=== PATIENT | male | born 1950 | race Caucasian/White ===

== ENCOUNTER → 2017-12-27 11:54 | Outpatient (CLI) | payer MEDICARE, OTHER, SELFPAY ==
--- NOTE | 2017-12-27 12:00 | RAD_ITS ---
STUDY: X-RAY - RIGHT WRIST REASON FOR EXAM: Male, 67 years old. Metacarpal pain. TECHNIQUE: 3 view(s) of the wrist were obtained. COMPARISON: None. FINDINGS: Normal visualized distal radius and ulna. Normal radiocarpal articulation. Normal distal radioulnar articulation. There are erosions visible within the scaphoid near the scapholunate trapezium articulation and the articulation with the lunate. There may be small erosions within the capitate and hamate as well. The carpal bones otherwise have a grossly normal appearance. Normal carpal articulations. Normal carpometacarpal articulation of the thumb. There are erosive and degenerative changes of the first metacarpal phalangeal joint. Normal second through fifth carpometacarpal articulations. Normal visualized metacarpal bones. There is mild soft tissue swelling. There is no demonstrated acute fracture. RAD/Wrist min 3 Views IMPRESSION: Erosive changes of the wrist and at the first metacarpophalangeal joint. Electronically Signed: Courtney Contreras MD at 8:33 EDT , Service support ,
== END ==
PROVIDERS: Family Provider Internal Medicine; PCP Internal Medicine; Visit Provider Nurse Practitioner Gerontology
DX: M25.531 Pain in right wrist (principal)
CPT/HCPCS: 73110

== ENCOUNTER → 2018-04-18 14:34 | Outpatient (CLI) | payer MEDICARE, OTHER, SELFPAY ==
--- NOTE | 2018-04-18 14:37 | ECHOD_ITS ---
Reason For Study: Abn. EKG Procedure This was a 2D Doppler, Color Flow transthoracic echocardiogram. Exam performed in department. Left Ventricle Normal LV size. The estimated ejection fraction is 45 %. Left ventricular systolic function is lower limits of normal. Septal motion consistent with IVCD. Transmitral diastolic flow velocities suggest mild (stage 1) diastolic dysfunction (reversed pattern). No regional wall motion abnormalities noted. Right Ventricle Normal RV size. Normal systolic function. Atria Normal left atrium. Normal right atrium. Mitral Valve Normal mitral valve. Trivial eccentric mitral valve insufficiency. Tricuspid Valve Normal tricuspid valve. Mild (1+) tricuspid valve insufficiency. Pulmonary artery systolic pressure is 28 mmHg. Aortic Valve Trisinus/trileaflet aortic valve. Pulmonic Valve Normal pulmonic valve. Great Vessels Normal aortic root. The pulmonary artery is normal size. Normal inferior vena cava. Pericardium/Pleural No pericardial effusion. MMode/2D Measurements & Calculations LVIDd: 4.9 cm IVSd: 0.96 cm Ao root diam: 3.2 cm LVIDs: 3.3 cm LVPWd: 1.1 cm LA dimension: 4.2 cm FS: 32.5 % LAV(MOD-bp): 42.4 ml LA A4 area: 17.5 cm2 RA A4 area: 15.8 cm2 LAV(MOD-bp) Indexed: 19.8 ml/m2 LAV(MOD-sp2): 38.8 ml LAV(MOD-sp4): 45.1 ml Doppler Measurements & Calculations MV E max jordan: 87.3 cm/sec Lat Peak E' Jordan: 8.9 cm/sec Med Peak E' Jordan: 5.4 cm/sec MV A max jordan: 105.9 cm/sec E/E' lat: 9.9 E/E' med: 16.3 MV E/A: 0.82 Ao V2 max: 164.9 cm/sec LV V1 max: 131.6 cm/sec PA V2 max: 120.2 cm/sec Ao max P.9 mmHg LV V1 max P.9 mmHg TR max jordan: 253.8 cm/sec TR max P.8 mmHg Interpretation Summary Normal LV size. The estimated ejection fraction is 45 %. Septal motion consistent with IVCD. Transmitral diastolic flow velocities suggest mild (stage 1) diastolic dysfunction (reversed pattern). Compared to prior study, there is no significant change. Ordering Physician: Twan Gaffney Referring Physician: Ivelisse Angel M.D. Performed By: Susanne Muñoz RDCS
== END ==
PROVIDERS: Family Provider Internal Medicine; PCP Internal Medicine; Visit Provider Internal Medicine Cardiovascular Disease
DX: R94.31 Abnormal electrocardiogram [ECG] [EKG] (principal); Z98.890 Other specified postprocedural states
CPT/HCPCS: 93306

== ENCOUNTER → 2018-05-28 14:20 | Outpatient (CLI) | payer MEDICARE, OTHER, SELFPAY | PROVIDERS: Family Provider Internal Medicine; PCP Internal Medicine; Visit Provider Internal Medicine | DX: Z12.2 Encounter for screening for malignant neoplasm of respiratory organs (principal); Z87.891 Personal history of nicotine dependence | CPT/HCPCS: G0297 ==

== ENCOUNTER → 2018-07-02 17:05 | Outpatient (CLI) | payer MEDICARE, OTHER, SELFPAY ==
--- NOTE | 2018-07-02 08:00 | PROSBIL_PTH ---
PATIENT: YOLY ISAACS LOC: [facility] U#:[id number] AGE/SX: 75/M ROOM: RE07/02/[address]: Dr. Vignesh Bunch MD : 1950 BED: DIS: SPEC #: [id number] RECD: 07/02/18 16:52 STATUS: DONNELL YANELY #: [id number] KINJAL: 07/02/18 08:[address]: Vignesh Bunch DEPT: SURGICAL PATHOLOGY RECD BY: Blu Wei ENTERED: 07/03/18 12:14 SP TYPE: PROST BX FLORY DR: Dr. Ivelisse Angel DO Tissues: A - PROSTATE RIGHT B - PROSTATE RIGHT C - PROSTATE RIGHT D - PROSTATE LEFT E - PROSTATE LEFT F - PROSTATE LEFT Procedures: PROSTATE BX HEADER OPERATION: Prostate biopsy PRE-OP DIAGNOSIS: Elevated PSA TISSUE SUBMITTED: A - Right apex, B - Right mid, C - Right base, D - Left apex, E - Left mid, F - Left base MICROSCOPIC DIAGNOSIS A. Right prostate, apex, core biopsy: Prostatic tissue, negative for malignancy. B. Right prostate, mid, core biopsy: Prostatic tissue, negative for malignancy. C. Right prostate, base, core biopsy: Prostatic tissue, negative for malignancy. D. Left prostate, apex, core biopsy: Prostatic tissue, negative for malignancy. Focal mild chronic inflammation. E. Left prostate, mid, core biopsy: Prostatic tissue, negative for malignancy. F. Left prostate, base, core biopsy: Prostatic tissue, negative for malignancy. SJ:adeline 07/04/18 MICROSCOPIC DESCRIPTION Slides are reviewed. GROSS DESCRIPTION A - Received is one container designated prostate, right apex. The specimen consists of three elongated fragments of light thomas-white soft tissue measuring 0.5 to 1.5 cm in length and 0.1 cm in diameter. The specimen is totally submitted in one cassette. B - Received is one container designated prostate, right mid. The specimen consists of two elongated fragments of light thomas-white soft tissue measuring 1 and 1.2 cm in length and 0.1 cm in diameter. The specimen is totally submitted in one cassette. C - Received is one container designated prostate, right base. The specimen consists of two elongated fragments of light thomas-white soft tissue each measuring 0.7 cm in length and 0.1 cm in diameter. The specimen is totally submitted in one cassette. D - Received is one container designated prostate, left apex. The specimen consists of two elongated fragments of light thomas-white soft tissue measuring 0.5 and 1.3 cm in length and 0.1 cm in diameter. The specimen is totally submitted in one cassette. E - Received is one container designated prostate, left mid. The specimen consists of two elongated fragments of light thomas-white soft tissue measuring 1.2 and 1.5 cm in length and 0.1 cm in diameter. The specimen is totally submitted in one cassette. F - Received is one container designated prostate, left base. The specimen consists of two elongated fragments of light thomas-white soft tissue measuring 0.5 and 1.2 cm in length and 0.1 cm in diameter. The specimen is totally submitted in one cassette. / SJ:rg 07/03/18 TC:3 CPT: G0146
== END ==
PROVIDERS: Family Provider Internal Medicine; PCP Internal Medicine; Visit Provider Urology
DX: R97.20 Elevated prostate specific antigen [PSA] (principal)
CPT/HCPCS: 88305; G0416

== ENCOUNTER → 2019-04-16 14:37 | Outpatient (CLI) | payer MEDICARE, OTHER, SELFPAY ==
[2019-03-27 15:02] VITALS: BMI 32.8
--- NOTE | 2019-04-16 14:39 | ECHOCS_ITS ---
Reason For Study: Abnormal EKG Procedure This was a 2D Doppler, Color Flow transthoracic echocardiogram. The study was technically difficult. Contrast injection was performed. Exam performed in department. Left Ventricle Normal LV size. Left ventricular systolic function is normal. The estimated ejection fraction is 60 %. Stage 1 diastolic dysfunction. No regional wall motion abnormalities noted. Right Ventricle Normal RV size. Normal systolic function. Atria Normal left atrium. Normal right atrium. Mitral Valve Normal mitral valve. Tricuspid Valve Normal tricuspid valve. Aortic Valve Trisinus/trileaflet aortic valve. Pulmonic Valve The pulmonic valve is not well visualized. Great Vessels Normal aortic root. The pulmonary is not well visualized. Pericardium/Pleural No pericardial effusion. Medication 22 gauge I.V. with prn adaptor inserted into right arm. Diluted definity 4ml given slow IV push to enhance endocardial definition. MMode/2D Measurements & Calculations LVIDd: 3.1 cm IVSd: 1.1 cm LVOT diam: 2.0 cm LVIDs: 2.3 cm LVPWd: 1.2 cm FS: 26.1 % LVOT area: 3.2 cm2 LA dimension: 3.5 cm LAV(MOD-sp4): 51.0 ml LA A4 area: 18.2 cm2 RA A4 area: 11.1 cm2 Time Measurements MV dec time: 0.23 sec Doppler Measurements & Calculations MV E max jordan: 63.5 cm/sec Lat Peak E' Jordan: 11.0 cm/sec Med Peak E' Jordan: 5.4 cm/sec MV A max jordan: 109.3 cm/sec E/E' lat: 5.8 E/E' med: 11.9 MV E/A: 0.58 MV V2 max: 111.0 cm/sec MV P1/2t max jordan: 82.3 cm/sec Ao V2 max: 195.5 cm/sec MV max P.9 mmHg MV P1/2t: 102.6 msec Ao max P.3 mmHg MV V2 mean: 60.2 cm/sec MV dec slope: 234.8 cm/sec2 Ao V2 mean: 122.8 cm/sec MV mean P.7 mmHg Ao mean P.1 mmHg MV V2 VTI: 27.8 cm MVA(P1/2t): 2.1 cm2 Ao V2 VTI: 35.0 cm MVA(VTI): 3.2 cm2 KAITLYN(I,D): 2.5 cm2 KAITLYN(V,D): 2.5 cm2 LV V1 max: 155.2 cm/sec SV(LVOT): 88.7 ml PA V2 max: 153.8 cm/sec LV V1 max P.6 mmHg LV V1 mean P.6 mmHg LV V1 mean: 96.2 cm/sec LV V1 VTI: 27.7 cm Interpretation Summary Normal LV size. Left ventricular systolic function is normal. The estimated ejection fraction is 60 %. Stage 1 diastolic dysfunction. Contrast injection was performed. Ordering Physician: Twan Gaffney Referring Physician: Ivelisse Angel M.D. Performed By: David Ragsdale RCS
== END ==
PROVIDERS: Family Provider Internal Medicine; PCP Internal Medicine; Referring Provider Internal Medicine Cardiovascular Disease; Visit Provider Internal Medicine Cardiovascular Disease
DX: I42.0 Dilated cardiomyopathy (principal)
CPT/HCPCS: 93306; Q9957; A4216; C8929

== ENCOUNTER 2021-07-21 17:33 | Outpatient (CLI) | payer MEDICARE, OTHER, SELFPAY ==
[2021-07-21] MEDS: 0.9% Saline Lock 10 ML Syringe IV (17:44)
[2021-07-21 17:45] VITALS: BP 120/64; PULSE 80; RESP 18; TEMP 37.1; O2SAT 92; BMI 26.2
[2021-07-21 18:36] VITALS: BP 120/57; PULSE 66; RESP 16; TEMP 37; O2SAT 93
[2021-07-21 19:36] VITALS: BP 116/56; PULSE 65; RESP 16; TEMP 37.1; O2SAT 93
== END 2021-07-21 19:37 | disposition home or self-care (01) ==
LOC: MS3OUT 17:36 → MS3 17:37
PROVIDERS: PCP Internal Medicine; Referring Provider Nurse Practitioner Adult Health; Visit Provider Nurse Practitioner Adult Health
DX: Z23 Encounter for immunization (principal); U07.1 COVID-19
CPT/HCPCS: J7050; M0243; A4216; Q0240

== ENCOUNTER 2023-11-24 08:51 | Emergency (ER) | payer MEDICARE, OTHER, SELFPAY ==
[2023-11-24 08:51] VITALS: BP 163/85; PULSE 61; RESP 16; TEMP 36.3; O2SAT 97; BMI 32.1
--- NOTE | 2023-11-24 09:22 | EDS_ITS ---
HPI History of Present Illness HPI Narrative: 73-year-old male right long finger laceration yesterday while moving a piece of wood. No other complaints. He is right-hand dominant. Believes his tetanus is up-to-date. Chief Complaint: Laceration Informant: patient Occured/Mechanism Mechanism/Context: Yes injury and Yes blunt trauma Onset/Context/Timing Onset: Yesterday Context: Sudden Onset Timing: Continuous Quality of Pain: Dull Current Severity: Mild Maximum Severity: Mild Associated Symptoms Associated Symptoms: Negative for Parasthesia, Weakness or Loss of Funtion Narrative Narrative: 73-year-old male laceration right long finger on the distal pad approximately 19 hours ago. Believes his tetanus is up-to-date in the last 5 years. Denies any other complaints. Does not believe he broke his finger. Tetanus Immunization: <5 years Prior similar symptoms: No Recent Illness/Hospitalization: No [facility] Medical History (Updated 11/24/23 @ 09:[address] Judd Griffith MD) Dilated cardiomyopathy Hyperlipidemia Left bundle branch block Obesity Obstructive sleep apnea Olecranon bursitis of left elbow Sinus bradycardia Snoring Vasovagal syncope Allergy/AdvReac Type Severity Reaction Status Date / Time No Known Allergies Allergy Verified 07/19/21 13:17 Family History Sister Myocardial infarction Surgical History H/O arthroscopic knee surgery History of colonoscopy Social History Smoking Status: Former smoker alcohol intake: current Alcohol type: beer caffeine: Yes Type: coffee Number of servings: 2 ROS ROS ED ROS Narrative Denies recent illness. Review of Systems ROS Unobtainable: Denies due to encephalopathy Constitutional Constitutional ED: Denies fever(s) Eyes Eyes: Denies blurry vision ENT ENT ED: Denies ear pain Cardiovascular Cardiovascular: Denies chest pain Respiratory/Chest Respiratory/Chest: Denies cough Gastrointestinal Gastrointestinal: Denies abdominal pain Genitourinary Genitourinary ED: Denies dysuria Musculoskeletal Musculoskeletal: Denies back pain Integumentary Denies abscess Neurologic Neurologic: Denies headache(s) Psychiatric Psychiatric: Denies anxiety Endocrine Endocrinology: Denies cold intolerance Hematologic/Lymphatic Hematologic/Lymphatic: Denies easy bleeding or easy bruising Allergic/Immunologic Allergic/Immunologic ED: Denies mouth swelling or tongue swelling EXAM Physical Exam Narrative Exam Narrative: Well-appearing 73-year-old male vital signs stable afebrile. HEENT exam normal. Lungs clear. Heart regular rhythm. Right hand long finger the distal phalanx skin that he has 1 inch long irregular laceration is linear. He has full flexio n extension. No bony deformity or tenderness. No signs of infection. No significant subungual hematoma or injury to the nail. Currently there is no redness, streaks or pus. It does not look infected. He cleaned it well and dressed it yesterday. Const Vital Signs: 11/24/23 08:51 Temperature 97.4 F L Temperature Source Temporal Pulse Rate 61 Respiratory Rate 16 Blood Pressure 163/85 H Blood Pressure Mean 111 Pulse Ox 97 Oxygen Delivery Method Room Air Positive well nourished and well developed; Negative for cachectic, contractures or unkempt General Appearance ED: well developed and NAD; Negative for unkempt, cachectic, contractures, cyanotic or diaphoretic Nutritional Appearance: Negative for cachectic HEENT Reports moist mucous membranes normocephalic and atraumatic; Negative for trauma or tenderness Eyes PERRL and EOMs intact bilaterally General Eye ED: Negative for other Neck full ROM and supple General: Negative for tenderness Lymph Lymphatic: Negative for other Chest Wall inspection of chest normal and palpation of chest normal Chest: Negative for other Resp normal respiratory effort and clear to auscultation bilaterally Effort and Inspection: Negative for pain with movement Auscultation: Negative for rales, rhonchi or wheezes Cardio regular rate, regular rhythm, S1 normal heart sound, S2 normal heart sound and no murmurs Rate: Negative for bradycardia or tachycardic Rhythm: Negative for abnormal rhythm GI non-tender, non-distended and no masses Inspection: Negative for abdominal distention Auscultation: normoactive bowel sounds Palpation: soft; Negative for tender, guarding or rebound tenderness present Back/Spine no CVA tenderness General Back: Negative for CVA tenderness Cervical Spine: Negative for cervical spine tenderness Thoracic Spine / Upper Back: Negative for thoracic spinal tenderness Lumbar Spine / Lower Back: Negative for lumbar spinal tenderness Extremity normal to inspection and full ROM Extremity Narrative: Except palmar aspect right long finger distal phalanx there is about a 1 inch irregular linear laceration. It does ooze blood. He has full flexion extension. No bony deformity. No signs of infection. No pus, redness or significant swelling. No red streaks. Neuro oriented x3, CN's II-XII intact bilaterally, moves all extremities, no focal motor deficits and no sensory deficits noted Sensorium / Orientation: alert, oriented to person, oriented to place and oriented to time; Negative for orientation impaired, lethargic or stuporous Motor Exam: strength 5/5 throughout Psych mental status grossly normal Appearance: Negative for unkempt Attitude: No agitated Mood & Affect: Negative for depressed, anxious or tearful Skin General Skin Exam: Negative for petechiae Lesions: no lesions Rashes: no rashes Trauma: laceration linear and irregular; Negative for no lacerations or abrasions MDM MDM MDM Narrative Medical decision making narrative: Wound was cleaned with soap and water. Dried. Dermabond glued and Steri- Stripped. He will be discharged home. He was instructed on wound care and any signs of infection return. Clinically does not have a fracture and the patient did not want an x-ray but was offered. History & Record Review Discussion w/independent historian: Patient Additional record(s) reviewed:: Prior inpatient record, Prior outpatient record and Prior ED visit Procedures Lacerations Right long finger laceration Dermabond repair:: Length: 1 in Depth: Sub Q Shape: Linear Discharge Plan Triage Chief Complaint: Laceration ED Provider: Judd Griffith Dx/Rx/DC Orders Clinical Impression: Finger laceration Instructions: ED Laceration, Hand: All Closures Primary Care Provider: Ivelisse Angel Referrals: Ivelisse Angel DO [Primary Care Provider] - As Needed Activity Restrictions/Additional Instructions: Redness,Watch for any signs of infection such as significant swelling, pus, streaks, fever or increasing pain. If seen return as you may need to be put on antibiotic. Keep the area clean with soap and water. You can use antibiotic ointment daily. You can take the Steri-Strips off in 1 week. Disposition Disposition: Home, Self Care
[2023-11-24 09:32] VITALS: RESP 16
== END 2023-11-24 09:34 | disposition home or self-care (01) ==
PROVIDERS: Emergency Provider Emergency Medicine; PCP Internal Medicine; Visit Provider Emergency Medicine
DX: S61.212A Laceration without foreign body of right middle finger without damage to nail, initial encounter (principal); Z87.891 Personal history of nicotine dependence; W26.8XXA Contact with other sharp object(s), not elsewhere classified, initial encounter
CPT/HCPCS: 12001; 99282

== ENCOUNTER 2025-08-30 11:10 | Emergency (ER) | payer MEDICARE, OTHER, SELFPAY ==
[2025-08-30] VITALS (25 sets, daily range): BP systolic 161–214; BP diastolic 79–114; PULSE 63–81; RESP 10–27; TEMP 36.6–36.8; O2SAT 9–100; BMI 35.1
--- NOTE | 2025-08-30 11:29 | EKG12_ITS ---
Test Reason : Blood Pressure : */* mmHG Vent. Rate : 65 BPM Atrial Rate : 65 BPM P-R Int : 172 ms QRS Dur : 164 ms QT Int : 462 ms P-R-T Axes : 50 2 179 degrees QTcB Int : 480 ms Normal sinus rhythm Left bundle branch block Abnormal ECG Confirmed by RITU REYES MD ([id number]), electronic news gathering editor ANA CRISTINA LICEA ([id number]) on 08/31/2025 9:18:08 AM Referred By: Confirmed By: RITU REYES MD
--- NOTE | 2025-08-30 11:29 | CT_ITS ---
PROCEDURE: BRAIN/HEAD WITHOUT CONTRAST 08/30/2025 REASON FOR EXAM: R ARM NUMBNESS AND TINGLING RESOLVED TECHNIQUE: Procedure Code: CTBR Modality: CT Procedure: BRAIN/HEAD WITHOUT CONTRAST Coronal and Sagittal reconstruction series were provided. One or more dose reduction techniques were used (e.g., Automated exposure control, adjustment of the mA and/or kV according to patient size, use of iterative reconstruction technique. RADIATION DOSE SUMMARY: CTDlvol: 44.99 mGy DLP: 846.73 mGycm COMPARISON: None FINDINGS: There is a isodense to brain parenchyma left-sided subdural hematoma extending from the temporal lobe to the occipital lobe with maximum thickness of a proximally 1.4 cm. However, due to the age consistent atrophic changes there is no midline shift or significant mass effect. Specifically, no evidence of suspicious pattern of edema. No skull fracture or scalp hematoma. Paranasal sinuses and globes are unremarkable CT/Brain/Head without Contrast IMPRESSION: Iso to slightly hyperdense left subdural hematoma extending from the left tempo ral lobe to the left occipital lobe with maximum thickness of about 1.4 cm. Due to the atrophic changes there is no significant mass effect, midline shift or pattern of edema. Age consistent changes elsewhere No acute hyperdense hemorrhage [place] Alert: Subacute left subdural hematoma The critical findings in the findings and impression above were relayed directl y by me by telephone to Oscar cEheverria on 08/30/2025 at 12:39 pm with readback verification. Reading Location: [id number]
--- NOTE | 2025-08-30 11:50 | EX.ED.DYSGE1 ---
HPI History of Present Illness Chief Complaint: Numb/Ting Narrative Narrative: Patient is a 75-year-old male with past medical history of of hyperlipidemia, left bundle branch block who presents to the emergency department with a chief complaint of right arm numbness and tingling [facility] [employer] that lasted approximately 5 minutes. He states that for the past week he has been feeling off and not his normal self having brain fog. He states that he is feeling under the weather with a viral illness that he had been trying [id number] medications 4. Patient states that since this episode occurred and he had been feeling off for the last week he came here to be further evaluated. [facility] Medical History (Updated 08/30/25 @ 13:[address] Oscar Echeverria DO) Obesity Olecranon bursitis of left elbow Obstructive sleep apnea Vasovagal syncope Snoring Dilated cardiomyopathy Hyperlipidemia Sinus bradycardia Left bundle branch block Home Medications ?Medication ?Instructions ?Recorded ?Last Taken ?Type NK 08/30/25 Unknown History Allergy/AdvReac Type Severity Reaction Status Date / Time No Known Allergies Allergy Verified 08/30/25 11:12 Family History Sister Myocardial infarction Surgical History H/O arthroscopic knee surgery History of colonoscopy Social History Smoking Status: Former smoker alcohol intake: current Alcohol type: beer caffeine: Yes Type: coffee Number of servings: 2 ROS ROS ED ROS Narrative Constitutional: Denies any headache, lightheadedness, dizziness Eyes: Denies double vision blurry vision Cardiovascular: Denies chest pain Respiratory: Denies shortness of breath Abdomen: Denies any abdominal pain nausea vomiting diarrhea : Denies any urinary symptoms Neurological: Complains of right arm numbness and tingling as noted above that resolved Musculoskeletal: Denies back pain Skin: Denies any rashes or lesions EXAM Physical Exam Narrative Exam Narrative: General: Patient was lying in bed rest comfortably did not appear to be in acute distress Head: Atraumatic, normocephalic Eyes: PERRL bilaterally, EOMI bilaterally, no conjunctival injection noted no vertical or horizontal nystagmus noted on exam Neck: Soft, supple, trachea midline Cardiovascular: Regular rate and rhythm Respiratory: Clear to auscultation bilaterally Abdomen: Soft, nondistended, nontender to palpation Extremities: +5/5 strength noted in the bilateral upper and lower extremities, radial pulses +2/4 in the bilateral extremities Neurological: Patient follow commands knew that he was at [facility] year is 2024 NIH of 0 GCS 15 he completed finger-nose testing bilaterally without difficulty Skin: Warm, dry, tact no rashes or lesions noted Const Vital Signs: 08/30/25 11:11 08/30/25 11:12 08/30/25 11:30 Temperature 98 F Temperature Source Temporal Pulse Rate 73 63 Respiratory Rate 14 27 H Blood Pressure 206/109 H 214/114 H 188/101 H Blood Pressure Mean 141 147 126 Pulse Ox 98 98 Oxygen Delivery Method Room Air Room Air 08/30/25 12:09 08/30/25 12:12 08/30/25 12:15 Temperature Temperature Source Pulse Rate 64 69 69 Respiratory Rate 16 13 19 H Blood Pressure 179/91 H 179/91 H Blood Pressure Mean 120 113 Pulse Ox 98 97 Oxygen Delivery Method Room Air 08/30/25 12:19 08/30/25 12:20 08/30/25 12:22 Temperature Temperature Source Pulse Rate 68 72 Respiratory Rate 22 H 24 H Blood Pressure 179/103 H Blood Pressure Mean 124 Pulse Ox 98 97 96 Oxygen Delivery Method Room Air 08/30/25 12:24 08/30/25 12:26 08/30/25 12:30 Temperature Temperature Source Pulse Rate 70 63 66 Respiratory Rate 15 10 L 27 H Blood Pressure 179/103 H 180/85 H Blood Pressure Mean 128 108 Pulse Ox 98 97 97 Oxygen Delivery Method Room Air 08/30/25 12:39 08/30/25 12:45 08/30/25 13:00 Temperature Temperature Source Pulse Rate 66 66 74 Respiratory Rate 22 H 22 H 16 Blood Pressure 161/88 H 176/90 H Blood Pressure Mean 108 116 Pulse Ox 97 97 99 Oxygen Delivery Method Room Air 08/30/25 13:15 Temperature Temperature Source Pulse Rate 71 Respiratory Rate 18 Blood Pressure 192/93 H Blood Pressure Mean 119 Pulse Ox 98 Oxygen Delivery Method Room Air MDM MDM MDM Narrative Medical decision making narrative: Patient is a 75-year-old male who presented to the emergency department with a chief complaint of feeling off for the past week and right arm numbness and tingling that lasted 5 minutes and resolved on its own. On the differential diagnose includes but limited to hypertensive emergency, TIA, ischemic stroke. Once workup is obtained and reviewed he will be reevaluated. Patient CBC reviewed and showed a white blood count is normal at 9.1, hemoglobin 14.7, platelet count was noted to be normal at 198. Patient INR normal at 1, PT of 13.2. Patient sodium was 130, potassium normal at 4.1, creatinine 0.98. Patient troponin normal 11 EKG showed sinus rhythm with a rate of 65 bpm with a WA interval 172 with evidence of left bundle branch block. No Sgarbossa criteria were met. Patient chest x-ray reviewed by myself and by radiology showed no acute cardiopulmonary processes per radiology chronic interstitial changes were noted. Patient CT head brain without contrast showed iso to slightly hyperdense left subdural hematoma extending to the left temporal lobe to the left occipital lobe with maximum thickness of 1.4 cm due to atrophic changes and there is no significant mass effect midline shift or pattern of edema. Patient was noted be hypertensive he was given a total of 20 mg of IV hydralazine here in the emergency department. Given his symptoms started about a week ago I reached out to neurosurgeon at [facility] Dr. Singh and discussed with him in regards to potentially keeping him here at [facility] he states that given that this is over 1 cm it is questionable if he will require surgery or not and would recommend transfer for stability scan and reevaluation. He is also recommending Keppra which was ordered. He will be given a gram of Keppra. He is also recommending a systolic blood pressure goal of less than 160 he states that he did not need to drop the blood pressure down to less than 140. Patient does have preference to go to [facility] As opposed to [place] therefore we will reach out to clinic clinic [facility] For transfer. Spoke with ER physician Dr. Silva who accept patient for transfer. Patient notified is agreeable this plan all question concerns answered. Lab Data Labs: Laboratory Results - last 24 hr 08/30/25 12:20 WBC 9.1 RBC 5.04 Hgb 14.7 Hct 45.1 MCV 89.5 MCH 29.2 MCHC 32.6 RDW Std Deviation 43.4 RDW Coeff of Claudia 13.2 Plt Count 198 MPV 10.8 Immature Gran % (Auto) 0.400 Neut % (Auto) 61.1 Lymph % (Auto) 25.4 [place] % (Auto) 9.4 Eos % (Auto) 3.2 Baso % (Auto) 0.5 Absolute Neuts (auto) 5.6 Absolute Lymphs (auto) 2.32 Nucleated RBC % 0 PT 13.2 INR 1.0 APTT 31.6 Sodium 138 Potassium 4.5 Chloride 103 Carbon Dioxide 25.1 Anion Gap 10 BUN 22 H Creatinine 0.98 Estim Creat Clear Calc 76.42 Est GFR (MDRD) Non-Af 80 BUN/Creatinine Ratio 22.7 H Glucose 88 Calcium 9.6 Troponin T High Sens 11 Radiography Diagnostic Testing: Clinical Impression(s) from Imaging Studies Brain CT 08/30/25 11:29 IMPRESSION: Iso to slightly hyperdense left subdural hematoma extending from the left temporal lobe to the left occipital lobe with maximum thickness of about 1.4 cm. Due to the atrophic changes there is no significant mass effect, midline shift or pattern of edema. Age consistent changes elsewhere No acute hyperdense hemorrhage Brilliant Alert: Subacute left subdural hematoma The critical findings in the findings and impression above were relayed directly by me by telephone to Oscar Echeverria on 08/30/2025 at 12:39 pm with readback verification. Reading Location: [facility] Chest X-Ray 08/30/25 12:05 IMPRESSION: Chronic interstitial changes, no superimposed acute pulmonary process Red Alert: Diffuse cerebral edema likely from anoxia The critical findings in the findings and impression above were relayed directly by me by telephone to Oscar Echeverria on 08/30/2025 at 12:47 pm with readback verification. Reading Location: [facility] Discharge Plan Triage Chief Complaint: Numb/Ting ED Provider: Oscar Echeverria Dx/Rx/DC Orders Clinical Impression: Left bundle branch block, Numbness and tingling of right arm, Non-traumatic subacute subdural hematoma Prescriptions: No Action NK Primary Care Provider: Ivelisse Angel Referrals: Ivelisse Angel DO [Primary Care Provider, Internal Medicine] Print Language: French Disposition Disposition: DC/Tx to Another Type of HCF
--- OUTSIDE RECORDS SUMMARY | 2025-08-30 11:54 | XMS RPT_ITS | CCD ---
Author Organization [facility] ion [facility] Care Team Providers Care Salon Stylist Name Role Phone CORNELIUS FAYE JR Unavailable Unavailable CORNELIUS FAYE Attending Unavailable CORNELIUS FAYE Referring Unavailable ASCENCION MASTERSON Primary Care Unavailable Ivelisse Masterson Attending Unavailable Ivelisse Masterson Referring Unavailable Ivelisse Masterson Consulting Unavailable Arielle Black Unavailable Arielle Black Unavailable Ivelisse Masterson Unavailable Padilla Gomez Unavailable Warner Cruz Unavailable Gravdeonna, Kyung Unavailable Unavailable Terra Cooney Unavailable Unavailable SUSAN Bush Unavailable Unavailable Shakira Rey Unavailable Unavailable Unavailable Sarah Ugarte Unavailable Unavailable Terra Cooney Unavailable Unavailable Gravius, Kyung Unavailable Unavailable Ivelisse Masterson DO Unavailable Padilla Gomez MD Unavailable Warner Cruz Unavailable Gravius BIBIANA, Kyung Unavailable Unavailable Messenger Terra FAUST Unavailable Unavailable Ciesa MANISHA Milly Unavailable Unavailable Unavailable Shakira Rey Unavailable Judd Griffith Attending Unavailable Ivelisse Masterson Primary Care Unavailable Medications Completed/Discontinued Medications Medication Drug Class(es) Dates Sig (Normalized) Sig (Original) [id number] 200 actuat albuterol 0.09 mg/actuat metered dose inhaler (7 sources) beta2-Adrenergic Agonist Start: 10-13-2015 End: 01-12-2016 take 2 puff(s) by inhalation three times daily PROAIR HFA, 108 (90 Base)MCG/ACT (Inhalation Aerosol Solution) 2 (two) Puff Puff tid for 0 days Quantity: 1 {Inhaler} Refills: 0 Ordered: 12-Jan-2016 Beatris Oconnor CMA Start : 13-Oct-2015 End : 12-Jan-2016 Inactive Start: 10-13-2015 End: 01-12-2016 take 2 puff(s) by inhalation three times daily PROAIR HFA, 108 (90 Base)MCG/ACT (Inhalation Aerosol Solution) 2 (two) Puff Puff tid for 0 days Quantity: 1 {Inhaler} Refills: 0 Ordered: 12-Jan-2016 Beatris Oconnor CMA Start : 13-Oct-2015 End : 12-Jan-2016 Inactive aspirin 81 mg chewable tablet (19 sources) Platelet Aggregation Inhibitor, Nonsteroidal Anti-inflammatory Drug Start: 10-09-2016 End: 03-27-2019 take 81 mg by mouth once daily Aspirin Discontinued 81 MG PO DAILY October 09, 2016 12:00am March 27, 2019 2:05pm Start: 02-02-2016 End: 10-12-2016 take 1 tablet by mouth once daily Aspirin 325 MG Oral Tablet 1 (one) Tablet daily for 0 days Quantity: 30 {Tablet} Refills: 0 Ordered: 12-Oct-2016 Ivelisse Masterson DO, DO, Kathleen Start : 12-Oct-2016 End : 12-Oct-2016 Discontinued Start: 02-02-2016 End: 02-12-2019 take 1 tablet by mouth once daily Aspir-81 81 MG Oral Tablet Delayed Release 1 (one) Tablet DR Tablet DR qd for 0 days Quantity: 30 {Tablet} Refills: 0 Ordered: 12-Feb-2019 SUSAN Bush LPN Start : 12-Oct-2016 End : 12-Feb-2019 Inactive azithromycin 250 mg oral tablet (7 sources) Macrolide Antimicrobial Start: 12-23-2013 End: 02-09-2014 ZITHROMAX Z-KEISHA, 250MG (Oral Tablet) 1 (one) Tablet TAD for 0 days Quantity: 1 {Package} Refills: 0 Ordered: 09-Feb-2014 Terra Cooney RN Start : 23-Dec-2013 End : 09-Feb-2014 Inactive benzonatate 100 mg oral capsule (7 sources) Non-narcotic Antitussive Start: 12-23-2013 End: 02-09-2014 take 1 capsule by mouth three times daily TESSALON PERLES, 100MG (Oral Capsule) 1 (one) Capsule tid for 0 days Quantity: 30 {Capsule} Refills: 0 Ordered: 09-Feb-2014 Terra Cooney RN Start : 23-Dec-2013 End : 09-Feb-2014 Inactive celecoxib 200 mg oral capsule (7 sources) Nonsteroidal Anti-inflammatory Drug Start: 01-19-2014 End: 01-19-2014 take 1 capsule by mouth twice daily as needed CELEBREX, 200MG (Oral Capsule) 1 Capsule bid prn for 0 days Quantity: 60 {Capsule} Refills: 1 Ordered: 19-Jan-2014 Ivelisse Masterson DO, DO, Kathleen Start : 19-Jan-2014 End : 19-Jan-2014 Discontinued Comments: [age]-- shoulder got better Comment on above: [age]-- shoulder got better chondroitin sulfates 200 mg / glucosamine hydrochloride 250 mg oral tablet (7 sources) Start: 01-23-2013 End: 02-23-2014 take 2 tablets by mouth once daily OSTEO BI-FLEX REGULAR STRENGTH, 250-200MG (Oral Tablet) 2 (two) tablet(s) qd for 30 days Refills: 0 Ordered: 23-Feb-2014 Terra Cooney RN Start : 23-Jan-2013 End : 23-Feb-2014 Inactive clonazePAM 1 mg oral tablet (10 sources) Benzodiazepine Start: 03-27-2018 End: 03-27-2019 take 1 tablet by mouth once daily at bedtime Clonazepam Discontinued 0 PO AT BEDTIME March 26, 2018 11:00pm March 27, 2019 2:05pm 1 MG, 2 Tablets PO QHS Start: 12-27-2017 End: 02-12-2019 take 1 tablet by mouth once daily KlonoPIN 2 MG Oral Tablet 1 (one) Tablet qd for 30 days Quantity: 30 {Tablet} Refills: 4 Ordered: 12-Feb-2019 SUSAN Bush LPN Start : 27-Dec-2017 End : 12-Feb-2019 Inactive Start: 03-27-2017 take 2 tablets by [facility] once daily at bedtime CLONAZEPAM 1 MG TABS Two tablets by mouth daily at bedtime CLONAZEPAM [id number] Twan Gaffney MD famotidine 20 mg oral tablet (8 sources) Histamine-2 Receptor Antagonist Start: 10-09-2016 End: 03-28-2018 take 1 tablet by mouth twice daily Pepcid 20 MG Oral Tablet 1 (one) Tablet Tablet bid for 0 days Quantity: 60 {Tablet} Refills: 0 Ordered: 16-May-2017 Terra Cooney RN Start : 12-Oct-2016 End : 16-May-2017 Inactive fluticasone propionate 0.05 mg/actuat metered dose nasal spray (7 sources) Corticosteroid Start: 11-19-2015 End: 01-12-2016 FLUTICASONE PROPIONATE, 50MCG/ACT (Nasal Suspension) uad Suspension Suspension 1-2 sprays each nostril qd prn for 0 days Quantity: 1 {Box} Refills: 3 Ordered: 12-Jan-2016 Beatris Oconnor CMA Start : 19-Nov-2015 End : 12-Jan-2016 Inactive 14 actuat fluticasone furoate 0.1 mg/actuat / vilanterol 0.025 mg/actuat dry powder inhaler (7 sources) Corticosteroid, beta2-Adrenergic Agonist Start: 06-14-2018 End: 06-14-2018 Breo Ellipta 100-25 MCG/INH Inhalation Aerosol Powder Breath Activated 1 (one) Aero Pow Br Act qd for 0 days Quantity: 1 {Inhaler} Refills: 0 Ordered: 14-Jun-2018 Ivelisse Masterson DO, DO, Kathleen Start : 14-Jun-2018 End : 14-Jun-2018 Discontinued Comments: didnt like the way it made him feel Start: 06-14-2018 End: 06-14-2018 Breo Ellipta 100-25 MCG/INH Inhalation Aerosol Powder Breath Activated 1 (one) Aero Pow Br Act qd for 0 days Quantity: 1 {Inhaler} Refills: 0 Ordered: 14-Jun-2018 Ivelisse Masterson DO, DO, Kathleen Start : 14-Jun-2018 End : 14-Jun-2018 Discontinued Comments: didnt like the way it made him feel Comment on above: didnt like the way i t made him feel gabapentin 400 mg oral capsule (12 sources) Anti-epileptic Agent Start: 10-09-2016 End: 03-28-2018 Gabapentin 400 MG Oral Capsule 1 (one) Capsule Capsule tid, 1 in evenning and 2 at night before bed for 90 days Quantity: 270 {Capsule} Refills: 3 Ordered: 16-May-2017 Terra Cooney RN Start : 05-Jan-2017 End : 16-May-2017 Inactive Start: 09-26-2016 take 1 tablet by nevin once daily at bedtime GABAPENTIN 400 MG CAPS 1 tablet by mouth daily at bedtime GABAPENTIN [id number] Twan Gaffney MD Start: 09-26-2016 take 3 tablets by mo [facility] once daily at bedtime GABAPENTIN 400 MG CAPS Three tablets by mouth daily at bedtime GABAPENTIN [id number] Twan Gaffney MD ibuprofen 200 mg oral capsule (7 sources) Nonsteroidal Anti-inflammatory Drug Start: 10-12-2016 End: 10-12-2016 Ibuprofen 200 MG Oral Capsule 1 (one) Capsule Capsule as needed for 0 days Quantity: 30 {Capsule} Refills: 0 Ordered: 12-Oct-2016 Ivelisse Mastersno DO, DO, Kathleen Start : 12-Oct-2016 End : 12-Oct-2016 Inactive Comments: Medication taken as needed. Comment on above: Medication taken as needed. levoFLOXacin 750 mg oral tablet (7 sources) Quinolone Antimicrobial Start: 10-13-2015 End: 10-18-2015 take 1 tablet by mouth once daily LEVAQUIN, 750MG (Oral Tablet) 1 (one) Tablet daily for 5 days Quantity: 5 {Tablet} Refills: 0 Ordered: 13-Oct-2015 Shakira Rey Start : 13-Oct-2015 End : 18-Oct-2015 Inactive lisinopril 5 mg oral tablet (19 sources) Angiotensin Converting Enzyme Inhibitor Start: 06-02-2016 End: 07-20-2021 take 5 mg by mouth once daily Lisinopril Discontinued 5 MG PO DAILY November 18, 2018 9:51am July 19, 2021 12:17pm mometasone furoate 0.05 mg/actuat metered dose nasal spray (7 sources) Corticosteroid Start: 11-19-2015 End: 11-19-2015 NASONEX, 50MCG/ACT (Nasal Suspension) 2 (two) Suspension each nostril with oppositie hand once daily for 0 days Quantity: 1 {Container} Refills: 0 Ordered: 19-Nov-2015 Margie Qureshi MD Start : 19-Nov-2015 End : 19-Nov-2015 Inactive MULTIVITAMINS (Oral Capsule) (7 sources) Start: 01-23-2013 End: 10-13-2015 take 1 capsule by mouth once daily MULTIVITAMINS (Oral Capsule) 1 Capsule qd for 30 days Refills: 0 Ordered: 13-Oct-2015 Malaika INIGUEZ Consuelo Start : 23-Jan-2013 End : 13-Oct-2015 Discontinued ondansetron 4 mg disintegrating oral tablet (1 source) Serotonin-3 Receptor Antagonist Start: 10-09-2016 End: 03-28-2018 take 4 mg by mouth every six hours as needed Ondansetron Discontinued 4 MG PO EVERY 6 HOURS NEEDED October 09, 2016 9:29am March 28, 2018 12:17pm predniSONE 20 mg oral tablet (7 sources) Start: 11-18-2015 End: 12-06-2015 take 1 tablet by mouth once daily PREDNISONE, 20MG (Oral Tablet) 1 (one) Tablet qd for 0 days Quantity: 4 {Tablet} Refills: 0 Ordered: 06-Dec-2015 Terra Cooney RN Start : 18-Nov-2015 End : 06-Dec-2015 Inactive rOPINIRole 1 mg oral tablet (12 sources) Nonergot Dopamine Agonist Start: 10-09-2016 End: 03-28-2018 take 2 mg by mouth at bedtime Ropinirole Discontinued 2 MG PO AT BEDTIME October 09, 2016 12:00am March 28, 2018 12:10pm Start: 09-26-2016 End: 05-16-2017 take 2 tablets by mouth once daily at bedtime Requip 1 MG Oral Tablet 2 (two) Tablet qhs for 0 days Quantity: 60 {Tablet} Refills: 1 Ordered: 16-May-2017 Terra Cooney RN Start : 11-Oct-2016 End : 16-May-2017 Inactive 24 hr rotigotine 0.0833 mg/h r transdermal system (8 sources) Start: 03-28-2018 End: 03-27-2019 Rotigotine (Neupro) 2 mg/24 hour patch 24 hour Discontinued 2 MG TD Q24H March 27, 2018 11:00pm March 27, 2019 2:05pm Neupro 1 MG/24HR Transdermal Patch 24 Hour uad (1 MG/24HR) Inactive Comments: Dr. Faye Comment on above: Dr. Faye 7 actuat umeclidinium 0.0625 mg/actuat / vilanterol 0.025 mg/actuat dry powder inhaler (7 sources) Anticholinergic, beta2-Adrenergic Agonist Start: 12-06-2015 End: 12-06-2015 ANORO ELLIPTA, 62.5-25MCG/INH (Inhalation Aerosol Powder Breath Activated) 1 (one) Aero Pow Br Act qd for 0 days Quantity: 1 {Container} Refills: 0 Ordered: 06-Dec-2015 Ivelisse Masterson DO, DO, Kathleen Start : 06-Dec-2015 End : 06-Dec-2015 Discontinued Start: 12-06-2015 End: 12-06-2015 ANORO ELLIPTA, 62.5-25MCG/IN H (Inhalation Aerosol Powder Breath Activated) 1 (one) Aero Pow Br Act qd for 0 days Quantity: 1 {Container} Refills: 0 Ordered: 06-Dec-2015 Ivelisse Masterson DO, DO, Kathleen Start : 06-Dec-2015 End : 06-Dec-2015 Discontinued Chantix Starting Month Keisha 0.5 MG X 11 & 1 MG X 42 Oral Tablet (14 sources) Partial Cholinergic Nicotinic Agonist Start: 05-28-2018 End: 02-12-2019 Chantix Starting Month Keisha 0.5 MG X 11 & 1 MG X 42 Oral Tablet 1 (one) Tablet 1 qd x 3 days, then bid x4 days for 0 days Quantity: 1 {Package} Refills: 0 Ordered: 12-Feb-2019 SUSAN Bush LPN Start : 28-May-2018 End : 12-Feb-2019 Inactive Comments: give with food start drug 1 wk before quit date. If quit date planned stop smoking 8-35 days after starting drug Start: 05-28-2018 End: 02-12-2019 Chantix Starting Month Keisha 0 .5 MG X 11 & 1 MG X 42 Oral Tablet 1 (one) Tablet 1 qd x 3 days, then bid x4 days for 0 days Quantity: 1 {Package} Refills: 0 Ordered: 12-Feb-2019 SUSAN Bush Start : 28-May-2018 End : 12-Feb-2019 Inactive Comments: give with food start drug 1 wk before quit date. If quit date planned stop smoking 8-35 days after starting drug Start: 02-05-2017 End: 05-16-2017 take 1 tablet by mouth once Chantix Continuing Month P ak 1 MG Oral Tablet 1 (one) Tablet Tablet tad for 0 days Quantity: 3 {Packet} Refills: 1 Ordered: 16-May-2017 Terra Cooney RN Start : 05-Feb-2017 End : 16-May-2017 Inactive Comment on above: give with food start drug 1 wk before quit date. If quit date planned stop smoking 8-35 days after starting drug NEGATED: Highlighted row has not occurred!drug or medication (5 sources) No Known Histori ara Medications NEGATED: Highlighted row has not occurred!No Known Historical Medications (1 source) No Known Histori ara Medications Problems Active Problems Problem Classification Problem Date Documented Date Episodic/Chronic Abdominal pain (8 sources) Acute abdominal pain; Translations: [Abdominal pain, acute] Resolved: 7 08-08-2017 Episodic Administrative/socia l admission (18 sources) Counseling procedure with explicit context; Translations: [Dietary surveillance and counseling] Resolved: 7 02-12-2019 Episodic Cardiac dysrhythmias (2 sources) Sinus bradycardia; Translations: [Bradycardia, unspecified] Onset: 6 01-27-2016 Chronic Cardiac dysrhythmias (1 source) Sinus bradycardia; Translations: [Bradycardia, unspecified] 03-27-2018 Episodic Chronic obstructive pulmonary disease and bronchiectasis (20 sources) Chronic obstructive lung disease; Translations: [Other emphysema] Onset: 6 01-27-2016 Chronic Comment on above: sibila alpha antitrypsin Chronic obstructive pulmonary disease and bronchiectasis (9 sources) Bronchitis, not specified as acute or chronic; Translations: [BRONCHITIS, NOT SPECIFIED ACUTE OR CHRONIC (490.)] Resolved: 6 01-21-2016 Episodic Chronic obstructive pulmonary disease and bronchiectasis (20 sources) Chronic obstructive pulmonary disease and bronchiectasis Coma; stupor; and brain damage (11 sources) Daytime somnolence; Translations: [Daytime somnolence] Onset: 6 06-02-2016 Episodic Conditions associated with dizziness or vertigo (13 sources) Lightheadedness; Translations: [Benign paroxysmal positional vertigo] 12-16-2020 Episodic Comment on above: multifactorial- lil venous insuffic, dehydration, adn lil vertigo doesnt want rx with side effects Conduction disorders (20 sources) Left bundle branch block; Translations: [Left bundle-branch block] Onset: 6 09-26-2016 Chronic Comment on above: asx Diabetes mellitus without complication (20 sources) Abnormal glucose tolerance test; Translations: [Hyperglycemia] 02-12-2019 Episodic Disorders of lipid metabolism (11 sources) Hyperlipidemia; Translations: [Hypercholesterolemia] Onset: 6 01-27-2016 Chronic Comment on above: pt refused statin - wants to do diet and exercise and wt loss Fever of unknown origin (1 source) Fever; Translations: [Fever, unspecified] 07-19-2021 Episodic Fluid and electrolyte disorders (10 sources) Dehydration; Translations: [Dehydration] 09-29-2020 Episodic Hyperplasia of prostate (8 sources) Large prostate ; Translations: [Enlarged prostate] 02-12-2019 Chronic Comment on above: Marked enlargement f rom CT of abdomen 8-20 Immunizations and screening for infectious disease (1 source) Contact with and (suspected) exposure to other viral communicable diseases; Translations: [Contact with or suspected exposure to other viral communicable disease] 07-19-2021 Episodic Open wounds of extremities (2 sources) Laceration of finger; Translations: [Laceration without foreign body of unspecified finger without damage to nail, initial encounter] Onset: 4 11-24-2023 Episodic Osteoarthritis (17 sources) Unspecified osteoarthritis, unspecified site; Translations: [Osteoarthritis] 02-12-2019 Chronic Other aftercare (8 sources) Encounter for removal of sutures; Translations: [Dressing change/suture removal] Resolved: 6 01-21-2016 Episodic Comment on above: removed per LEGAL ANALYST left pinky Other and unspecified benign neoplasm (14 sources) Hemangioma; Translations: [Hemangioma (Renamed from Angioma)] 02-12-2019 Episodic Other and unspecified benign neoplasm (8 sources) Adenomatous polyp of colon ; Translations: [Adenomatous polyp of colon, unspecified part of colon] 02-12-2019 Episodic Other circulatory disease (6 sources) Vascular insufficiency; Translations: [Venous insufficiency] 09-29-2020 Episodic Comment on above: compression stocking s Other connective tissue disease (4 sources) Pain in right thigh; Translations: [Pain of right thigh] Resolved: 8 10-18-2017 Episodic Comment on above: Thigh and hip painin itial injury from log Other connective tissue disease (1 source) Bursitis of olecranon of left elbow; Translations: [Olecranon bursitis, left elbow] 03-20-2020 Episodic Other hereditary and degenerative nervous system conditions (3 sources) Restless legs; Translations: [RLS (restless legs syndrome)] Chronic Other injuries and conditions due to external causes (4 sources) Unspecified injury of right wrist, hand and finger(s), initial encounter; Translations: [Injury of right wrist] Resolved: 9 02-12-2019 Episodic Other lower respiratory disease (20 sources) Cough; Translations: [Cough] Resolved: 6 01-21-2016 Episodic Other lower respiratory disease (9 sources) Abnormal breathing; Translations: [Abnormal respiratory function] Resolved: 6 01-21-2016 Episodic Other male genital disorders (3 sources) Pain of right testicle; Translations: [Testicular pain, right] Resolved: 6 08-08-2017 Episodic Other non-epithelial cancer of skin (8 sources) History of malignant basal cell neoplasm of skin; Translations: [History of basal cell cancer] 02-12-2019 Episodic Comment on above: needs full body scan Other non-traumatic joint disorders (19 sources) Knee pain; Translations: [Pain in unspecified knee] 02-12-2019 Episodic Other non-traumatic joint disorders (8 sources) Pain in wrist; Translations: [Wrist pain, acute, right] Resolved: 9 02-12-2019 Episodic Other non-traumatic joint disorders (14 sources) Shoulder pain; Translations: [Shoulder Pain] Resolved: 6 01-21-2016 Episodic Other non-traumatic joint disorders (9 sources) Joint pain; Translations: [Pain in unspecified joint] Resolved: 6 01-21-2016 Episodic Other non-traumatic joint disorders (2 sources) Pain in unspecified knee; Translations: [Knee Pain] 07-20-2021 Episodic Other nutritional; endocrine; and metabolic disorders (2 sources) Body mass index (BMI) 30.0-30.9, adult; Translations: [Body mass index (BMI) 30.0-30.9, adult] Onset: 6 02-02-2016 Chronic Other nutritional; endocrine; and metabolic disorders (20 sources) Body mass index 30+ - obesity; Translations: [BMI 30.0-30.9,adult] Resolved: 9 02-12-2019 Chronic Other nutritional; endocrine; and metabolic disorders (11 sources) Weight gain; Translations: [Weight gain] 02-12-2019 Episodic Comment on above: from quiting smoking Other nutritional; endocrine; and metabolic disorders (6 sources) Overweight in adulthood with body mass index of 25 or more but less than 30; Translations: [BMI 29.0-29.9,adult] Resolved: 9 09-29-2020 Episodic Other screening for suspected conditions (not mental disorders or infectious disease) (3 sources) CT of chest abnormal; Translations: [Abnormal screening CT of chest] 07-20-2021 Chronic Other screening for suspected conditions (not mental disorders or infectious disease) (20 sources) Electrocardiogram abnormal; Translations: [Imaging of thorax abnormal] Resolved: 7 08-08-2017 Episodic Comment on above: psa free % is temo gasca 2015- e to repeat in 7yrs Other skin disorders (8 sources) Eruption; Translations: [Rash] Resolved: 6 01-21-2016 Episodic Comment on above: sun related is only thing i can suspect > Other upper respiratory disease (8 sources) Bronchospasm; Translations: [Cough due to bronchospasm] Resolved: 6 01-21-2016 Episodic Alexandra-; endo-; and myocarditis; cardiomyopathy (except that caused by tuberculosis or sexually transmitted disease) (20 sources) Dilated cardiomyopathy; Translations: [Cardiomyopathy] Onset: 6 01-27-2016 Chronic Residual codes; unclassified (2 sources) Obstructive sleep apnea (adult)(pediatric) Onset: 9 Chronic Residual codes; unclassified (2 sources) Obstructive sleep apnea of adult; Translations: [Obstructive sleep apnea (adult) (pediatric)] Onset: 6 06-21-2016 Chronic Residual codes; unclassified (10 sources) Periodic limb movement disorder; Translations: [Periodic limb movement] 02-12-2019 Chronic Comment on above: quit klonopin-- actu ally feels better w/o it Residual codes; unclassified (20 sources) Obstructive sleep apnea syndrome; Translations: [KYRA on CPAP] Resolved: 7 11-13-2016 Chronic Comment on above: 01/10 settings Residual codes; unclassified (20 sources) Family history of diabetes mellitus; Translations: [Family history of diabetes mellitus] Episodic Residual codes; unclassified (9 sources) Sleep disorder, unspecified; Translations: [Restless sleep] 02-12-2019 Episodic Residual codes; unclassified (9 sources) Influenza-like symptoms; Translations: [Flu-like symptoms] Resolved: 6 01-21-2016 Episodic Residual codes; unclassified (7 sources) FH: Diabetes mellitus; Translations: [FAMILY HISTORY OF DIABETES MELLITUS] 02-12-2019 Episodic Residual codes; unclassified (10 sources) Contact with and (suspected) exposure to other hazardous substances; Translations: [Exposure to dust] 02-12-2019 Episodic Residual codes; unclassified (11 sources) Non-smoker; Translations: [Non-smoker] 07-20-2021 Episodic Comment on above: currently-- quit 01/13 04/01 Residual codes; unclassified (16 sources) Tobacco user; Translations: [Tobacco abuse] Resolved: 9 09-29-2020 Episodic Comment on above: 50 yr pack h/o- quit 01/30 Screening and history of mental health and substance abuse codes (4 sources) Stopped smoking; Translations: [Stopped smoking] Resolved: 7 08-08-2017 Episodic Comment on above: concerns re wt gain Sprains and strains (8 sources) Strain of tendon of medial thigh muscle; Translations: [Groin strain] Resolved: 6 08-08-2017 Episodic Comment on above: 06-03-16 during golf outing, using antiinflammatories Substance-related disorders (10 sources) Nicotine dependence; Translations: [Continuous nicotine dependence] Resolved: 8 05-23-2018 Chronic Unclassified (2 sources) Obstructive sleep apnea (adult) (pediatric); Translations: [Periodic limb movement disorder] Onset: 04-01-201 8 Chronic Unclassified (16 sources) Nutritional counseling; Translations: [Patient encounter status] 09-29-2020 Unclassified (20 sources) Tobacco abuse Unclassified (18 sources) Gain of weight (783.1) Unclassified (18 sources) Osteoarthritis, Unspecified Whether Generalized or Localized, Involving other Specified Sites (715.98) Unclassified (20 sources) BMI 31.0-31.9,adult Unclassified (20 sources) Unclassified (20 sources) Non-smoker; Translations: [Non-smoker] 02-12-2019 Comment on above: currently-- quit 01/13 04/01 Unclassified (12 sources) Flu-like symptoms Unclassified (18 sources) Exposure to dust Unclassified (6 sources) Abnormal EKG Unclassified (12 sources) BMI 32.0-32.9,adult Unclassified (20 sources) KYRA on CPAP Unclassified (18 sources) Periodic limb movement Unclassified (6 sources) Hypercholesteremia (Renamed from Hypercholesterolemia) Unclassified (6 sources) BMI 33.0-33.9,adult Unclassified (6 sources) Weight gain Unclassified (20 sources) BMI 30.0-30.9,adult Unclassified (6 sources) Elevated PSA Unclassified (20 sources) BMI 29.0-29.9,adult Unclassified (2 sources) BRONCHITIS, NOT SPECIFIED ACUTE OR CHRONIC (490.) Unclassified (1 source) Age AND/OR growth finding; Translations: [65 years of age or older] 07-21-2021 Viral infection (5 sources) Severe acute respiratory syndrome; Translations: [SARS (severe acute respiratory syndrome)] 07-20-2021 Episodic Past or Other Problems Problem Classification Problem Date Documented Date Episodic/Chronic Conditions associated with dizziness or vertigo (9 sources) Conditions associated with dizziness or vertigo Coronary atherosclerosis and other heart disease (20 sources) Coronary atherosclerosis and other heart disease Other connective tissue disease (4 sources) Pain of right thigh; Translations: [Right thigh pain] Resolved: 10-18-2017 09-29-2020 Comment on above: Thigh and hip painin itial injury from log Other lower respiratory disease (2 sources) Snoring; Translations: [Snoring] Onset: 06-02-2016 06-02-2016 Episodic Other male genital disorders (1 source) Pain in testicle; Translations: [Testicular pain, right] Resolved: 09-11-2016 08-08-2017 Episodic Other male genital disorders (4 sources) Right testicular pain; Translations: [Testicular pain, right] Resolved: 09-11-2016 08-08-2017 Other nutritional; endocrine; and metabolic disorders (8 sources) Body mass index 25-29 - overweight; Translations: [BMI 29.0-29.9,adult] Resolved: 02-12-2019 08-08-2017 Chronic Other nutritional; endocrine; and metabolic disorders (2 sources) Body mass index 25-29 - overweight; Translations: [BMI 29.0-29.9,adult] Resolved: 02-12-2019 09-29-2020 Episodic Residual codes; unclassified (5 sources) Tobacco user; Translations: [Tobacco abuse] Resolved: 02-12-2019 02-12-2019 Chronic Comment on above: 50 yr pack h/o- quit 01/30 Residual codes; unclassified (2 sources) Increased body mass index; Translations: [BMI 29.0-29.9,adult] Resolved: 02-12-2019 08-08-2017 Episodic Respiratory failure; insufficiency; arrest (adult) (1 source) Respiratory failure; insufficiency; arrest (adult) Substance-related disorders (15 sources) Stopped smoking; Translations: [Stopped smoking] Resolved: 01-10-2017 08-08-2017 Comment on above: concerns re wt gain Syncope (2 sources) Vasovagal syncope; Translations: [Syncope and collapse] Onset: 02-02-2016 02-02-2016 Episodic Unclassified (18 sources) RLS (restless legs syndrome) Unclassified (15 sources) Patient encounter status; Translations: [Adult general medical exam] 02-14-2018 Comment on above: colonoscopy 2015- e to repeat in 7yrs Unclassified (6 sources) Weight loss counseling, encounter for (V65.3) Unclassified (7 sources) ARTHRALGIAS 719.40 Unclassified (6 sources) Dressing change/suture removal (V58.32) Unclassified (6 sources) Cough due to bronchospasm Unclassified (6 sources) History of basal cell cancer Unclassified (6 sources) Rash Unclassified (6 sources) SCREENING FOR CANCER OF THE PROSTATE (V76.44) Unclassified (12 sources) Annual physical exam Unclassified (10 sources) Screening status; Translations: [SCREENING FOR HYPERLIPIDEMIA] 02-12-2019 Unclassified (20 sources) Unspecified Diagnosis 02-12-2019 Unclassified (12 sources) Abnormal respiratory function Unclassified (18 sources) Encounter for screening fecal occult blood testing Unclassified (6 sources) Abnormal radionuclide heart study Unclassified (12 sources) Restless sleeper Unclassified (6 sources) Testicular pain, right Unclassified (6 sources) Groin strain Unclassified (6 sources) Enlarged prostate Unclassified (6 sources) Adult general medical exam (V70.9) Unclassified (12 sources) KYRA treated with BiPAP Unclassified (6 sources) Daytime somnolence Unclassified (10 sources) Abnormal screening CT of chest; Translations: [Abnormal findings on diagnostic imaging of other specified body structures] 09-29-2020 Unclassified (6 sources) Annual Medicare Phyiscal WITHOUT abnormal findings (Renamed from Encounter for general adult medical examination without abnormal findings) Unclassified (12 sources) Screening for prostate cancer Unclassified (6 sources) Wrist pain, acute, right Unclassified (10 sources) Injury of right wrist, initial encounter; Translations: [Injury of right wrist] Resolved: 02-12-2019 09-29-2020 Unclassified (6 sources) Right thigh pain Unclassified (6 sources) Abdominal pain, acute Unclassified (6 sources) Adenomatous polyp of colon, unspecified part of colon Unclassified (6 sources) Continuous nicotine dependence Unclassified (5 sources) Lightheaded Unclassified (3 sources) Venous insufficiency Unclassified (1 source) BPV (benign positional vertigo) Results Test Name Value Interpretation Reference Range Facility Emergency Department Summary on 11-24-2023 Emergency Department Summary [facility] Medical Records Department [address] [place] [id number] Emergency Department Summary 11/24/23 MR#: [id number] Acct: [id number] Name: YOYL ISAACS Rep #: [id number] : 1950 73 From: Judd Griffith MD PCP: Dr. Ivelisse Masterson, DO Status:DEP ER Location: ED HPI History of Present Illness HPI Narrative: 73-year-old male right long finger laceration yesterday while moving a piece of wood. No other complaints. He is right-hand dominant. Believes his tetanus is up-to-date. Chief Complaint: Laceration Informant: patient Occured/Mechanism Mechanism/Context: Yes injury and Yes blunt trauma Onset/Context/Timing Onset: Yesterday Context: Sudden Onset Timing: Continuous Quality of Pain: Dull Current Severity: Mild Maximum Severity: Mild Associated Symptoms Associated Symptoms: Negative for Parasthesia, Weakness or Loss of Funtion Narrative Narrative: 73-year-old male laceration right long finger on the distal pad approximately 19 hours ago. Believes his tetanus is up-to-date in the last 5 years. Denies any other complaints. Does not believe he broke his finger. Tetanus Immunization: <5 years Prior similar symptoms: No Recent Illness/Hospitalization: No PFSH PFSH Medical History (Updated 11/24/23 @ 09:[address] Judd Griffith MD) Dilated cardiomyopathy Hyperlipidemia Left bundle branch block Obesity Obstructive sleep apnea Olecranon bursitis of left elbow Sinus bradycardia Snoring Vasovagal syncope Allergy/AdvReac Type Severity Reaction Status Date / Time No Known Allergies Allergy Verified 07/19/21 13:17 Family History Sister Myocardial infarction Surgical History H/O arthroscopic knee surgery History of colonoscopy Social History Smoking Status: Former smoker alcohol intake: current Alcohol type: beer caffeine: Yes Type: coffee Number of servings: 2 ROS ROS ED ROS Narrative Denies recent illness. Review of Systems ROS Unobtainable: Denies due to encephalopathy Constitutional Constitutional ED: Denies fever(s) Eyes Eyes: Denies blurry vision ENT ENT ED: Denies ear pain Cardiovascular Cardiovascular: Denies chest pain Respiratory/Chest Respiratory/Chest: Denies cough Gastrointestinal Gastrointestinal: Denies abdominal pain Genitourinary Genitourinary ED: Denies dysuria Musculoskeletal Musculoskeletal: Denies back pain Integumentary Denies abscess Neurologic Neurologic: Denies headache(s) Psychiatric Psychiatric: Denies anxiety Endocrine Endocrinology: Denies cold intolerance Hematologic/Lymphatic Hematologic/Lymphatic: Denies easy bleeding or easy bruising Allergic/Immunologic Allergic/Immunologic ED: Denies mouth swelling or tongue swelling EXAM Physical Exam Narrative Exam Narrative: Well-appearing 73-year-old male vital signs stable afebrile. HEENT exam normal. Lungs clear. Heart regular rhythm. Right hand long finger the distal phalanx skin that he has 1 inch long irregular laceration is linear. He has full flexion extension. No bony deformity or tenderness. No signs of infection. No significant subungual hematoma or injury to the nail. Currently there is no redness, streaks or pus. It does not look infected. He cleaned it well and dressed it yesterday. Const Vital Signs: 11/24/23 08:51 Temperature 97.4 F L Temperature Source Temporal Pulse Rate 61 Respiratory Rate 16 Blood Pressure 163/85 H Blood Pressure Mean 111 Pulse Ox 97 Oxygen Delivery Method Room Air Positive well nourished and well developed; Negative for cachectic, contractures or unkempt General Appearance ED: well developed and NAD; Negative for unkempt, cachectic, contractures, cyanotic or diaphoretic Nutritional Appearance: Negative for cachectic HEENT Reports moist mucous membranes normocephalic and atraumatic; Negative for trauma or tenderness Eyes PERRL and EOMs intact bilaterally General Eye ED: Negative for other Neck full ROM and supple General: Negative for tenderness Lymph Lymphatic: Negative for other Chest Wall inspection of chest normal and palpation of chest normal Chest: Negative for other Resp normal respiratory effort and clear to auscultation bilaterally Effort and Inspection: Negative for pain with movement Auscultation: Negative for rales, rhonchi or wheezes Cardio regular rate, regular rhythm, S1 normal heart sound, S2 normal heart sound and no murmurs Rate: Negative for bradycardia or tachycardic Rhythm: Negative for abnormal rhythm GI non-tender, non-distended and no masses Inspection: Negative for abdominal distention Auscultation: normoactive bowel sounds P (more content not included)... Normal [facility] CNCOon 12-30-2019 CNCO Letter Text Normal [facility] CNPNon 12-16-2019 CNPN Telephone (NEURBA) -- YOLY ISAACS ([id number]) 1950 M Date Time Provider Department 12/16/19 CORNELIUS FAYE JR During your visit today, we recorded the following information about you: Viridiana EUGENE Israel 12/16/2019 9:11 AM Signed Left message for patient to call back. Needs an appointment for follow up with Car or Dr Faye on a sleep day for CPAP compliance. EUGENE King NCMA 12/23/2019 3:09 PM Signed Left message for patient to call back. EUGENE King NCMA 12/30/2019 2:46 PM Signed Left message to call back and letter sent. EUGENE King Allergies As of Date: 12/16/2019 (No Known Allergies) Date Reviewed: 12/25/2018 Reviewed by: Cornelius Faye Jr. - Fully Assessed Reason for Visit: Appointment [186] Prescriptions as of 12/16/2019 Sig: CPAP Bilevel 18/12 CM H2O WITH A 2* NICOTINE 14 MG/24 HR DAILY TR* Apply 1 Patch as directed alexy* LISINOPRIL 5 MG TABLET ASPIRIN ORAL Take 81 mg by mouth. Problem List As Of Date: 12/16/2019 (None) Encounter Status:Closed by VIRIDIANA KASPER on 12/30/19 Normal [facility] Blood Glucose , Office ([phone])Ordered By: SUSAN Bush on 02-12-2019 Glucose Glucometer molar conc (BldC) 93 1 Normal [facility] Work Phone: HgA1C , Office ([id number])Ordere d By: SUSAN Bush on 02-12-2019 Hemoglobin A1c/Hemoglobin.total mass fraction (Bld) 5.7 % Normal 4.6 - 7.1 [facility] Work Phone: CBC W/AUTO DIFF WBC ([id number])O rdered By: Retrofit Installer on 01-23-2019 Basophils #/vol (Bld) 0.0 {x10E3/uL} Normal 0.0-0.2 [facility] Work Phone: Comment on above: PATIENT WAS FASTINGP ERFORMED BY: LabCo[address] [id number] BY: JACKIE [facility] Bytxau9643 Robertson RoadDublin [place] [id number] Basophils (Bld) [#/Vol] 0.0 10*3/uL Normal 0.0-0.2 [facility]; [facility] Work Phone: Comment on above: PATIENT WAS FASTINGP ERFORMED BY: Lab[address] [id number] BY: [facility] Tpooyu2750 Robertson RoadDublin [place] [id number] Basophils/100 WBC (Bld) 0 % Normal [facility] Work Phone: Comment on above: PATIENT WAS FASTINGP ERFORMED BY: Lab[address] [id number] BY: JACKIE [facility] Tgdhiq1650 Robertson RoadDuin [place] [id number] Eosinophils #/vol (Bld) 0.2 {x10E3/uL} Normal 0.0-0.4 [facility] Work Phone: Comment on above: PATIENT WAS FASTINGP ERFORMED BY: [address] [id number] BY: [facility] Emblci[address] [facility] [place] [id number] Eosinophils (Bld) [#/Vol] 0.2 10*3/uL Normal 0.0-0.4 [facility]; [facility] Work Phone: Comment on above: PATIENT WAS FASTINGP ERFORMED BY: Lab[address] [id number] BY: [facility] Ixlvar4589 Robertson RoadDublin [place] [id number] Eosinophils/100 WBC (Bld) 2 % Normal [facility] Work Phone: Comment on above: PATIENT WAS FASTINGP ERFORMED BY: [address] [id number] BY: [facility] Ylrkdb1787 [address] [facility] [id number] Erythrocyte distribution width Ratio (RBC) 13.9 % Normal 12.3-15.4 [facility] Work Phone: Comment on above: PATIENT WAS FASTINGP ERFORMED BY: [address] [id number] BY: [facility] Oxythf1509 [address] [facility] [id number] Hematocrit Volume Fraction (Bld) 47.2 % Normal 37.5-51.0 [facility] Work Phone: Comment on above: PATIENT WAS FASTINGP ERFORMED BY: [address] [id number] BY: LabCoRaritan Bay Medical CenterLxyhvv0780 [address] [facility] [id number] Hemoglobin mass conc (Bld) 15.5 g/dL Normal 13.0-17.7 [facility] Work Phone: Comment on above: PATIENT WAS FASTINGP ERFORMED BY: [employer]s[address] [id number] BY: LabCoRaritan Bay Medical CenterPgnhhq0202 [address] [facility] [id number] Immature granulocytes #/vol (Bld) 0.0 {x10E3/uL} Normal 0.0-0.1 [facility] Work Phone: Comment on above: PATIENT WAS FASTINGP ERFORMED BY: [employer] [id number] BY: [facility] Iqdcuj9071 [address] [facility] [id number] Immature granulocytes (Bld) [#/Vol] 0.0 10*3/uL Normal 0.0-0.1 [facility]; [facility] Work Phone: Comment on above: PATIENT WAS FASTINGP ERFORMED BY: [address] [id number] BY: [facility] Tbmscm3658 [address] [facility] [id number] Immature granulocytes/100 WBC (Bld) 0 % Normal [facility] Work Phone: Comment on above: PATIENT WAS FASTINGP ERFORMED BY: [address] [id number] BY: JACKIE [facility] Rlzomk4470 [address] RoadDublin [place] [id number] Lymphocytes #/vol (Bld) 2.3 {x10E3/uL} Normal 0.7-3.1 [facility] Work Phone: Comment on above: PATIENT WAS FASTINGP ERFORMED BY: [address] [id number] BY: LabRichard [place] [id number] [address] [facility] [id number] Lymphocytes (Bld) [#/Vol] 2.3 10*3/uL Normal 0.7-3.1 [facility]; [facility] Work Phone: Comment on above: PATIENT WAS FASTINGP ERFORMED BY: [address] [id number] BY: JACKIE [facility] Fdhfzy1421 [address] [facility] [id number] Lymphocytes/100 WBC (Bld) 25 % Normal [facility] Work Phone: Comment on above: PATIENT WAS FASTINGP ERFORMED BY: [address] [id number] BY: LabCoRaritan Bay Medical CenterOgherk0365 [address] [facility] [id number] MCH Entitic mass (RBC) 29.0 pg Normal 26.6-33.0 [facility] Work Phone: Comment on above: PATIENT WAS FASTINGP ERFORMED BY: Lab[address] [id number] BY: [facility] Jojzqq4142 [address] [facility]in [place] [id number] MCHC mass conc (RBC) 32.8 g/dL Normal 31.5-35.7 Comp rehensive [facility] Work Phone: Comment on above: PATIENT WAS FASTINGP ERFORMED BY: [address] [id number] BY: LabScheurer Hospital6370 [facility] [id number] MCV Entitic volume (RBC) 88 fL Normal 79-97 [facility] Work Phone: Comment on above: PATIENT WAS FASTINGP ERFORMED BY: Lab[address] [id number] BY: [place] [id number] [facility] [id number] Monocytes #/vol (Bld) 0.8 {x10E3/uL} Normal 0.1-0.9 [facility] Work Phone: Comment on above: PATIENT WAS FASTINGP ERFORMED BY: [address] [id number] BY: [place] 2312670 [facility] [id number] Monocytes (Bld) [#/Vol] 0.8 10*3/uL Normal 0.1-0.9 [facility]; [facility] Work Phone: Comment on above: PATIENT WAS FASTINGP ERFORMED BY: [address] [id number] BY: LabRichard [place] 2959870 [facility] [id number] Monocytes/100 WBC (Bld) 9 % Normal [facility] Work Phone: Comment on above: PATIENT WAS FASTINGP ERFORMED BY: [address] [id number] BY: LabSche[facility] Hospital6370 [facility] [id number] Neutrophils #/vol (Bld) 5.9 {x10E3/uL} Normal 1.4-7.0 [facility] Work Phone: Comment on above: PATIENT WAS FASTINGP ERFORMED BY: [facility] Oebtibqfbc7520 [facility] [id number] BY: JACKIE [facility] Cchrle7892 [address] RoadDublin [place] [id number] Neutrophils (Bld) [#/Vol] 5.9 10*3/uL Normal 1.4-7.0 [facility]; [facility] Work Phone: Comment on above: PATIENT WAS FASTINGP ERFORMED BY: GEORGE [facility] Nsbtvmvbpf8499 [facility] [id number] BY: JACKIE [facility] Dzbgkn1020 [address] RoadDublin [place] [id number] Neutrophils/100 WBC (Bld) 64 % Normal [facility] Work Phone: Comment on above: PATIENT WAS FASTINGP ERFORMED BY: GEORGE [facility]Co[address] [id number] BY: JACKIE [facility] Ngmtvj2664 [address] RoadDublin [place] [id number] Platelets #/vol (Bld) 192 {x10E3/uL} Normal 150-379 [facility] Work Phone: Comment on above: PATIENT WAS FASTINGP ERFORMED BY: LabCoLisa [place] 348617 [facility] [id number] BY: JACKIE [facility] Wkclih5355 [address] RoadDublin [place] [id number] Platelets (Bld) [#/Vol] 192 10*3/uL Normal 150-379 [facility]; [facility] Work Phone: Comment on above: PATIENT WAS FASTINGP ERFORMED BY: LabCo[address] [id number] BY: JACKIE [facility] Dcamvu7429 [address] RoadDublin [place] [id number] RBC #/vol (Bld) 5.35 {x10E6/uL} Normal 4.14-5.80 [facility] Work Phone: Comment on above: PATIENT WAS FASTINGP ERFORMED BY: Lab[address] [id number] BY: [facility] Lxueyv0474 [address] [facility]in [place] [id number] RBC (Bld) [#/Vol] 5.35 10*6/uL Normal 4.14-5.80 [facility]; [facility] Work Phone: Comment on above: PATIENT WAS FASTINGP ERFORMED BY: Lab[address] [id number] BY: LabRichard [place] [id number] [facility] [id number] WBC #/vol (Bld) 9.3 {x10E3/uL} Normal 3.4-10.8 [facility] Work Phone: Comment on above: PATIENT WAS FASTINGP ERFORMED BY: [address] [id number] BY: LabScheurer Hospital6370 [facility] [id number] WBC (Bld) [#/Vol] 9.3 10*3/uL Normal 3.4-10.8 [facility]; [facility] Work Phone: Comment on above: PATIENT WAS FASTINGP ERFORMED BY: [address] [id number] BY: LabSche[facility] Hospital6370 [facility] [id number] LIPOPROTEIN, BLD, BY NMR (97 131)Ordered By: Retrofit Installer on 01-23-2019 Cholesterol mass conc 198 mg/dL Normal 100-199 [facility] Work Phone: Comment on above: PATIENT WAS FASTINGP ERFORMED BY: [address] [id number] BY: [facility] Pbhdnk5351 [facility] [id number] Lipoprotein.alpha molar conc 35.8 umol/L Normal [facility] Work Phone: Comment on above: PATIENT WAS FASTINGP ERFORMED BY: [employer] [address] [id number] BY: Cocodril[employer] Dog6370 [facility] [id number] Lipoprotein.beta.sub particle Entitic length 21.4 nm Normal [facility] Work Phone: Comment on above: INTERPRETATIVE INFORMATION PARTICLE CONCENTRATION AND SIZE <--Lower CVD Risk Higher CVD Risk--> LDL AND HDL PARTICLES Percentile in Reference Population HDL-P (total) High 75th 50th 25th Low >34.9 34.9 30.5 26.7 <26.7 . Small LDL-P Low 25th 50th 75th High <117 117 527 839 >839 . LDL Size <-Large (Pattern A)-> <-Small (Pattern B)-> 23.0 20.6 20.5 19.0 Small LDL-P and LDL Size are associated with CVD risk, but not afterLDL-P is taken into account. .These assays were developed and their performance characteristicsdetermined by nextsocial. These assays have not been cleared by [place] Food and Drug Administration. The clinical utility of theselaboratory values have not been fully established. PATIENT WAS FASTINGP ERFORMED BY: [employer] [address] [id number] BY: [employer]6370 [facility] [id number] Lipoprotein.beta.sub particle molar conc 1277 nmol/L Abnormal [facility] Work Phone: Comment on above: Low < 1000 Moderate 1000 - 1299 Borderline-High 1300 - 1599 High 1600 - 2000 Very High > 2000 PATIENT WAS FASTINGP ERFORMED BY: Wysiwyg[address] [id number] BY: W[employer] Vidnch5007 [facility] [id number] Lipoprotein.beta.sub particle.small molar conc 305 nmol/L Normal [facility] Work Phone: Comment on above: PATIENT WAS FASTINGP ERFORMED BY: Wysiwyg[address] [id number] BY: LabSensentia Fzmrty2190 [facility] [id number] Triglyceride mass conc 108 mg/dL Normal 0-149 [facility] Work Phone: Comment on above: PATIENT WAS FASTINGP ERFORMED BY: [employer] Lnknnuetwn[address] [id number] BY: LabSensentia Taxefz6[address] MyEveTabCone Health [facility] [id number] LIPOPROTEIN, BLD, BY NMR ([id number]) 56 mg/dL Normal [facility] Work Phone: Comment on above: PATIENT WAS FASTINGP ERFORMED BY: Wysiwyg[address] [id number] BY: LabSensentiaRaritan Bay Medical CenterLszkqv9099 [facility] [id number] LIPOPROTEIN, BLD, BY NMR ([id number]) 120 mg/dL Abnormal 0-99 [facility] Work Phone: Comment on above: . Optimal < 100 Abov e optimal 100 - 129 Borderline 130 - 159 High 160 - 189 Very high > 189 .LDL-C is inaccurate if patient is non-fasting. PATIENT WAS FASTINGP ERFORMED BY: Wysiwyg[address] [id number] BY: WysiwygPlains Regional Medical CenterMhlwqh2687 [facility] [id number] METABOLIC PANEL, COMPREHENSI VE ([id number])Ordered By: Retrofit Installer on 01-23-2019 Albumin mass conc 4.9 g/dL Abnormal 3.6-4.8 [facility] Work Phone: Comment on above: PATIENT WAS FASTINGP ERFORMED BY: Lab[address] [id number] BY: [facility] Mgfyyr1635 [address] RoadDublin [place] [id number] Albumin/Globulin mass ratio 2.0 {ratio} Normal 1.2-2.2 [facility] Work Phone: Comment on above: PATIENT WAS FASTINGP ERFORMED BY: LabCo[address] [id number] BY: [facility] Fnivmh2906 [address] RoadDublin [place] [id number] ALP [Catalytic activity/Vol] 89 U/L Normal 39-117 [facility]; [facility] Work Phone: Comment on above: PATIENT WAS FASTINGP ERFORMED BY: Lab[address] [id number] BY: [facility] Yxjlgj3420 [address] RoadDublin [place] [id number] ALP enzyme act/vol 89 [iU]/L Normal 39-[address] [facility] Work Phone: Comment on above: PATIENT WAS FASTINGP ERFORMED BY: [address] [id number] BY: [facility] Dnobez3441 [address] RoadDublin [place] [id number] ALT [Catalytic activity/Vol] 21 U/L Normal 0-44 [facility]; [facility] Work Phone: Comment on above: PATIENT WAS FASTINGP ERFORMED BY: Lab[address] [id number] BY: [facility] Bhftji4436 [address] RoadDublin [place] [id number] ALT enzyme act/vol 21 [iU]/L Normal 0-[address] [facility] Work Phone: Comment on above: PATIENT WAS FASTINGP ERFORMED BY: LabCo[address] [id number] BY: JACKIE [facility] Pzlkdw0174 [address] RoadDublin [place] [id number] AST [Catalytic activity/Vol] 17 U/L Normal 0-40 [facility]; [facility] Work Phone: Comment on above: PATIENT WAS FASTINGP ERFORMED BY: LabCo[address] [id number] BY: CB [facility] Mxnken9184 [address] RoadDublin [place] [id number] AST enzyme act/vol 17 [iU]/L Normal 0-40 Compre [facility] Internal Medicine Work Phone: Comment on above: PATIENT WAS FASTINGP ERFORMED BY: [address] [id number] BY: JACKIE [facility] Rggbcg7074 Robertson RoadDublin [place] [id number] Bilirubin mass conc 0.5 mg/dL Normal 0.0-1.2 Compr ensive Internal Medicine Work Phone: Comment on above: PATIENT WAS FASTINGP ERFORMED BY: [address] [id number] BY: [facility] Utsojq9922 Robertson RoadDublin [place] [id number] Calcium mass conc 10.1 mg/dL Normal 8.6-10.2 [facility]preh [facility] Work Phone: Comment on above: PATIENT WAS FASTINGP ERFORMED BY: [address] [id number] BY: [facility] Xyxdwh0566 Robertson RoadDublin [place] [id number] Chloride molar conc 99 mmol/L Normal 96-106 Compr ensive Internal Medicine Work Phone: Comment on above: PATIENT WAS FASTINGP ERFORMED BY: [address] [id number] BY: [facility] Bhnrgv0266 Robertson RoadDublin [place] [id number] CO2 molar conc 26 mmol/L Normal 20-29 Comprehens shari Internal Medicine Work Phone: Comment on above: PATIENT WAS FASTINGP ERFORMED BY: BN [facility] [address] [id number] BY: JACKIE [facility] Eajnlw9653 Robertson RoadC[facility] [id number] Creatinine mass conc 0.96 mg/dL Normal 0.76-1.27 Comp rehensive Internal Medicine Work Phone: Comment on above: PATIENT WAS FASTINGP ERFORMED BY: [facility] [address] [id number] BY: JACKIE [facility] Kwjbje3971 [facility] [id number] GFR/1.73 sq M predicted among blacks CKD-EPI vol rate/area (S/P/Bld) 94 mL/min/1.73 Normal Comprehensiv e Internal Medicine Work Phone: Comment on above: PATIENT WAS FASTINGP ERFORMED BY: LabCo[address] [id number] BY: JACKIE [facility] Fnqfbs8111 [facility] [id number] GFR/1.73 sq M predicted among non-blacks CKD-EPI vol rate/area (S/P/Bld) 81 mL/min/1.73 Normal Comprehensive Internal Medicine Work Phone: Comment on above: PATIENT WAS FASTINGP ERFORMED BY: [facility] [address] [id number] BY: CB [facility] Trbajm0819 [address] [facility] [id number] Globulin mass conc (S) 2.4 g/dL Normal 1.5-4.5 Comprehensive Internal Medicine Work Phone: Comment on above: PATIENT WAS FASTINGP ERFORMED BY: [facility] [address] [id number] BY: CB [facility] Bqduja9070 [facility] [place] [id number] Glucose mass conc 110 mg/dL Abnormal 65-99 Compreh ensive Internal Medicine Work Phone: Comment on above: PATIENT WAS FASTINGP ERFORMED BY: LabCo[address] [id number] BY: JACKIE [facility] Rjohgd7296 Robertson RoadAtrium Health Carolinas Medical Centerin [place] [id number] Potassium molar conc 5.3 mmol/L Abnormal 3.5-5.2 Comp rehensive Internal Medicine Work Phone: Comment on above: PATIENT WAS FASTINGP ERFORMED BY: [address] [id number] BY: JACKIE LabCoRaritan Bay Medical CenterYassrf3163 [facility] [id number] Protein mass conc 7.3 g/dL Normal 6.0-8.5 Compreh ensive Internal Medicine Work Phone: Comment on above: PATIENT WAS FASTINGP ERFORMED BY: [address] [id number] BY: [facility] Mjquxl1784 [address] [facility] [id number] Sodium molar conc 137 mmol/L Normal 134-144 Compreh ensive Internal Medicine Work Phone: Comment on above: PATIENT WAS FASTINGP ERFORMED BY: [address] [id number] BY: [facility] Jpmlbe8931 [address] [facility] [id number] Urea nitrogen mass conc 18 mg/dL Normal 8-27 Comprehensive Internal Medicine Work Phone: Comment on above: PATIENT WAS FASTINGP ERFORMED BY: [address] [id number] BY: [facility] Umvrwa3360 [address] [facility] [id number] Urea nitrogen/Creatinine mass ratio 19 mg/mg Normal 10-24 Comprehensive Internal Medicine Work Phone: Comment on above: PATIENT WAS FASTINGP ERFORMED BY: Riboxx[address] [id number] BY: JACKIE [facility] Mjginq4119 [address] [facility] [id number] MICROALBUMINOrdered By: Thelma decker Geotechnician on 01-23-2019 Albumin DL <= 20 mg/L (U) [Mass/Vol] mg/dL Normal Comprehensiv e Internal Medicine; Comprehensive Internal Medicine Work Phone: Comment on above: PATIENT WAS FASTINGP ERFORMED BY: Barburrito LabSensentia[address] [id number] BY: JACKIE [facility] Ojnika1858 [address] [facility] [id number] Albumin DL <= 20 mg/L mass conc (U) mg/dL Normal Comprehensive Internal Medicine Work Phone: Comment on above: PATIENT WAS FASTINGP ERFORMED BY: Riboxx[address] [id number] BY: JACKIE LabSensentiaRaritan Bay Medical CenterUfqvhq8535 [facility] [id number] Albumin/Creatinine mass ratio (U) <2.3 Normal 0.0-30.0 Comprehensive Internal Medicine Work Phone: Comment on above: Normal: 0.0 - 30.0 A lbuminuria: 31.0 - 300.0 Clinical albuminuria: >300.0 PATIENT WAS FASTINGP ERFORMED BY: Wysiwyg[address] [id number] BY: [facility] Eegcco7275 [facility] [id number] Creatinine mass conc (U) 132.8 mg/dL Normal Comprehensive Internal Medicine Work Phone: Comment on above: PATIENT WAS FASTINGP ERFORMED BY: Wysiwyg[address] [id number] BY: JACKIE [facility] Hlwwgp8147 [address] [facility] [id number] TSH ([id number])Ordered By: Floyd m Geotechnician on 01-23-2019 Thyrotropin Qn 1.340 {uIU/mL} Normal 0.450-4.50 0 Comprehensive Internal Medicine Work Phone: Comment on above: PATIENT WAS FASTINGP ERFORMED BY: [address] [id number] BY: JACKIE [facility] Rfrjrx4761 [address] RoadDublin [place] [id number] URINALYSIS, W/ MICRO ([id number]) Ordered By: Retrofit Installer on 01-23-2019 Appearance Nom (U) Clear Normal Compre hensive Internal Medicine Work Phone: Comment on above: PATIENT WAS FASTINGP ERFORMED BY: [address] [id number] BY: JACKIE [facility] Zsjtar8707 [address] RoadDublin [place] [id number] Bilirubin Ql (U) Negative Normal Comprehe nsive Internal Medicine Work Phone: Comment on above: PATIENT WAS FASTINGP ERFORMED BY: [address] [id number] BY: JACKIE [facility] Lklkuh6063 [address] RoadDublin [place] [id number] Bilirubin Ql (U) Negative Normal Comprehe nsive Internal Medicine; Comprehensive Internal Medicine Work Phone: Comment on above: PATIENT WAS FASTINGP ERFORMED BY: [address] [id number] BY: JACKIE [facility] Mmqhgk0390 [address] RoadDublin [place] [id number] Color Nom (U) Yellow Normal Comprehensi ve Internal Medicine Work Phone: Comment on above: PATIENT WAS FASTINGP ERFORMED BY: [address] [id number] BY: JACKIE [facility] Mzgped8648 [address] RoadDublin [place] [id number] Glucose Ql (U) Negative Normal Comprehens shari Internal Medicine Work Phone: Comment on above: PATIENT WAS FASTINGP ERFORMED BY: LabCo[address] [id number] BY: JACKIE [facility] Sjdbkc8511 [address] RoadDublin [place] [id number] Glucose Ql (U) Negative Normal Comprehens shari Internal Medicine; Comprehensive Internal Medicine Work Phone: Comment on above: PATIENT WAS FASTINGP ERFORMED BY: [address] [id number] BY: [facility] Oleuqo3070 [address] RoadDublin [place] [id number] Hemoglobin Ql (U) Negative Normal Compreh ensive Internal Medicine Work Phone: Comment on above: PATIENT WAS FASTINGP ERFORMED BY: [address] [id number] BY: JACKIE LabCoRaritan Bay Medical CenterSarxup2508 [address] RoadDublin [place] [id number] Hemoglobin Ql (U) Negative Normal Compreh ensive Internal Medicine; Comprehensive Internal Medicine Work Phone: Comment on above: PATIENT WAS FASTINGP ERFORMED BY: [address] [id number] BY: JACKIE [facility] Ozukqr5377 [address] RoadDublin [place] [id number] Ketones Ql (U) Negative Normal Comprehens shari Internal Medicine Work Phone: Comment on above: PATIENT WAS FASTINGP ERFORMED BY: [address] [id number] BY: [facility] Ujsomk7791 [address] RoadDublin [place] [id number] Ketones Ql (U) Negative Normal Comprehens shari Internal Medicine; Comprehensive Internal Medicine Work Phone: Comment on above: PATIENT WAS FASTINGP ERFORMED BY: [address] [id number] BY: JACKIE [facility] Vqdoak9841 [address] RoadDublin [place] [id number] Leukocyte esterase Test strip Ql (U) Negative Normal Comprehensive Internal Medicine Work Phone: Comment on above: PATIENT WAS FASTINGP ERFORMED BY: LabCo[address] [id number] BY: [facility] Thdahu5713 Robertson RoadDublin [place] [id number] Leukocyte esterase Test strip Ql (U) Negative Normal Comprehensive Internal Medicine; Comprehensive Internal Medicine Work Phone: Comment on above: PATIENT WAS FASTINGP ERFORMED BY: [facility] [address] [id number] BY: CB [facility] Hieuzs8224 Robertson RoadDublin [place] [id number] Microscopic observation LM Nom (Urine sed) MICRON Normal Comprehensive Internal Medicine Work Phone: Comment on above: Microscopic follows if indicated. PATIENT WAS FASTINGP ERFORMED BY: [address] [id number] BY: JACKIE [facility] Dzbqzl1358 Robertson RoadDublin [place] [id number] Microscopic observation LM Nom (Urine sed) See below: Normal Comprehensive Internal Medicine Work Phone: Comment on above: Microscopic was lynette cated and was performed. PATIENT WAS FASTINGP ERFORMED BY: [address] [id number] BY: JACKIE [facility] Bdkbag2960 [address] RoadDublin [place] [id number] Nitrite Ql (U) Negative Normal Comprehens shari Internal Medicine Work Phone: Comment on above: PATIENT WAS FASTINGP ERFORMED BY: [address] [id number] BY: [facility] Fmckjz1918 [address] RoadDublin [place] [id number] Nitrite Ql (U) Negative Normal Comprehens shari Internal Medicine; Comprehensive Internal Medicine Work Phone: Comment on above: PATIENT WAS FASTINGP ERFORMED BY: [address] [id number] BY: CB [facility] Jmkvqj5357 [address] RoadDublin [place] [id number] pH (U) 6.0 [pH] Normal 5.0-7.5 Comprehensive Internal Medicine Work Phone: Comment on above: PATIENT WAS FASTINGP ERFORMED BY: [address] [id number] BY: JACKIE [facility] Bmwpxb8439 [address] RoadDublin [place] [id number] Protein Ql (U) Negative Normal Comprehens shari Internal Medicine Work Phone: Comment on above: PATIENT WAS FASTINGP ERFORMED BY: [address] [id number] BY: Lab[facility] Ptdawy0852 Robertson RoadDuin [place] [id number] Protein Ql (U) Negative Normal Comprehens shari Internal Medicine; Comprehensive Internal Medicine Work Phone: Comment on above: PATIENT WAS FASTINGP ERFORMED BY: [address] [id number] BY: [facility] Fvgbji4136 Robertson RoadAtrium Health Carolinas Medical Centerin [place] [id number] Specific gravity Relative Density (U) 1.022 1 Normal 1.005-1.03 0 Comprehensive Internal Medicine Work Phone: Comment on above: PATIENT WAS FASTINGP ERFORMED BY: [address] [id number] BY: Lab[facility] Gyyuez0755 Robertson RoadDuin [place] [id number] Urobilinogen (U) [Mass/Vol] 0.2 mg/dL Normal 0.2-1.0 Comprehensive Internal Medicine; Comprehensive Internal Medicine Work Phone: Comment on above: PATIENT WAS FASTINGP ERFORMED BY: [address] [id number] BY: [facility] Uugxcv1927 [address] RoadDublin [place] [id number] Urobilinogen Test strip mass conc (U) 0.2 mg/dL Normal 0.2-1.0 Comprehensiv e Internal Medicine Work Phone: Comment on above: PATIENT WAS FASTINGP ERFORMED BY: BN [facility] Uexkkabesk2532 [facility] [id number] BY: CB [facility] Aljrnv0654 [address] [facility] [id number] OBSOLETEon 12-02-2018 OBSOLETE Refill (NEURMM) -- YOLY ISAACS ([id number]) 1950 M Date Time Provider Department 12/02/18 CORNELIUS FAYE JR During your visit today, we recorded the following information about you: Lanie Price MA 12/02/2018 1:44 PM Signed Name: patient requesting medications refill(s). Patient's : 1950 Allergies: Patient has no known allergies. (home) [phone] (cell) Last appointment : 06/18/2018 The patients preferred pharmacy has been captured for this encounter. Patient phones requesting refills as follows: Pending Prescriptions Disp Refills NEUPRO 2 MG/24 HOUR TRANSDERMAL 24 HOUR PATCH 0 Sig: APPLY 1 PATCH DAILY DIRECTED CHELSIE: Yes Please review and advise. Lanie Shaikh CMA 12/03/2018 9:19 AM Signed Left message to make and appt for patient. Allergies As of Date: 12/02/2018 (No Known Allergies) Date Reviewed: 03/18/2018 Reviewed by: Nury Marion MA - Fully Assessed Reason for Visit: Refill Request [94] Order(s):NEUPRO 2 mg/24 hour patchAPPLY 1 PATCH DAILY DIRECTEDDisp: 30 PatchRfl: 0 Prescriptions as of 12/02/2018 Sig: NEUPRO 2 MG/24 HOUR TRANSDERM* APPLY 1 PATCH DAILY DIRECT* CLONAZEPAM 1 MG TABLET TAKE TWO TABLETS BY MOUTH ALEXY* CPAP Bilevel 18/12 CM H2O WITH A 2* NICOTINE 14 MG/24 HR DAILY TR* Apply 1 Patch as directed alexy* LISINOPRIL 5 MG TABLET ASPIRIN ORAL Take 81 mg by mouth. Problem List As Of Date: 12/02/2018 (None) Prescriptions ordered this encounter Disp Refills Start End NEUPRO 2 MG/24 HOUR TRANSDERMAL 24 H* 30 P* 0 12/02/2018 Sig: APPLY 1 PATCH DAILY DIRECTED Medications Discontinued During This Encounter NEUPRO 2 mg/24 hour patch 90 P* 0 09/02/2018 12/02/2018 Sig: APPLY 1 PATCH DAILY DIRECTED Disc: Reason for discontinue is not on file. Encounter Status:Closed by CAR CABRERA CNP on 12/02/[address] [facility] Blood Glucose , Office ([phone])Ordered By: Anderson Black on 09-23-2018 Glucose Glucometer molar conc (BldC) 90 1 Normal Comprehensive Internal Medicine Work Phone: HgA1C , Office ([phone])Ordere d By: Anderson Black on 09-23-2018 Hemoglobin A1c/Hemoglobin.total mass fraction (Bld) 5.8 % Normal 4.6 - 7.1 Comprehensiv e Internal Medicine Work Phone: Blood Glucose , Office ([phone] 2)Ordered By: Terra Cooney on 05-23-2018 Glucose Glucometer molar conc (BldC) 103 1 Normal Comprehensive Internal Medicine Work Phone: HgA1C , Office ([phone])Ordere d By: Terra Cooney on 05-23-2018 Hemoglobin A1c/Hemoglobin.total mass fraction (Bld) 5.7 % Normal 4.6 - 7.1 Comprehensiv e Internal Medicine Work Phone: PSA (PROSTATE SPECIFIC ANTIG EN) (V76.44)Ordered By: Retrofit Installer on 05-21-2018 Prostate specific Ag mass conc 4.8 ng/mL Abnormal 0.0-4.0 Comprehensive Internal Medicine Work Phone: Comment on above: Peggy ECLIA methodol ogy. .According to the [place] [employer], Serum PSA shoulddecrease and remain at undetectable levels after radicalprostatectomy. The AUA defines biochemical recurrence as an initialPSA value 0.2 ng/mL or greater followed by a subsequent confirmatoryPSA value 0.2 ng/mL or greater.Values obtained with different assay methods or kits cannot be usedinterchangeably. Results cannot be interpreted as absolute evidenceof the presence or absence of malignant disease. due after 05/14/18; P ATIENT NOT FASTINGPERFORMED BY: LabScheurer Hospital6370 [facility] [id number] CNOVon 03-18-2018 CNOV Office Visit (NEURMM ) -- YOLY ISAACS ([id number]) 1950 M Date Time Provider Department 03/18/18 10:40 AM CORNELIUS FAYE JR NEUR During your visit today, we recorded the following information about you: Pulse Blood pressure Weight 64/minute 123/77 97.2 kg Cornelius Faye MD 03/24/2018 9:41 PM Signed ESTABLISHED PATIENT VISIT HISTORY OF PRESENT ILLNESS: Yoly Isaacs is a 67 year old male, BMI 30.3 kg/m2 with a PMH significant for KYRA (on CPAP), RLS, and prior cognitive complaints for which he had normal MOCA of 27/30 on 11/29/17 evaluation. Vitamin B12 Date Value Ref Range Status 11/29/2017 441 232 - 1,245 pg/mL Final TSH Date Value Ref Range Status 11/29/2017 1.920 0.400 - 5.500 uU/mL Final RPR (no units) Date Value 11/29/2017 Non Reactive Free T4 Date Value Ref Range Status 11/29/2017 1.3 0.9 - 1.7 ng/dL Final CT Brain on 11/30/17 showed per report: Post-operative change: ?None Acute change: ? No evidence of an acute infarct or other acute parenchymal process Hemorrhage: ? ?No evidence of acute intracranial hemorrhage. Mass effect / Mass lesion: ? There is no evidence of an intracranial mass or extraaxial fluid collection. ?No significant mass effect. Chronic change: ? None apparent. Ventricles: ? The ventricles are within normal limits of size and configuration for age. Paranasal sinuses and skull base: ?The visualized paranasal sinuses are clear. ?The skull base and imaged soft tissues are unremarkable. Patient reports since he was last seen, he is pulling mask off. States he is still tossing and turning. There are no witnesses to his sleep. If he is seen sleeping in a chair, he reports he is not kicking his legs or twitching. States he just started back on Klonopin this week after being out of it for about 1 week. He states he is a quieter sleeper with the PAP on. He reports no pressure issues. Note he did have a titration study on 01/13/18 recommending pressure setting of 18/12 cmH2O -- current pressure setting. He reports that he is having no issues falling asleep at night. States since changing pressure from 18 to 18/12 he has had no difference in his energy levels. States he will play a round of gold and then come home and go to sleep for about 1 hour (sleeping about 6.5 hours at night, stating that he stays up late to watch ball games). He is reporting no significant changes in his sheets through the night. Usually starts supine but rolls up on his right side just prior to falling asleep. No falling asleep driving. States he otherwise functions normally during waking hours. He however states his memory still sucks. Gives example of confusion of days (Sunday for ). 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 MOCA Visuospatial/exec (0-5) 5/5 Naming (0-3) 3/3 Memory Words, up to 2 trials: Face, Velvet, Mosque, Jes, Red (no points) 5/5 Attention forwards: 2 1 8 5 4 (0-1) 1 Attention backwards: 7 4 2 (0-1) 1 Tap for the A: F B A C M N A A J K L B A F A K D E A A A J A M O F A A B (1 point if 0 or 1 error) 1 Serial subtraction by 7: [id number] (3 points for correct 4 or 5; 2 points for 2 or 3 correct; 1 point for 1 correct) 3/3 Language: repeat: I only know that Saúl is the one to help today (0-1) 1 Language: repeat: The cat always hid under the couch when dogs were in the room (0-1) 1 Fluency: max words beginning with the letter F (1 point if 11 or more words) 0/1 Abstraction: practice banana-orange=fruit. Then train-bicycle (1) AND watch-ruler (1) total: (2) 2/2 Delayed recall: recall words: face, velvet, moravian, ejs, red (0-5) Forgot Jes 4/ Orientation: date(1), month(1), year(1), day(1), place(1), city(1) max 6 points March 18, 2018, 03/20 Total Score max 30 or 31 28 Hearing impaired (Y or N) N Vision impaired (Y or N) N No issues falling asleep. When asked if he feels that he needs medications for his memory he states he has always been ADD and lacked focus. However, he also provides more examples of forgetting appointments. REVIEW OF SYSTEMS GENERAL:No weight loss, malaise or fevers. HEENT:Negative for frequent or significant headaches, No changes in hearing or vision, no nose bleeds or other nasal problems NECK:Negative for lumps, goiter, pain and significant neck swelling RESPIRATORY: Negative for cough, wheezing or shortness of breath. CARDIOVASCULAR: Negative for chest pain, leg swelling or palpitations. GASTROINTESTINAL: Negative for abdominal discomfort, blood in stools or black stools or change in bowel habits GENITOURINARY: No history of dysuria, frequency or incontinence MUSCULOSKELETAL: Negative for joint pain or swelling, back pain or muscle pain. NEUROLOGIC:Negative for focal numbness or weakness, headaches and dizziness or syncope, vision changes, speech/languag changes - EXCEPT that as per HPI above. SKIN:Negative for lesions, rash, and itching. PSYCHIATRIC: Negative for sleep disturbance, mood disorder and recent psychosocial stressors. HEMATOLOGIC/LYMPHATIC/IMMU NOLOGIC:Negative for prolonged bleeding, bruising easily or swollen nodes. ENDOCRINE: Negative for cold or heat intolerance, polyuria, polydipsia and goiter. The remainder of the ROS was reviewed and is negative. MEDICATIONS: clonazePAM (KLONOPIN) 1 mg tablet TAKE TWO TABLETS BY MOUTH AT BEDTIME NEEDED CPAP Bilevel 18/12 CM H2O WITH A 20 MINUTE RAMP, Airfit F20 resmed Full Face medium size without chin strap , HUMIDITY. LIFETIME SUPPLIES. nicotine (NICODERM) 14 mg/24 hr Apply 1 Patch as directed every 24 hours. rotigotine (NEUPRO) 2 mg/24 hour patch Apply 1 Patch as directed once daily. lisinopril (ZESTRIL, PRINIVIL) 5 mg tablet ASPIRIN ORAL Take 81 mg by mouth. HISTORIES PAST MEDICAL HISTORY HTN SOCIAL HISTORY Social History Substance Use Topics - Smoking status: Current Some Day Smoker Types: Cigarettes Last attempt to quit: 10/15/2017 - Smokeless tobacco: Never Used Comment: stated he smokes off and on - Alcohol use Not on file PHYSICAL EXAMINATION BP 123/77 Pulse 64 Wt 97.2 kg (214 lb 4.8 oz) SpO2 94% BMI 30.30 kg/m? GENERAL EXAM: General appearance: NAD, flat affect. HEENT: NC/AT, nasal congestion absent, no oral lesions, membranes moist. Horta III. NECK: No masses, supple. Lungs: CTA bilaterally. CV: RRR nl S1, S2, no murmurs. No carotid bruits. Abd: Soft, nontender, nondistended. Bowel sounds present. Extr: No cyanosis, clubbing or edema. Skin: Cool to touch. No rash. ? NEUROLOGICAL EXAM: General: Awake, alert, oriented x3 (person,place,time), speech fluent, no dysarthria; comprehension, naming, repetition intact. MOCA normal as above. CN: PERRL, fundi with no evidence of papilledema, EOMI and without nystagmus, VFF to confrontation, facial sensation and strength are normal and symmetric, hearing is intact, palate and tongue movements are intact and symmetric. SCM and trapezius strength normal. Motor: Normal tone, bulk and strength (5/5) bilaterally (throughout extremities x4). Reflexes: 2/4 and symmetric, plantar stimulation is flexor. Coordination: FNF, MARGARITO, HTS intact. No tremors. Sensation: Light touch and pin intact throughout. No evidence of neglect. Gait: Narrow based and stable with normal stride and arm swing. ? Assessment and Plan: ASSESSMENT/PLAN: 1. KYRA (obstructive sleep apnea) - ICD9: 327.23, ICD10: G47.33 (primary diagnosis) He is overall doing well with PAP subjectively, but still feeling tired. Uncertain if daytime sleepiness secondary to KYRA as titration shows AHI to be normalized. Requested compliance report but not available at time of visit. Discussed with patient possible other etiologies including depression, although he denies such. Note affect quite flat during visit. Denies SI/HI. Also discussed trial of wake promoting agent, but declines. Encouraged regular sleep schedule. Will continue to monitor for now. Advised not to driveor operate heavy machinery if sleepy. 2. PLMD (periodic limb movement disorder) - ICD9: 327.51, ICD10: G47.61 Well controlled both by subjective history and objective findings on titration (PLMI of 6.9). Continue Klonopin 1.0 to 2.0mg QHS. Reminded of SE and ADRs. OARRS website checked and validated. All prescriptions have been APPROPRIATELY filled. No suspicious activity was identified.- 03/24/2018 by Cornelius Faye MD 3. Cognitive impairment - ICD9: 294.9, ICD10: R41.89 Stable MOCA. Subjective complaints but again, MOCA unchanged over several months and no clear objective deficits during interview. Question if component of pseudodementia. For now will monitor. Encouraged brain exercises. Cornelius Faye MD I spent 40 minutes in the visit, with more than 50% of the total ylqx-fb-vead time of the visit in counseling / coordination of care. Referring Provider: SELF [200] Allergies As of Date: 03/18/2018 (No Known Allergies) Date Reviewed: 03/18/2018 Reviewed by: Nury Cain) NAGI Marion - Fully Assessed Reason for Visit: Follow Up [171] Cmt: 2 month follow up for sleep study results and medication check Primary Visit Diagnosis:KYRA (obstructive sleep apnea) [G47.33] Other Visit Diagnoses:PLMD (periodic limb movement disorder) [G47.61] Cognitive impairment [R41.89] Prescriptions as of 03/18/2018 Sig: CLONAZEPAM 1 MG TABLET TAKE TWO TABLETS BY MOUTH AT * CPAP Bilevel 18/12 CM H2O WITH A 2* NICOTINE 14 MG/24 HR DAILY TR* Apply 1 Patch as directed alexy* ROTIGOTINE 2 MG/24 HOUR TRANS* Apply 1 Patch as directed onc* LISINOPRIL 5 MG TABLET ASPIRIN ORAL Take 81 mg by mouth. Problem List As Of Date: 03/18/2018 (None) Disposition: Return in about 6 months (around 09/17/2018). Follow-up and Disposition History Recorded -- Questionnaire: MOCA Visuospatial/exec (0-5) -> Cmt: 5/5 Naming (0-3) -> Cmt: 3/3 Memory Words, up to 2 trials: Face, Velvet, Mosque, Jes, Red (no points) -> Cmt: 5/5 Attention forwards: 2 1 8 5 4 (0-1) -> Cmt: 1 Attention backwards: 7 4 2 (0-1) -> Cmt: 1 Tap for the A: F B A C M N A A J K L B A F A K D E A A A J A M O F A A B (1 point if 0 or 1 error) -> Cmt: 1 Serial subtraction by 7: [id number] (3 points for correct 4 or 5; 2 points for 2 or 3 correct; 1 point for 1 correct) -> Cmt: 3/3 Language: repeat: I only know that Saúl is the one to help today (0-1) -> Cmt: 1 Language: repeat: The cat always hid under the couch when dogs were in the room (0-1) -> Cmt: 1 Fluency: max words beginning with the letter F (1 point if 11 or more words) -> Cmt: 0/1 Abstraction: practice banana-orange=fruit. Then train-bicycle (1) AND watch-ruler (1) total: (2) -> Cmt: 2/2 Delayed recall: recall words: face, velvet, moravian, jes, red (0-5) -> Forgot Jes Cmt: 01/17 Orientation: date(1), month(1), year(1), day(1), place(1), city(1) max 6 points * Cmt: 03/20 Total Score max 30 or 31 -> Cmt: 28 Hearing impaired (Y or N) -> Cmt: N Vision impaired (Y or N) -> Cmt: N Encounter Status:Closed by CORNELIUS FAYE on 03/24/[address] [facility] PROGRESSon 03-18-2018 Protein mass conc HNO ID: [id number] Author: Cornelius Faye Jr. Service: (none) Author Type: Physician Type: Progress Notes Filed: 03/24/2018 9:41 PM Note Text: ESTABLISHED PATIENT VISIT HISTORY OF PRESENT ILLNESS: Yoly Isaacs is a 67 year old male, BMI 30.3 kg/m2 with a PMH significant for KYRA (on CPAP), RLS, and prior cognitive complaints for which he had normal MOCA of 27/30 on 11/29/17 evaluation. Vitamin B12 Date Value Ref Range Status 11/29/2017 441 232 - 1,245 pg/mL Final TSH Date Value Ref Range Status 11/29/2017 1.920 0.400 - 5.500 uU/mL Final RPR (no units) Date Value 11/29/2017 Non Reactive Free T4 Date Value Ref Range Status 11/29/2017 1.3 0.9 - 1.7 ng/dL Final CT Brain on 11/30/17 showed per report: Post-operative change: ?None Acute change: ? No evidence of an acute infarct or other acute parenchymal process Hemorrhage: ? ?No evidence of acute intracranial hemorrhage. Mass effect / Mass lesion: ? There is no evidence of an intracranial mass or extraaxial fluid collection. ?No significant mass effect. Chronic change: ? None apparent. Ventricles: ? The ventricles are within normal limits of size and configuration for age. Paranasal sinuses and skull base: ?The visualized paranasal sinuses are clear. ?The skull base and imaged soft tissues are unremarkable. Patient reports since he was last seen, he is pulling mask off. States he is still tossing and turning. There are no witnesses to his sleep. If he is seen sleeping in a chair, he reports he is not kicking his legs or twitching. States he just started back on Klonopin this week after being out of it for about 1 week. He states he is a quieter sleeper with the PAP on. He reports no pressure issues. Note he did have a titration study on 01/13/18 recommending pressure setting of 18/12 cmH2O -- current pressure setting. He reports that he is having no issues falling asleep at night. States since changing pressure from 18/14 to 18/12 he has had no difference in his energy levels. States he will play a round of gold and then come home and go to sleep for about 1 hour (sleeping about 6.5 hours at night, stating that he stays up late to watch ball games). He is reporting no significant changes in his sheets through the night. Usually starts supine but rolls up on his right side just prior to falling asleep. No falling asleep driving. States he otherwise functions normally during waking hours. He however states his memory still sucks. Gives example of confusion of days (Sunday for ). 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 MOCA Visuospatial/exec (0-5) 5/5 Naming (0-3) 3/3 Memory Words, up to 2 trials: Face, Velvet, Mosque, Jes, Red (no points) 5/5 Attention forwards: 2 1 8 5 4 (0-1) 1 Attention backwards: 7 4 2 (0-1) 1 Tap for the A: F B A C M N A A J K L B A F A K D E A A A J A M O F A A B (1 point if 0 or 1 error) 1 Serial subtraction by 7: [id number] (3 points for correct 4 or 5; 2 points for 2 or 3 correct; 1 point for 1 correct) 3/3 Language: repeat: I only know that Saúl is the one to help today (0-1) 1 Language: repeat: The cat always hid under the couch when dogs were in the room (0-1) 1 Fluency: max words beginning with the letter F (1 point if 11 or more words) 0/1 Abstraction: practice banana-orange=fruit. Then train-bicycle (1) AND watch-ruler (1) total: (2) 2/2 Delayed recall: recall words: face, velvet, moravian, jes, red (0-5) Forgot Jes 4/ Orientation: date(1), month(1), year(1), day(1), place(1), city(1) max 6 points March 18, 2018, 03/20 Total Score max 30 or 31 28 Hearing impaired (Y or N) N Vision impaired (Y or N) N No issues falling asleep. When asked if he feels that he needs medications for his memory he states he has always been ADD and lacked focus. However, he also provides more examples of forgetting appointments. REVIEW OF SYSTEMS GENERAL:No weight loss, malaise or fevers. HEENT:Negative for frequent or significant headaches, No changes in hearing or vision, no nose bleeds or other nasal problems NECK:Negative for lumps, goiter, pain and significant neck swelling RESPIRATORY: Negative for cough, wheezing or shortness of breath. CARDIOVASCULAR: Negative for chest pain, leg swelling or palpitations. GASTROINTESTINAL: Negative for abdominal discomfort, blood in stools or black stools or change in bowel habits GENITOURINARY: No history of dysuria, frequency or incontinence MUSCULOSKELETAL: Negative for joint pain or swelling, back pain or muscle pain. NEUROLOGIC:Negative for focal numbness or weakness, headaches and dizziness or syncope, vision changes, speech/languag changes - EXCEPT that as per HPI above. SKIN:Negative for lesions, rash, and itching. PSYCHIATRIC: Negative for sleep disturbance, mood disorder and recent psychosocial stressors. HEMATOLOGIC/LYMPHATIC/IMMU NOLOGIC:Negative for prolonged bleeding, bruising easily or swollen nodes. ENDOCRINE: Negative for cold or heat intolerance, polyuria, polydipsia and goiter. The remainder of the ROS was reviewed and is negative. MEDICATIONS: clonazePAM (KLONOPIN) 1 mg tablet TAKE TWO TABLETS BY MOUTH AT BEDTIME NEEDED CPAP Bilevel 18/12 CM H2O WITH A 20 MINUTE RAMP, Airfit F20 resmed Full Face medium size without chin strap , HUMIDITY. LIFETIME SUPPLIES. nicotine (NICODERM) 14 mg/24 hr Apply 1 Patch as directed every 24 hours. rotigotine (NEUPRO) 2 mg/24 hour patch Apply 1 Patch as directed once daily. lisinopril (ZESTRIL, PRINIVIL) 5 mg tablet ASPIRIN ORAL Take 81 mg by mouth. HISTORIES PAST MEDICAL HISTORY HTN SOCIAL HISTORY Social History Substance Use Topics - Smoking status: Current Some Day Smoker Types: Cigarettes Last attempt to quit: 10/15/2017 - Smokeless tobacco: Never Used Comment: stated he smokes off and on - Alcohol use Not on file PHYSICAL EXAMINATION BP 123/77 Pulse 64 Wt 97.2 kg (214 lb 4.8 oz) SpO2 94% BMI 30.30 kg/m? GENERAL EXAM: General appearance: NAD, flat affect. HEENT: NC/AT, nasal congestion absent, no oral lesions, membranes moist. Horta III. NECK: No masses, supple. Lungs: CTA bilaterally. CV: RRR nl S1, S2, no murmurs. No carotid bruits. Abd: Soft, nontender, nondistended. Bowel sounds present. Extr: No cyanosis, clubbing or edema. Skin: Cool to touch. No rash. ? NEUROLOGICAL EXAM: General: Awake, alert, oriented x3 (person,place,time), speech fluent, no dysarthria; comprehension, naming, repetition intact. MOCA normal as above. CN: PERRL, fundi with no evidence of papilledema, EOMI and without nystagmus, VFF to confrontation, facial sensation and strength are normal and symmetric, hearing is intact, palate and tongue movements are intact and symmetric. SCM and trapezius strength normal. Motor: Normal tone, bulk and strength (5/5) bilaterally (throughout extremities x4). Reflexes: 2/4 and symmetric, plantar stimulation is flexor. Coordination: FNF, MARGARITO, HTS intact. No tremors. Sensation: Light touch and pin intact throughout. No evidence of neglect. Gait: Narrow based and stable with normal stride and arm swing. ? Assessment and Plan: ASSESSMENT/PLAN: 1. KYRA (obstructive sleep apnea) - ICD9: 327.23, ICD10: G47.33 (primary diagnosis) He is overall doing well with PAP subjectively, but still feeling tired. Uncertain if daytime sleepiness secondary to KYRA as titration shows AHI to be normalized. Requested compliance report but not available at time of visit. Discussed with patient possible other etiologies including depression, although he denies such. Note affect quite flat during visit. Denies SI/HI. Also discussed trial of wake promoting agent, but declines. Encouraged regular sleep schedule. Will continue to monitor for now. Advised not to driveor operate heavy machinery if sleepy. 2. PLMD (periodic limb movement disorder) - ICD9: 327.51, ICD10: G47.61 Well controlled both by subjective history and objective findings on titration (PLMI of 6.9). Continue Klonopin 1.0 to 2.0mg QHS. Reminded of SE and ADRs. OARRS website checked and validated. All prescriptions have been APPROPRIATELY filled. No suspicious activity was identified.- 03/24/2018 by Cornelius Faye MD 3. Cognitive impairment - ICD9: 294.9, ICD10: R41.89 Stable MOCA. Subjective complaints but again, MOCA unchanged over several months and no clear objective deficits during interview. Question if component of pseudodementia. For now will monitor. Encouraged brain exercises. Cornelius Faye MD I spent 40 minutes in the visit, with more than 50% of the total oece-uz-ufas time of the visit in counseling / coordination of care. Normal [facility] PROGRESSon 01-30-2018 Protein mass conc HNO ID: [id number] Author: Cornelius Faye Jr. Service: (none) Author Type: Physician Type: Progress Notes Filed: 01/30/2018 11:54 AM Note Text: Adjusting PAP setting per PAP titration results - bilevel 18/12 cmH2O. Normal [facility] PROGRESSon 01-14-2018 Protein mass conc HNO ID: [id number] Author: Jaja Mello Poly-T Service: (none) Author Type: (none) Type: Progress Notes Filed: 01/14/2018 1:57 AM Note Text: Sleep Study Check-In Documentation Date: January 14, 2018 Name: Yoly Isaacs Patient was accompanied by Self. Location: [place] Latex allergy: No Tape allergy: No Current medications were reviewed with the patient:Yes Sleep aid taken by patient for the sleep study: Yes Name of sleep aid: Klonopin Procedure was explained to the patient and all questions were answered. PAP treatment discussed and shown to patient: Yes If PAP used enter mask info: Mask Name Airfit F20 Make resmed MaskTypeFull Face Mask SizeMedium Chin Sharp Used No Knowledge Program (KP): KP was not completed in [facility] by patient and accepted Study type: PAP titration Adverse Event: No (If yes create a new abstract) SERS Event: No Comments: Patient was advised to follow up with their ordering provider regarding test results Jaja Rodríguez-T Peri [facility] Ruperto 12-27-2017 CNPN Telephone (SPNMED) -- YOLY ISAACS ([id number]) 1950 M Date Time Provider Department 12/27/17 CORNELIUS FAYE JR During your visit today, we recorded the following information about you: Fany Piña 12/27/2017 4:21 PM Signed ----- Message from Cornelius Faye Jr. sent at 12/27/2017 4:13 PM EDT ----- Regarding: Can you please contact. Thanks ----- Message ----- From: Cornelius Faye Jr. Sent: 12/27/2017 4:02 PM To: Pratima Lambert Ma Nm, I know patient was placed on schedule for tomorrow for ANDquot;increasing symptomsANDquot;, but can you find out what these symptoms are. He had never contacted me about such symptoms. This will be his 3rd office visit in 3 months, and I did make a plan with him as to what we can do if symptoms persist or worsen. Depending on symptoms, I may be able to provide recommendations based on prior visit. Thanks TALITA Piña 12/27/2017 4:22 PM Signed I called and left a message on machine for patient to return our call. Fany Piña 12/28/2017 8:28 AM Addendum I called and spoke to patient he stated that the last medication that you put him on was a patch called Neuropro he stated that its working well for him and he also stated that his CPAP is working great. The concern that he has is he is wondering if he is getting enough REM sleep and how we can tell if he is. He stated that he doesn't need to come in for an appointment but he would like to have an answer and reassurance moving forward. He also said that he is having some periodic leg movement and wants to make sure this is okay too. Can you please advise? Do you want me to cancel his appointment for today? I told the patient that I would call him and let him know. Fany Piña 12/28/2017 9:05 AM Signed Hi, Please let him know REM sleep varies from night to night, and there is no ANDquot;setANDquot; duration of REM sleep someone should have. ?The only way to measure is another sleep study, and again, due to night to night variability of REM sleep, this will not always answer the question. ?I do not recall if he has a CPAP device that downloads his AHI. ?However, if he is concerned about both limb movements and how well his KYRA is controlled, the best manner in which to evaluate would be a monitored overnight sleep study. ?If he would like to do this I can arrange the appointment. ?Again, I am happy to see him, but wanted to first see if we could solve by phone. Thanks TALITA (Routing comment) Fany Piña 12/28/2017 9:12 AM Signed I called and spoke to the patient I let him know what your recommendations are moving forward the patient stated that he would like you to schedule him for a Sleep Study and he would like to have this done in [place]. The patient is also requesting a prescription refill on his Clonazepam 1 mg Take 2 tablets at bedtime PRN he would like this to be faxed into [facility]. It looks like the last time that you refilled this was #180 0 refills on 11/23/2017. I called the PSR To have them cancel his appointment for today. Fany Faye MD 12/28/2017 10:15 AM Signed Regarding Klonopin, this was just filled on 11/26/17 OAS website checked and validated. All prescriptions have been APPROPRIATELY filled. No suspicious activity was identified.- 12/28/2017 by Cornelius Faye MD He was provided a 90 day supply and too early to request additional meds at this time. Regarding sleep study, I would like to ask if he would have this in [place] so that I can personally review the raw data. Fany Piña 12/28/2017 12:08 PM Signed I called and left message on machine for patient to return our call. Fany Lorenzo RN 12/28/2017 2:18 PM Signed Patient made aware of message. Aware of plan of care. No other questions. Encounter closed. He is aware that with next fill to ask for Mail order as it is $7 instead of $24. He will get sleep study scheduled. Allergies As of Date: 12/27/2017 (No Known Allergies) Date Reviewed: 11/29/2017 Reviewed by: Mariaelena Vargas Ct - Fully Assessed Reason for Visit: Orders [681] Primary Visit Diagnosis:Obstructive sleep apnea (adult) (pediatric) [G47.33] Other Visit Diagnosis:PLMD (periodic limb movement disorder) [G47.61] Order(s):PAP TITRATION PSG (CPAP, BIPAP, ASV) [[id number]] Order #: [id number] FUTURE Prescriptions as of 12/27/2017 Sig: NICOTINE 14 MG/24 HR DAILY TR* Apply 1 Patch as directed alexy* CLONAZEPAM 1 MG TABLET Take 2 tabs at bedtime prn. ROTIGOTINE 2 MG/24 HOUR TRANS* Apply 1 Patch as directed onc* LISINOPRIL 5 MG TABLET ASPIRIN ORAL Take 81 mg by mouth. Problem List As Of Date: 12/27/2017 (None) Encounter Status:Closed by CORNELIUS FAYE on 12/28/[address] [facility] Blood Glucose , Office ([phone])Ordered By: Terra Cooney on 10-18-2017 Glucose Glucometer molar conc (BldC) 102 1 Normal [facility] Work Phone: HgA1C , Office ([phone])Ordere d By: Terra Cooney on 10-18-2017 Hemoglobin A1c/Hemoglobin.total mass fraction (Bld) 5.5 % Normal 4.6 - 7.1 [facility] Work Phone: Blood Glucose , Office ([phone])Ordered By: Terra Cooney on 05-16-2017 Glucose Glucometer molar conc (BldC) 132 1 Normal [facility] Work Phone: CBC W/AUTO DIFF WBC ([id number])O rdered By: Retrofit Installer on 05-14-2017 Basophils #/vol (Bld) 0.0 {x10E3/uL} Normal 0.0-0.2 [facility] Work Phone: Comment on above: PATIENT WAS FASTINGP ERFORMED BY: JACKIE [facility] [id number]Dublin [place] [id number]; fu 8-2 KF Basophils (Bld) [#/Vol] 0.0 10*3/uL Normal 0.0-0.2 [facility]; [facility] Work Phone: Comment on above: PATIENT WAS FASTINGP ERFORMED BY: CB [facility] [id number] [address] RoadDublin [place] [id number]; fu 8-2 KF Basophils/100 WBC (Bld) 0 % Normal [facility] Work Phone: Comment on above: PATIENT WAS FASTINGP ERFORMED BY: CB [facility] Ipjnzx1771 [address] [place] [id number]; fu 8-2 KF Eosinophils #/vol (Bld) 0.1 {x10E3/uL} Normal 0.0-0.4 [facility] Work Phone: Comment on above: PATIENT WAS FASTINGP ERFORMED BY: CB [facility] [id number] [address]Dublin [place] [id number]; fu 8-2 KF Eosinophils (Bld) [#/Vol] 0.1 10*3/uL Normal 0.0-0.4 [facility]; [facility] Work Phone: Comment on above: PATIENT WAS FASTINGP ERFORMED BY: CB [facility] Zwqipi7119 [address] RoadDublin [place] [id number]; fu 8-2 KF Eosinophils/100 WBC (Bld) 2 % Normal [facility] Work Phone: Comment on above: PATIENT WAS FASTINGP ERFORMED BY: [facility] Feyyzi2437 [address]Dublin [place] [id number]; fu 8-2 KF Erythrocyte distribution width Ratio (RBC) 14.5 % Normal 12.3-15.4 [facility] Work Phone: Comment on above: PATIENT WAS FASTINGP ERFORMED BY: [facility] Rlokzq1585 [address] Roadblin [place] [id number]; fu 8-2 KF Hematocrit Volume Fraction (Bld) 43.5 % Normal 37.5-51.0 [facility] Work Phone: Comment on above: PATIENT WAS FASTINGP ERFORMED BY: [facility] Bfbzek6448 [address] RoadAtrium Health [facility] Centerin [place] [id number]; fu 8-2 KF Hemoglobin mass conc (Bld) 14.5 g/dL Normal 12.6-17.7 [facility] Work Phone: Comment on above: PATIENT WAS FASTINGP ERFORMED BY: [facility] Nqmxsu6418 [address] RoadAtrium Health [facility] Medical Centerin [place] [id number]; fu 8-2 KF Immature granulocytes #/vol (Bld) 0.0 {x10E3/uL} Normal 0.0-0.1 [facility] Work Phone: Comment on above: PATIENT WAS FASTINGP ERFORMED BY: [facility] Xntrnh1593 [address]Dublin [place] [id number]; fu 8-2 KF Immature granulocytes (Bld) [#/Vol] 0.0 10*3/uL Normal 0.0-0.1 [facility]; [facility] Work Phone: Comment on above: PATIENT WAS FASTINGP ERFORMED BY: [facility] Iqzqqe3737 [address]Dublin [place] [id number]; fu 8-2 KF Immature granulocytes/100 WBC (Bld) 0 % Normal [facility] Work Phone: Comment on above: PATIENT WAS FASTINGP ERFORMED BY: CB [facility] Mgjett1631 [address]Dublin [place] [id number]; fu 8-2 KF Lymphocytes #/vol (Bld) 1.9 {x10E3/uL} Normal 0.7-3.1 [facility] Work Phone: Comment on above: PATIENT WAS FASTINGP ERFORMED BY: CB [facility] Qxmcbd2653 [address]Dublin [place] [id number]; fu 8- KF Lymphocytes (Bld) [#/Vol] 1.9 10*3/uL Normal 0.7-3.1 [facility]; [facility] Work Phone: Comment on above: PATIENT WAS FASTINGP ERFORMED BY: JACKIE [facility] Jtdxft8774 [address]Dublin [place] [id number]; fu 8-2 KF Lymphocytes/100 WBC (Bld) 30 % Normal [facility] Work Phone: Comment on above: PATIENT WAS FASTINGP ERFORMED BY: CB [facility] Ekppao2133 [address]Dublin [place] [id number]; fu 8-2 KF MCH Entitic mass (RBC) 29.7 pg Normal 26.6-33.0 [facility] Work Phone: Comment on above: PATIENT WAS FASTINGP ERFORMED BY: [facility] Qcqyhy6499 [address]Dublin [place] [id number]; fu 8-2 KF MCHC mass conc (RBC) 33.3 g/dL Normal 31.5-35.7 [facility] Work Phone: Comment on above: PATIENT WAS FASTINGP ERFORMED BY: CB [facility] Jjfpra4016 [address] [place] [id number]; fu 8-2 KF MCV Entitic volume (RBC) 89 fL Normal 79-97 [facility] Work Phone: Comment on above: PATIENT WAS FASTINGP ERFORMED BY: CB [facility] Ogcqqw7924 [address] [place] [id number]; fu 8-2 KF Monocytes #/vol (Bld) 0.4 {x10E3/uL} Normal 0.1-0.9 [facility] Work Phone: Comment on above: PATIENT WAS FASTINGP ERFORMED BY: JACKIE [facility] WooLwqawq8124 [address]Dublin [place] [id number]; fu 8-2 KF Monocytes (Bld) [#/Vol] 0.4 10*3/uL Normal 0.1-0.9 [facility]; [facility] Work Phone: Comment on above: PATIENT WAS FASTINGP ERFORMED BY: CB [facility] Szohpw4702 [address]Dublin [place] [id number]; fu 8-2 KF Monocytes/100 WBC (Bld) 6 % Normal [facility] Work Phone: Comment on above: PATIENT WAS FASTINGP ERFORMED BY: [facility] Vqotxg0062 [address] [place] [id number]; fu 8-2 KF Neutrophils #/vol (Bld) 3.9 {x10E3/uL} Normal 1.4-7.0 [facility] Work Phone: Comment on above: PATIENT WAS FASTINGP ERFORMED BY: JACKIE [facility] WooNgmoto6530 [address]Dublin [place] [id number]; fu 8-2 KF Neutrophils (Bld) [#/Vol] 3.9 10*3/uL Normal 1.4-7.0 [facility]; [facility] Work Phone: Comment on above: PATIENT WAS FASTINGP ERFORMED BY: CB [facility] Nysaxe6839 [address] RoadDublin [place] [id number]; fu 8-2 KF Neutrophils/100 WBC (Bld) 62 % Normal [facility] Work Phone: Comment on above: PATIENT WAS FASTINGP ERFORMED BY: CB [facility] Pyzrzz3395 [address] [place] [id number]; fu 8-2 KF Platelets #/vol (Bld) 166 {x10E3/uL} Normal 150-379 [facility] Work Phone: Comment on above: PATIENT WAS FASTINGP ERFORMED BY: CB [facility] Jubmwv5349 [address]Dublin [place] [id number]; fu 8-2 KF Platelets (Bld) [#/Vol] 166 10*3/uL Normal 150-379 [facility]; [facility] Work Phone: Comment on above: PATIENT WAS FASTINGP ERFORMED BY: CB [facility] Clokln1685 [address]Dublin [place] [id number]; fu 8-2 KF RBC #/vol (Bld) 4.89 {x10E6/uL} Normal 4.14-5.80 [facility] Work Phone: Comment on above: PATIENT WAS FASTINGP ERFORMED BY: CB [facility] WooLglwgo3466 [address]Dublin [place] [id number]; fu 8-2 KF RBC (Bld) [#/Vol] 4.89 10*6/uL Normal 4.14-5.80 [facility]; [facility] Work Phone: Comment on above: PATIENT WAS FASTINGP ERFORMED BY: CB [facility] Spgsra0967 [address] RoadD[address] [place] [id number]; fu 8-2 KF WBC #/vol (Bld) 6.4 {x10E3/uL} Normal 3.4-10.8 [facility] Internal Medicine Work Phone: Comment on above: PATIENT WAS FASTINGP ERFORMED BY: CB [facility] Tewwqd8997 [address] RoadDublin [place] [id number]; fu 8-2 KF WBC (Bld) [#/Vol] 6.4 10*3/uL Normal 3.4-10.8 [facility]; [facility] Work Phone: Comment on above: PATIENT WAS FASTINGP ERFORMED BY: CB [facility] Hkzobb3159 [address] RoadDublin [place] [id number]; fu 8-2 KF LIPID PANEL ([id number])Ordered B y: Retrofit Installer on 05-14-2017 Cholesterol in HDL mass conc 52 mg/dL Normal [facility] Work Phone: Comment on above: PATIENT WAS FASTINGP ERFORMED BY: JACKIE [facility] Tlujvo1449 [address] RoadDublin [place] [id number] Cholesterol in LDL mass conc 96 mg/dL Normal 0-99 [facility] Work Phone: Comment on above: PATIENT WAS FASTINGP ERFORMED BY: JACKIE LabCodmitry ErnandezGywrii5214 [address] RoadDublin [place] [id number] Cholesterol in LDL/Cholesterol in HDL mass ratio 1.8 {ratio_units} Normal 0.0-3.6 [facility] Work Phone: Comment on above: LDL/HDL Ratio Men Wo men 1/2 Avg.Risk 1.0 1.5 Avg.Risk 3.6 3.2 2X Avg.Risk 6.2 5.0 3X Avg.Risk 8.0 6.1 PATIENT WAS FASTINGP ERFORMED BY: JACKIE LabCodmitry ErnandezFvyymc5155 [address] RoadDublin [place] [id number] Cholesterol in VLDL mass conc 20 mg/dL Normal 5-40 [facility] Work Phone: Comment on above: PATIENT WAS FASTINGP ERFORMED BY: JACKIE LabCodmitry ErnandezQxmsfk8401 [address] RoadDublin [place] [id number] Cholesterol mass conc 168 mg/dL Normal 100-199 [facility] Work Phone: Comment on above: PATIENT WAS FASTINGP ERFORMED BY: JACKIE LabCodmitry ErnandezMvcxtb3494 [address] RoadDublin [place] [id number] Triglyceride mass conc 101 mg/dL Normal 0-149 [facility] Work Phone: Comment on above: PATIENT WAS FASTINGP ERFORMED BY: JACKIE [facility] Anurjv1107 [address] RoadDublin [place] [id number] METABOLIC PANEL, COMPREHENSI VE ([id number])Ordered By: Retrofit Installer on 05-14-2017 Albumin mass conc 4.3 g/dL Normal 3.6-4.8 Compreh ensive Internal Medicine Work Phone: Comment on above: PATIENT WAS FASTINGP ERFORMED BY: JACKIE [facility] Bjytcn7749 [address] RoadDublin [place] [id number] Albumin/Globulin mass ratio 2.0 {ratio} Normal 1.2-2.2 [facility] Internal Medicine Work Phone: Comment on above: PATIENT WAS FASTINGP ERFORMED BY: [facility] Hbdrsw5357 [address] RoadDublin [place] [id number] ALP [Catalytic activity/Vol] 75 U/L Normal 39-117 [facility] Internal Medicine; [facility] Internal Medicine Work Phone: Comment on above: PATIENT WAS FASTINGP ERFORMED BY: CB [facility] Vmvuqg5936 [address] RoadDublin [place] [id number] ALP enzyme act/vol 75 [iU]/L Normal 39-[address] [facility] Internal Medicine Work Phone: Comment on above: PATIENT WAS FASTINGP ERFORMED BY: [facility] Fwaocg2158 [address] RoadDublin [place] [id number] ALT [Catalytic activity/Vol] 19 U/L Normal 0-44 [facility] Internal Medicine; [facility] Internal Medicine Work Phone: Comment on above: PATIENT WAS FASTINGP ERFORMED BY: [facility] Cqjvea0367 [address] RoadDublin [place] [id number] ALT enzyme act/vol 19 [iU]/L Normal 0-[address] [facility] Internal Medicine Work Phone: Comment on above: PATIENT WAS FASTINGP ERFORMED BY: [facility] Zdabfv4892 [address] RoadDublin [place] [id number] AST [Catalytic activity/Vol] 19 U/L Normal 0-40 [facility] Internal Medicine; [facility] Internal Medicine Work Phone: Comment on above: PATIENT WAS FASTINGP ERFORMED BY: [facility] Qbpszb9660 [address] RoadDublin [place] [id number] AST enzyme act/vol 19 [iU]/L Normal 0-[address] [facility] Internal Medicine Work Phone: Comment on above: PATIENT WAS FASTINGP ERFORMED BY: [facility] Titkpz8680 [address] RoadDublin [place] [id number] Bilirubin mass conc 0.7 mg/dL Normal 0.0-1.2 [facility] Internal Medicine Work Phone: Comment on above: PATIENT WAS FASTINGP ERFORMED BY: JACKIE [facility] Pfskiv2167 [address] RoadDublin [place] [id number] Calcium mass conc 9.6 mg/dL Normal 8.6-10.2 Compreh ensive Internal Medicine Work Phone: Comment on above: PATIENT WAS FASTINGP ERFORMED BY: JACKIE [facility] Vvfyds3802 [address] RoadDublin [place] [id number] Chloride molar conc 103 mmol/L Normal 96-106 Compr ehensive Internal Medicine Work Phone: Comment on above: PATIENT WAS FASTINGP ERFORMED BY: JACKIE [facility] Lajcrd5441 [address] RoadDublin [place] [id number] CO2 molar conc 25 mmol/L Normal 18-29 Comprehens shari Internal Medicine Work Phone: Comment on above: PATIENT WAS FASTINGP ERFORMED BY: JACKIE [facility] Wtqvnl2039 [address] RoadAtrium Health [facility] Centerin [place] [id number] Creatinine mass conc 1.04 mg/dL Normal 0.76-1.27 Comp rehensive Internal Medicine Work Phone: Comment on above: PATIENT WAS FASTINGP ERFORMED BY: JACKIE [facility] Dmghds4095 Robertson RoadAtrium Health [facility] Medical Centerin [place] [id number] GFR/1.73 sq M predicted among blacks CKD-EPI vol rate/area (S/P/Bld) 85 mL/min/1.73 Normal Comprehensiv e Internal Medicine Work Phone: Comment on above: PATIENT WAS FASTINGP ERFORMED BY: CB [facility] Fkthhm8831 [address] RoadAtrium Health [facility] Medical Centerin [place] [id number] GFR/1.73 sq M predicted among non-blacks CKD-EPI vol rate/area (S/P/Bld) 74 mL/min/1.73 Normal [facility] Work Phone: Comment on above: PATIENT WAS FASTINGP ERFORMED BY: JACKIE [facility] Gpjnwf2526 [address] Roadblin [place] [id number] Globulin mass conc (S) 2.2 g/dL Normal 1.5-4.5 [facility] Work Phone: Comment on above: PATIENT WAS FASTINGP ERFORMED BY: JACKIE LabTalat ErnandezTtlhhh2678 [address] RoadDublin [place] [id number] Glucose mass conc 93 mg/dL Normal 65-99 Compreh ensive Internal Medicine Work Phone: Comment on above: PATIENT WAS FASTINGP ERFORMED BY: JACKIE LabTalat Woo6370 [address] RoadDublin [place] [id number] Potassium molar conc 5.2 mmol/L Normal 3.5-5.2 Comp rehensive Internal Medicine Work Phone: Comment on above: PATIENT WAS FASTINGP ERFORMED BY: JACKIE LabTalat ErnandezFkrnos0320 [address] RoadDublin [place] [id number] Protein mass conc 6.5 g/dL Normal 6.0-8.5 Compreh ensive Internal Medicine Work Phone: Comment on above: PATIENT WAS FASTINGP ERFORMED BY: JACKIE Ernandezlin6370 [address] RoadDublin [place] [id number] Sodium molar conc 142 mmol/L Normal 134-144 Compreh ensive Internal Medicine Work Phone: Comment on above: PATIENT WAS FASTINGP ERFORMED BY: JACKIE Woo6370 [address] RoadDublin [place] [id number] Urea nitrogen mass conc 22 mg/dL Normal 8-27 [facility] Work Phone: Comment on above: PATIENT WAS FASTINGP ERFORMED BY: JACKIE Ernandezlin6370 [address] Roadblin [place] [id number] Urea nitrogen/Creatinine mass ratio 21 mg/mg Normal 10-24 [facility] Work Phone: Comment on above: PATIENT WAS FASTINGP ERFORMED BY: JACKIE Lab[facility]at ErnandezNrrmui9656 [address] RoadDublin [place] [id number] MICROALBUMINOrdered By: Syst em Geotechnician on 05-14-2017 Albumin DL <= 20 mg/L mass conc (U) 3.7 ug/mL Normal [facility] Work Phone: Comment on above: PATIENT WAS FASTINGP ERFORMED BY: JACKIE LabTalta ErnandezAfvhjo8340 [address] RoadDublin [place] [id number] Albumin/Creatinine mass ratio (U) 1.6 {mg/g_creat} Normal 0.0-30.0 [facility] Work Phone: Comment on above: PATIENT WAS FASTINGP ERFORMED BY: [facility]SystemsK[facility] Piifwj2249 [facility] [id number] Creatinine mass conc (U) 231.7 mg/dL Normal [facility] Work Phone: Comment on above: PATIENT WAS FASTINGP ERFORMED BY: SavvySystemsScheurer Hospital6370 [facility] [id number] PSA (PROSTATE SPECIFIC ANTIG EN) (V76.44)Ordered By: Retrofit Installer on 05-14-2017 Prostate specific Ag mass conc 3.1 ng/mL Normal 0.0-4.0 [facility] Work Phone: Comment on above: [employer] ECLIA methodol ogy. .According to the [place] [employer], Serum PSA shoulddecrease and remain at undetectable levels after radicalprostatectomy. The AUA defines biochemical recurrence as an initialPSA value 0.2 ng/mL or greater followed by a subsequent confirmatoryPSA value 0.2 ng/mL or greater.Values obtained with different assay methods or kits cannot be usedinterchangeably. Results cannot be interpreted as absolute evidenceof the presence or absence of malignant disease. PATIENT WAS FASTINGP ERFORMED BY: WysiwygRaritan Bay Medical CenterUdlvyr9081 [facility] [id number] TSH ([id number])Ordered By: Syste m Geotechnician on 05-14-2017 Thyrotropin Qn 1.430 {uIU/mL} Normal 0.450-4.50 0 [facility] Work Phone: Comment on above: PATIENT WAS FASTINGP ERFORMED BY: [facility]vySystemsSche[facility] Hospital6370 [facility] [id number] URINALYSIS, W/ MICRO ([id number]) Ordered By: Retrofit Installer on 05-14-2017 Appearance Nom (U) Clear Normal Compre [facility] Internal [facility] Work Phone: Comment on above: PATIENT WAS FASTINGP ERFORMED BY: Lobo Ernandezlin6370 Robertson RoadC[facility] [id number] Bilirubin Ql (U) Negative Normal Comprehe nsive Internal Medicine Work Phone: Comment on above: PATIENT WAS FASTINGP ERFORMED BY: JACKIE Ernandezlin6370 [address] RoadDublin [place] [id number] Bilirubin Ql (U) Negative Normal Comprehe nsive Internal Medicine; [facility] Work Phone: Comment on above: PATIENT WAS FASTINGP ERFORMED BY: JACKIE Woo[address] [facility]in [place] [id number] Color Nom (U) Yellow Normal Comprehensi ve Internal Medicine Work Phone: Comment on above: PATIENT WAS FASTINGP ERFORMED BY: JACKIE Woo6370 [address] [facility] [id number] Glucose Ql (U) Negative Normal Comprehens shari Internal Medicine Work Phone: Comment on above: PATIENT WAS FASTINGP ERFORMED BY: JACKIE Woo6370 [address] [facility] [id number] Glucose Ql (U) Negative Normal Comprehens shari Internal Medicine; [facility] Work Phone: Comment on above: PATIENT WAS FASTINGP ERFORMED BY: JACKIE Woo6370 [address] [facility] [id number] Hemoglobin Ql (U) Negative Normal Compreh ensive Internal Medicine Work Phone: Comment on above: PATIENT WAS FASTINGP ERFORMED BY: JACKIE Woo6370 [address] RoadWaterloo [place] [id number] Hemoglobin Ql (U) Negative Normal Compreh ensive Internal Medicine; [facility] Work Phone: Comment on above: PATIENT WAS FASTINGP ERFORMED BY: JACKIE Ernandezlin6370 [address] RoadAtrium Health [facility] Centerin [place] [id number] Ketones Ql (U) Negative Normal Comprehens shari Internal Medicine Work Phone: Comment on above: PATIENT WAS FASTINGP ERFORMED BY: JACKIE Ernandezlin6370 [address] RoadDuin [place] [id number] Ketones Ql (U) Negative Normal Comprehens shari Internal Medicine; [facility] Work Phone: Comment on above: PATIENT WAS FASTINGP ERFORMED BY: JACKIE Woo6370 [address] RoadDublin [place] [id number] Leukocyte esterase Test strip Ql (U) Negative Normal [facility] Work Phone: Comment on above: PATIENT WAS FASTINGP ERFORMED BY: JACKIE Woo6370 [address] RoadDublin [place] [id number] Leukocyte esterase Test strip Ql (U) Negative Normal [facility]; [facility] Work Phone: Comment on above: PATIENT WAS FASTINGP ERFORMED BY: JACKIE Woo6370 [address] RoadDublin [place] [id number] Microscopic observation LM Nom (Urine sed) MICRON Normal [facility] Work Phone: Comment on above: Microscopic follows if indicated. PATIENT WAS FASTINGP ERFORMED BY: JACKIE Woo6370 [address] RoadDublin [place] [id number] Microscopic observation LM Nom (Urine sed) See below: Normal [facility] Work Phone: Comment on above: Microscopic was lynette cated and was performed. PATIENT WAS FASTINGP ERFORMED BY: JACKIE Ernandezlin6370 [address] RoadDublin [place] [id number] Nitrite Ql (U) Negative Normal Comprehens shari Internal Medicine Work Phone: Comment on above: PATIENT WAS FASTINGP ERFORMED BY: JACKIE Woo6370 [address] RoadDublin [place] [id number] Nitrite Ql (U) Negative Normal Comprehens shari Internal Medicine; [facility] Work Phone: Comment on above: PATIENT WAS FASTINGP ERFORMED BY: JACKIE Ernandezlin6370 [address] RoadDublin [place] [id number] pH (U) 6.5 [pH] Normal 5.0-7.5 [facility] Work Phone: Comment on above: PATIENT WAS FASTINGP ERFORMED BY: JACKIE Ernandezlin6370 [address] RoadDublin [place] [id number] Protein Ql (U) Negative Normal Comprehens shari Internal Medicine Work Phone: Comment on above: PATIENT WAS FASTINGP ERFORMED BY: JACKIE [facility] Cymuuq2346 [address] [facility] [id number] Protein Ql (U) Negative Normal Comprehens shari Internal Medicine; [facility] Work Phone: Comment on above: PATIENT WAS FASTINGP ERFORMED BY: [facility] Hikfko1742 [facility] [id number] Specific gravity Relative Density (U) 1.030 1 Normal 1.005-1.03 0 [facility] Work Phone: Comment on above: PATIENT WAS FASTINGP ERFORMED BY: JACKIE [facility] Gwewbz5554 [facility] [id number] Urobilinogen (U) [Mass/Vol] 0.2 mg/dL Normal 0.2-1.0 [facility]; [facility] Work Phone: Comment on above: PATIENT WAS FASTINGP ERFORMED BY: JACKIE [facility] Lompnr7268 [facility] [id number] Urobilinogen Test strip mass conc (U) 0.2 mg/dL Normal 0.2-1.0 Comprehensiv e Internal Medicine Work Phone: Comment on above: PATIENT WAS FASTINGP ERFORMED BY: [facility] Jotnia6380 [facility] [id number] Office Visiton 03-27-2017 Fall risk assessment No [facility] Work Phone: Protein mass conc Done [facility] Work Phone: Tobacco smoking status NHIS Former smoker [facility] Work Phone: Blood Glucose , Office ([phone])Ordered By: Terra Cooney on 01-10-2017 Glucose Glucometer molar conc (BldC) 88 1 Normal [facility] Work Phone: HgA1C , Office ([phone])Ordere d By: Terra Cooney on 01-10-2017 Hemoglobin A1c/Hemoglobin.total mass fraction (Bld) 5.9 % Normal 4.6 - 7.1 Comprehensiv e Internal Medicine Work Phone: Office Visiton 09-26-2016 Protein mass conc yes [facility] Work Phone: Clinical Lists Update: 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 Left ventricular Ejection fraction 40 % [facility] Work Phone: Blood Glucose , Office ([phone])Ordered By: Alina King on 09-11-2016 Glucose Glucometer molar conc (BldC) 74 1 Normal [facility] Work Phone: HgA1C , Office ([phone])Ordere d By: Alina King on 09-11-2016 Hemoglobin A1c/Hemoglobin.total mass fraction (Bld) 5.8 % Normal 4.6 - 7.1 Comprehensiv e Internal Medicine Work Phone: CALCIFEDIOL ([phone])Ordered B y: Retrofit Installer on 06-06-2016 25-Hydroxyvitamin D2+25-Hydroxyvitamin D3 mass conc 43.4 ng/mL Normal 30.0-100.0 [facility] Work Phone: Comment on above: Vitamin D deficiency has been defined by the [place] ofMedicine and an Endocrine Society practice guideline as alevel of serum 25-OH vitamin D less than 20 ng/mL (1,2).The Endocrine Society went on to further define vitamin Dinsufficiency as a level between 21 and 29 ng/mL (2).1. IOM ([place] of Medicine). 2010. Dietary reference intakes for calcium and D. [place]: The National Academies Press.2. Ellne MF, Alfreda NC, Carolyn SHIELDS, et al. Evaluation, treatment, and prevention of vitamin D deficiency: an Endocrine Society clinical practice guideline. JCEM. 2010; 96(7):1911-30. PATIENT NOT FASTINGP ERFORMED BY: [facility] Apkoxg6889 [facility] [id number] MICROALBUMINOrdered By: Syst em Geotechnician on 06-06-2016 Albumin DL <= 20 mg/L mass conc (U) 3.5 ug/mL Normal [facility] Work Phone: Comment on above: PATIENT NOT FASTINGP ERFORMED BY: JACKIE [facility] Acdlik8125 [address] RoadDublin [place] [id number] Information: [id number] Albumin/Creatinine mass ratio (U) 3.0 {mg/g_creat} Normal 0.0-30.0 [facility] Work Phone: Comment on above: PATIENT NOT FASTINGP ERFORMED BY: CB [facility] Guqick6618 [address] RoadDublin [place] [id number] Information: [id number] Creatinine mass conc (U) 116.8 mg/dL Normal [facility] Work Phone: Comment on above: PATIENT NOT FASTINGP ERFORMED BY: JACKIE [facility] Qqcluy9099 [address] MyEveTabblin [place] [id number] Information: [id number] PSA (PROSTATE SPECIFIC ANTIG EN) (V76.44)Ordered By: Retrofit Installer on 06-06-2016 Prostate specific Ag mass conc 3.2 ng/mL Normal 0.0-4.0 [facility] Work Phone: Comment on above: Peggy ECLIA methodol ogy. .According to the [place] U[employer] Association, Serum PSA shoulddecrease and remain at undetectable levels after radicalprostatectomy. The AUA defines biochemical recurrence as an initialPSA value 0.2 ng/mL or greater followed by a subsequent confirmatoryPSA value 0.2 ng/mL or greater.Values obtained with different assay methods or kits cannot be usedinterchangeably. Results cannot be interpreted as absolute evidenceof the presence or absence of malignant disease. PATIENT NOT FASTINGP ERFORMED BY: CB [facility] Vsqdza2567 [address] MyEveTabblin [place] [id number] Vitamin B-12 (cyanocobalamin ) ([id number])Ordered By: Retrofit Installer on 06-06-2016 Cobalamin (Vitamin B12) mass conc 435 pg/mL Normal 211-946 [facility] Work Phone: Comment on above: PATIENT NOT FASTINGP ERFORMED BY: CB [facility] Cqkurm1211 [address] MyEveTabblin [place] [id number] External Other: Preferred Me thod of Contacton 02-02-2016 methcontact secmsg [facility] Work Phone: Clinical Lists Update: Pre01-27-2016 Thyrotropin Qn 1.02 u[iU]/mL [facility] Work Phone: Fecal Occult Blood , Office ([phone])Ordered By: Devon Ambrosio on 01-19-2016 Hemoglobin.gastroint estinal Ql (St) Negative Normal [facility] Work Phone: Hemoglobin.gastroint estinal Ql (Stl) Negative Normal [facility]; [facility] Work Phone: Clinical Lists Update: Prelo 01-17-2016 basophils as percent of blood leukocytes, manual count 0 % [facility] Work Phone: Cholesterol in HDL mass conc 49 mg/dL [facility] Work Phone: Cholesterol in LDL mass conc 137 mg/dL High [facility] Work Phone: Cholesterol mass conc 212 mg/dL High [facility] Work Phone: eosinophils as percent of blood leukocytes, manual count 2 % [facility] Work Phone: Erythrocyte distribution width Ratio (RBC) 14.4 % [facility] Work Phone: Hematocrit Volume Fraction (Bld) 46.1 % [facility] Work Phone: Hemoglobin mass conc (Bld) 15.9 g/dL [facility] Work Phone: Lipoprotein.pre-beta mass conc 26 mg/dL [facility] Work Phone: Lymphocytes/100 WBC (Bld) 29 % [facility] Work Phone: MCH Entitic mass (RBC) 29.8 pg [facility] Work Phone: MCHC mass conc (RBC) 34.5 g/dL [facility] Work Phone: MCV Entitic volume (RBC) 87 fL [facility] Work Phone: Monocytes/100 WBC (Bld) 7 % [facility] Work Phone: neutrophils, band form as percent of blood leukocytes, manual count 62 % [facility] Work Phone: Platelets #/vol (Bld) 182 10*3/mm3 [facility] Work Phone: RBC #/vol (Bld) 5.33 10*6/uL [facility] Work Phone: Triglyceride mass conc 130 mg/dL [facility] Work Phone: WBC #/vol (Bld) 8.4 10*3/uL [facility] Work Phone: MICROALBUMINOrdered By: Syst em Geotechnician on 01-17-2016 Albumin DL <= 20 mg/L (U) [Mass/Vol] mg/dL Normal 0.0-17.0 Comprehensiv e Internal Medicine; [facility] Work Phone: Comment on above: PATIENT NOT FASTINGP ERFORMED BY: JACKIE [facility] Rdsmzx3553 [address] [facility]EveTabC[facility] [id number]; review in OV on 01/21/16 Albumin DL <= 20 mg/L mass conc (U) mg/dL Normal 0.0-17.0 [facility] Work Phone: Comment on above: PATIENT NOT FASTINGP ERFORMED BY: CB [facility] Qqpeso2697 [address] MyEveTabCone Health Women[facility] Hospital [id number]; review in OV on 01/21/16 Albumin/Creatinine mass ratio (U) <4.6 Normal 0.0-30.0 [facility] Work Phone: Comment on above: PATIENT NOT FASTINGP ERFORMED BY: CB [facility] Cogxms5731 [address] MyEveTabCone Health Women[facility] Hospital [id number]; review in OV on 01/21/16 Creatinine mass conc (U) 65.3 mg/dL Normal 22.0-328.0 [facility] Work Phone: Comment on above: PATIENT NOT FASTINGP ERFORMED BY: CB [facility] Umygqs6325 [address] [facility] [place] [id number]; review in OV on 01/21/16 URINALYSIS, W/ MICRO ([id number]) Ordered By: Retrofit Installer on 01-17-2016 Appearance Nom (U) Clear Normal Compre hensive Internal Medicine Work Phone: Comment on above: PATIENT NOT FASTINGP ERFORMED BY: JACKIE [facility] Nwwxef7523 Robertson RoadAt[facility] Health [facility] Centerin [place] [id number] Information: [id number] Bilirubin Ql (U) Negative Normal Comprehe nsive Internal Medicine Work Phone: Comment on above: PATIENT NOT FASTINGP ERFORMED BY: JACKIE [facility] Sdddmm1303 [address] RoadDublin [place] [id number] Information: [id number] Bilirubin Ql (U) Negative Normal Comprehe nsive Internal Medicine; [facility] Work Phone: Comment on above: PATIENT NOT FASTINGP ERFORMED BY: JACKIE LabCodmitry ErnandezBtowue3015 [address] RoadAtrium Health [facility] Medical Centerin [place] [id number] Information: [id number] Color Nom (U) Yellow Normal Comprehensi ve Internal Medicine Work Phone: Comment on above: PATIENT NOT FASTINGP ERFORMED BY: JACKIE LabCodmitry ErnandezMkblhs0704 [address] [facility]in [place] [id number] Information: [id number] Glucose Ql (U) Negative Normal Comprehens shari Internal Medicine Work Phone: Comment on above: PATIENT NOT FASTINGP ERFORMED BY: JACKIE [facility] Gckchd7074 [address] RoadAtrium Health Carol[facility] Medical Centerin [place] [id number] Information: [id number] Glucose Ql (U) Negative Normal Comprehens shari Internal Medicine; [facility] Work Phone: Comment on above: PATIENT NOT FASTINGP ERFORMED BY: JACKIE [facility] Zjtese5420 [address] RoadAtrium Health [facility] Centerin [place] [id number] Information: [id number] Hemoglobin Ql (U) Negative Normal Compreh ensive Internal Medicine Work Phone: Comment on above: PATIENT NOT FASTINGP ERFORMED BY: JACKIE [facility] Gpaxma2377 [address] RoadAtrium Health [facility] Centerin [place] [id number] Information: [id number] Hemoglobin Ql (U) Negative Normal Compreh ensive Internal Medicine; [facility] Work Phone: Comment on above: PATIENT NOT FASTINGP ERFORMED BY: CB [facility] Rcvudg0057 Robertson RoadCone Health Women's Hospital [id number] Information: [id number] Ketones Ql (U) Negative Normal Comprehens shari Internal Medicine Work Phone: Comment on above: PATIENT NOT FASTINGP ERFORMED BY: CB [facility] Ghpbwu3923 [address] RoadAtrium Health [facility] Centerin [place] [id number] Information: [id number] Ketones Ql (U) Negative Normal Comprehens shari Internal Medicine; [facility] Work Phone: Comment on above: PATIENT NOT FASTINGP ERFORMED BY: [facility] Uzvlck8751 [address] [facility] [id number] Information: [id number] Leukocyte esterase Test strip Ql (U) Negative Normal [facility] Work Phone: Comment on above: PATIENT NOT FASTINGP ERFORMED BY: [facility] Pvahie4815 [facility] [id number] Information: [id number] Leukocyte esterase Test strip Ql (U) Negative Normal [facility]; [facility] Work Phone: Comment on above: PATIENT NOT FASTINGP ERFORMED BY: [facility] Gubgdg8559 [facility] [id number] Information: [id number] Microscopic observation LM Nom (Urine sed) MICRON Normal [facility] Work Phone: Comment on above: Microscopic follows if indicated. PATIENT NOT FASTINGP ERFORMED BY: CB [facility] Dzxekb7936 [facility] [place] [id number] Information: [id number] Microscopic observation LM Nom (Urine sed) See below: Normal [facility] Work Phone: Comment on above: Microscopic was lynette cated and was performed. PATIENT NOT FASTINGP ERFORMED BY: CB [facility] Ckwojw5363 [facility] [id number] Information: [id number] Nitrite Ql (U) Negative Normal Comprehens shari Internal Medicine Work Phone: Comment on above: PATIENT NOT FASTINGP ERFORMED BY: JACKIE Ernandezlin6370 [facility] RoadC[facility] [id number] Information: [id number] Nitrite Ql (U) Negative Normal Comprehens shari [facility]; [facility] Work Phone: Comment on above: PATIENT NOT FASTINGP ERFORMED BY: JACKIE BansalCo Haamkk4474 [facility] [id number] Information: [id number] pH (U) 7.5 [pH] Normal 5.0-7.5 [facility] Work Phone: Comment on above: PATIENT NOT FASTINGP ERFORMED BY: JACKIE Ami Rijmvt8217 [facility] [id number] Information: [id number] Protein Ql (U) Negative Normal Comprehens shari [facility] Work Phone: Comment on above: PATIENT NOT FASTINGP ERFORMED BY: [facility] Nrozun6412 [facility] [id number] Information: K13214 Protein Ql (U) Negative Normal Comprehens shari [facility]; [facility] Work Phone: Comment on above: PATIENT NOT FASTINGP ERFORMED BY: Ami Fcmdkb2433 [facility] [id number] Information: [id number] Specific gravity Relative Density (U) 1.016 1 Normal 1.005-1.03 0 [facility] Work Phone: Comment on above: PATIENT NOT FASTINGP ERFORMED BY: [facility] Opvcxf8302 [facility] [id number] Information: [id number] Urobilinogen (U) [Mass/Vol] 0.2 mg/dL Normal 0.2-1.0 [facility]; [facility] Work Phone: Comment on above: PATIENT NOT FASTINGP ERFORMED BY: [address] [id number] Information: [id number] Urobilinogen Test strip mass conc (U) 0.2 mg/dL Normal 0.2-1.0 Comprehensiv e Internal Medicine Work Phone: Comment on above: PATIENT NOT FASTINGP ERFORMED BY: [address] [id number] Information: [id number] CBC W/AUTO DIFF WBC (35012)O rdered By: Retrofit Installer on 01-12-2016 Basophils #/vol (Bld) 0.0 {x10E3/uL} Normal 0.0-0.2 [facility] Work Phone: Comment on above: PATIENT WAS FASTINGP ERFORMED BY: [address] [id number] Information: [id number] Basophils (Bld) [#/Vol] 0.0 10*3/uL Normal 0.0-0.2 [facility]; [facility] Work Phone: Comment on above: PATIENT WAS FASTINGP ERFORMED BY: [address] [id number] Information: [id number] Basophils/100 WBC (Bld) 0 % Normal [facility] Work Phone: Comment on above: PATIENT WAS FASTINGP ERFORMED BY: [address] [id number] Information: [id number] Eosinophils #/vol (Bld) 0.2 {x10E3/uL} Normal 0.0-0.4 [facility] Work Phone: Comment on above: PATIENT WAS FASTINGP ERFORMED BY: [address] [id number] Information: 105663,[id number] Eosinophils (Bld) [#/Vol] 0.2 10*3/uL Normal 0.0-0.4 [facility]; [facility] Work Phone: Comment on above: PATIENT WAS FASTINGP ERFORMED BY: JACKIE BansalRichard [place] 2959870 [facility] [id number] Information: 354889,[id number] Eosinophils/100 WBC (Bld) 2 % Normal [facility] Work Phone: Comment on above: PATIENT WAS FASTINGP ERFORMED BY: [address] [id number] Information: 079516,[id number] Erythrocyte distribution width Ratio (RBC) 14.4 % Normal 12.3-15.4 [facility] Work Phone: Comment on above: PATIENT WAS FASTINGP ERFORMED BY: [address] [id number] Information: [id number] Hematocrit Volume Fraction (Bld) 46.1 % Normal 37.5-51.0 [facility] Work Phone: Comment on above: PATIENT WAS FASTINGP ERFORMED BY: [address] [id number] Information: [id number],[id number] Hemoglobin mass conc (Bld) 15.9 g/dL Normal 12.6-17.7 [facility] Work Phone: Comment on above: PATIENT WAS FASTINGP ERFORMED BY: [address] [id number] Information: [id number] Immature granulocytes #/vol (Bld) 0.0 {x10E3/uL} Normal 0.0-0.1 [facility] Work Phone: Comment on above: PATIENT WAS FASTINGP ERFORMED BY: [address] [id number] Information: [id number] Immature granulocytes (Bld) [#/Vol] 0.0 10*3/uL Normal 0.0-0.1 [facility]; [facility] Work Phone: Comment on above: PATIENT WAS FASTINGP ERFORMED BY: JACKIE Lobo Sanz [facility] [id number] Information: [id number],[id number] Immature granulocytes/100 WBC (Bld) 0 % Normal [facility] Work Phone: Comment on above: PATIENT WAS FASTINGP ERFORMED BY: JACKIE Mueller Uxltsz[address] [id number] Information: [id number] Lymphocytes #/vol (Bld) 2.5 {x10E3/uL} Normal 0.7-3.1 [facility] Work Phone: Comment on above: PATIENT WAS FASTINGP ERFORMED BY: JACKIE Ami Qvyisl017[address] [id number] Information: [id number],[id number] Lymphocytes (Bld) [#/Vol] 2.5 10*3/uL Normal 0.7-3.1 [facility]; [facility] Work Phone: Comment on above: PATIENT WAS FASTINGP ERFORMED BY: JACKIE Lobo Ernandezlin6370 [facility] [id number] Information: [id number],[id number] Lymphocytes/100 WBC (Bld) 29 % Normal [facility] Work Phone: Comment on above: PATIENT WAS FASTINGP ERFORMED BY: JACKIE Nimisha[address] [id number] Information: 694711,[id number] MCH Entitic mass (RBC) 29.8 pg Normal 26.6-33.0 [facility] Work Phone: Comment on above: PATIENT WAS FASTINGP ERFORMED BY: JACKIE BansalKansas City Va [facility] Center Oeksvi3106 [facility] [id number] Information: 919683,[id number] MCHC mass conc (RBC) 34.5 g/dL Normal 31.5-35.7 [facility] Internal Medicine Work Phone: Comment on above: PATIENT WAS FASTINGP ERFORMED BY: JACKIE [facility]6370 [facility] [id number] Information: [id number],[id number] MCV Entitic volume (RBC) 87 fL Normal 79-97 [facility] Work Phone: Comment on above: PATIENT WAS FASTINGP ERFORMED BY: [address] [id number] Information: [id number] Monocytes #/vol (Bld) 0.6 {x10E3/uL} Normal 0.1-0.9 [facility] Work Phone: Comment on above: PATIENT WAS FASTINGP ERFORMED BY: [address] [id number] Information: [id number],[id number] Monocytes (Bld) [#/Vol] 0.6 10*3/uL Normal 0.1-0.9 [facility]; [facility] Work Phone: Comment on above: PATIENT WAS FASTINGP ERFORMED BY: [place] 2312670 [facility] [id number] Information: [id number] Monocytes/100 WBC (Bld) 7 % Normal [facility] Work Phone: Comment on above: PATIENT WAS FASTINGP ERFORMED BY: [address] [id number] Information: [id number],[id number] Neutrophils #/vol (Bld) 5.1 {x10E3/uL} Normal 1.4-7.0 [facility] Work Phone: Comment on above: PATIENT WAS FASTINGP ERFORMED BY: [facility]6370 [facility] [id number] Information: [id number] Neutrophils (Bld) [#/Vol] 5.1 10*3/uL Normal 1.4-7.0 [facility]; [facility] Work Phone: Comment on above: PATIENT WAS FASTINGP ERFORMED BY: JACKIE Woo6370 [facility] [id number] Information: [id number],[id number] Neutrophils/100 WBC (Bld) 62 % Normal [facility] Work Phone: Comment on above: PATIENT WAS FASTINGP ERFORMED BY: JACKIE Mueller Xbodyo2575 [facility] [id number] Information: [id number] Platelets #/vol (Bld) 182 {x10E3/uL} Normal 150-379 [facility] Work Phone: Comment on above: PATIENT WAS FASTINGP ERFORMED BY: JACKIE Woo6370 [facility] [id number] Information: [id number] Platelets (Bld) [#/Vol] 182 10*3/uL Normal 150-379 [facility]; [facility] Work Phone: Comment on above: PATIENT WAS FASTINGP ERFORMED BY: JACKIE Mueller Gokssq9307 [facility] [id number] Information: 704677,[id number] RBC #/vol (Bld) 5.33 {x10E6/uL} Normal 4.14-5.80 [facility] Internal Medicine Work Phone: Comment on above: PATIENT WAS FASTINGP ERFORMED BY: JACKIE LabMendy Edxfeo3573 [facility] [id number] Information: [id number],[id number] RBC (Bld) [#/Vol] 5.33 10*6/uL Normal 4.14-5.80 Compr ensive Internal Medicine; [facility] Work Phone: Comment on above: PATIENT WAS FASTINGP ERFORMED BY: JACKIE [facility] Tztvza4256 [facility] [id number] Information: [id number] WBC #/vol (Bld) 8.4 {x10E3/uL} Normal 3.4-10.8 Compr ehensive Internal Medicine Work Phone: Comment on above: PATIENT WAS FASTINGP ERFORMED BY: JACKIE Woo6370 [address] Roadblin [place] [id number] Information: 399400,[id number] WBC (Bld) [#/Vol] 8.4 10*3/uL Normal 3.4-10.8 Compre [facility]; [facility] Work Phone: Comment on above: PATIENT WAS FASTINGP ERFORMED BY: JACKIE LabTalat ErnandezWiravi6[address]blin [place] [id number] Information: [id number] Clinical Lists Update: 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 Albumin mass conc 4.4 g/dL Normal 3.6-4.8 [facility] Work Phone: Comment on above: PATIENT WAS FASTINGP ERFORMED BY: JACKIE Ernandezlin6[address] RoadAtrium Health Carol[facility] Medical Centerin [place] [id number] Albumin/Globulin mass ratio 1.9 {ratio} Normal 1.1-2.5 [facility] Work Phone: Comment on above: PATIENT WAS FASTINGP ERFORMED BY: JACKIE Ernandezlin6370 [facility] [place] [id number] ALT enzyme act/vol 17 U/L Normal 0-44 [facility] Work Phone: Comment on above: PATIENT WAS FASTINGP ERFORMED BY: JACKIE LabTalat ErnandezYlzdgz0123 [address] Roadblin [place] [id number] AST enzyme act/vol 18 U/L Normal 0-40 [facility] Work Phone: Comment on above: PATIENT WAS FASTINGP ERFORMED BY: JACKIE LabCodmitry ErnandezJxijwh6028 [facility] [place] [id number] Bilirubin mass conc 0.5 mg/dL Normal 0.0-1.2 [facility] Work Phone: Comment on above: PATIENT WAS FASTINGP ERFORMED BY: JACKIE LabCodmitry ErnandezIjufpp1769 [facility] [place] [id number] Calcium mass conc 9.5 mg/dL Normal 8.6-10.2 [facility] Work Phone: Comment on above: PATIENT WAS FASTINGP ERFORMED BY: [facility] Qotgqq2343 [facility] [place] [id number] Chloride molar conc 101 mmol/L Normal 97-108 [facility] Work Phone: Comment on above: PATIENT WAS FASTINGP ERFORMED BY: [facility]CoPlains Regional Medical CenterDzrojo9198 [facility] [id number] Creatinine mass conc 0.98 mg/dL Normal 0.76-1.27 [facility] Work Phone: Comment on above: PATIENT WAS FASTINGP ERFORMED BY: LabSaint [facility]'S Regional Health CenterBudxbw9433 [facility] [id number] Globulin mass conc (S) 2.3 g/dL Normal 1.5-4.5 [facility] Work Phone: Comment on above: PATIENT WAS FASTINGP ERFORMED BY: LabSaint John'S Regional Health CenterMcvvuk4479 [facility] [id number] Glucose mass conc 91 mg/dL Normal 65-99 [facility] Work Phone: Comment on above: PATIENT WAS FASTINGP ERFORMED BY: LabSaint John'S Regional Health CenterHtitnu4455 [facility] [id number] Potassium molar conc 4.8 mmol/L Normal 3.5-5.2 [facility] Work Phone: Comment on above: PATIENT WAS FASTINGP ERFORMED BY: LabK[facility] Rfhuuy1066 [facility] [id number] Protein mass conc 6.7 g/dL Normal 6.0-8.5 [facility] Work Phone: Comment on above: PATIENT WAS FASTINGP ERFORMED BY: LabK[facility] Vzsivq8555 [facility] [id number] Sodium molar conc 143 mmol/L Normal 134-144 [facility] Work Phone: Comment on above: PATIENT WAS FASTINGP ERFORMED BY: Cocodrilo Dog6370 [facility] [id number] Urea nitrogen mass conc 17 mg/dL Normal 8-27 [employer] Work Phone: Comment on above: PATIENT WAS FASTINGP ERFORMED BY: Wysiwyg Tuyftf7792 [facility] [id number] Urea nitrogen/Creatinine mass ratio 17 mg/mg Normal 10-22 [employer] Work Phone: Comment on above: PATIENT WAS FASTINGP ERFORMED BY: Cocodrilo Dog6370 [facility] [id number] ALP enzyme act/vol (Bld) 85 U/L [employer] Work Phone: CO2 ppres (BldV) 20 mmol/L [employer] Work Phone: GFR/1.73 sq M predicted among non-blacks MDRD vol rate/area (S/P/Bld) 81 mL/min/{1.73_m2} [employer] Work Phone: Glomerular Filtration Rate 93 mL/min/1.73m2 [employer] Work Phone: HgA1C , Office ([id number])Ordere d By: Beatris Oconnor on 01-12-2016 Hemoglobin A1c/Hemoglobin.total mass fraction (Bld) 5.8 % Normal 4.6 - 7.1 Comprehensiv e Internal Medicine Work Phone: LIPID PANEL ([id number])Ordered B y: Retrofit Installer on 01-12-2016 Cholesterol in HDL mass conc 49 mg/dL Normal [facility] Work Phone: Comment on above: According to ATP-III Guidelines, HDL-C >59 mg/dL is considered anegative risk factor for CHD. PATIENT WAS FASTINGP ERFORMED BY: Hull Ldtzpk7472 [facility] [id number]; will review at 4/8 appt Cholesterol in LDL mass conc 137 mg/dL Abnormal 0-99 [facility] Work Phone: Comment on above: PATIENT WAS FASTINGP ERFORMED BY: JACKIE LabTalat Enzgxz6312 [address] Roadblin [place] [id number]; will review at 4/8 appt Cholesterol in LDL/Cholesterol in HDL mass ratio 2.8 {ratio_units} Normal 0.0-3.6 [facility] Work Phone: Comment on above: LDL/HDL Ratio Men Wo men 1/2 Avg.Risk 1.0 1.5 Avg.Risk 3.6 3.2 2X Avg.Risk 6.2 5.0 3X Avg.Risk 8.0 6.1 PATIENT WAS FASTINGP ERFORMED BY: JACKIE [facility] Taaptv6481 [address] Roadblin [place] [id number]; will review at 4/8 appt Cholesterol in VLDL mass conc 26 mg/dL Normal 5-40 [facility] Work Phone: Comment on above: PATIENT WAS FASTINGP ERFORMED BY: JACKIE Ernandezlin6370 [facility] [id number]; will review at 4/8 appt Cholesterol mass conc 212 mg/dL Abnormal 100-199 [facility] Work Phone: Comment on above: PATIENT WAS FASTINGP ERFORMED BY: JACKIE LabTalat ErnandezAedqkw5080 [facility] [id number]; will review at 4/8 appt Triglyceride mass conc 130 mg/dL Normal 0-149 [facility] Work Phone: Comment on above: PATIENT WAS FASTINGP ERFORMED BY: JACKIE [facility] Vwmoba2138 [facility] [place] [id number]; will review at 4/8 appt METABOLIC PANEL, COMPREHENSI VE (83896)Ordered By: Retrofit Installer on 01-12-2016 ALP [Catalytic activity/Vol] 85 U/L Normal 39-117 [facility]; [facility] Work Phone: Comment on above: PATIENT WAS FASTINGP ERFORMED BY: JACKIE LabCodmitry ErnandezCuaiil7342 [facility]bl[facility] [place] [id number] ALP enzyme act/vol 85 [iU]/L Normal 39-[address] [facility] Internal Medicine Work Phone: Comment on above: PATIENT WAS FASTINGP ERFORMED BY: CB [facility] Gwaihp3188 [address] RoadDublin [place] [id number] ALT enzyme act/vol 17 [iU]/L Normal 0-[address] [facility] Internal Medicine Work Phone: Comment on above: PATIENT WAS FASTINGP ERFORMED BY: CB [facility] Eugueh6629 [address] RoadDublin [place] [id number] AST enzyme act/vol 18 [iU]/L Normal 0-[address] [facility] Internal Medicine Work Phone: Comment on above: PATIENT WAS FASTINGP ERFORMED BY: CB [facility] Amicrd3107 [address] RoadDublin [place] [id number] CO2 molar conc 20 mmol/L Normal 18-29 [facility]eren[facility] shari Internal Medicine Work Phone: Comment on above: PATIENT WAS FASTINGP ERFORMED BY: CB [facility] Etrrtj8047 [address] RoadDublin [place] [id number] GFR/1.73 sq M predicted among blacks CKD-EPI vol rate/area (S/P/Bld) 93 mL/min/1.73 Normal Comprehensiv e Internal Medicine Work Phone: Comment on above: PATIENT WAS FASTINGP ERFORMED BY: CB [facility] Bzbomj8078 [address] RoadDublin [place] [id number] GFR/1.73 sq M predicted among non-blacks CKD-EPI vol rate/area (S/P/Bld) 81 mL/min/1.73 Normal [facility] Work Phone: Comment on above: PATIENT WAS FASTINGP ERFORMED BY: CB [facility] Jgbnwi4478 [address] RoadDublin [place] [id number] TSH ([id number])Ordered By: Floyd mckinney Geotechnician on 01-12-2016 Thyrotropin Qn 1.020 {uIU/mL} Normal 0.450-4.50 0 [facility] Work Phone: Comment on above: PATIENT WAS FASTINGP ERFORMED BY: CB [facility] Tacjtk2218 [address] RoadDublin [place] [id number] CBC with auto diff (28810)Or dered By: Retrofit Installer on 12-03-2014 Basophils #/vol (Bld) 0.0 {x10E3/uL} Normal 0.0-0.2 [facility] Work Phone: Comment on above: PATIENT WAS FASTINGP ERFORMED BY: [address] [id number] Information: [id number] Basophils (Bld) [#/Vol] 0.0 10*3/uL Normal 0.0-0.2 [facility]; [facility] Work Phone: Comment on above: PATIENT WAS FASTINGP ERFORMED BY: [address] [id number] Information: 238298,[id number] Basophils/100 WBC (Bld) 0 % Normal [facility] Work Phone: Comment on above: PATIENT WAS FASTINGP ERFORMED BY: [address] [id number] Information: 282225,[id number] Eosinophils #/vol (Bld) 0.2 {x10E3/uL} Normal 0.0-0.4 [facility] Work Phone: Comment on above: PATIENT WAS FASTINGP ERFORMED BY: [address] [id number] Information: [id number] Eosinophils (Bld) [#/Vol] 0.2 10*3/uL Normal 0.0-0.4 [facility]; [facility] Work Phone: Comment on above: PATIENT WAS FASTINGP ERFORMED BY: [address] [id number] Information: [id number] Eosinophils/100 WBC (Bld) 2 % Normal [facility] Work Phone: Comment on above: PATIENT WAS FASTINGP ERFORMED BY: [address] [id number] Information: [id number],[id number] Erythrocyte distribution width Ratio (RBC) 14.2 % Normal 12.3-15.4 [facility] Work Phone: Comment on above: PATIENT WAS FASTINGP ERFORMED BY: [address] [id number] Information: [id number] Hematocrit Volume Fraction (Bld) 46.9 % Normal 37.5-51.0 [facility] Work Phone: Comment on above: PATIENT WAS FASTINGP ERFORMED BY: [address] [id number] Information: [id number] Hemoglobin mass conc (Bld) 16.0 g/dL Normal 12.6-17.7 [facility] Work Phone: Comment on above: PATIENT WAS FASTINGP ERFORMED BY: [address] [id number] Information: [id number] Immature granulocytes #/vol (Bld) 0.0 {x10E3/uL} Normal 0.0-0.1 [facility] Work Phone: Comment on above: PATIENT WAS FASTINGP ERFORMED BY: [address] [id number] Information: [id number] Immature granulocytes (Bld) [#/Vol] 0.0 10*3/uL Normal 0.0-0.1 [facility]; [facility] Work Phone: Comment on above: PATIENT WAS FASTINGP ERFORMED BY: [place] 2312670 [facility] [id number] Information: [id number] Immature granulocytes/100 WBC (Bld) 0 % Normal [facility] Work Phone: Comment on above: PATIENT WAS FASTINGP ERFORMED BY: [address] [id number] Information: [id number],[id number] Lymphocytes #/vol (Bld) 2.5 {x10E3/uL} Normal 0.7-3.1 [facility] Work Phone: Comment on above: PATIENT WAS FASTINGP ERFORMED BY: [facility]6370 [facility] [id number] Information: [id number],[id number] Lymphocytes (Bld) [#/Vol] 2.5 10*3/uL Normal 0.7-3.1 [facility]; [facility] Work Phone: Comment on above: PATIENT WAS FASTINGP ERFORMED BY: [place] 2312670 [facility] [id number] Information: [id number],[id number] Lymphocytes/100 WBC (Bld) 30 % Normal [facility] Work Phone: Comment on above: PATIENT WAS FASTINGP ERFORMED BY: [address] [id number] Information: [id number] MCH Entitic mass (RBC) 29.6 pg Normal 26.6-33.0 [facility] Work Phone: Comment on above: PATIENT WAS FASTINGP ERFORMED BY: [address] [id number] Information: [id number],[id number] MCHC mass conc (RBC) 34.1 g/dL Normal 31.5-35.7 [facility] Internal Medicine Work Phone: Comment on above: PATIENT WAS FASTINGP ERFORMED BY: [facility]6370 [facility] [id number] Information: [id number],[id number] MCV Entitic volume (RBC) 87 fL Normal 79-97 [facility] Work Phone: Comment on above: PATIENT WAS FASTINGP ERFORMED BY: [place] 2312670 [facility] [id number] Information: [id number] Monocytes #/vol (Bld) 0.7 {x10E3/uL} Normal 0.1-0.9 [facility] Work Phone: Comment on above: PATIENT WAS FASTINGP ERFORMED BY: JACKIE Mueller Nyiswx6997 [facility] [id number] Information: [id number] Monocytes (Bld) [#/Vol] 0.7 10*3/uL Normal 0.1-0.9 [facility]; [facility] Work Phone: Comment on above: PATIENT WAS FASTINGP ERFORMED BY: [address] [id number] Information: [id number],[id number] Monocytes/100 WBC (Bld) 8 % Normal [facility] Work Phone: Comment on above: PATIENT WAS FASTINGP ERFORMED BY: [place] 2312670 [facility] [id number] Information: 218472,[id number] Neutrophils #/vol (Bld) 4.8 {x10E3/uL} Normal 1.4-7.0 [facility] Work Phone: Comment on above: PATIENT WAS FASTINGP ERFORMED BY: [place] 2312670 [facility] [facility] [id number] Information: [id number] Neutrophils (Bld) [#/Vol] 4.8 10*3/uL Normal 1.4-7.0 [facility]; [facility] Work Phone: Comment on above: PATIENT WAS FASTINGP ERFORMED BY: [facility]6370 [facility] [id number] Information: [id number] Neutrophils/100 WBC (Bld) 60 % Normal [facility] Work Phone: Comment on above: PATIENT WAS FASTINGP ERFORMED BY: [facility]6370 [facility] [id number] Information: [id number] Platelets #/vol (Bld) 170 {x10E3/uL} Normal 150-379 [facility] Work Phone: Comment on above: PATIENT WAS FASTINGP ERFORMED BY: JACKIE NimishaTalat ErnandezSobnfv4246 [facility] [id number] Information: [id number] Platelets (Bld) [#/Vol] 170 10*3/uL Normal 150-379 [facility]; [facility] Work Phone: Comment on above: PATIENT WAS FASTINGP ERFORMED BY: JACKIE Ernandezlin6370 [facility] [id number] Information: [id number] RBC #/vol (Bld) 5.40 {x10E6/uL} Normal 4.14-5.80 Comp [facility] Work Phone: Comment on above: PATIENT WAS FASTINGP ERFORMED BY: JACKIE Ernandezlin6370 [facility] [id number] Information: [id number] RBC (Bld) [#/Vol] 5.40 10*6/uL Normal 4.14-5.80 Compr ensive Internal Medicine; [facility] Work Phone: Comment on above: PATIENT WAS FASTINGP ERFORMED BY: JACKIE Woo6370 [facility] [id number] Information: [id number] WBC #/vol (Bld) 8.2 {x10E3/uL} Normal 3.4-10.8 Compr ensive Internal Medicine Work Phone: Comment on above: PATIENT WAS FASTINGP ERFORMED BY: JACKIE [facility] Mhzhyx5952 [facility] [id number] Information: [id number] WBC (Bld) [#/Vol] 8.2 10*3/uL Normal 3.4-10.8 Compre [facility] Internal Medicine; [facility] Work Phone: Comment on above: PATIENT WAS FASTINGP ERFORMED BY: JACKIE Woo6370 [facility] [id number] Information: [id number] LIPID PANEL (31285)Ordered B y: Retrofit Installer on 12-03-2014 Cholesterol in HDL mass conc 47 mg/dL Normal [facility] Work Phone: Comment on above: According to ATP-III Guidelines, HDL-C >59 mg/dL is considered anegative risk factor for CHD. PATIENT WAS FASTINGP ERFORMED BY: JACKIE NimishaTalat ErnandezVrppfc4994 [facility] [id number] Cholesterol in LDL mass conc 141 mg/dL Abnormal 0-99 [facility] Work Phone: Comment on above: PATIENT WAS FASTINGP ERFORMED BY: JACKIE Amidmitry ErnandezTzgrcc4127 [facility] [id number] Cholesterol in LDL/Cholesterol in HDL mass ratio 3.0 {ratio_units} Normal 0.0-3.6 [facility] Work Phone: Comment on above: LDL/HDL Ratio Men Wo men 1/2 Avg.Risk 1.0 1.5 Avg.Risk 3.6 3.2 2X Avg.Risk 6.2 5.0 3X Avg.Risk 8.0 6.1 PATIENT WAS FASTINGP ERFORMED BY: JACKIE Amidmitry Osrapi4839 [facility] [id number] Cholesterol in VLDL mass conc 29 mg/dL Normal 5-40 [facility] Work Phone: Comment on above: PATIENT WAS FASTINGP ERFORMED BY: JACKIE Ernandzelin6370 [facility] [id number] Cholesterol mass conc 217 mg/dL Abnormal 100-199 [facility] Work Phone: Comment on above: PATIENT WAS FASTINGP ERFORMED BY: JACKIE Amidmitry ErnandezPtnbkd4720 [facility] [id number] Triglyceride mass conc 147 mg/dL Normal 0-149 [facility] Work Phone: Comment on above: PATIENT WAS FASTINGP ERFORMED BY: JACKIE NimishaTalat ErnandezSzigon3764 [facility] [id number] METABOLIC PANEL, COMPREHENSI VE (08930)Ordered By: Retrofit Installer on 12-03-2014 Albumin mass conc 4.5 g/dL Normal 3.6-4.8 [facility] Internal Medicine Work Phone: Comment on above: PATIENT WAS FASTINGP ERFORMED BY: JACKIE [facility] Cfyfii0313 [address] RoadDublin [place] [id number] Albumin/Globulin mass ratio 2.1 {ratio} Normal 1.1-2.5 [facility] Work Phone: Comment on above: PATIENT WAS FASTINGP ERFORMED BY: JACKIE [facility] Qhzeea3137 [address] RoadDublin [place] [id number] ALP [Catalytic activity/Vol] 82 U/L Normal 39-117 [facility]; [facility] Internal Medicine Work Phone: Comment on above: PATIENT WAS FASTINGP ERFORMED BY: JACKIE [facility] Jtfprk8745 [address] RoadDublin [place] [id number] ALP enzyme act/vol 82 [iU]/L Normal 39-[address] [facility] Internal Medicine Work Phone: Comment on above: PATIENT WAS FASTINGP ERFORMED BY: JACKIE [facility] Kpltvb7902 [address] RoadDublin [place] [id number] ALT [Catalytic activity/Vol] 20 U/L Normal 0-44 [facility]; [facility] Internal Medicine Work Phone: Comment on above: PATIENT WAS FASTINGP ERFORMED BY: JACKIE [facility] Bxzayc1397 [address] RoadDublin [place] [id number] ALT enzyme act/vol 20 [iU]/L Normal 0-[address] [facility] Internal Medicine Work Phone: Comment on above: PATIENT WAS FASTINGP ERFORMED BY: CB [facility] Tvziys2154 [address] RoadDublin [place] [id number] AST [Catalytic activity/Vol] 20 U/L Normal 0-40 [facility]; [facility] Internal Medicine Work Phone: Comment on above: PATIENT WAS FASTINGP ERFORMED BY: JACKIE [facility] Qoroyo0313 [address] RoadDublin [place] [id number] AST enzyme act/vol 20 [iU]/L Normal 0-40 Compre [facility] Internal Medicine Work Phone: Comment on above: PATIENT WAS FASTINGP ERFORMED BY: JACKIE LabCodmitry WooBnymjq3760 [address] [facility] [place] [id number] Bilirubin mass conc 0.4 mg/dL Normal 0.0-1.2 Compr ensive Internal Medicine Work Phone: Comment on above: PATIENT WAS FASTINGP ERFORMED BY: JACKIE [facility] Zemxqd0016 [address] [facility] [id number] Calcium mass conc 9.6 mg/dL Normal 8.6-10.2 Compreh ensive Internal Medicine Work Phone: Comment on above: PATIENT WAS FASTINGP ERFORMED BY: [facility] Lsueyc3230 [facility] [id number] Chloride molar conc 103 mmol/L Normal 97-108 Compr [facility] Internal Medicine Work Phone: Comment on above: PATIENT WAS FASTINGP ERFORMED BY: LabCoRaritan Bay Medical CenterFruwkt2660 [facility] [id number] CO2 molar conc 25 mmol/L Normal 18-29 Comprehens shari Internal Medicine Work Phone: Comment on above: PATIENT WAS FASTINGP ERFORMED BY: LabMendy Hifbqf9708 [facility] [id number] Creatinine mass conc 0.88 mg/dL Normal 0.76-1.27 Comp [facility] Internal Medicine Work Phone: Comment on above: PATIENT WAS FASTINGP ERFORMED BY: [facility] Xrnqvm1884 [facility] [id number] GFR/1.73 sq M predicted among blacks CKD-EPI vol rate/area (S/P/Bld) 105 mL/min/1.73 Normal Comprehensiv e Internal Medicine Work Phone: Comment on above: PATIENT WAS FASTINGP ERFORMED BY: [facility] Fmxlum6879 [address] [facility] [id number] GFR/1.73 sq M predicted among non-blacks CKD-EPI vol rate/area (S/P/Bld) 91 mL/min/1.73 Normal [facility] Work Phone: Comment on above: PATIENT WAS FASTINGP ERFORMED BY: JACKIE LabCodmitry ErnandzeTlvaqe6200 [address] Roadblin [place] [id number] Globulin mass conc (S) 2.1 g/dL Normal 1.5-4.5 [facility] Work Phone: Comment on above: PATIENT WAS FASTINGP ERFORMED BY: JACKIE [facility] Uxhyxk5980 [address] [facility]in [place] [id number] Glucose mass conc 96 mg/dL Normal 65-99 Compreh ensive Internal Medicine Work Phone: Comment on above: PATIENT WAS FASTINGP ERFORMED BY: JACKIE LabTalat ErnandezRtivfw1767 [address] [facility]in [place] [id number] Potassium molar conc 5.0 mmol/L Normal 3.5-5.2 Comp rehensive Internal Medicine Work Phone: Comment on above: PATIENT WAS FASTINGP ERFORMED BY: JACKIE Ernandezlin6370 [address] [facility] [id number] Protein mass conc 6.6 g/dL Normal 6.0-8.5 Compreh ensive Internal Medicine Work Phone: Comment on above: PATIENT WAS FASTINGP ERFORMED BY: JACKIE Ernandezlin6370 [address] [facility] [id number] Sodium molar conc 141 mmol/L Normal 134-144 Compreh ensive Internal Medicine Work Phone: Comment on above: PATIENT WAS FASTINGP ERFORMED BY: JACKIE [facility] Vwgkya1199 [address] [facility]in [place] [id number] Urea nitrogen mass conc 17 mg/dL Normal 8-27 [facility] Work Phone: Comment on above: PATIENT WAS FASTINGP ERFORMED BY: JACKIE [facility] Mategp8993 [address] [facility] Hospitalblin [place] [id number] Urea nitrogen/Creatinine mass ratio 19 mg/mg Normal 10-22 [facility] Work Phone: Comment on above: PATIENT WAS FASTINGP ERFORMED BY: JACKIE [facility] Griwdh7227 [address] RoadDublin [place] [id number] MICROALBUMINOrdered By: [employer] em Geotechnician on 12-03-2014 Albumin DL <= 20 mg/L mass conc (U) 4.9 ug/mL Normal 0.0-17.0 [facility] Work Phone: Comment on above: PATIENT WAS FASTINGP ERFORMED BY: JACKIE [facility] Qahptx9340 [address] RoadDublin [place] [id number] Albumin/Creatinine mass ratio (U) 3.5 {mg/g_creat} Normal 0.0-30.0 [facility] Work Phone: Comment on above: PATIENT WAS FASTINGP ERFORMED BY: JACKIE [facility] Xvlklc0908 [address] RoadDublin [place] [id number] Creatinine mass conc (U) 141.9 mg/dL Normal 22.0-328.0 [facility] Work Phone: Comment on above: PATIENT WAS FASTINGP ERFORMED BY: JACKIE [facility] Dqtxel4282 [address] Roadblin [place] [id number] TSH ([id number])Ordered By: Case [employer] m Geotechnician on 12-03-2014 Thyrotropin Qn 1.270 {uIU/mL} Normal 0.450-4.50 0 [facility] Work Phone: Comment on above: PATIENT WAS FASTINGP ERFORMED BY: JACKIE [facility] Dvbkau7688 [address] Roadblin [place] [id number] URINALYSIS, W/ MICRO (05133) Ordered By: Retrofit Installer on 12-03-2014 Appearance Nom (U) Clear Normal Compre hensive Internal Medicine Work Phone: Comment on above: PATIENT WAS FASTINGP ERFORMED BY: JACKIE [facility] Rgkdjt6673 [address] RoadDublin [place] [id number] Bilirubin Ql (U) Negative Normal Comprehe nsive Internal Medicine Work Phone: Comment on above: PATIENT WAS FASTINGP ERFORMED BY: JACKIE [facility] Qnchne2251 [address] RoadDublin [place] [id number] Bilirubin Ql (U) Negative Normal Comprehe nsive Internal Medicine; [facility] Work Phone: Comment on above: PATIENT WAS FASTINGP ERFORMED BY: JACKIE LabCodmitry ErnandezGvrbau8219 [address] RoadDublin [place] [id number] Color Nom (U) Yellow Normal Comprehensi ve Internal Medicine Work Phone: Comment on above: PATIENT WAS FASTINGP ERFORMED BY: JACKIE LabTalat ErnandezOirsyb3935 [address] RoadDublin [place] [id number] Glucose Ql (U) Negative Normal Comprehens shari Internal Medicine Work Phone: Comment on above: PATIENT WAS FASTINGP ERFORMED BY: JACKIE LabCodmitry ErnandezRwkvuf2398 [address] RoadDublin [place] [id number] Glucose Ql (U) Negative Normal Comprehens shari Internal Medicine; [facility] Work Phone: Comment on above: PATIENT WAS FASTINGP ERFORMED BY: JACKIE Ernandezlin6370 [address] RoadDublin [place] [id number] Hemoglobin Ql (U) Negative Normal Compreh ensive Internal Medicine Work Phone: Comment on above: PATIENT WAS FASTINGP ERFORMED BY: JACKIE LabTalat ErnandezEjfswy8170 [address] RoadDublin [place] [id number] Hemoglobin Ql (U) Negative Normal Compreh ensive Internal Medicine; [facility] Work Phone: Comment on above: PATIENT WAS FASTINGP ERFORMED BY: JACKIE Ernandezlin6370 [address] RoadDublin [place] [id number] Ketones Ql (U) Negative Normal Comprehens shari Internal Medicine Work Phone: Comment on above: PATIENT WAS FASTINGP ERFORMED BY: JACKIE [facility] Hdczyd9845 [address] RoadDublin [place] [id number] Ketones Ql (U) Negative Normal Comprehens shari Internal Medicine; [facility] Work Phone: Comment on above: PATIENT WAS FASTINGP ERFORMED BY: JACKIE LabMendyrp Frikke5319 [address] RoadDublin [place] [id number] Leukocyte esterase Test strip Ql (U) Negative Normal [facility] Work Phone: Comment on above: PATIENT WAS FASTINGP ERFORMED BY: JACKIE [facility] Corfhf2790 [address] RoadDublin [place] [id number] Leukocyte esterase Test strip Ql (U) Negative Normal [facility]; [facility] Work Phone: Comment on above: PATIENT WAS FASTINGP ERFORMED BY: JACKIE [facility] Ncngor9346 [address] RoadDublin [place] [id number] Microscopic observation LM Nom (Urine sed) MICRON Normal [facility] Work Phone: Comment on above: Microscopic follows if indicated. PATIENT WAS FASTINGP ERFORMED BY: JACKIE [facility] Tpidpj1489 [address] RoadDublin [place] [id number] Microscopic observation LM Nom (Urine sed) See below: Normal [facility] Work Phone: Comment on above: Microscopic was lynette cated and was performed. PATIENT WAS FASTINGP ERFORMED BY: JACKIE [facility] Avdakn6728 [address] RoadDublin [place] [id number] Nitrite Ql (U) Negative Normal Comprehens shari Internal Medicine Work Phone: Comment on above: PATIENT WAS FASTINGP ERFORMED BY: JACKIE [facility] Llnbvp0557 [address] RoadDublin [place] [id number] Nitrite Ql (U) Negative Normal Comprehens shari Internal Medicine; [facility] Work Phone: Comment on above: PATIENT WAS FASTINGP ERFORMED BY: JACKIE [facility] Nhoyok9889 [address] RoadDublin [place] [id number] pH (U) 7.5 [pH] Normal 5.0-7.5 [facility] Work Phone: Comment on above: PATIENT WAS FASTINGP ERFORMED BY: JACKIE [facility] Vaktuf0398 [address] RoadDublin [place] [id number] Protein Ql (U) Trace Normal Comprehens shari Internal Medicine Work Phone: Comment on above: PATIENT WAS FASTINGP ERFORMED BY: JACKIE [facility] Gomohs5631 [address] RoadDublin [place] [id number] Specific gravity Relative Density (U) 1.024 1 Normal 1.005-1.03 0 [facility] Work Phone: Comment on above: PATIENT WAS FASTINGP ERFORMED BY: JACKIE [facility] Lssxrg4609 [address] [facility] [id number] Urobilinogen (U) [Mass/Vol] 0.2 mg/dL Normal 0.0-1.9 [facility]; [facility] Work Phone: Comment on above: PATIENT WAS FASTINGP ERFORMED BY: CB [facility] Pchopc2525 [facility] [id number] Urobilinogen Test strip mass conc (U) 0.2 mg/dL Normal 0.0-1.9 Comprehensiv e Internal Medicine Work Phone: Comment on above: PATIENT WAS FASTINGP ERFORMED BY: JACKIE [facility] Ekmmrx6504 [facility] [id number] Blood Glucose , Office ([phone])Ordered By: Terra Cooney on 11-25-2014 Glucose Glucometer molar conc (BldC) 81 1 Normal [facility] Work Phone: HgA1C , Office (08653)Ordere d By: Terra Cooney on 11-25-2014 Hemoglobin A1c/Hemoglobin.total mass fraction (Bld) 6.0 % Normal 4.6 - 7.1 Comprehensiv e Internal Medicine Work Phone: LIPID PANEL (50630)Ordered B y: Retrofit Installer on 02-24-2014 Cholesterol in HDL mass conc 54 mg/dL Normal [facility] Work Phone: Comment on above: According to ATP-III Guidelines, HDL-C >59 mg/dL is considered anegative risk factor for CHD. PATIENT WAS FASTINGP ERFORMED BY: CB [facility] Uowqqw3495 [facility] [id number] Information: T97035,NURSE DRAW Cholesterol in LDL mass conc 127 mg/dL Abnormal 0-99 [facility] Work Phone: Comment on above: PATIENT WAS FASTINGP ERFORMED BY: CB [facility] Mfsknd7986 [facility] [id number] Information: I70268,NURSE DRAW Cholesterol in LDL/Cholesterol in HDL mass ratio 2.4 {ratio_units} Normal 0.0-3.6 [facility] Work Phone: Comment on above: PATIENT WAS FASTINGP ERFORMED BY: [facility] Ixzwkf6256 [facility] [id number] Information: P56458,NURSE DRAW Cholesterol in VLDL mass conc 27 mg/dL Normal 5-40 [facility] Work Phone: Comment on above: PATIENT WAS FASTINGP ERFORMED BY: [facility] Pbyimk6228 [facility] [id number] Information: T46975,NURSE DRAW Cholesterol mass conc 208 mg/dL Abnormal 100-199 [facility] Work Phone: Comment on above: PATIENT WAS FASTINGP ERFORMED BY: [facility] Qecydb0494 [facility] [id number] Information: P04746,NURSE DRAW Triglyceride mass conc 134 mg/dL Normal 0-149 [facility] Work Phone: Comment on above: PATIENT WAS FASTINGP ERFORMED BY: [facility] Pdemak9227 [facility] [id number] Information: B51791,NURSE DRAW PSA (PROSTATE SPECIFIC ANTIG EN) (V76.44)Ordered By: Retrofit Installer on 02-24-2014 Prostate specific Ag mass conc 3.0 ng/mL Normal 0.0-4.0 [facility] Work Phone: Comment on above: Peggy ECLIA methodol ogy. .According to the [place] [employer], Serum PSA shoulddecrease and remain at undetectable levels after radicalprostatectomy. The AUA defines biochemical recurrence as an initialPSA value 0.2 ng/mL or greater followed by a subsequent confirmatoryPSA value 0.2 ng/mL or greater.Values obtained with different assay methods or kits cannot be usedinterchangeably. Results cannot be interpreted as absolute evidenceof the presence or absence of malignant disease. PATIENT WAS FASTINGP ERFORMED BY: [facility] Kmagvn8979 [facility] [id number] RITA (ANTINUCLEAR ANTIBODY) ( 83413)Ordered By: Retrofit Installer on 02-13-2013 Nuclear Ab Ql (S) Negative Normal Compreh ensive Internal Medicine Work Phone: Comment on above: PATIENT NOT FASTINGP ERFORMED BY: JACKIE [facility] Ymooas2082 [facility] [id number] BY: [facility] Medical CenterSensentia[address] [id number] Nuclear Ab Ql (S) Negative Normal Compreh ensive Internal Medicine; [facility] Work Phone: Comment on above: PATIENT NOT FASTINGP ERFORMED BY: JACKIE [facility] Xydsya2940 [facility] [id number] BY: Wysiwyg[address] [id number] C-REACTIVE PROTEIN (03165)Or dered By: Retrofit Installer on 02-13-2013 CRP mass conc 2.8 mg/L Normal 0.0-4.9 Comprehensi ve Internal Medicine Work Phone: Comment on above: PATIENT NOT FASTINGP ERFORMED BY: JACKIE [facility] Fcezpk0039 [facility] [id number] BY: Wysiwyg[address] [id number] CBC WITH MANUAL DIFF (14698) Ordered By: Retrofit Installer on 02-13-2013 Basophils #/vol (Bld) 0.0 {x10E3/uL} Normal 0.0-0.2 [facility] Work Phone: Comment on above: PATIENT NOT FASTINGP ERFORMED BY: CB [facility] Ietyuj9608 [facility] [id number] BY: [employer] [id number] Information: 875187,H20705 Basophils (Bld) [#/Vol] 0.0 10*3/uL Normal 0.0-0.2 [facility]; [facility] Work Phone: Comment on above: PATIENT NOT FASTINGP ERFORMED BY: JACKIE [facility]6370 [facility] [id number] BY: [address] [id number] Information: [id number],E12105 Basophils/100 WBC (Bld) 0 % Normal 0-3 [facility] Work Phone: Comment on above: PATIENT NOT FASTINGP ERFORMED BY: LabRichard V[place] 2959870 [facility] [id number] BY: [address] [id number] Information: 527377,A68911 Eosinophils #/vol (Bld) 0.2 {x10E3/uL} Normal 0.0-0.4 [facility] Work Phone: Comment on above: PATIENT NOT FASTINGP ERFORMED BY: [facility] Braesd9571 [facility] [id number] BY: [address] [id number] Information: 166143,I57505 Eosinophils (Bld) [#/Vol] 0.2 10*3/uL Normal 0.0-0.4 [facility]; [facility] Work Phone: Comment on above: PATIENT NOT FASTINGP ERFORMED BY: [place] 2312670 [facility] [id number] BY: [address] [id number] Information: 492562,N90783 Eosinophils/100 WBC (Bld) 2 % Normal 0-7 [facility] Work Phone: Comment on above: PATIENT NOT FASTINGP ERFORMED BY: LabRichard [place] 2959870 [facility] [id number] BY: [address] [id number] Information: 656592,P94790 Erythrocyte distribution width Ratio (RBC) 13.8 % Normal 12.3-15.4 [facility] Work Phone: Comment on above: PATIENT NOT FASTINGP ERFORMED BY: CB [facility] Anpnmj5416 [facility] [id number] BY: [address] [id number] Information: 136055,I88143 Hematocrit Volume Fraction (Bld) 45.4 % Normal 37.5-51.0 [facility] Work Phone: Comment on above: PATIENT NOT FASTINGP ERFORMED BY: CB [facility] Gtkhsc4936 [facility] [id number] BY: [employer] [id number] Information: 376307,K11388 Hemoglobin mass conc (Bld) 15.5 g/dL Normal 12.6-17.7 [facility] Work Phone: Comment on above: PATIENT NOT FASTINGP ERFORMED BY: [facility] Ihrbwb4196 [facility] [id number] BY: Wysiwyg[address] [id number] Information: 182311,U70490 Immature granulocytes #/vol (Bld) 0.0 {x10E3/uL} Normal 0.0-0.1 [facility] Work Phone: Comment on above: PATIENT NOT FASTINGP ERFORMED BY: CB [facility] Uwqkgp8891 [facility] [id number] BY: [address] [id number] Information: [id number] Immature granulocytes (Bld) [#/Vol] 0.0 10*3/uL Normal 0.0-0.1 [facility]; [facility] Work Phone: Comment on above: PATIENT NOT FASTINGP ERFORMED BY: CB [facility] Vrgisl4893 [facility] [id number] BY: [address] [id number] Information: 230632,C51203 Immature granulocytes/100 WBC (Bld) 0 % Normal 0-2 [facility] Work Phone: Comment on above: PATIENT NOT FASTINGP ERFORMED BY: [facility] Ohqfhy5509 [facility] [id number] BY: [address] [id number] Information: 961269,H51776 Lymphocytes #/vol (Bld) 2.6 {x10E3/uL} Normal 0.7-4.5 [facility] Work Phone: Comment on above: PATIENT NOT FASTINGP ERFORMED BY: [facility] Qvbavb0483 [facility] [id number] BY: [address] [id number] Information: 260365,V57558 Lymphocytes (Bld) [#/Vol] 2.6 10*3/uL Normal 0.7-4.5 [facility]; [facility] Work Phone: Comment on above: PATIENT NOT FASTINGP ERFORMED BY: CB [facility] Klqoju4226 [facility] [id number] BY: [address] [id number] Information: 865227,H23103 Lymphocytes/100 WBC (Bld) 33 % Normal 14-46 [facility] Work Phone: Comment on above: PATIENT NOT FASTINGP ERFORMED BY: CB [facility] Cqmzgt5728 [facility] [id number] BY: [address] [id number] Information: [id number] MCH Entitic mass (RBC) 29.7 pg Normal 26.6-33.0 [facility] Work Phone: Comment on above: PATIENT NOT FASTINGP ERFORMED BY: CB [facility] Xrwujb6387 [facility] [place] [id number] BY: [address] [id number] Information: [id number] MCHC mass conc (RBC) 34.1 g/dL Normal 31.5-35.7 [facility] Internal Medicine Work Phone: Comment on above: PATIENT NOT FASTINGP ERFORMED BY: CB [facility] Vuosre8108 [facility] [id number] BY: [address] [id number] Information: [id number] MCV Entitic volume (RBC) 87 fL Normal 79-97 [facility] Work Phone: Comment on above: PATIENT NOT FASTINGP ERFORMED BY: CB [facility] Coxsfy1691 [facility] [id number] BY: [address] [id number] Information: [id number] Monocytes #/vol (Bld) 0.6 {x10E3/uL} Normal 0.1-1.0 [facility] Work Phone: Comment on above: PATIENT NOT FASTINGP ERFORMED BY: CB [facility] Qskear1333 [facility] [id number] BY: [address] [id number] Information: [id number] Monocytes (Bld) [#/Vol] 0.6 10*3/uL Normal 0.1-1.0 [facility]; [facility] Work Phone: Comment on above: PATIENT NOT FASTINGP ERFORMED BY: CB [facility] Ftlhrt8655 [facility] [id number] BY: [address] [id number] Information: [id number] Monocytes/100 WBC (Bld) 8 % Normal 4-13 [facility] Work Phone: Comment on above: PATIENT NOT FASTINGP ERFORMED BY: JACKIE [facility] ErnandezVajljj9262 [facility] [id number] BY: LabCo[address] [id number] Information: [id number] Neutrophils #/vol (Bld) 4.5 {x10E3/uL} Normal 1.8-7.8 [facility] Work Phone: Comment on above: PATIENT NOT FASTINGP ERFORMED BY: JACKIE Woo6370 [facility] [id number] BY: [address] [id number] Information: [id number] Neutrophils (Bld) [#/Vol] 4.5 10*3/uL Normal 1.8-7.8 [facility]; [facility] Work Phone: Comment on above: PATIENT NOT FASTINGP ERFORMED BY: JACKIE Woo6370 [facility] [id number] BY: LabCo[address] [id number] Information: [id number] Neutrophils/100 WBC (Bld) 57 % Normal 40-74 [facility] Work Phone: Comment on above: PATIENT NOT FASTINGP ERFORMED BY: JACKIE [facility] Ohsser4396 [facility] [id number] BY: [address] [id number] Information: [id number] Platelets #/vol (Bld) 183 {x10E3/uL} Normal 140-415 [facility] Work Phone: Comment on above: PATIENT NOT FASTINGP ERFORMED BY: JACKIE [facility] Tiqlsd6950 [facility] [id number] BY: [facility] [address] [id number] Information: [id number] Platelets (Bld) [#/Vol] 183 10*3/uL Normal 140-415 [facility]; [facility] Work Phone: Comment on above: PATIENT NOT FASTINGP ERFORMED BY: CB [facility] Rrawlc5217 [facility] [id number] BY: [facility] [address] [id number] Information: [id number] RBC #/vol (Bld) 5.22 {x10E6/uL} Normal 4.14-5.80 [facility] Work Phone: Comment on above: PATIENT NOT FASTINGP ERFORMED BY: JACKIE [facility] Uwmbhn4534 [facility] [id number] BY: LabCo[address] [id number] Information: [id number] RBC (Bld) [#/Vol] 5.22 10*6/uL Normal 4.14-5.80 Compr ensive Internal Medicine; [facility] Work Phone: Comment on above: PATIENT NOT FASTINGP ERFORMED BY: JACKIE [facility] Ueocfi3539 [facility] [id number] BY: [facility] [address] [id number] Information: [id number] WBC #/vol (Bld) 8.0 {x10E3/uL} Normal 4.0-10.5 Compr ensive Internal Medicine Work Phone: Comment on above: PATIENT NOT FASTINGP ERFORMED BY: JACKIE [facility] Ajjiaj3065 [facility] [id number] BY: LabCo[address] [id number] Information: [id number] WBC (Bld) [#/Vol] 8.0 10*3/uL Normal 4.0-10.[address] [facility] Internal Medicine; [facility] Work Phone: Comment on above: PATIENT NOT FASTINGP ERFORMED BY: [facility] Poyvnx5749 [facility] [id number] BY: Wysiwyg[address] [id number] Information: [id number] [facility] ANTIBODY (35313)Ordered By: Retrofit Installer on 02-13-2013 Cyclic citrullinated peptide IgA+IgG IA Qn 5 {units} Normal 0-19 [facility] Work Phone: Comment on above: Negative <20 Weak po sitive 20 - 39 Moderate positive 40 - 59 Strong positive >59 PATIENT NOT FASTINGP ERFORMED BY: LabSensentiarp Gezbky5154 [facility] [id number] BY: Wysiwyg[address] [id number] METABOLIC PANEL, COMPREHENSI VE (65426)Ordered By: Retro[employer] Installer on 02-13-2013 Albumin mass conc 4.5 g/dL Normal 3.6-4.8 [facility] Internal Medicine Work Phone: Comment on above: PATIENT NOT FASTINGP ERFORMED BY: [facility] Hzeaao0961 [facility] [id number] BY: Wysiwyg[address] [id number] Albumin/Globulin mass ratio 2.0 {ratio} Normal 1.1-2.5 [facility] Work Phone: Comment on above: PATIENT NOT FASTINGP ERFORMED BY: [facility] Hrafau0317 [facility] [id number] BY: [employer] [id number] ALP [Catalytic activity/Vol] 86 U/L Normal 25-160 [facility]; [facility] Work Phone: Comment on above: PATIENT NOT FASTINGP ERFORMED BY: CB [facility] Flnxcv7035 [place] RoadDublin [place] [id number] BY: LabCo[address] [id number] ALP enzyme act/vol 86 [iU]/L Normal 25-[address] [facility] Internal Medicine Work Phone: Comment on above: PATIENT NOT FASTINGP ERFORMED BY: CB [facility] Pkqser3209 [facility] RoadDuFrye Regional [facility] [id number] BY: [address] [id number] ALT [Catalytic activity/Vol] 22 U/L Normal 0-44 [facility]; [facility] Internal Medicine Work Phone: Comment on above: PATIENT NOT FASTINGP ERFORMED BY: CB [facility] Rgatpl3510 [facility] RoadDuFrye Regional [facility] [id number] BY: Lab[address] [id number] ALT enzyme act/vol 22 [iU]/L Normal 0-[address] [facility] Internal Medicine Work Phone: Comment on above: PATIENT NOT FASTINGP ERFORMED BY: CB [facility] Anvbtt7329 [facility]DuF[facility] [id number] BY: [address] [id number] AST [Catalytic activity/Vol] 17 U/L Normal 0-40 [facility]; [facility] Internal Medicine Work Phone: Comment on above: PATIENT NOT FASTINGP ERFORMED BY: CB [facility] Adbuqq1487 Robertson RoadDuin [place] [id number] BY: [address] [id number] AST enzyme act/vol 17 [iU]/L Normal 0-[address] [facility] Internal Medicine Work Phone: Comment on above: PATIENT NOT FASTINGP ERFORMED BY: CB [facility] Dgnbor1685 [facility] [id number] BY: LabCo[address] [id number] Bilirubin mass conc 0.5 mg/dL Normal 0.0-1.2 Compr ehensive Internal Medicine Work Phone: Comment on above: PATIENT NOT FASTINGP ERFORMED BY: CB [facility] Onuqkz6771 [facility] [id number] BY: [facility] [address] [id number] Calcium mass conc 9.9 mg/dL Normal 8.6-10.2 Compreh ensive Internal Medicine Work Phone: Comment on above: PATIENT NOT FASTINGP ERFORMED BY: CB [facility] Pbcwyt1518 [facility] [id number] BY: [address] [id number] Chloride molar conc 103 mmol/L Normal 97-108 Compr ehensive Internal Medicine Work Phone: Comment on above: PATIENT NOT FASTINGP ERFORMED BY: [facility] Xlbgjn7174 [facility] [id number] BY: LabCo[address] [id number] CO2 molar conc 24 mmol/L Normal 20-32 Comprehens shari Internal Medicine Work Phone: Comment on above: PATIENT NOT FASTINGP ERFORMED BY: CB [facility] Nyzxgr4311 [facility] [place] [id number] BY: [facility]Co[address] [id number] Creatinine mass conc 1.12 mg/dL Normal 0.76-1.27 Comp rehensive Internal Medicine Work Phone: Comment on above: PATIENT NOT FASTINGP ERFORMED BY: CB [facility] Rfulpz9431 [facility] [place] [id number] BY: LabCo[address] [id number] GFR/1.73 sq M predicted among blacks CKD-EPI vol rate/area (S/P/Bld) 81 mL/min/1.73 Normal Comprehensiv e Internal Medicine Work Phone: Comment on above: PATIENT NOT FASTINGP ERFORMED BY: CB [facility] Vvflfm4444 [facility] Hospitalbl[facility] [place] [id number] BY: [address] [id number] GFR/1.73 sq M predicted among non-blacks CKD-EPI vol rate/area (S/P/Bld) 70 mL/min/1.73 Normal [facility] Work Phone: Comment on above: PATIENT NOT FASTINGP ERFORMED BY: CB [facility] Jkekcz6688 [facility] [id number] BY: [address] [id number] Globulin mass conc (S) 2.2 g/dL Normal 1.5-4.5 [facility] Work Phone: Comment on above: PATIENT NOT FASTINGP ERFORMED BY: CB [facility] Mcnzcq4256 [facility] [id number] BY: LabCo[address] [id number] Glucose mass conc 96 mg/dL Normal 65-99 Compreh ensive Internal Medicine Work Phone: Comment on above: PATIENT NOT FASTINGP ERFORMED BY: CB [facility] Bebixz6511 [facility] [id number] BY: LabCo[address] [id number] Potassium molar conc 5.2 mmol/L Normal 3.5-5.2 Comp rehensive Internal Medicine Work Phone: Comment on above: PATIENT NOT FASTINGP ERFORMED BY: CB [facility] Dpizai0307 [facility] [id number] BY: Lab[address] [id number] Protein mass conc 6.7 g/dL Normal 6.0-8.5 Compreh ensive Internal Medicine Work Phone: Comment on above: PATIENT NOT FASTINGP ERFORMED BY: CB [facility] Ffclqe9602 [address] RoadDublin [place] [id number] BY: [address]Co[address] [id number] Sodium molar conc 141 mmol/L Normal 134-144 Compreh ensive Internal Medicine Work Phone: Comment on above: PATIENT NOT FASTINGP ERFORMED BY: CB [facility] Lnlfnw3329 [place] RoadDublin [place] [id number] BY: [facility] [address] [id number] Urea nitrogen mass conc 22 mg/dL Normal 8-27 [facility] Work Phone: Comment on above: PATIENT NOT FASTINGP ERFORMED BY: CB [facility] Celiyu4617 [facility] [id number] BY: Lab[address] [id number] Urea nitrogen/Creatinine mass ratio 20 mg/mg Normal 10-22 [facility] Work Phone: Comment on above: PATIENT NOT FASTINGP ERFORMED BY: CB [facility] Bmegto7532 [facility] [place] [id number] BY: [address] [id number] RHEUMATOID FACTOR-QUANT (866 65)Ordered By: Retro[employer] Installer on 02-13-2013 Rheumatoid factor Qn 9.5 {IU/mL} Normal 0.0-13.9 [facility] prehensive Internal Medicine Work Phone: Comment on above: PATIENT NOT FASTINGP ERFORMED BY: CB [facility] Wjuxwm1236 [facility] [place] [id number] BY: [address] [id number] Rheumatoid factor Qn 9.5 [IU]/mL Normal 0.0-13.9 [facility] prehensive Internal Medicine; [facility] Work Phone: Comment on above: PATIENT NOT FASTINGP ERFORMED BY: MILI [facility] Ghynec4508 [facility] [employer] [place] [id number] BY: Riboxx[address] [id number] SED RATE ERYTHROCYTE ([id number]) Ordered By: Retro[employer] Installer on 02-13-2013 ESR Velocity (Bld) 2 mm/h Normal 0-[address] [facility] Internal Medicine Work Phone: Comment on above: PATIENT NOT FASTINGP ERFORMED BY: MILI LabSensentiarp Pazaje0219 [facility] [id number] BY: Riboxx[address] [id number] TSH ([id number])Ordered By: Case Western Reserve Universityjud Jumio Geotechnician on 02-13-2013 Thyrotropin Qn 1.180 {uIU/mL} Normal 0.450-4.50 0 [facility] Work Phone: Comment on above: PATIENT NOT FASTINGP ERFORMED BY: Purchextrp Eigldu8667 [facility] [id number] BY: [employer] [address] [id number] Hemoglobin Glyclated (HGB A1 C) (02921)Ordered By: Retrofit Installer on 01-24-2013 Hemoglobin A1c/Hemoglobin.total mass fraction (Bld) 5.7 % Abnormal 4.8-5.6 Comprehensiv e Internal Medicine Work Phone: Comment on above: . 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 PATIENT WAS FASTINGP ERFORMED BY: [facility] Tnquxw2638 [facility] [id number] Information: [id number] Cholesterol in LDL mass conc 127 mg/dL Abnormal 0-99 [facility] Work Phone: Comment on above: PATIENT WAS FASTINGP ERFORMED BY: [facility] Gweltd1299 [facility] [id number] Information: [id number] Cholesterol in LDL/Cholesterol in HDL mass ratio 2.2 {ratio_units} Normal 0.0-3.6 [facility] Work Phone: Comment on above: PATIENT WAS FASTINGP ERFORMED BY: [facility] Kxdoeg5092 [facility] [id number] Information: [id number],[id number] Cholesterol in VLDL mass conc 20 mg/dL Normal 5-40 [facility] Work Phone: Comment on above: PATIENT WAS FASTINGP ERFORMED BY: [facility] Dfuiqe6865 [facility] [id number] Information: [id number] Cholesterol mass conc 206 mg/dL Abnormal 100-199 [facility] Work Phone: Comment on above: PATIENT WAS FASTINGP ERFORMED BY: [facility] Jylubj8780 [facility] [id number] Information: [id number] Triglyceride mass conc 98 mg/dL Normal 0-149 [facility] Work Phone: Comment on above: PATIENT WAS FASTINGP ERFORMED BY: [facility] Tysjbe5196 [facility] [id number] Information: [id number] TSH ([id number])Ordered By: Floyd Contreras on 01-24-2013 Thyrotropin Qn 1.670 {uIU/mL} Normal 0.450-4.50 0 [facility] Work Phone: Comment on above: PATIENT WAS FASTINGP ERFORMED BY: [facility] Hchdki1315 [facility] [id number] Vital Signs Date Time Vital Sign Value Performing Clinician Facility 11-24-2023 09:32-0500 Respiratory rate 16 /min [facility] 11-24-2023 08:51-0500 Body height 179.07 cm [facility] 11-24-2023 08:51-0500 Body mass index (BMI) [Ratio] 32.1 kg/m2 [facility] 11-24-2023 08:51-0500 Body temperature 97.4 [degF] [facility] 11-24-2023 08:51-0500 Body weight 103.14 kg [facility] 11-24-2023 08:51-0500 Diastolic blood pressure 85 mm[Hg] [facility] 11-24-2023 08:51-0500 Heart rate 61 /min [facility] 11-24-2023 08:51-0500 SaO2% (BldA) [Mass fraction] 97 % [facility] 11-24-2023 08:51-0500 Systolic blood pressure 163 mm[Hg] [facility] 07-20-2021 12:07-0400 Body height 179.07 cm Kyung Rocha [facility]; [facility] Work Phone: Comment on above: no vs taken as this is phone encounter d ue to covid 07-20-2021 12:07-0400 Body mass index (BMI) [Ratio] 32.25 kg/m2 Kyung Landaverdeius [facility]; [facility] Work Phone: Comment on above: no vs taken as this is phone encounter d ue to covid 07-20-2021 12:07-0400 Body surface area Derived from formula 2.22 m2 Kyung Rocha [facility]; [facility] Work Phone: Comment on above: no vs taken as this is phone encounter d ue to covid 07-20-2021 12:07-0400 Body weight 103.42 kg Kyung Landaverdeius [facility]; [facility] Work Phone: Comment on above: no vs taken as this is phone encounter d ue to covid 12-16-2020 08:17-0500 BMI (Body Mass Index) 32.25 kg/m2 [facility]; [facility] Work Phone: Comment on above: orthos -- 141/90 p 60 /82 p 78 /90 p 70 dvunwa3gp set of orthoslying 124/84, P 60sitting 124/82, P 64Standing 126/78, P 63 orthos -- 141/90 p 6 0 dsrbecn811/82 p 78 imuxbcba689/90 p 70 laying 09-29-2020 08:17-0500 Body Temperature 96.6 [degF] [facility]; [facility] Work Phone: Comment on above: Method: Infrared orthos -- 141/90 p 6 0 sxcjipr633/82 p 78 xfeicbio735/90 p 70 cxvvmv8ym set of orthoslying 124/84, P 60sitting 124/82, P 64Standing 126/78, P 63 orthos -- 141/90 p 6 0 fizccqc996/82 p 78 ybrlwpcw442/90 p 70 laying 09-29-2020 08:17-0500 Body weight 103.42 kg [facility]; [facility] Work Phone: Comment on above: orthos -- 141/90 p 60 mhmvajh024/82 p 78 /90 p 70 vzmwmh8cs set of orthoslying 124/84, P 60sitting 124/82, P 64Standing 126/78, P 63 orthos -- 141/90 p 6 0 /82 p 78 /90 p 70 laying 09-29-2020 08:17-0500 BP Diastolic 90 mm[Hg] [facility]; [facility] Work Phone: Comment on above: Patient Position: Sitting; Cuff Location : Left Arm; Cuff Size: Standard orthos -- 141/90 p 6 0 flkgsyi321/82 p 78 gvqwqgvo789/90 p 70 wwbyqp1sb set of orthoslying 124/84, P 60sitting 124/82, P 64Standing 126/78, P 63 orthos -- 141/90 p 6 0 ddpvexy265/82 p 78 uypjuzin992/90 p 70 laying 09-29-2020 08:17-0500 BP Systolic 141 mm[Hg] [facility]; [facility] Work Phone: Comment on above: Patient Position: Sitting; Cuff Location : Left Arm; Cuff Size: Standard orthos -- 141/90 p 6 0 /82 p 78 tdbpwose760/90 p 70 saozee0jn set of orthoslying 124/84, P 60sitting 124/82, P 64Standing 126/78, P 63 orthos -- 141/90 p 6 0 deuwywo546/82 p 78 /90 p 70 laying 09-29-2020 08:17-0500 BSA (Body Surface Area) 2.22 m2 [facility]; [facility] Work Phone: Comment on above: orthos -- 141/90 p 60 /82 p 78 todrnhsu301/90 p 70 eyvbpy3hy set of orthoslying 124/84, P 60sitting 124/82, P 64Standing 126/78, P 63 orthos -- 141/90 p 6 0 /82 p 78 wffuydfl261/90 p 70 laying 09-29-2020 08:17-0500 Height 179.07 cm [facility]; [facility] Work Phone: Comment on above: orthos -- 141/90 p 60 iwagczc520/82 p 78 twoutfku134/90 p 70 megmwd6ny set of orthoslying 124/84, P 60sitting 124/82, P 64Standing 126/78, P 63 orthos -- 141/90 p 6 0 /82 p 78 vnifrrzh653/90 p 70 laying 09-29-2020 08:17-0500 Pulse (Heart Rate) 60 /min [facility] Comprehensiv e Internal Medicine; [facility] Work Phone: Comment on above: Pattern: Regular orthos -- 141/90 p 6 0 mmncriw789/82 p 78 kvkdxvfo727/90 p 70 uaubwi7vg set of orthoslying 124/84, P 60sitting 124/82, P 64Standing 126/78, P 63 orthos -- 141/90 p 6 0 tuotoav135/82 p 78 xsetwkog884/90 p 70 laying 09-29-2020 08:17-0500 Pulse Oximetry 97 % Ivelisse Masterson [facility]; [facility] Work Phone: Comment on above: Room air orthos -- 141/90 p 6 0 jftfvhy121/82 p 78 didaxbmv587/90 p 70 iotijp8no set of orthoslying 124/84, P 60sitting 124/82, P 64Standing 126/78, P 63 orthos -- 141/90 p 6 0 jnaeujk479/82 p 78 kiifihfv605/90 p 70 laying 09-29-2020 08:17-0500 Respiratory Rate 18 /min Sarah Ugarte LPN [facility]; [facility] Work Phone: Comment on above: Pattern: Unlabored orthos -- 141/90 p 6 0 mtgsfle898/82 p 78 tulncftd560/90 p 70 vnpvyk7pm set of orthoslying 124/84, P 60sitting 124/82, P 64Standing 126/78, P 63 orthos -- 141/90 p 6 0 efcdnte651/82 p 78 myshqdhp205/90 p 70 laying 09-29-2020 08:17-0500 SaO2% (BldA) [Mass fraction] 97 % Sarah Ugarte LPN [facility]; [facility] Work Phone: Comment on above: Room air orthos -- 141/90 p 6 0 lyteyui661/82 p 78 cdgovezr911/90 p 70 rnhrwb8pn set of orthoslying 124/84, P 60sitting 124/82, P 64Standing 126/78, P 63 02-12-2019 15:19-0400 BMI (Body Mass Index) 32.25 kg/m2 SUSAN Bush LPN [facility] Work Phone: 02-12-2019 15:19-0400 Body Temperature 97.8 [degF] SUSAN Bush LPN Comprehensiv e Internal Medicine Work Phone: Comment on above: Method: Temporal 02-12-2019 15:19-0400 Body weight 103.42 kg SUSAN Bush LPN [facility]; [facility] Work Phone: 02-12-2019 15:19-0400 BP Diastolic 74 mm[Hg] SUSAN Bush LPN [facility] Work Phone: Comment on above: Patient Position: Sitting; Cuff Location : Left Arm; Cuff Size: Standard 02-12-2019 15:19-0400 BP Systolic 120 mm[Hg] SUSAN Bush LPN [facility] Work Phone: Comment on above: Patient Position: Sitting; Cuff Location : Left Arm; Cuff Size: Standard 02-12-2019 15:19-0400 BSA (Body Surface Area) 2.22 m2 SUSAN Bush GEETHA [facility] Work Phone: 02-12-2019 15:19-0400 Height 179.07 cm SUSAN Bush GEETHA [facility] Internal Medicine Work Phone: 02-12-2019 15:19-0400 Pulse (Heart Rate) 70 /min SUSAN Bush LPN Comprehens shari Internal Medicine Work Phone: Comment on above: Pattern: Regular 02-12-2019 15:19-0400 Pulse Oximetry 98 % Ivelisse Masterson [facility] Internal Medicine Work Phone: Comment on above: Room air 02-12-2019 15:19-0400 Respiratory Rate 20 /min SUSAN Bush LPN Comprehensiv e Internal Medicine Work Phone: Comment on above: Pattern: Unlabored 02-12-2019 15:19-0400 SaO2% (BldA) [Mass fraction] 98 % SUSAN Bush GEETHA [facility]; [facility] Work Phone: Comment on above: Room air 02-12-2019 15:19-0400 Weight 103.42 kg Ivelisse Masterson [facility] Internal Medicine Work Phone: 09-23-2018 14:03-0500 BMI (Body Mass Index) 33.52 kg/m2 Anderson Cassidy LPN [facility] Work Phone: 09-23-2018 14:03-0500 Body weight 107.5 kg Anderson Cassidy LPN [facility]; [facility] Work Phone: 09-23-2018 14:03-0500 BP Diastolic 74 mm[Hg] Anderson Cassidy LPN [facility] Work Phone: Comment on above: Patient Position: Sitting; Cuff Location : Left Arm; Cuff Size: Standard 09-23-2018 14:03-0500 BP Systolic 126 mm[Hg] Anderson Cassidy LPN [facility] Work Phone: Comment on above: Patient Position: Sitting; Cuff Location : Left Arm; Cuff Size: Standard 09-23-2018 14:03-0500 BSA (Body Surface Area) 2.26 m2 Anderson Cassidy LPN [facility] Work Phone: 09-23-2018 14:03-0500 Height 179.07 cm Anderson Cassidy LEGAL ANALYST [facility] Work Phone: 09-23-2018 14:03-0500 Pulse (Heart Rate) 73 /min Anderson Cassidy LPN [facility] Work Phone: Comment on above: Pattern: Regular 09-23-2018 14:03-0500 Pulse Oximetry 98 % Ivelisse Masterson [facility] Work Phone: Comment on above: Room air 09-23-2018 14:03-0500 Respiratory Rate 18 /min Anderson Cassidy LEGAL ANALYST [facility] Work Phone: Comment on above: Pattern: Unlabored 09-23-2018 14:03-0500 SaO2% (BldA) [Mass fraction] 98 % Anderson Cassidy LPN [facility]; [facility] Work Phone: Comment on above: Room air 09-23-2018 14:03-0500 Weight 107.5 kg Ivelisse Masterson [facility] Work Phone: 06-19-2018 08:16-0400 BMI (Body Mass Index) 29.99 kg/m2 Delmy Benton RN [facility] Work Phone: Comment on above: after - andressa scale - 7 06-19-2018 08:16-0400 Body weight 96.16 kg Delmy Benton RN [facility]; [facility] Work Phone: Comment on above: after - andressa scale - 7 06-19-2018 08:16-0400 BP Diastolic 70 mm[Hg] Delmy Benton RN [facility] Work Phone: Comment on above: Patient Position: Sitting; Cuff Location : Left Arm; Cuff Size: Standard after - andressa scale - 7 06-19-2018 08:16-0400 BP Systolic 130 mm[Hg] Delmy Benton RN [facility] Work Phone: Comment on above: Patient Position: Sitting; Cuff Location : Left Arm; Cuff Size: Standard after - andressa scale - 7 06-19-2018 08:16-0400 BSA (Body Surface Area) 2.15 m2 Delmy Benton RN [facility] Work Phone: Comment on above: after - andressa scale - 7 06-19-2018 08:16-0400 Height 179.07 cm Delmy Benton RN [facility] Work Phone: Comment on above: after - andressa scale - 7 06-19-2018 08:16-0400 Pulse (Heart Rate) 74 /min Delmy Benton RN [facility] Work Phone: Comment on above: Pattern: Regular after - andressa scale - 7 06-19-2018 08:16-0400 Pulse Oximetry 97 % Ivelisse Masterson [facility] Work Phone: Comment on above: Room air after - andressa scale - 7 06-19-2018 08:16-0400 Respiratory Rate 16 /min Delmy Benton RN [facility] Work Phone: Comment on above: Pattern: Unlabored after - andressa scale - 7 06-19-2018 08:16-0400 SaO2% (BldA) [Mass fraction] 97 % Delmy Benton RN [facility]; [facility] Work Phone: Comment on above: Room air after - andressa scale - 7 06-19-2018 08:16-0400 Weight 96.16 kg Ivelisse Jeanne [facility] Work Phone: Comment on above: after - andressa scale - 7 06-19-2018 08:00-0400 BMI (Body Mass Index) 30.48 kg/m2 Delmy Benton RN [facility] Work Phone: Comment on above: before - andressa scale 06-19-2018 08:00-0400 Body weight 97.75 kg Delmy Benton RN [facility]; [facility] Work Phone: Comment on above: before - andressa scale 06-19-2018 08:00-0400 BP Diastolic 64 mm[Hg] Delmy Benton RN [facility] Work Phone: Comment on above: Patient Position: Sitting; Cuff Location : Left Arm; Cuff Size: Standard before - andressa scale 06-19-2018 08:00-0400 BP Systolic 126 mm[Hg] Delmy Benton RN [facility] Work Phone: Comment on above: Patient Position: Sitting; Cuff Location : Left Arm; Cuff Size: Standard before - andressa scale 06-19-2018 08:00-0400 BSA (Body Surface Area) 2.17 m2 Delmy Benton RN [facility] Work Phone: Comment on above: before - andressa scale 06-19-2018 08:00-0400 Height 179.07 cm Delmy Benton RN [facility] Work Phone: Comment on above: before - andressa scale 06-19-2018 08:00-0400 Pulse (Heart Rate) 60 /min Delmy Benton RN [facility] Work Phone: Comment on above: Pattern: Regular before - andressa scale 06-19-2018 08:00-0400 Pulse Oximetry 98 % Ivelisse Masterson [facility] Work Phone: Comment on above: Room air before - andressa scale 06-19-2018 08:00-0400 Respiratory Rate 16 /min Delmy Benton RN [facility] Work Phone: Comment on above: Pattern: Unlabored before - andressa scale 06-19-2018 08:00-0400 SaO2% (BldA) [Mass fraction] 98 % Delmy Benton RN [facility]; [facility] Work Phone: Comment on above: Room air before - andressa scale 06-19-2018 08:00-0400 Weight 97.75 kg Ivelisse Masterson [facility] Work Phone: Comment on above: before - andressa scale 6 06-14-2018 08:00-0400 BMI (Body Mass Index) 30.48 kg/m2 Terra Cooney RN [facility] Work Phone: 06-14-2018 08:00-0400 Body Temperature 97 [degF] Terra Cooney RN [facility] Work Phone: Comment on above: Method: Temporal 06-14-2018 08:00-0400 Body weight 97.75 kg Terra Cooney RN [facility]; [facility] Work Phone: 06-14-2018 08:00-0400 BP Diastolic 78 mm[Hg] Terra Cooney RN [facility] Work Phone: Comment on above: Patient Position: Sitting; Cuff Location : Left Arm; Cuff Size: Large 06-14-2018 08:00-0400 BP Systolic 122 mm[Hg] Terra Cooney RN [facility] Work Phone: Comment on above: Patient Position: Sitting; Cuff Location : Left Arm; Cuff Size: Large 06-14-2018 08:00-0400 BSA (Body Surface Area) 2.17 m2 Terra Cooney RN [facility] Work Phone: 06-14-2018 08:00-0400 Height 179.07 cm Terra Cooney RN [facility] Work Phone: 06-14-2018 08:00-0400 Pulse (Heart Rate) 64 /min Terra Cooney RN [facility] Work Phone: Comment on above: Pattern: Regular 06-14-2018 08:00-0400 Pulse Oximetry 96 % Ivelisse Masterson [facility] Work Phone: Comment on above: Room air 06-14-2018 08:00-0400 Respiratory Rate 18 /min Terra Cooney RN [facility] Work Phone: Comment on above: Pattern: Unlabored 06-14-2018 08:00-0400 SaO2% (BldA) [Mass fraction] 96 % Terra Cooney RN [facility]; [facility] Work Phone: Comment on above: Room air 06-14-2018 08:00-0400 Weight 97.75 kg Ivelisse Masterson [facility] Work Phone: 05-23-2018 10:45-0400 BMI (Body Mass Index) 30.32 kg/m2 Terra Cooney RN [facility] Work Phone: 05-23-2018 10:45-0400 Body Temperature 97.3 [degF] Terra Cooney RN [facility] Work Phone: Comment on above: Method: Temporal 05-23-2018 10:45-0400 Body weight 97.21 kg Terra Cooney RN [facility]; [facility] Work Phone: 05-23-2018 10:45-0400 BP Diastolic 74 mm[Hg] Terra Cooney RN [facility] Work Phone: Comment on above: Patient Position: Sitting; Cuff Location : Left Arm; Cuff Size: Large 05-23-2018 10:45-0400 BP Systolic 110 mm[Hg] Terra Cooney RN [facility] Work Phone: Comment on above: Patient Position: Sitting; Cuff Location : Left Arm; Cuff Size: Large 05-23-2018 10:45-0400 BSA (Body Surface Area) 2.16 m2 Terra Cooney RN [facility] Work Phone: 05-23-2018 10:45-0400 Height 179.07 cm Terra Cooney RN [facility] Work Phone: 05-23-2018 10:45-0400 Pulse (Heart Rate) 77 /min Terra Cooney RN [facility] Work Phone: Comment on above: Pattern: Regular 05-23-2018 10:45-0400 Pulse Oximetry 97 % Ivelisse Masterson [facility] Work Phone: Comment on above: Room air 05-23-2018 10:45-0400 Respiratory Rate 18 /min Terra Cooney RN [facility] Work Phone: Comment on above: Pattern: Unlabored 05-23-2018 10:45-0400 SaO2% (BldA) [Mass fraction] 97 % Terra Cooney RN [facility]; [facility] Work Phone: Comment on above: Room air 05-23-2018 10:45-0400 Weight 97.21 kg Ivelisse Masterson [facility] Work Phone: 02-14-2018 08:21-0400 BMI (Body Mass Index) 30.41 kg/m2 Terra Cooney RN [facility] Work Phone: Comment on above: 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 02-14-2018 08:21-0400 Body weight 97.52 kg Terra Cooney RN [facility]; [facility] Work Phone: Comment on above: 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 02-14-2018 08:21-0400 BP Diastolic 70 mm[Hg] Terra Cooney RN [facility] Work Phone: Comment on above: Patient Position: Sitting; Cuff Location : Left Arm; Cuff Size: Large 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 02-14-2018 08:21-0400 BP Systolic 124 mm[Hg] Terra Cooney RN [facility] Work Phone: Comment on above: Patient Position: Sitting; Cuff Location : Left Arm; Cuff Size: Large 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 02-14-2018 08:21-0400 BSA (Body Surface Area) 2.16 m2 Terra Cooney RN [facility] Work Phone: Comment on above: 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 02-14-2018 08:21-0400 Height 179.07 cm Terra Cooney RN [facility] Work Phone: Comment on above: 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 02-14-2018 08:21-0400 Pulse (Heart Rate) 67 /min Terra Cooney RN [facility] Work Phone: Comment on above: Pattern: Regular 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 02-14-2018 08:21-0400 Pulse Oximetry 99 % Ivelisse Jeanne [facility] Work Phone: Comment on above: Room air 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 02-14-2018 08:21-0400 Respiratory Rate 18 /min Terra Cooney RN [facility] Work Phone: Comment on above: Pattern: Unlabored 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 02-14-2018 08:21-0400 SaO2% (BldA) [Mass fraction] 99 % Terra Cooney RN [facility]; [facility] Work Phone: Comment on above: Room air 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 02-14-2018 08:21-0400 Weight 97.52 kg Ivelisse Masterson [facility] Work Phone: Comment on above: Hearing wnlLens devinfter and had a glauco ma test done 12-27-2017 11:22-0400 BMI (Body Mass Index) 29.28 kg/m2 Beatris Oconnor [facility] Work Phone: 12-27-2017 11:22-0400 Body Temperature 97.8 [degF] Beatris Oconnor [facility] Work Phone: Comment on above: Method: Temporal 12-27-2017 11:22-0400 Body weight 93.9 kg Beatris Oconnor [facility]; [facility] Work Phone: 12-27-2017 11:22-0400 BP Diastolic 70 mm[Hg] Beatris Oconnor [facility] Work Phone: Comment on above: Patient Position: Sitting; Cuff Location : Left Arm; Cuff Size: Standard 12-27-2017 11:22-0400 BP Systolic 120 mm[Hg] Beatris Oconnor [facility] Work Phone: Comment on above: Patient Position: Sitting; Cuff Location : Left Arm; Cuff Size: Standard 12-27-2017 11:22-0400 BSA (Body Surface Area) 2.13 m2 Beatris Oconnor [facility] Work Phone: 12-27-2017 11:22-0400 Height 179.07 cm Beatris Oconnor [facility] Work Phone: 12-27-2017 11:22-0400 Pulse (Heart Rate) 79 /min Beatris Oconnor [facility] Work Phone: Comment on above: Pattern: Regular 12-27-2017 11:22-0400 Respiratory Rate 16 /min Beatris Oconnor [facility] Work Phone: Comment on above: Pattern: Unlabored 12-27-2017 11:22-0400 Weight 93.9 kg Ivelisse Masterson [facility] Work Phone: 10-18-2017 08:30-0500 BMI (Body Mass Index) 29.28 kg/m2 Terra Cooney RN [facility] Work Phone: 10-18-2017 08:30-0500 Body weight 93.9 kg Terra Cooney RN [facility]; [facility] Work Phone: 10-18-2017 08:30-0500 BP Diastolic 64 mm[Hg] Terra Cooney RN [facility] Work Phone: Comment on above: Patient Position: Sitting; Cuff Location : Left Arm; Cuff Size: Large 10-18-2017 08:30-0500 BP Systolic 118 mm[Hg] Terra Cooney RN [facility] Work Phone: Comment on above: Patient Position: Sitting; Cuff Location : Left Arm; Cuff Size: Large 10-18-2017 08:30-0500 BSA (Body Surface Area) 2.13 m2 Terra Cooney RN [facility] Work Phone: 10-18-2017 08:30-0500 Height 179.07 cm Terra Cooney RN [facility] Work Phone: 10-18-2017 08:30-0500 Pulse (Heart Rate) 62 /min Terra Cooney RN [facility] Work Phone: Comment on above: Pattern: Regular 10-18-2017 08:30-0500 Pulse Oximetry 94 % Ivelisse Crowellon [facility] Work Phone: Comment on above: Room air 10-18-2017 08:30-0500 Respiratory Rate 18 /min Terra Cooney RN [facility] Work Phone: Comment on above: Pattern: Unlabored 10-18-2017 08:30-0500 SaO2% (BldA) [Mass fraction] 94 % Terra Cooney RN [facility]; [facility] Work Phone: Comment on above: Room air 10-18-2017 08:30-0500 Weight 93.9 kg Ivelisse Masterson [facility] Work Phone: 08-08-2017 14:01-0400 BMI (Body Mass Index) 29.19 kg/m2 Consuelo Slarb LEGAL ANALYST [facility] Work Phone: 08-08-2017 14:01-0400 Body Temperature 97.8 [degF] Consuelo Shivrb LEGAL ANALYST [facility] Work Phone: 08-08-2017 14:01-0400 Body weight 93.61 kg Consuelo Slarb LEGAL ANALYST [facility]; [facility] Work Phone: 08-08-2017 14:01-0400 BP Diastolic 80 mm[Hg] Consuelo Slarb LEGAL ANALYST [facility] Work Phone: Comment on above: Patient Position: Sitting; Cuff Location : Left Arm; Cuff Size: Standard 08-08-2017 14:01-0400 BP Systolic 122 mm[Hg] Consuelo Slarb LEGAL ANALYST [facility] Work Phone: Comment on above: Patient Position: Sitting; Cuff Location : Left Arm; Cuff Size: Standard 08-08-2017 14:01-0400 BSA (Body Surface Area) 2.13 m2 Consuelo Slarb LEGAL ANALYST [facility] Work Phone: 08-08-2017 14:01-0400 Height 179.07 cm Consuelo Slarb LEGAL ANALYST [facility] Work Phone: 08-08-2017 14:01-0400 Pulse (Heart Rate) 70 /min Consuelo Shivrb LEGAL ANALYST [facility] Work Phone: Comment on above: Pattern: Regular 08-08-2017 14:01-0400 Pulse Oximetry 95 % Ivelisse Masterson [facility] Work Phone: Comment on above: Room air 08-08-2017 14:01-0400 Respiratory Rate 16 /min Consuelo Chaneyalbert INIGUEZ [facility] Work Phone: Comment on above: Pattern: Unlabored 08-08-2017 14:-0400 SaO2% (BldA) [Mass fraction] 95 % Consuelo Chaneyalbert INIGUEZ [facility]; [facility] Work Phone: Comment on above: Room air 08-08-2017 14:01-0400 Weight 93.61 kg Ivelisse Masterson [facility] Work Phone: 05-16-2017 13:13-0400 BMI (Body Mass Index) 29.48 kg/m2 Terra Cooney RN [facility] Work Phone: 05-16-2017 13:13-0400 Body weight 94.52 kg Terra Cooney RN [facility]; [facility] Work Phone: 05-16-2017 13:13-0400 BP Diastolic 68 mm[Hg] Terra Cooney RN [facility] Work Phone: Comment on above: Patient Position: Sitting; Cuff Location : Left Arm; Cuff Size: Large 05-16-2017 13:13-0400 BP Systolic 128 mm[Hg] Terra Cooney RN [facility] Work Phone: Comment on above: Patient Position: Sitting; Cuff Location : Left Arm; Cuff Size: Large 05-16-2017 13:13-0400 BSA (Body Surface Area) 2.14 m2 Terra Cooney RN [facility] Work Phone: 05-16-2017 13:13-0400 Height 179.07 cm Terra Cooney RN [facility] Work Phone: 05-16-2017 13:13-0400 Pulse (Heart Rate) 64 /min Terra Cooney RN [facility] Work Phone: Comment on above: Pattern: Regular 05-16-2017 13:13-0400 Pulse Oximetry 95 % Ivelisse Masterson [facility] Work Phone: Comment on above: Room air 05-16-2017 13:13-0400 Respiratory Rate 18 /min Terra Cooney RN [facility] Work Phone: Comment on above: Pattern: Unlabored 05-16-2017 13:13-0400 SaO2% (BldA) [Mass fraction] 95 % Terra Cooney RN [facility]; [facility] Work Phone: Comment on above: Room air 05-16-2017 13:13-0400 Weight 94.52 kg Ivelisse Masterson [facility] Work Phone: 03-27-2017 13:48-0400 BMI (Body Mass Index) 30.83 kg/m2 [facility] Work Phone: 03-27-2017 13:48-0400 BP Diastolic 50 mm[Hg] [facility] Work Phone: 03-27-2017 13:48-0400 BP Systolic 100 mm[Hg] [facility] Work Phone: 03-27-2017 13:48-0400 Height 179.07 cm [facility] Work Phone: 03-27-2017 13:48-0400 Pulse (Heart Rate) 72 /min [facility] Work Phone: 03-27-2017 13:48-0400 Respiratory Rate 20 /min [facility] Work Phone: 03-27-2017 13:48-0400 Weight 98.88 kg [facility] Work Phone: 01-24-2017 13:51-0400 BMI (Body Mass Index) 30.75 kg/m2 Beatris Oconnor CMA [facility] Work Phone: 01-24-2017 13:51-0400 Body weight 98.6 kg Beatris Oconnor CMA [facility]; [facility] Work Phone: 01-24-2017 13:51-0400 BP Diastolic 60 mm[Hg] Beatris Oconnor [facility] Work Phone: Comment on above: Patient Position: Sitting; Cuff Location : Left Arm; Cuff Size: Standard 01-24-2017 13:51-0400 BP Systolic 115 mm[Hg] Beatris Oconnor [facility] Work Phone: Comment on above: Patient Position: Sitting; Cuff Location : Left Arm; Cuff Size: Standard 01-24-2017 13:51-0400 BSA (Body Surface Area) 2.17 m2 Beatris Oconnor [facility] Work Phone: 01-24-2017 13:51-0400 Height 179.07 cm Beatris Oconnor [facility] Work Phone: 01-24-2017 13:51-0400 Pulse (Heart Rate) 75 /min Beatris Oconnor [facility] Work Phone: Comment on above: Pattern: Regular 01-24-2017 13:51-0400 Pulse Oximetry 97 % Ivelisse Masterson [facility] Work Phone: Comment on above: Room air 01-24-2017 13:51-0400 Respiratory Rate 16 /min Beatris Oconnor [facility] Work Phone: Comment on above: Pattern: Unlabored 01-24-2017 13:51-0400 SaO2% (BldA) [Mass fraction] 97 % Beatris Oconnor [facility]; [facility] Work Phone: Comment on above: Room air 01-24-2017 13:51-0400 Weight 98.6 kg Ivelisse Crowellon [facility] Work Phone: 01-10-2017 13:21-0400 BMI (Body Mass Index) 31.03 kg/m2 Terra Cooney RN [facility] Work Phone: 01-10-2017 13:21-0400 Body weight 99.51 kg Terra Cooney RN [facility]; [facility] Work Phone: 01-10-2017 13:21-0400 BP Diastolic 70 mm[Hg] Terra Cooney RN [facility] Work Phone: Comment on above: Patient Position: Sitting; Cuff Location : Left Arm; Cuff Size: Large 01-10-2017 13:21-0400 BP Systolic 138 mm[Hg] Terra Cooney RN [facility] Work Phone: Comment on above: Patient Position: Sitting; Cuff Location : Left Arm; Cuff Size: Large 01-10-2017 13:210400 BSA (Body Surface Area) 2.18 m2 Terra Cooney RN [facility] Work Phone: 01-10-2017 13:0400 Height 179.07 cm Terra Cooney RN [facility] Work Phone: 01-10-2017 13:21-0400 Pulse (Heart Rate) 80 /min Terra Cooney RN [facility] Work Phone: Comment on above: Pattern: Regular 01-10-2017 13:21-0400 Pulse Oximetry 98 % Ivelisse Masterson [facility] Work Phone: Comment on above: Room air 01-10-2017 13:21-0400 Respiratory Rate 18 /min Terra Cooney RN [facility] Work Phone: Comment on above: Pattern: Unlabored 01-10-2017 13:21-0400 SaO2% (BldA) [Mass fraction] 98 % Terra Cooney RN [facility]; [facility] Work Phone: Comment on above: Room air 01-10-2017 13:21-0400 Weight 99.51 kg Ivelisse Masterson [facility] Work Phone: 01-05-2017 07:31-0400 BMI (Body Mass Index) 31.69 kg/m2 Alina King [facility] Work Phone: 01-05-2017 07:31-0400 Body Temperature 98.3 [degF] Alina King [facility] Work Phone: Comment on above: Method: Tympanic 01-05-2017 07:31-0400 Body weight 101.61 kg Alina King [facility]; [facility] Work Phone: 01-05-2017 07:31-0400 BP Diastolic 84 mm[Hg] Alina King [facility] Work Phone: Comment on above: Patient Position: Sitting; Cuff Location : Left Arm; Cuff Size: Standard 01-05-2017 07:31-0400 BP Systolic 126 mm[Hg] Alina King [facility] Work Phone: Comment on above: Patient Position: Sitting; Cuff Location : Left Arm; Cuff Size: Standard 01-05-2017 07:31-0400 BSA (Body Surface Area) 2.2 m2 Alina King [facility] Work Phone: 01-05-2017 07:31-0400 Height 179.07 cm Alina King [facility] Work Phone: 01-05-2017 07:31-0400 Pulse (Heart Rate) 73 /min Alina King [facility] Work Phone: Comment on above: Pattern: Regular 01-05-2017 07:31-0400 Pulse Oximetry 98 % Ivelisse Masterson [facility] Work Phone: Comment on above: Room air 01-05-2017 07:31-0400 Respiratory Rate 18 /min Alina King [facility] Work Phone: Comment on above: Pattern: Unlabored 01-05-2017 07:31-0400 SaO2% (BldA) [Mass fraction] 98 % Alina King [facility]; [facility] Work Phone: Comment on above: Room air 01-05-2017 07:31-0400 Weight 101.61 kg Ivelisse Jeanne [facility] Work Phone: 11-13-2016 09:36-0500 BMI (Body Mass Index) 31.69 kg/m2 Terra Cooney RN [facility] Work Phone: 11-13-2016 09:36-0500 Body weight 101.61 kg Terra Cooney RN [facility]; [facility] Work Phone: 11-13-2016 09:36-0500 BP Diastolic 80 mm[Hg] Terra Cooney RN [facility] Work Phone: Comment on above: Patient Position: Sitting; Cuff Location : Left Arm; Cuff Size: Large 11-13-2016 09:36-0500 BP Systolic 142 mm[Hg] Terra Cooney RN [facility] Work Phone: Comment on above: Patient Position: Sitting; Cuff Location : Left Arm; Cuff Size: Large 11-13-2016 09:36-0500 BSA (Body Surface Area) 2.2 m2 Terra Cooney RN [facility] Work Phone: 11-13-2016 09:36-0500 Height 179.07 cm Terra Cooney RN [facility] Work Phone: 11-13-2016 09:36-0500 Pulse (Heart Rate) 66 /min Terra Cooney RN Comprehens [facility] Work Phone: Comment on above: Pattern: Regular 11-13-2016 09:36-0500 Pulse Oximetry 95 % Ivelisse Masterson [facility] Work Phone: Comment on above: Room air 11-13-2016 09:36-0500 Respiratory Rate 18 /min Terra Cooney RN Comprehensiv e [facility] Work Phone: Comment on above: Pattern: Unlabored 11-13-2016 09:36-0500 SaO2% (BldA) [Mass fraction] 95 % Terra Cooney RN [facility]; [facility] Work Phone: Comment on above: Room air 11-13-2016 09:36-0500 Weight 101.61 kg Ivelisse Masterson [facility] Work Phone: 10-12-2016 12:53-0500 BMI (Body Mass Index) 30.55 kg/m2 Consuelo Dai LPN [facility] Work Phone: 10-12-2016 12:53-0500 Body Temperature 97.2 [degF] Consuelo Dai LPN [facility] Work Phone: 10-12-2016 12:53-0500 Body weight 97.98 kg Consuelo Dai LEGAL ANALYST [facility]; [facility] Work Phone: 10-12-2016 12:53-0500 BP Diastolic 68 mm[Hg] Consuelo Slarb LEGAL ANALYST [facility] Work Phone: Comment on above: Patient Position: Sitting; Cuff Location : Left Arm; Cuff Size: Standard 10-12-2016 12:53-0500 BP Systolic 112 mm[Hg] Consuelo Slarb LEGAL ANALYST [facility] Work Phone: Comment on above: Patient Position: Sitting; Cuff Location : Left Arm; Cuff Size: Standard 10-12-2016 12:53-0500 BSA (Body Surface Area) 2.17 m2 Consuelo Slarb LEGAL ANALYST [facility] Work Phone: 10-12-2016 12:53-0500 Height 179.07 cm Consuelo Slarb LEGAL ANALYST [facility] Work Phone: 10-12-2016 12:53-0500 Pulse (Heart Rate) 66 /min Consuelo Chaneyrb LEGAL ANALYST Comprehensiv e [facility] Work Phone: Comment on above: Pattern: Regular 10-12-2016 12:53-0500 Pulse Oximetry 94 % Ivelisse Masterson [facility] Work Phone: Comment on above: Room air 10-12-2016 12:53-0500 Respiratory Rate 16 /min Consuelo Slarb LEGAL ANALYST [facility] Work Phone: Comment on above: Pattern: Unlabored 10-12-2016 12:53-0500 SaO2% (BldA) [Mass fraction] 94 % Consuelo Slarb LEGAL ANALYST [facility]; [facility] Work Phone: Comment on above: Room air 10-12-2016 12:53-0500 Weight 97.98 kg Ivelisse Masterson [facility] Work Phone: 09-26-2016 15:04-0500 BSA (Body Surface Area) 2.19 m2 [facility] Work Phone: 09-11-2016 13:15-0500 BMI (Body Mass Index) 31.12 kg/m2 Delmy Benton RN [facility] Work Phone: 09-11-2016 13:15-0500 Body Temperature 98 [degF] Delmy Benton RN [facility] Work Phone: 09-11-2016 13:15-0500 Body weight 99.79 kg Delmy Benton RN [facility]; [facility] Work Phone: 09-11-2016 13:15-0500 BP Diastolic 76 mm[Hg] Delmy Benton RN [facility] Work Phone: Comment on above: Patient Position: Sitting; Cuff Location : Left Arm; Cuff Size: Standard 09-11-2016 13:15-0500 BP Systolic 130 mm[Hg] Delmy Benton RN [facility] Work Phone: Comment on above: Patient Position: Sitting; Cuff Location : Left Arm; Cuff Size: Standard 09-11-2016 13:15-0500 BSA (Body Surface Area) 2.19 m2 Delmy Benton RN [facility] Work Phone: 09-11-2016 13:15-0500 Height 179.07 cm Delmy Benton RN [facility] Work Phone: 09-11-2016 13:15-0500 Pulse (Heart Rate) 77 /min Delmy Benton RN [facility] Work Phone: Comment on above: Pattern: Regular 09-11-2016 13:15-0500 Pulse Oximetry 97 % Ivelisse Masterson [facility] Work Phone: Comment on above: Room air 09-11-2016 13:15-0500 Respiratory Rate 16 /min Delmy Benton RN [facility] Work Phone: Comment on above: Pattern: Unlabored 09-11-2016 13:15-0500 SaO2% (BldA) [Mass fraction] 97 % Delmy Benton RN [facility]; [facility] Work Phone: Comment on above: Room air 09-11-2016 13:15-0500 Weight 99.79 kg Ivelisse Masterson [facility] Work Phone: 07-26-2016 11:29-0400 BMI (Body Mass Index) 31.05 kg/m2 Terra Cooney RN [facility] Work Phone: 07-26-2016 11:29-0400 Body weight 99.57 kg Terra Cooney RN [facility]; [facility] Work Phone: 07-26-2016 11:29-0400 BP Diastolic 62 mm[Hg] Terra Cooney RN [facility] Work Phone: Comment on above: Patient Position: Sitting; Cuff Location : Left Arm; Cuff Size: Large 07-26-2016 11:29-0400 BP Systolic 118 mm[Hg] Terra Cooney RN [facility] Work Phone: Comment on above: Patient Position: Sitting; Cuff Location : Left Arm; Cuff Size: Large 07-26-2016 11:29-0400 BSA (Body Surface Area) 2.18 m2 Terra Cooney RN [facility] Work Phone: 07-26-2016 11:29-0400 Height 179.07 cm Terra Cooney RN [facility] Work Phone: 07-26-2016 11:29-0400 Pulse (Heart Rate) 64 /min Terra Cooney RN Comprehens [facility] Work Phone: Comment on above: Pattern: Regular 07-26-2016 11:29-0400 Pulse Oximetry 94 % Ivelisse Masterson [facility] Work Phone: Comment on above: Room air 07-26-2016 11:29-0400 Respiratory Rate 18 /min Terra Cooney RN Comprehensiv e [facility] Work Phone: Comment on above: Pattern: Unlabored 07-26-2016 11:29-0400 SaO2% (BldA) [Mass fraction] 94 % Terra Cooney RN [facility]; [facility] Work Phone: Comment on above: Room air 07-26-2016 11:29-0400 Weight 99.57 kg Ivelisse Masterson [facility] Work Phone: 06-06-2016 09:23-0400 BMI (Body Mass Index) 30.84 kg/m2 Consuelo Slarb LEGAL ANALYST [facility] Work Phone: 06-06-2016 09:23-0400 Body Temperature 98.3 [degF] Consuelo Slarb LEGAL ANALYST [facility] Work Phone: 06-06-2016 09:23-0400 Body weight 98.88 kg Consuelo Slarb LEGAL ANALYST [facility]; [facility] Work Phone: 06-06-2016 09:23-0400 BP Diastolic 78 mm[Hg] Consuelo Slarb LEGAL ANALYST [facility] Work Phone: Comment on above: Patient Position: Sitting; Cuff Location : Left Arm; Cuff Size: Standard 06-06-2016 09:23-0400 BP Systolic 118 mm[Hg] Consuelo Slarb LEGAL ANALYST [facility] Work Phone: Comment on above: Patient Position: Sitting; Cuff Location : Left Arm; Cuff Size: Standard 06-06-2016 09:23-0400 BSA (Body Surface Area) 2.18 m2 Consuelo Slarb LEGAL ANALYST [facility] Work Phone: 06-06-2016 09:23-0400 Height 179.07 cm Consuelo Slarb LEGAL ANALYST [facility] Work Phone: 06-06-2016 09:23-0400 Pulse (Heart Rate) 55 /min Consuelo Slarb LEGAL ANALYST Comprehens[facility] e [facility] Work Phone: Comment on above: Pattern: Regular 06-06-2016 09:23-0400 Pulse Oximetry 96 % Ivelisse Jeanne [facility] Work Phone: Comment on above: Room air 06-06-2016 09:23-0400 Respiratory Rate 17 /min Consuelo Slarb LEGAL ANALYST [facility] Work Phone: Comment on above: Pattern: Unlabored 06-06-2016 09:23-0400 SaO2% (BldA) [Mass fraction] 96 % Consuelo Slarb LEGAL ANALYST [facility]; [facility] Work Phone: Comment on above: Room air 06-06-2016 09:23-0400 Weight 98.88 kg Ivelisse Masterson [facility] Work Phone: 01-21-2016 07:11-0400 BMI (Body Mass Index) 30.29 kg/m2 Terra Cooney RN [facility] Work Phone: 01-21-2016 07:11-0400 Body weight 97.13 kg Terra Cooney RN [facility]; [facility] Work Phone: 01-21-2016 07:11-0400 BP Diastolic 78 mm[Hg] Terra Cooney RN [facility] Work Phone: Comment on above: Patient Position: Sitting; Cuff Location : Left Arm; Cuff Size: Large 01-21-2016 07:11-0400 BP Systolic 122 mm[Hg] Terra Cooney RN [facility] Work Phone: Comment on above: Patient Position: Sitting; Cuff Location : Left Arm; Cuff Size: Large 01-21-2016 07:110400 BSA (Body Surface Area) 2.16 m2 Terra Cooney RN [facility] Work Phone: 01-21-2016 07:11-0400 Height 179.07 cm Terra Cooney RN [facility] Work Phone: 01-21-2016 07:11-0400 Pulse (Heart Rate) 83 /min Terra Cooney RN Comprehens [facility] Work Phone: Comment on above: Pattern: Regular 01-21-2016 07:11-0400 Pulse Oximetry 94 % Ivelisse Masterson [facility] Work Phone: Comment on above: Room air 01-21-2016 07:11-0400 Respiratory Rate 18 /min Terra Cooney RN [facility] Work Phone: Comment on above: Pattern: Unlabored 01-21-2016 07:11-0400 SaO2% (BldA) [Mass fraction] 94 % Terra Cooney RN [facility]; [facility] Work Phone: Comment on above: Room air 01-21-2016 07:11-0400 Weight 97.13 kg Ivelisse Masterson [facility] Work Phone: 01-12-2016 08:29-0400 BMI (Body Mass Index) 30.29 kg/m2 Beatris Oconnor [facility] Work Phone: 01-12-2016 08:29-0400 Body Temperature 97 [degF] Beatris Oconnor [facility] Work Phone: Comment on above: Method: Oral 01-12-2016 08:29-0400 Body weight 97.13 kg Beatris Oconnor [facility]; [facility] Work Phone: 01-12-2016 08:29-0400 BP Diastolic 70 mm[Hg] Beatris Oconnor [facility] Work Phone: Comment on above: Patient Position: Sitting; Cuff Location : Left Arm; Cuff Size: Standard 01-12-2016 08:29-0400 BP Systolic 115 mm[Hg] Beatris Oconnor [facility] Work Phone: Comment on above: Patient Position: Sitting; Cuff Location : Left Arm; Cuff Size: Standard 01-12-2016 08:29-0400 BSA (Body Surface Area) 2.16 m2 Beatris Oconnor [facility] Work Phone: 01-12-2016 08:29-0400 Height 179.07 cm Beatris Oconnor [facility] Work Phone: 01-12-2016 08:29-0400 Pulse (Heart Rate) 74 /min Beatris Oconnor [facility] Work Phone: Comment on above: Pattern: Regular 01-12-2016 08:29-0400 Respiratory Rate 16 /min Beatris Oconnor [facility] Work Phone: Comment on above: Pattern: Unlabored 01-12-2016 08:29-0400 Weight 97.13 kg Ivelisse Jeanne [facility] Work Phone: 12-06-2015 12:50-0500 BMI (Body Mass Index) 31 kg/m2 Terra Cooney RN [facility] Work Phone: 12-06-2015 12:50-0500 Body weight 99.4 kg Terra Cooney RN [facility]; [facility] Work Phone: 12-06-2015 12:50-0500 BP Diastolic 78 mm[Hg] Terra Cooney RN [facility] Work Phone: Comment on above: Patient Position: Sitting; Cuff Location : Left Arm; Cuff Size: Large 12-06-2015 12:50-0500 BP Systolic 122 mm[Hg] Terra Cooney RN [facility] Work Phone: Comment on above: Patient Position: Sitting; Cuff Location : Left Arm; Cuff Size: Large 12-06-2015 12:50-0500 BSA (Body Surface Area) 2.18 m2 Terra Cooney RN [facility] Work Phone: 12-06-2015 12:50-0500 Height 179.07 cm Terra Cooney RN [facility] Work Phone: 12-06-2015 12:50-0500 Pulse (Heart Rate) 94 /min Terra Cooney RN Comprehens [facility] Work Phone: Comment on above: Pattern: Regular 12-06-2015 12:50-0500 Pulse Oximetry 95 % Ivelisse Masterson [facility] Work Phone: Comment on above: Room air 12-06-2015 12:50-0500 Respiratory Rate 18 /min Terra Cooney RN Comprehens[facility] Work Phone: Comment on above: Pattern: Unlabored 12-06-2015 12:50-0500 SaO2% (BldA) [Mass fraction] 95 % Terra Cooney RN [facility]; [facility] Work Phone: Comment on above: Room air 12-06-2015 12:50-0500 Weight 99.4 kg Ivelisse Masterson [facility] Work Phone: 11-18-2015 10:39-0500 BMI (Body Mass Index) 31.17 kg/m2 Terra Cooney RN [facility] Work Phone: 11-18-2015 10:39-0500 Body weight 99.96 kg Terra Cooney RN [facility]; [facility] Work Phone: 11-18-2015 10:39-0500 BP Diastolic 82 mm[Hg] Terra Cooney RN [facility] Work Phone: Comment on above: Patient Position: Sitting; Cuff Location : Left Arm; Cuff Size: Large 11-18-2015 10:39-0500 BP Systolic 138 mm[Hg] Terra Cooney RN [facility] Work Phone: Comment on above: Patient Position: Sitting; Cuff Location : Left Arm; Cuff Size: Large 11-18-2015 10:39-0500 BSA (Body Surface Area) 2.19 m2 Terra Cooney RN [facility] Work Phone: 11-18-2015 10:39-0500 Height 179.07 cm Terra Cooney RN [facility] Work Phone: 11-18-2015 10:39-0500 Pulse (Heart Rate) 61 /min Terra Cooney RN Comprehens [facility] Work Phone: Comment on above: Pattern: Regular 11-18-2015 10:39-0500 Pulse Oximetry 95 % Ivelisse Masterson [facility] Work Phone: Comment on above: Room air 11-18-2015 10:39-0500 Respiratory Rate 18 /min Terra Cooney RN Comprehens[facility] Work Phone: Comment on above: Pattern: Unlabored 11-18-2015 10:39-0500 SaO2% (BldA) [Mass fraction] 95 % Terra Cooney RN [facility]; [facility] Work Phone: Comment on above: Room air 11-18-2015 10:39-0500 Weight 99.96 kg Ivelisse Jeanne [facility] Work Phone: 11-11-2015 09:27-0500 BMI (Body Mass Index) 31.17 kg/m2 Terra Cooney RN [facility] Work Phone: 11-11-2015 09:27-0500 Body Temperature 97.7 [degF] Terra Cooney RN Comprehensiv e [facility] Work Phone: Comment on above: Method: Temporal 11-11-2015 09:27-0500 Body weight 99.96 kg Terra Cooney RN [facility]; [facility] Work Phone: 11-11-2015 09:27-0500 BP Diastolic 62 mm[Hg] Terra Cooney RN [facility] Work Phone: Comment on above: Patient Position: Sitting; Cuff Location : Left Arm; Cuff Size: Large 11-11-2015 09:27-0500 BP Systolic 120 mm[Hg] Terra Cooney RN [facility] Work Phone: Comment on above: Patient Position: Sitting; Cuff Location : Left Arm; Cuff Size: Large 11-11-2015 09:27-0500 BSA (Body Surface Area) 2.19 m2 Terra Cooney RN [facility] Work Phone: 11-11-2015 09:27-0500 Height 179.07 cm Terra Cooney RN [facility] Work Phone: 11-11-2015 09:27-0500 Pulse (Heart Rate) 76 /min Terra Cooney RN Comprehens [facility] Work Phone: Comment on above: Pattern: Regular 11-11-2015 09:27-0500 Pulse Oximetry 98 % Ivelisse Masterson [facility] Work Phone: Comment on above: Room air 11-11-2015 09:27-0500 Respiratory Rate 18 /min Terra Cooney RN Comprehensiv e [facility] Work Phone: Comment on above: Pattern: Unlabored 11-11-2015 09:27-0500 SaO2% (BldA) [Mass fraction] 98 % Terra Cooney RN [facility]; [facility] Work Phone: Comment on above: Room air 11-11-2015 09:27-0500 Weight 99.96 kg Ivelisse Masterson [facility] Work Phone: 10-13-2015 11:36-0500 BMI (Body Mass Index) 31.17 kg/m2 Consuelo Dai LPN [facility] Work Phone: 10-13-2015 11:36-0500 Body Temperature 97.6 [degF] Consuelo Dai LPN [facility] Work Phone: 10-13-2015 11:36-0500 Body weight 99.96 kg Consuelo Slarb LEGAL ANALYST [facility]; [facility] Work Phone: 10-13-2015 11:36-0500 BP Diastolic 68 mm[Hg] Consuelo Slarb LEGAL ANALYST [facility] Work Phone: Comment on above: Patient Position: Sitting; Cuff Location : Left Arm; Cuff Size: Standard 10-13-2015 11:36-0500 BP Systolic 116 mm[Hg] Consuelo Slarb LEGAL ANALYST [facility] Work Phone: Comment on above: Patient Position: Sitting; Cuff Location : Left Arm; Cuff Size: Standard 10-13-2015 11:36-0500 BSA (Body Surface Area) 2.19 m2 Consuelo Slarb LEGAL ANALYST [facility] Work Phone: 10-13-2015 11:36-0500 Height 179.07 cm Consuelo Slarb LEGAL ANALYST [facility] Work Phone: 10-13-2015 11:36-0500 Pulse (Heart Rate) 88 /min Consuelo Shivrb LEGAL ANALYST Comprehens[facility] e [facility] Work Phone: Comment on above: Pattern: Regular 10-13-2015 11:36-0500 Pulse Oximetry 97 % Ivelisse Masterson [facility] Work Phone: Comment on above: Room air 10-13-2015 11:36-0500 Respiratory Rate 16 /min Consuelo Slarb LEGAL ANALYST [facility] Work Phone: Comment on above: Pattern: Unlabored 10-13-2015 11:36-0500 SaO2% (BldA) [Mass fraction] 97 % Consuelo Slarb LEGAL ANALYST [facility]; [facility] Work Phone: Comment on above: Room air 10-13-2015 11:36-0500 Weight 99.96 kg Ivelisse Masterson [facility] Work Phone: 12-03-2014 08:59-0500 BMI (Body Mass Index) 30.71 kg/m2 Terra Cooney RN [facility] Work Phone: 12-03-2014 08:59-0500 Body weight 98.49 kg Terra Cooney RN [facility]; [facility] Work Phone: 12-03-2014 08:59-0500 BP Diastolic 82 mm[Hg] Terra Cooney RN [facility] Work Phone: Comment on above: Patient Position: Standing; Cuff Locatio n: Right Arm; Cuff Size: Large 12-03-2014 08:59-0500 BP Systolic 118 mm[Hg] Terra Cooney RN [facility] Work Phone: Comment on above: Patient Position: Standing; Cuff Locatio n: Right Arm; Cuff Size: Large 12-03-2014 08:59-0500 BSA (Body Surface Area) 2.17 m2 Terra Cooney RN [facility] Work Phone: 12-03-2014 08:59-0500 Height 179.07 cm Terra Cooney RN [facility] Work Phone: 12-03-2014 08:59-0500 Pulse (Heart Rate) 54 /min Terra Cooney RN Comprehens [facility] Work Phone: Comment on above: Pattern: Regular 12-03-2014 08:59-0500 Pulse Oximetry 97 % Ivelisse Masterson [facility] Work Phone: Comment on above: Room air 12-03-2014 08:59-0500 Respiratory Rate 18 /min Terra Cooney RN Comprehensiv e [facility] Work Phone: Comment on above: Pattern: Unlabored 12-03-2014 08:59-0500 SaO2% (BldA) [Mass fraction] 97 % Terra Cooney RN [facility]; [facility] Work Phone: Comment on above: Room air 12-03-2014 08:59-0500 Weight 98.49 kg Ivelisse Masterson [facility] Work Phone: 11-25-2014 13:11-0500 BMI (Body Mass Index) 30.7 kg/m2 Terra Cooney RN [facility] Work Phone: 11-25-2014 13:11-0500 Body weight 98.43 kg Terra Cooney RN [facility]; [facility] Work Phone: 11-25-2014 13:11-0500 BP Diastolic 82 mm[Hg] Terra Cooney RN [facility] Work Phone: Comment on above: Patient Position: Sitting; Cuff Location : Left Arm; Cuff Size: Large 11-25-2014 13:11-0500 BP Systolic 128 mm[Hg] Terra Cooney RN [facility] Work Phone: Comment on above: Patient Position: Sitting; Cuff Location : Left Arm; Cuff Size: Large 11-25-2014 13:11-0500 BSA (Body Surface Area) 2.17 m2 Terra Cooney RN [facility] Work Phone: 11-25-2014 13:11-0500 Height 179.07 cm Terra Cooney RN [facility] Work Phone: 11-25-2014 13:11-0500 Pulse (Heart Rate) 63 /min Terra Cooney RN Comprehens [facility] Work Phone: Comment on above: Pattern: Regular 11-25-2014 13:11-0500 Pulse Oximetry 96 % Ivelisse Masterson [facility] Work Phone: Comment on above: Room air 11-25-2014 13:11-0500 Respiratory Rate 18 /min Terra Cooney RN Comprehensiv e [facility] Work Phone: Comment on above: Pattern: Unlabored 11-25-2014 13:11-0500 SaO2% (BldA) [Mass fraction] 96 % Terra Cooney RN [facility]; [facility] Work Phone: Comment on above: Room air 11-25-2014 13:11-0500 Weight 98.43 kg Ivelisse Masterson [facility] Work Phone: 02-23-2014 16:32-0400 BMI (Body Mass Index) 28.74 kg/m2 Terra Cooney RN [facility] Work Phone: 02-23-2014 16:32-0400 Body weight 92.17 kg Terra Cooney RN [facility]; [facility] Work Phone: 02-23-2014 16:32-0400 BP Diastolic 62 mm[Hg] Terra Cooney RN [facility] Work Phone: Comment on above: Patient Position: Standing; Cuff Locatio n: Left Arm; Cuff Size: Large 02-23-2014 16:32-0400 BP Systolic 128 mm[Hg] Terra Cooney RN [facility] Work Phone: Comment on above: Patient Position: Standing; Cuff Locatio n: Left Arm; Cuff Size: Large 02-23-2014 16:32-0400 BSA (Body Surface Area) 2.11 m2 Terra Cooney RN [facility] Work Phone: 02-23-2014 16:32-0400 Height 179.07 cm Terra Cooney RN [facility] Work Phone: 02-23-2014 16:32-0400 Pulse (Heart Rate) 66 /min Terra Cooney RN Comprehens [facility] Work Phone: Comment on above: Pattern: Regular 02-23-2014 16:32-0400 Pulse Oximetry 96 % Ivelisse Masterson [facility] Work Phone: Comment on above: Room air 02-23-2014 16:32-0400 Respiratory Rate 20 /min Terra Cooney RN Comprehensiv e [facility] Work Phone: Comment on above: Pattern: Unlabored 02-23-2014 16:32-0400 SaO2% (BldA) [Mass fraction] 96 % Terra Cooney RN [facility]; [facility] Work Phone: Comment on above: Room air 02-23-2014 16:32-0400 Weight 92.17 kg Ivelisse Masterson [facility] Work Phone: 02-09-2014 14:55-0400 BMI (Body Mass Index) 29.18 kg/m2 Terra Cooney RN [facility] Work Phone: 02-09-2014 14:55-0400 Body Temperature 97.9 [degF] Terra Cooney RN Comprehensiv e [facility] Work Phone: Comment on above: Method: Oral 02-09-2014 14:55-0400 Body weight 93.56 kg Terra Cooney RN [facility]; [facility] Work Phone: 02-09-2014 14:55-0400 BP Diastolic 80 mm[Hg] Terra Cooney RN [facility] Work Phone: Comment on above: Patient Position: Sitting; Cuff Location : Left Arm; Cuff Size: Standard 02-09-2014 14:55-0400 BP Systolic 138 mm[Hg] Terra Cooney RN [facility] Work Phone: Comment on above: Patient Position: Sitting; Cuff Location : Left Arm; Cuff Size: Standard 02-09-2014 14:55-0400 BSA (Body Surface Area) 2.13 m2 Terra Cooney RN [facility] Work Phone: 02-09-2014 14:55-0400 Height 179.07 cm Terra Cooney RN [facility] Work Phone: 02-09-2014 14:55-0400 Pulse (Heart Rate) 69 /min Terra Cooney RN Comprehens [facility]ari [facility] Work Phone: Comment on above: Pattern: Regular 02-09-2014 14:55-0400 Pulse Oximetry 98 % Ivelisse Masterson [facility] Work Phone: Comment on above: Room air 02-09-2014 14:55-0400 Respiratory Rate 20 /min Terra Cooney RN Comprehensiv e [facility] Work Phone: Comment on above: Pattern: Unlabored 02-09-2014 14:55-0400 SaO2% (BldA) [Mass fraction] 98 % Terra Cooney RN [facility]; [facility] Work Phone: Comment on above: Room air 02-09-2014 14:55-0400 Weight 93.56 kg Ivelisse Masterson [facility] Work Phone: 01-19-2014 16:11-0400 BMI (Body Mass Index) 29.04 kg/m2 Alina King [facility] Work Phone: 01-19-2014 16:11-0400 Body Temperature 98.3 [degF] Alina King [facility] Work Phone: Comment on above: Method: Oral 01-19-2014 16:110400 Body weight 93.13 kg Alina King [facility]; [facility] Work Phone: 01-19-2014 16:11-0400 BP Diastolic 72 mm[Hg] Alina King [facility] Work Phone: Comment on above: Patient Position: Sitting; Cuff Location : Left Arm; Cuff Size: Standard 01-19-2014 16:11-0400 BP Systolic 120 mm[Hg] Alina King [facility] Work Phone: Comment on above: Patient Position: Sitting; Cuff Location : Left Arm; Cuff Size: Standard 01-19-2014 16:110400 BSA (Body Surface Area) 2.12 m2 Alina King [facility] Work Phone: 01-19-2014 16:11-0400 Height 179.07 cm Alina King [facility] Work Phone: 01-19-2014 16:11-0400 Pulse (Heart Rate) 67 /min Alina King [facility] Work Phone: Comment on above: Pattern: Regular 01-19-2014 16:11-0400 Pulse Oximetry 97 % Ivelisse Masterson [facility] Work Phone: Comment on above: Room air 01-19-2014 16:11-0400 Respiratory Rate 18 /min Alina King [facility] Work Phone: Comment on above: Pattern: Unlabored 01-19-2014 16:11-0400 SaO2% (BldA) [Mass fraction] 97 % Alina King [facility]; [facility] Work Phone: Comment on above: Room air 01-19-2014 16:11-0400 Weight 93.13 kg Ivelisse Masterson [facility] Work Phone: 12-23-2013 09:26-0400 BMI (Body Mass Index) 29.89 kg/m2 Ivelisse Masterson [facility] Work Phone: 12-23-2013 09:26-0400 Body Temperature 98.8 [degF] Ivelisse Masterson [facility] Work Phone: Comment on above: Method: Oral 12-23-2013 09:26-0400 Body weight 95.85 kg Ivelisse Masterson [facility]; [facility] Work Phone: 12-23-2013 09:26-0400 BP Diastolic 74 mm[Hg] Ivelisse Masterson [facility] Work Phone: Comment on above: Patient Position: Sitting; Cuff Location : Left Arm; Cuff Size: Standard 12-23-2013 09:26-0400 BP Systolic 126 mm[Hg] Ivelisse Masterson [facility] Work Phone: Comment on above: Patient Position: Sitting; Cuff Location : Left Arm; Cuff Size: Standard 12-23-2013 09:260400 BSA (Body Surface Area) 2.15 m2 Ivelisse Masterson [facility] Work Phone: 12-23-2013 09:26-0400 Height 179.07 cm Ivelisse Masterson [facility] Work Phone: 12-23-2013 09:26-0400 Pulse (Heart Rate) 90 /min Ivelisse Masterson [facility] Work Phone: Comment on above: Pattern: Regular 12-23-2013 09:26-0400 Pulse Oximetry 97 % Ivelisse Masterson [facility] Work Phone: Comment on above: Room air 12-23-2013 09:26-0400 Respiratory Rate 16 /min Ivelisse Masterson [facility] Work Phone: 12-23-2013 09:26-0400 SaO2% (BldA) [Mass fraction] 97 % Ivelisse Masterson DO Work Phone: [facility]; [facility] Work Phone: Comment on above: Room air 12-23-2013 09:26-0400 Weight 95.85 kg Ivelisse Masterson [facility] Work Phone: 03-11-2013 09:55-0400 BMI (Body Mass Index) 29.89 kg/m2 Beatris Oconnor [facility] Work Phone: 03-11-2013 09:55-0400 Body Temperature 98.6 [degF] Beatris Oconnor [facility] Work Phone: Comment on above: Method: Oral 03-11-2013 09:55-0400 Body weight 95.85 kg Beatris Oconnor [facility]; [facility] Work Phone: 03-11-2013 09:55-0400 BP Diastolic 80 mm[Hg] Beatris Oconnor [facility] Work Phone: Comment on above: Patient Position: Sitting; Cuff Location : Left Arm; Cuff Size: Standard 03-11-2013 09:55-0400 BP Systolic 122 mm[Hg] Beatris Oconnor [facility] Work Phone: Comment on above: Patient Position: Sitting; Cuff Location : Left Arm; Cuff Size: Standard 03-11-2013 09:55-0400 BSA (Body Surface Area) 2.15 m2 Beatris Oconnor [facility] Work Phone: 03-11-2013 09:55-0400 Height 179.07 cm Beatris Oconnor [facility] Work Phone: 03-11-2013 09:55-0400 Pulse (Heart Rate) 74 /min Beatris Oconnor [facility] Work Phone: Comment on above: Pattern: Regular 03-11-2013 09:55-0400 Pulse Oximetry 98 % Ivelisse Jeanne [facility] Work Phone: Comment on above: Room air 03-11-2013 09:55-0400 Respiratory Rate 16 /min Beatris Oconnor [facility] Work Phone: Comment on above: Pattern: Unlabored 03-11-2013 09:55-0400 SaO2% (BldA) [Mass fraction] 98 % Beatris Oconnor [facility]; [facility] Work Phone: Comment on above: Room air 03-11-2013 09:55-0400 Weight 95.85 kg Ivelisse Masterson [facility] Work Phone: 02-20-2013 09:31-0400 BMI (Body Mass Index) 29.89 kg/m2 Terra Cooney RN [facility] Work Phone: 02-20-2013 09:31-0400 Body Temperature 96.8 [degF] Terra Cooney RN [facility] Work Phone: Comment on above: Method: Oral 02-20-2013 09:31-0400 Body weight 95.85 kg Terra Cooney RN [facility]; [facility] Work Phone: 02-20-2013 09:31-0400 BP Diastolic 82 mm[Hg] Terra Cooney RN [facility] Work Phone: Comment on above: Patient Position: Sitting; Cuff Location : Left Arm; Cuff Size: Large 02-20-2013 09:31-0400 BP Systolic 124 mm[Hg] Terra Cooney RN [facility] Work Phone: Comment on above: Patient Position: Sitting; Cuff Location : Left Arm; Cuff Size: Large 02-20-2013 09:31-0400 BSA (Body Surface Area) 2.15 m2 Terra Cooney RN [facility] Work Phone: 02-20-2013 09:31-0400 Height 179.07 cm Terra Cooney RN [facility] Work Phone: 02-20-2013 09:31-0400 Pulse (Heart Rate) 60 /min Terra Cooney RN [facility] Work Phone: Comment on above: Pattern: Regular 02-20-2013 09:31-0400 Respiratory Rate 18 /min Terra Cooney RN [facility] Work Phone: Comment on above: Pattern: Unlabored 02-20-2013 09:31-0400 Weight 95.85 kg Ivelisse Masterson [facility] Work Phone: 02-13-2013 07:55-0400 BMI (Body Mass Index) 30.57 kg/m2 Terra Cooney RN [facility] Work Phone: Comment on above: 138/80 2nd bp 02-13-2013 07:55-0400 Body Temperature 97.4 [degF] Terra Cooney RN [facility] Work Phone: Comment on above: Method: Temporal 138/80 2nd bp 02-13-2013 07:55-0400 Body weight 98.03 kg Terra Cooney RN [facility]; [facility] Work Phone: Comment on above: 138/80 2nd bp 02-13-2013 07:55-0400 BP Diastolic 72 mm[Hg] Terra Cooney RN [facility] Work Phone: Comment on above: Patient Position: Sitting; Cuff Location : Left Arm; Cuff Size: Standard 138/80 2nd bp 02-13-2013 07:55-0400 BP Systolic 140 mm[Hg] Terra Cooney RN [facility] Work Phone: Comment on above: Patient Position: Sitting; Cuff Location : Left Arm; Cuff Size: Standard 138/80 2nd bp 02-13-2013 07:55-0400 BSA (Body Surface Area) 2.17 m2 Terra Cooney RN [facility] Work Phone: Comment on above: 138/80 2nd bp 02-13-2013 07:55-0400 Height 179.07 cm Terra Cooney RN [facility] Work Phone: Comment on above: 138/80 2nd bp 02-13-2013 07:55-0400 Pulse (Heart Rate) 70 /min Terra Cooney RN [facility] Work Phone: Comment on above: Pattern: Regular 138/80 2nd bp 02-13-2013 07:55-0400 Respiratory Rate 16 /min Terra Cooney RN [facility] Work Phone: Comment on above: Pattern: Unlabored 138/80 2nd bp 02-13-2013 07:55-0400 Weight 98.03 kg Ivelisse Masterson [facility] Work Phone: Comment on above: 138/80 2nd bp 01-23-2013 08:56-0400 BMI (Body Mass Index) 30.57 kg/m2 Terra Cooney RN [facility] Work Phone: 01-23-2013 08:56-0400 Body Temperature 97.5 [degF] Terra Cooney RN [facility] Work Phone: Comment on above: Method: Oral 01-23-2013 08:56-0400 Body weight 98.03 kg Terra Cooney RN [facility]; [facility] Work Phone: 01-23-2013 08:56-0400 BP Diastolic 80 mm[Hg] Terra Cooney RN [facility] Work Phone: Comment on above: Patient Position: Sitting; Cuff Location : Left Arm; Cuff Size: Standard 01-23-2013 08:56-0400 BP Systolic 138 mm[Hg] Terra Cooney RN [facility] Work Phone: Comment on above: Patient Position: Sitting; Cuff Location : Left Arm; Cuff Size: Standard 01-23-2013 08:56-0400 BSA (Body Surface Area) 2.17 m2 Terra Cooney RN [facility] Work Phone: 01-23-2013 08:56-0400 Height 179.07 cm Terra Cooney RN [facility] Work Phone: 01-23-2013 08:56-0400 Pulse (Heart Rate) 60 /min Terra Cooney RN [facility] Work Phone: Comment on above: Pattern: Regular 01-23-2013 08:56-0400 Respiratory Rate 16 /min Terra Cooney RN [facility] Work Phone: Comment on above: Pattern: Unlabored 01-23-2013 08:56-0400 Weight 98.03 kg Ivelisse Masterson [facility] Work Phone: Encounters Encounter Date Encounter Type Care Provider Facility Start: 11-24-2023 End: 11-24-2023 Emergency department patient visit Judd Griffith Facility:[facility] Start: 11-24-2023 End: 11-24-2023 Emergency department patient visit [facility] Work Phone: Start: 07-20-2021 End: 07-20-2021 Office outpatient visit 15 minutes Ivelisse Masterson DO Work Phone: [facility] Start: 09-29-2020 End: 09-29-2020 Office outpatient visit 25 minutes Ivelisse Masterson [facility] Start: 09-29-2020 Review Ivelisse Masterson [facility] Start: 02-12-2019 End: 02-12-2019 Office outpatient visit 25 minutes Ivelisse [facility] Start: 02-03-2019 Patient encounter procedure Ivelisse Marshall [facility] Start: 12-25-2018 End: 12-25-2018 Patient encounter procedure CORNELIUS FAYE Facility:[facility] Start: 09-23-2018 End: 09-23-2018 Office outpatient visit 15 minutes Ivelisse [facility] Start: 06-19-2018 End: 06-19-2018 Office outpatient visit 5 minutes Ivelisse Marshall [facility] Start: 06-14-2018 End: 06-14-2018 Office outpatient visit 15 minutes Ivelisse Masterson [facility] Start: 05-28-2018 End: 05-28-2018 Annotation/Addendum Ivelisse Masterson [facility] Start: 05-23-2018 End: 05-23-2018 Office outpatient visit 25 minutes Ivelisse [facility] Start: 03-18-2018 End: 03-25-2018 Patient encounter procedure CORNELIUS FAYE JR [facility] Start: 02-14-2018 End: 02-14-2018 Patient encounter procedure Ivelisse Masterson DO Work Phone: [facility] Start: 02-14-2018 End: 02-14-2018 Periodic preventive med est patient 65yrs& older Ivelisse [facility] Start: 01-13-2018 End: 01-25-2018 Ambulatory CORNELIUS FAYE JR [facility] Start: 12-27-2017 End: 12-27-2017 Office outpatient visit 15 minutes Ivelisse Masterson [facility] Start: 10-18-2017 End: 10-18-2017 Office outpatient visit 15 minutes Ivelisse Masterson [facility] Start: 08-08-2017 End: 08-08-2017 Office outpatient visit 15 minutes Ivelisse Marshall [facility] Start: 05-16-2017 End: 05-16-2017 Office outpatient visit 25 minutes Ivelisse Masterson [facility] Start: 01-24-2017 End: 01-24-2017 Patient encounter procedure Ivelisse Masterson DO Work Phone: [facility] Start: 01-24-2017 End: 01-24-2017 Periodic preventive med est patient 65yrs& older Ivelisse [facility] Start: 01-10-2017 End: 01-10-2017 Office outpatient visit 25 minutes Ivelisse Marshall [facility] Start: 01-05-2017 End: 01-05-2017 Patient encounter procedure Ivelisse [facility] Start: 01-05-2017 End: 01-05-2017 Office outpatient visit 25 minutes Ivelisse Marshall [facility] Start: 11-13-2016 End: 11-13-2016 Office outpatient visit 15 minutes Ivelisse Masrhall [facility] Start: 10-12-2016 End: 10-12-2016 Office outpatient visit 15 minutes Ivelisse [facility] Start: 09-11-2016 End: 09-11-2016 Office outpatient visit 25 minutes Ivelisse [facility] Start: 07-26-2016 End: 07-26-2016 Office outpatient visit 15 minutes Ivelisse [facility] Start: 06-06-2016 End: 06-06-2016 Office outpatient visit 25 minutes Ivelisse [facility] Start: 01-21-2016 End: 01-21-2016 Office outpatient visit 15 minutes Ivelisse [facility] Start: 01-19-2016 End: 01-19-2016 Patient encounter procedure Ivelisse Marshall [facility] Start: 01-13-2016 End: 01-13-2016 Historical Summary Ivelisse Marshall [facility] Start: 01-12-2016 End: 01-12-2016 Office outpatient visit 25 minutes Ivelisse Marshall [facility] Start: 12-06-2015 End: 12-06-2015 Office outpatient visit 15 minutes Ivelisse Marshall [facility] Start: 11-19-2015 End: 11-19-2015 Refill Request Ivelisse Marshall [facility] Start: 11-18-2015 End: 11-18-2015 Office outpatient visit 25 minutes Ivelisse Marshall [facility] Start: 11-11-2015 End: 11-11-2015 Office outpatient visit 25 minutes Ivelisse Marshall [facility] Start: 10-13-2015 End: 10-13-2015 Office outpatient visit 15 minutes Ivelisse Masterson [facility] Start: 12-03-2014 End: 12-03-2014 Office outpatient visit 15 minutes Ivelisse Masterson [facility] Start: 11-25-2014 End: 11-25-2014 Office outpatient visit 25 minutes Ivelisse Masterson [facility] Start: 02-23-2014 End: 02-23-2014 Patient encounter procedure Ivelisse Masterson [facility] Start: 02-09-2014 End: 02-09-2014 Patient encounter procedure Ivelisse Masterson [facility] Start: 01-19-2014 End: 01-19-2014 Patient encounter procedure Ivelisse Masterson [facility] Start: 12-23-2013 End: 12-23-2013 Patient encounter procedure Ivelisse Masterson [facility] Start: 03-11-2013 End: 03-11-2013 Office outpatient new 20 minutes Ivelisse Masterson [facility] Start: 02-20-2013 End: 02-20-2013 Patient encounter procedure Ivelisse Masterson [facility] Start: 02-13-2013 End: 02-13-2013 Patient encounter procedure Ivelisse Masterson [facility] Start: 01-23-2013 End: 01-23-2013 Patient encounter procedure Ivelisse Masterson [facility] Start: 01-23-2013 End: 01-23-2013 Patient encounter status Ivelissenellie Masterson DO Work Phone: [facility] Patient encounter procedure Kyung Rocha [facility]; [facility] Work Phone: Patient encounter procedure Kyung Rocha [facility]; [facility] Work Phone: Patient encounter status Terra Cooney RN [facility]; [facility] Work Phone: Procedures Date Procedure Procedure Detail Performing Clinician Start: 07-21-2021 End: 07-21-2021 Virtual Office Visit Comments: See Note; NOTES: [facility] [place] [address] OFFICE VISIT Date of Service: 07/21/21 MR#: [id number] Acct: [id number] Patient: YOLY ISAACS Rep #: [id number] : 1950 Provider: RICHARD campbell Age/Sex: 71/M [place] [facility] Status: Signed Intake Intake Visit Reasons: COVID-19 Chief Complaint: elbow Allergies No Known Allergies Allergy (Verified 07/19/21 13:17) [facility] Medical History (Updated 07/21/21 @ 15:09 by Traci Valdez TOLL TESTBOARD WORKER, TOLL TESTBOARD WORKER-C) Dilated cardiomyopathy Hyperlipidemia Left bundle branch block Obesity Obstructive sleep apnea Olecranon bursitis of left elbow Sinus bradycardia Snoring Vasovagal syncope Surgical History H/O arthroscopic knee surgery History of colonoscopy Family History Sister Myocardial infarction Social History Smoking Status: Former smoker alcohol intake: current Alcohol type: beer caffeine: Yes Type: coffee Number of servings: 2 HPI HPI Chief Complaint: elbow Details: Patient was informed that this visit will be billed to patient. This visit was conducted during COVID-19 pandemic. Statement read to the patient: This telehealth visit is being offered during our stay at home measures in response to the pandemic. It is subject to an office visit charge. The patient consents to continue. Symptom onset occurred: 07/12/21 Positive COVID-19 test occurred: 07/19/21 vaccine: NO oxygen? No and Sp02 today 91-93% The FDA has authorized the emergency use of monoclonal antibody treatment (bamlanivimab/etesevimab or casirivimab/imdevimab) for mild to moderate COVID-19 in adults and pediatric patients with positive results of direct SARS???Cov???2 viral testing ages 12 and older, at least 40 kg, who were not at high risk for progressing to severe COVID-19 and or hospitalization. The significant known and potential risks (allergic reactions or side effects from injection including brief pain, bleeding, bruising of the skin, soreness, swelling, possible infection at the infusion site) and benefits (decrease chance of progression to severe COVID-19) of a monoclonal antibody infusion, and the extent to which such potential risks and benefits are unknown. Patients treated with monoclonal antibody infusion should continue to self-isolate and use infection control measures (such as wear mask, isolate, social distance, avoid sharing personal items, clean and disinfect high touch surfaces, and frequent handwashing) according to the CDC guidelines. The fact sheet for patients, parents and caregivers will be provided prior to the administration of the medication. No drugs are approved by the FDA at this time to treat outpatients with mild or moderate symptoms of COVID-19. The following information was communicated to the patient or caregiver: Monoclonal antibody infusion is not an FDA approved drug. The FDA has authorized the emergency use of monoclonal antibody therapy. The patient had the option to refuse or accept treatment with monoclonal antibody therapy. The patient was informed that the number of people treated with monoclonal antibody therapy at this time is small. The potential benefits and the potential risks of monoclonal antibody therapy are not fully known. Potential benefits of monoclonal antibody include a reduced risk of progressing to severe COVID-19 infection. Potential risks or side effects of monoclonal antibody therapy include allergic reactions, side effects from injection including brief pain, bleeding, bruising of the skin, soreness, swelling, possible infection at the infusion site. The patient stated understanding of this information communicated and wished to proceed with monoclonal antibody infusion therapy. Current symptoms include: Fatigue, loss of appetite Qualifier: AGE ROS Const Constitutional: Positive for anorexia, fatigue, decreased energy and malaise Endo Endocrine: Positive for fatigue Exam Const General: cooperative and no acute distress Resp Effort Inspection: normal respiratory effort and able to speak in complete sentences Neuro General: patient alert, patient awake and patient oriented x3 Cognition: normal cognition Speech: speech normal Psych Mental Status: mental status grossly normal Mood: congruent mood Attitude: cooperative Thought Process: normal Thought Content: normal Judgment: judgment good Details: Details:: Exam was limited due to phone visit with no video. Quality Reporting Tobacco Screening ([facility] 138) Smoking Status: Former smoker Coding Level of Care Code New Pt Level 2 Telephone Patient Type New History Problem Focused Exam Problem Focused Medical Decision Making Low Complexity Diagnoses COVID-19 U07.1 65 years of age or older Time Spent (min) 10 Comment 80020 Assessment and Plan Assessment and Plan (1) COVID-19: Status: Acute Plan - Traci Valdez TOLL TESTBOARD WORKER, TOLL TESTBOARD WORKER-C: The patient remains appropriate for the Monoclonal Antibody Infusion. The patient states understanding of this information communicated and wishes to proceed with monoclonal antibody infusion therapy. Patient agrees to receive either balanivimab/etesvimab or casirivimab/imdevimab upon availability. (2) 65 years of age or older: Status: Acute 07/21/21 1510 <Electronically signed by Traci Valdez TOLL TESTBOARD WORKER TOLL TESTBOARD WORKER-C> Date Traci Valdez NP TOLL TESTBOARD WORKER-C Cosigner Signature: Date (if applicable) CC: DO Ivelisse Silva DO Work Phone: Start: 07-19-2021 End: 07-19-2021 Chest PA and Lateral Comments: See Note; NOTES: [facility] [address] [place] [address] Chest PA and Lateral MR#: [id number] Acct: [id number] Name: YOLY ISAACS Rep #: [id number] : 1950 M 71 From: Jacky Louis MD PCP: Dr. Ivelisse Masterson DO Status: DEP AMB Study: Chest PA and Lateral Date of Exam: 07/19/21 Exam# [id number] Ordering Dr: Roger Hines PA STUDY: X-RAY CHEST REASON FOR EXAM: Male, 71 years old. fever, fatigue TECHNIQUE: PA and lateral views of the chest. COMPARISON: 10/09/2016 FINDINGS: Airspace consolidation of the left lower lobe. There is no demonstrated pleural abnormality. Normal size heart. Normal mediastinum and alexis. Normal visualized pulmonary arteries. There is atherosclerotic tortuosity of the aortic arch and descending thoracic aorta. Normal visualized thoracic spine. Normal visualized ribs, clavicles, and shoulders. There is no demonstrated abnormality of the visualized soft tissue structures of the upper abdomen. RAD/Chest PA and Lateral IMPRESSION: Left lower lobe airspace disease, new. Electronically Signed: Jacky Louis MD ([place]) at 13:59 EDT , Service support , CC: ALEXYS Hines; Dr. Ivelisse Masterson DO Veneer Stacker: Signed Ivelisse Masterson DO Work Phone: Start: 07-19-2021 End: 07-19-2021 Urgent Care Visit Report Comments: See Note; NOTES: [facility] [address] [place] [address] [address] [place] [address] OFFICE VISIT Date of Service: 07/19/21 MR#: [id number] Acct: [id number] Name: YOLY ISAACS Rep #: [id number] : 1950 Provider: ALEXYS Hines Age/Sex: 71/M [place] [facility] Status: Signed Intake Vital Signs 07/19/21 13:16 Height 5 ft 8 in Weight: 193 lb BMI 29.3 BP 120/60 Blood Pressure Location Lt brachial Position Sitting Respiration 16 Pulse 104 H Pulse Source Monitor Temp 100.3 F H Temp Source Temporal Pulse Oximetry (%) 90 Oxygen Delivery Method room air Intake Visit Reasons: COVID/SYMPTOMS Allergies No Known Allergies Allergy (Verified 07/19/21 13:17) PFSH Medical History (Updated 07/19/21 @ 15:52 by Roger REARDON, PA) Dilated cardiomyopathy Hyperlipidemia Left bundle branch block Obesity Obstructive sleep apnea Olecranon bursitis of left elbow Sinus bradycardia Snoring Vasovagal syncope Surgical History H/O arthroscopic knee surgery History of colonoscopy Family History Sister Myocardial infarction Social History Smoking Status: Former smoker alcohol intake: current Alcohol type: beer caffeine: Yes Type: coffee Number of servings: 2 HPI HPI Details: YOLY ISAACS, is a 71 M who presents to the office today for fever, fatigue and congestion with cough for the past 7 days. Patient states that he has no shortness of breath, difficulty breathing or chest pain. He has not actually taken his temperature however has had chills and sweats. No nausea, vomiting, diarrhea. No other associated symptoms or alleviating/aggravating factors. ROS Const Constitutional: Positive for other (6 system ROS completed with pertinent findings in the HPI otherwise normal.) Exam Const General: cooperative and well developed HENMT Head: normal to inspection and atraumatic Ears: hearing grossly normal bilaterally Nose: nasal discharge clear Face and sinus: normal facial exam Mouth: oral mucosae normal Throat: abnormal tonsil bilaterally hypertrophy 1+ Resp Effort Inspection: normal respiratory effort and no audible wheezes Auscultation: Bilateral: Clear to Auscultation Cardio Palpation: normal PMI Rate: regular rate Rhythm: regular rhythm Neuro General: patient alert and CN's II-XI intact bilaterally Psych Appearance: grossly normal Mental Status: mental status grossly normal Results POC REGINO CoV-2 PCR POC REGINO CoV-2 PCR Detected Last Edit by Nurys Spence RN on 07/19/21 13:41 Negative for Influenza A and B Coding Level of Care Code Off vis,new,level 3 Diagnoses COVID-19 U07.1 Assessment and Plan Assessment and Plan (1) COVID-19: Status: Acute Plan - ALEXYS [place]: Patient tested positive for COVID-19 using rapid PCR testing in the office today. Patient advised to contact his PCP and inquire about monoclonal antibody therapy. Encouraged to get plenty of rest, drink lots of clear liquids, and use Tylenol or Ibuprofen (unless contraindicated) for fever and comfort. Patient also educated on other symptomatic management techniques. To be seen in 7-10 days if no improvement; sooner if worsening of symptoms. Patient advised of potential red flags and when appropriate patient verbalized understanding and agreement with all the above. Plan Details Other Orders: Orders: POC Rapid REGINO Cov-2 PCR Today R50.9 Chest PA and Lateral Today R50.9, Z20.828 07/19/21 1553 <Electronically signed by Roger REARDON> Date Roger Kramer Signature: Date (if applicable) CC: Ivelisse Masterson DO Work Phone: Start: 04-16-2019 End: 04-16-2019 Echo, Complete w/ Contrast Comments: See Note; NOTES: [facility] [address] [place] [address] Echo Complete W/ Contrast 04/16/19 1439 MR#: [id number] Acct: [id number] Name: YOLY ISAACS Rep #: [id number] : 1950 68 From: Twan Gaffney MD Attending Dr: Yeimy ARVIZU,Twan Status: REG CLI Ordering Dr: Twan Gaffney MD Date: 04/16/19 Location: [facility] Sex: M C Admitted: Reason For Study: Abnormal EKG Procedure This was a 2D Doppler, Color Flow transthoracic echocardiogram. The study was technically difficult. Contrast injection was performed. Exam performed in department. Left Ventricle Normal LV size. Left ventricular systolic function is normal. The estimated ejection fraction is 60 %. Stage 1 diastolic dysfunction. No regional wall motion abnormalities noted. Right Ventricle Normal RV size. Normal systolic function. Atria Normal left atrium. Normal right atrium. Mitral Valve Normal mitral valve. Tricuspid Valve Normal tricuspid valve. Aortic Valve Trisinus/trileaflet aortic valve. Pulmonic Valve The pulmonic valve is not well visualized. Great Vessels Normal aortic root. The pulmonary is not well visualized. Pericardium/Pleural No pericardial effusion. Medication 22 gauge I.V. with prn adaptor inserted into right arm. Diluted definity 4ml given slow IV push to enhance endocardial definition. MMode/2D Measurements AND Calculations LVIDd: 3.1 cm IVSd: 1.1 cm LVOT diam: 2.0 cm LVIDs: 2.3 cm LVPWd: 1.2 cm FS: 26.1 % LVOT area: 3.2 cm2 LA dimension: 3.5 cm LAV(MOD-sp4): 51.0 ml LA A4 area: 18.2 cm2 RA A4 area: 11.1 cm2 Time Measurements MV dec time: 0.23 sec Doppler Measurements AND Calculations MV E max sal: 63.5 cm/sec Lat Peak E' Sla: 11.0 cm/sec Med Peak E' Sal: 5.4 cm/sec MV A max sal: 109.3 cm/sec E/E' lat: 5.8 E/E' med: 11.9 MV E/A: 0.58 MV V2 max: 111.0 cm/sec MV P1/2t max sal: 82.3 cm/sec Ao V2 max: 195.5 cm/sec MV max P.9 mmHg MV P1/2t: 102.6 msec Ao max P.3 mmHg MV V2 mean: 60.2 cm/sec MV dec slope: 234.8 cm/sec2 Ao V2 mean: 122.8 cm/sec MV mean P.7 mmHg Ao mean P.1 mmHg MV V2 VTI: 27.8 cm MVA(P1/2t): 2.1 cm2 Ao V2 VTI: 35.0 cm MVA(VTI): 3.2 cm2 KAITLYN(I,D): 2.5 cm2 KAITLYN(V,D): 2.5 cm2 LV V1 max: 155.2 cm/sec SV(LVOT): 88.7 ml PA V2 max: 153.8 cm/sec LV V1 max P.6 mmHg LV V1 mean P.6 mmHg LV V1 mean: 96.2 cm/sec LV V1 VTI: 27.7 cm Interpretation Summary Normal LV size. Left ventricular systolic function is normal. The estimated ejection fraction is 60 %. Stage 1 diastolic dysfunction. Contrast injection was performed. Ordering Physician: Twan Gaffney Referring Physician: Ivelisse Masterson M.D. Performed By: David Ragsdale RCS 04/16/19 1553 Date Twan Gaffney MD CC: Twan Gaffney MD; Ivelisse Masterson DO Date Dictated: 04/16/19 1439 Date Transcribed: 04/16/19 1553 Veneer Stacker: Signed Ivelisse Masterson Start: 03-27-2019 End: 03-27-2019 Cardiology Visit Report Comments: See Note; NOTES: [facility] [address] [place] [address] OFFICE VISIT Date of Service: 03/27/19 MR#: [id number] Acct: [id number] Name: YOLY ISAACS Rep #: [id number] : 1950 Provider: Twan Gaffney MD Age/Sex: 68/M Location[place] [facility] Status: Signed [facility] History of Present Illness Details: YOLY ISAACS, is a 68 M who presents to the office today for a follow-up visit. He has a history of nonischemic cardiomyopathy left bundle branch block with an estimated ejection fraction of 40% by echocardiographic evaluation in 2016. He has been on the lisinopril which she is been compliant with. He denies any chest pain or shortness breath or paroxysmal nocturnal dyspnea pedal edema he continues to engage in most activities of daily living he says that he still taking and using his CPAP mask at night. He has had no neck arm or jaw discomfort suggest angina no dizziness or diaphoresis near syncope or syncope. His physical exam today demonstrates clear lung zhang regular rate and rhythm and no pedal edema his blood pressure is under excellent control. Intake Vital Signs03/27/19 Height 5 ft 10 in Intake Visit Reasons: 1 Y FU Allergies No Known Allergies Allergy (Verified 03/28/18 13:06) Medications lisinopril 5 mg tablet 5 mg PO DAILY #90 tab 11/18/18 [Rx Confirmed 03/27/19] PFS Medical History Dilated cardiomyopathy (Chronic) Hyperlipidemia (Chronic) Sinus bradycardia (Chronic) Left bundle branch block (Chronic) Obstructive sleep apnea (Chronic) Snoring (Chronic) Vasovagal syncope (Resolved) Surgical History H/O arthroscopic knee surgery (Resolved) History of colonoscopy (Resolved) Family History Sister Myocardial infarction Social History Smoking Status: Former smoker alcohol intake: current Alcohol type: beer caffeine: Yes Type: coffee Number of servings: 2 ROS Const Const: Negative for fatigue, weakness, headache(s), frequent falls, difficulty sleeping or excessive sweating Eyes Eyes: Negative for loss of peripheral vision, transient loss of vision, blurry vision, double vision or tunnel vision ENT ENT: Negative for headache(s), dizziness, Nosebleed/epistaxis or balance problems Cardio Chest Pain: No Palpitations: No Edema: None Muscle aches with walking: None Resp Respiratory: Negative for SOB with activity, SOB at rest, SOB orthopnea\SOB lying down, Cough or paroxysmal nocturnal dyspnea Additional Details: CPAP GI GI: Negative nausea, vomiting, heartburn or black,tarry stools : Negative for hematuria Musc Musc: Negative for muscle aches/ myalgia, muscle weakness, joint pain or balance problems Skin Skin: Negative non-healing lesions, rash or unusual bruising Neuro Neuro: Negative for dizziness, lightheadedness, near syncope, syncope, orthostatic symptoms, frequent falls, headache(s), weakness, blurry vision, double vision or lack of coordination Maulik Hematologic/Lymphatic: Negative for easy bleeding or easy bruising Endo Endo: Negative for fatigue, excessive sweating or increased thirst/drinking Psych Psych: Negative for anxiety or depression Allergy Allergy/Immunology: Negative for hives, Negative for rash Cardiology Exam Const Appearance: cooperative, healthy appearing, no acute distress, well developed and well groomed Nutritional Appearance: average body habitus and well nourished Orientation: alert, awake and oriented x3 Head Head: normal to inspection, normocephalic and atraumatic Ears: hearing grossly normal bilaterally and external ears normal Nose: external nose normal, nares normal, nasal mucous membranes and turbinates normal, septum normal, no nasal discharge Face and Sinus: face symmetric Mouth: oral mucosae normal, tongue normal, oropharynx normal and moist mucous membranes Teeth and gingiva: dentition normal Throat: posterior oropharynx normal, tonsils normal and uvula midline Eyes General: appearance normal, both eyes and all related structures Eyelids: eyelids normal Conjunctivae: conjunctivae normal Pupils: PERRL, normal by confrontation and accommodation normal EOM: EOM intact bilaterally Neck Neck: normal visual inspection, trachea midline and no JVD JVD: +5 Carotids: normal carotid upstroke and bounding pulses Chest Chest inspection: normal inspection of the chest, symmetric chest movement and normal respiratory effort Auscultation: Bilateral: Clear to Auscultation Cardio Palpation: normal PMI Rate: regular rate Rhythm: regular rhythm Heart sounds: S1 normal, S2 normal and normal, physiologic split S2; negative rub, gallop or murmur GI GI: normal to inspection, soft, no hepatosplenomegaly and bowel sounds present Neuro General: alert, awake, oriented x3, gait normal, moves all extremities and no focal sensory deficit Skin Skin: no rashes or lesions noted Extremities Pulses: Normal: Right Femoral Pulse, Left Femoral Pulse, Right Dorsalis Pedis Pulse, Left Dorsalis Pedis Pulse, Right Posterior Tibial Pulse, Left Posterior Tibial Pulse, Right Radial Pulse, Left Radial Pulse Lower Extremity Edema: None: Bilateral Musculoskel Musculoskeletal: No joint tenderness Psych Psychological: normal affect Assessment AND Plan 1. Dilated cardiomyopathy I42.0 Plan He does have a history of a cardiomyopathy with an estimated ejection fraction of 45% with stage I diastolic dysfunction. Due to his left bundle branch block my recommendation is for us to repeat his echocardiogram and see how he does. At this juncture I would not recommend any changes to his medical therapy. His blood pressure appears under excellent control. Thank you for allowing me to participate in the care of your patient. Please don't hesitate to call if any issues arise Orders Orders: 2. Left bundle branch block I44.7 Plan He does have a chronic left bundle branch block. I would not recommend we make any changes with regard to the above. He will continue with serial follow-up. 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) Coding Level of Care Code Off vis,est,level 3 Diagnoses Dilated cardiomyopathy I42.0 Left bundle branch block I44.7 Coding Level of Care Code Off vis,est,level 3 Diagnoses Dilated cardiomyopathy I42.0 Left bundle branch block I44.7 Supplemental Info Supplemental Information Diagnostics Echocardiogram 04/18/18 03/27/19 1532 <Electronically signed by Twan Gaffney MD> Date Twan Gaffney MD Cosigner Signature: Date (if applicable) CC: Ivelisse Masterson DO; Warner Masterson Start: 05-28-2018 End: 05-28-[address] Lung Screening Comments: See Note; NOTES: [facility] Imaging Services [address] [place] [address] Lung Screening MR#: [id number] Acct: [id number] Name: YOLY ISAACS Rep #: [id number] : 1950 M 68 From: Mick Abarca MD PCP: Ivelisse Masterson DO Status: REG CLI Study: Low Dose CT Lung Screening Date of Exam: 05/28/18 Exam# [id number] Ordering Dr: Ivelisse Masterson DO STUDY: LOW DOSE CT LUNG CANCER SCREENING REASON FOR EXAM: Male, 68 years old. Current smoker, one pack per day x50 years RADIATION DOSAGE (If Supplied By Facility): CTDIvol = ( 4.02 ) mGy, DLP = ( 123.86 ) mGycm TECHNIQUE: No contrast was administered. Low dose technique was utilized (average mAS-38 and kVp 120). 1.25 mm axial source images with a slice interval of 1.25-mm were reconstructed in lung windows. 2.5 mm axial source images with a slice interval of 2.5-mm were reconstructed in lung windows. 5.0 mm axial source images with a slice interval of 5.0-mm were reconstructed in soft tissue windows. Nodule measured using lung windows on PACS and/or independent workstation with automated measurement of minimum and maximum diameter. Nodule measurement reported as average diameter rounded to the nearest whole number. Growth is defined as an increase ins size of greater than 1.5 mm. COMPARISON: Previous chest x-rays NODULES: Lungs are mildly hyperexpanded with scattered emphysematous blebs and honeycombing noted in the periphery of both upper lobes. There is no superimposed infiltrate or effusion. There are no suspicious noncalcified masses or nodules. There are some scattered interstitial fibrotic changes particularly in the right cardiophrenic angle. No suspicious axillary or mediastinal adenopathy. Normal-appearing thyroid gland. Bony structures show degenerative change. CT/Low Dose CT Lung Screening IMPRESSION: Lung-RADS category 2 - Continue annual screening with LDCT in 12 months. IMPORTANT NOTES FOR USE: ACR Lung-RADS Version 1.0 Assessment Categories Release Date: February 09, 2014 Category: Coded 0-4 bases on nodule(s) with highest degree of suspicion. Negative screen is defined as categories 1 and 2; a positive screen is defined as categories 3 and 4. Category 3 and 4A nodules that are unchanged on interval CT should be coded as category 2, and individuals returned to screening in 12 months. Category 4X: Category 3 or 4 nodules with additional imaging findings that increase the suspicion of lung cancer, such as spiculation, GGN that doubles in size in 1 year, enlarged lymph notes, etc. Category Modifiers: S (significant finding unrelated to lung cancer) and C (prior history of treated lung cancer) may be added to the 0-4 Lung-RADS Electronically Signed: Akira Abarca MD at 15:13 EDT , Service support , CC: Ivelisse Masterson DO Veneer Stacker: Signed Ivelisse Masterson Work Phone: Start: 04-18-2018 End: 04-18-2018 Echocardiogram Complete Comments: See Note; NOTES: [facility] Cardiovascular Services [address] [place] [address] Echo Complete 04/18/18 1455 MR#: [id number] Acct: [id number] Name: YOLY ISAACS Rep #: [id number] : 1950 67 From: Twan Gaffney MD Attending Dr: Yeimy ARVIZU,Twan Status: REG CLI Ordering Dr: Twan Gaffney MD Date: 04/18/18 Location: [facility] Sex: M C Admitted: Reason For Study: Abn. EKG Procedure This was a 2D Doppler, Color Flow transthoracic echocardiogram. Exam performed in department. Left Ventricle Normal LV size. The estimated ejection fraction is 45 %. Left ventricular systolic function is lower limits of normal. Septal motion consistent with IVCD. Transmitral diastolic flow velocities suggest mild (stage 1) diastolic dysfunction (reversed pattern). No regional wall motion abnormalities noted. Right Ventricle Normal RV size. Normal systolic function. Atria Normal left atrium. Normal right atrium. Mitral Valve Normal mitral valve. Trivial eccentric mitral valve insufficiency. Tricuspid Valve Normal tricuspid valve. Mild (1+) tricuspid valve insufficiency. Pulmonary artery systolic pressure is 28 mmHg. Aortic Valve Trisinus/trileaflet aortic valve. Pulmonic Valve Normal pulmonic valve. Great Vessels Normal aortic root. The pulmonary artery is normal size. Normal inferior vena cava. Pericardium/Pleural No pericardial effusion. MMode/2D Measurements AND Calculations LVIDd: 4.9 cm IVSd: 0.96 cm Ao root diam: 3.2 cm LVIDs: 3.3 cm LVPWd: 1.1 cm LA dimension: 4.2 cm FS: 32.5 % LAV(MOD-bp): 42.4 ml LA A4 area: 17.5 cm2 RA A4 area: 15.8 cm2 LAV(MOD-bp) Indexed: 19.8 ml/m2 LAV(MOD-sp2): 38.8 ml LAV(MOD-sp4): 45.1 ml Doppler Measurements AND Calculations MV E max sal: 87.3 cm/sec Lat Peak E' Sal: 8.9 cm/sec Med Peak E' Sal: 5.4 cm/sec MV A max sal: 105.9 cm/sec E/E' lat: 9.9 E/E' med: 16.3 MV E/A: 0.82 Ao V2 max: 164.9 cm/sec LV V1 max: 131.6 cm/sec PA V2 max: 120.2 cm/sec Ao max P.9 mmHg LV V1 max P.9 mmHg TR max sal: 253.8 cm/sec TR max P.8 mmHg Interpretation Summary Normal LV size. The estimated ejection fraction is 45 %. Septal motion consistent with IVCD. Transmitral diastolic flow velocities suggest mild (stage 1) diastolic dysfunction (reversed pattern). Compared to prior study, there is no significant change. Ordering Physician: Twan Gaffney Referring Physician: Ivelisse Masterson M.D. Performed By: Susanne Muñoz RDCS 04/18/181718 Date Twan Gaffney MD CC: Twan Gaffney MD; Ivelisse Masterson DO Date Dictated: 04/18/18 1455 Date Transcribed: 04/18/181718 Veneer Stacker: Signed Ivelisse Masterson Start: 03-28-2018 End: 03-28-2018 Cardiology Visit Report Comments: See Note; NOTES: [facility] [address] [place] [address] OFFICE VISIT Date of Service: 03/28/18 MR#: [id number] Acct: [id number] Name: YOLY ISAACS Rep #: [id number] : 1950 Provider: Twan Gaffney MD Age/Sex: 67/M Location[place] [facility] Status: Signed HPI [facility] Chief Complaint: Follow-up visit. Details: YOLY ISAACS, is a 67 M who presents to the office today for a follow-up visit. He has a history of nonischemic cardiomyopathy left bundle branch block with an estimated ejection fraction of 40% by echocardiographic evaluation in 2016. He has been on the lisinopril which she is been compliant with. He denies any chest pain or shortness breath or paroxysmal nocturnal dyspnea pedal edema he continues to engage in most activities of daily living he says that he still taking and using his CPAP mask at night. He has had no neck arm or jaw discomfort suggest angina no dizziness or diaphoresis near syncope or syncope. His physical exam today demonstrates clear lung zhang regular rate and rhythm and no pedal edema his blood pressure is under excellent control. Intake Vital Signs03/28/18 Height 5 ft 10 in 03/28/18 Weight: 213 lb 03/28/18 Body Mass Index (BMI) 30.5 03/28/18 Blood Pressure 114/62 03/28/18 Blood Pressure Location Lt brachial Intake Visit Reasons: 1 Y FU Allergies No Known Allergies Allergy (Verified 03/28/18 13:06) Medications Aspirin [Aspirin, Baby] 81 mg PO DAILY 10/09/16 [History Confirmed 03/28/18] lisinopril 5 mg tablet 5 mg PO DAILY #90 tab 11/21/17 [Rx Confirmed 03/28/18] clonazepam 1 mg tablet See Label Instructions PO QHS tab 03/27/18 [History Confirmed 03/28/18] rotigotine 2 mg/24 hour transdermal 24 hour patch 2 mg TRANSDERMAL Q24H 03/28/18 [History Confirmed 03/28/18] Ejection fraction %: 45 to 49 PFSH Medical History Dilated cardiomyopathy (Chronic) Hyperlipidemia (Chronic) Sinus bradycardia (Chronic) Obstructive sleep apnea (Chronic) Left bundle branch block (Chronic) Snoring (Acute) Vasovagal syncope (Acute) Surgical History H/O colonoscopy (Resolved) H/O arthroscopy of knee (Resolved) Family History Sister Myocardial infarction Social History Smoking Status: Former smoker alcohol intake: current Alcohol type: beer caffeine: Yes Type: coffee Number of servings: 2 ROS Const Const: Negative for fatigue, weakness, night sweats, excessive sweating, frequent falls, headache(s) or daytime sleepiness Eyes Eyes: Negative for loss of peripheral vision, transient loss of vision, blind spots, double vision or blurry vision ENT ENT: Negative for headache(s), dizziness, balance problems, Nosebleed/epistaxis, tongue swelling or lip swelling Cardio Chest Pain: No Palpitations: No Edema: None Muscle aches with walking: None Resp Respiratory: Negative for SOB at rest, SOB orthopnea\SOB lying down, Cough, paroxysmal nocturnal dyspnea or SOB with activity GI GI: Negative nausea, vomiting, heartburn, black,tarry stools or bright, red blood in stools : Negative for hematuria Musc Musc: Negative for balance problems, muscle aches/ myalgia, muscle weakness or joint pain Skin Skin: Negative non-healing lesions, unusual bruising or rash Neuro Neuro: Negative for weakness, frequent falls, headache(s), double vision, dizziness, lightheadedness, orthostatic symptoms, blurry vision or lack of coordination Maulik Hematologic/Lymphatic: Negative for easy bruising or easy bleeding Endo Endo: Negative for fatigue, excessive sweating, cold intolerance, heat intolerance, increased thirst/drinking or hair loss Psych Psych: Negative for anxiety or depression Allergy Allergy/Immunology: Negative for throat swelling, Negative for tongue swelling, Negative for hives, Negative for rash, Negative for lip swelling Cardiology Exam Const Appearance: cooperative, healthy appearing, well developed, well groomed and no acute distress Nutritional Appearance: well nourished and average body habitus Orientation: alert, awake and oriented x3 Head Head: normal to inspection, normocephalic and atraumatic Ears: hearing grossly normal bilaterally and external ears normal Nose: external nose normal, nasal mucous membranes and turbinates normal, nares normal, septum normal, no nasal discharge Face and Sinus: face symmetric Mouth: oral mucosae normal, tongue normal, oropharynx normal and moist mucous membranes Teeth and gingiva: dentition normal Throat: posterior oropharynx normal, tonsils normal and uvula midline Eyes General: appearance normal, both eyes and all related structures Eyelids: eyelids normal Conjunctivae: conjunctivae normal Pupils: PERRL, normal by confrontation and accommodation normal EOM: EOM intact bilaterally Neck Neck: normal visual inspection, trachea midline and no JVD JVD: +5 Carotids: normal carotid upstroke and bounding pulses Chest Chest inspection: normal inspection of the chest, symmetric chest movement and normal respiratory effort Auscultation: Bilateral: Clear to Auscultation Cardio Palpation: normal PMI Rate: regular rate Rhythm: regular rhythm Heart sounds: S1 normal, S2 normal and normal, physiologic split S2; negative rub, gallop or murmur GI GI: normal to inspection, soft, no hepatosplenomegaly and bowel sounds present Neuro General: alert, awake, oriented x3, no focal sensory deficit, gait normal and moves all extremities Skin Skin: no rashes or lesions noted Extremities Pulses: Normal: Right Femoral Pulse, Left Femoral Pulse, Right Dorsalis Pedis Pulse, Left Dorsalis Pedis Pulse, Right Posterior Tibial Pulse, Left Posterior Tibial Pulse, Right Radial Pulse, Left Radial Pulse Lower Extremity Edema: None: Bilateral Musculoskel Musculoskeletal: No joint tenderness Psych Psychological: normal affect Assessment AND Plan 1. Dilated cardiomyopathy I42.0 Plan He does have a history of nonischemic cardiac myopathy with no heart failure symptoms my recommendation at this time will be to continue his current medical therapy and obtain an echocardiogram to reassess his left ventricular function. Depending on the findings further recommendations will be made. At this time I am not inclined to put him on a beta-diane just yet. 2. Left bundle branch block I44.7 Plan He does have a history of a left bundle branch block. We will continue to observe the above. As I noted before I would not put him on the beta-diane just yet. Thank you for allowing me to participate in his care please not hesitate to contact me if any issues arise. 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) Coding Level of Care Code Off vis,est,level 3 Diagnoses Dilated cardiomyopathy I42.0 Left bundle branch block I44.7 Coding Level of Care Code Off vis,est,level 3 Diagnoses Dilated cardiomyopathy I42.0 Left bundle branch block I44.7 03/28/18 1357 <Electronically signed by Twan Gaffney MD> Date Twan Mejiasignreece Signature: Date (if applicable) CC: Ivelisse Jeanne DO Ivelisse Masterson Start: 12-27-2017 End: 12-28-2017 Wrist min 3 Views Comments: See Note; NOTES: [facility] Imaging Services [address] [place] [address] Wrist min 3 Views MR#: [id number] Acct: [id number] Name: YOLY ISAACS Rep #: [id number] : 1950 M 67 From: Courtney Contreras MD PCP: Ivelisse Masterson DO Status: REG CLI Study: Wrist min 3 Views Date of Exam: 12/27/17 Exam# [id number] Ordering Dr: Terra Cardoza TOLL TESTBOARD WORKER-Lindsay STUDY: X-RAY - RIGHT WRIST REASON FOR EXAM: Male, 67 years old. Metacarpal pain. TECHNIQUE: 3 view(s) of the wrist were obtained. COMPARISON: None. FINDINGS: Normal visualized distal radius and ulna. Normal radiocarpal articulation. Normal distal radioulnar articulation. There are erosions visible within the scaphoid near the scapholunate trapezium articulation and the articulation with the lunate. There may be small erosions within the capitate and hamate as well. The carpal bones otherwise have a grossly normal appearance. Normal carpal articulations. Normal carpometacarpal articulation of the thumb. There are erosive and degenerative changes of the first metacarpal phalangeal joint. Normal second through fifth carpometacarpal articulations. Normal visualized metacarpal bones. There is mild soft tissue swelling. There is no demonstrated acute fracture. RAD/Wrist min 3 Views IMPRESSION: Erosive changes of the wrist and at the first metacarpophalangeal joint. Electronically Signed: Courtney Contreras MD at 8:33 EDT , Service support , CC: RICHARD Cardoza; Ivelisse Masterson DO Veneer Stacker: Signed Terra Cardoza Start: 08-08-2017 End: 08-09-2017 Femur Min 2 Views Comments: See Note; NOTES: [facility] Imaging Services [address] [place] [address] Femur Min 2 Views MR#: [id number] Acct: [id number] Name: YOLY ISAACS Rep #: [id number] : 1950 M 67 From: Ezekiel Engle MD PCP: Ivelisse Masterson DO Status: REG CLI Study: Femur Min 2 Views Date of Exam: 08/08/17 Exam# [id number] Ordering Dr: Shakira Rey STUDY: X-RAY - RIGHT FEMUR REASON FOR STUDY: Male, 67 years old. Right thigh pain. TECHNIQUE: Radiological exam, femur, minimum 2 views COMPARISON: None. FINDINGS: Normal visualized femur. Normal visualized soft tissue structure. RAD/Femur Min 2 Views IMPRESSION: Normal x-ray examination of the femur. Electronically Signed: Ezekiel Engle MD at 14:54 EDT Tel [phone], Service support , CC: Shakira Rey; Ivelisse Masterson DO Veneer Stacker: Signed Shakira Rey Work Phone: Start: 08-08-2017 End: 08-09-2017 Knee 4 or More Views Comments: See Note; NOTES: [facility] Imaging Services [address] [place] [address] Knee 4 or More Views MR#: [id number] Acct: [id number] Name: YOLY ISAACS Rep #: [id number] : 1950 M 67 From: Ezekiel Engle MD PCP: Ivelisse Masterson DO Status: REG CLI Study: Knee 4 or More Views Date of Exam: 08/08/17 Exam# [id number] Ordering Dr: Shakira Rey STUDY: X-RAY - RIGHT KNEE REASON FOR EXAM: Male, 67 years old. Knee pain. TECHNIQUE: 4 view(s) of the knee. COMPARISON: None. FINDINGS: Normal visualized distal femur. Normal visualized proximal tibia and fibula. Normal proximal tibiofibular articulation. There is mild degenerative arthrosis of the medial femorotibial compartment. Normal lateral femorotibial compartment. There is mild degenerative arthrosis of the patellofemoral articulation. Minimal joint effusion. RAD/Knee 4 or More Views IMPRESSION: Degenerative arthrosis. Minimal joint effusion. Electronically Signed: Ezekiel Engle MD at 14:58 EDT Tel [phone], Service support , CC: Shakira Rey; Ivelisse Masterson DO Veneer Stacker: Signed Shakira Rey Work Phone: Start: 03-27-2017 End: 03-27-2017 LICENSED ELECTRICIAN Twan Gaffney MD Start: 03-27-2017 End: 03-27-2017 Follow Up Appt 1 year Twan Gaffney MD Start: 10-12-2016 End: 10-12-2016 12 lead ECG Comments: See Note; NOTES: [facility] Cardiovascular Services [address] [place] [address] 12 Lead EKG 10/09/16742 MR#: [id number] Acct: [id number] Name: YOLY ISAACS Rep #: [id number] : 1950 66 From: Twan Gaffney MD Attending Dr: Status: DEP ER Ordering Dr: Anamika Jackson MD Date: 10/09/16 Location: ED Sex: M C Admitted: Test Reason : GEN ILLNESS Blood Pressure : / mmHG Vent. Rate : 071 BPM Atrial Rate : 071 BPM P-R Int : 154 ms QRS Dur : 156 ms QT Int : 424 ms P-R-T Axes : 066 006 099 degrees QTc Int : 460 ms Normal sinus rhythm Left bundle branch block Abnormal ECG Confirmed by TWAN GAFFNEY MD ([id number]), graphic editor ANJU SANFORD ([id number]) on 10/12/2016 9:18:07 AM Referred By: SHADE Confirmed By:TWAN GAFFNEY MD 10/12/16917 Date Twan Gaffney MD CC: Ivelisse Masterson DO Date Dictated: 10/09/16742 Date Transcribed: 10/09/16742 Veneer Stacker: Signed Ivelisse Masterson Start: 10-09-2016 End: 10-09-2016 Emergency Department Summary Comments: See Note; NOTES: [facility] Medical Records Department [address] [place] [address] Emergency Department Summary MR#: [id number] Acct: [id number] Name: YOLY ISAACS Rep #: [id number] : 1950 66 From: Anamika Jackson MD PCP: Ivelisse Masterson DO Status: DEP ER DATE OF SERVICE: 10/09/2016 CHIEF COMPLAINT: Epigastric pain. FUCHS HISTORY: The patient is a 66-year-old male with history of hypertension, COPD, left bundle-branch block, borderline diabetes. He reports epigastric pain for the last 3 days. He describes a pressure sensation and feeling of fullness. He reports some body aches and chills. He has had nausea, but no vomiting. He has not had diarrhea. PHYSICAL EXAMINATION: VITAL SIGNS: Unremarkable. GENERAL: The patient is in no acute distress, appears nontoxic. HEART: Regular. LUNGS: Clear. ABDOMEN: Soft with tenderness in the epigastric region. There is no tenderness in the right upper quadrant, no Palacios sign. He has hypoactive, but present bowel sounds. HOSPITAL COURSE: EKG is sinus at 71 with left bundle-branch block, no acute changes noted from prior. CBC reveals a white count of 13.5, otherwise normal. Chemistry studies normal. LFTs and lipase unremarkable. The patient was given Zofran and Pepcid. Acute abdominal series was obtained and read by radiology as normal. On repeat evaluation, abdomen is soft with very minimal tenderness. There is no guarding or rebound. We discussed his elevated white count and discussed either a conservative approach or obtaining a CT at this time. The patient states he did talk to at least 1 friend who had similar symptoms. He thinks he has the bug that is going around and does not wish to have a CT at this time. He will return if symptoms worsen, he develops fever or vomiting. DISPOSITION: Discharge. IMPRESSION: Epigastric pain. Anamika Jackson MD T: NTS JOB: [id number] 10/09/16 1556 <Electronically signed by Anamika Jackson MD> Date Anamika Jackson MD Cosigner Signature (If Indicated): Date CC: Ivelisse Masterson DO Date Dictated: 10/09/16930 Date Transcribed: 10/09/16930 Veneer Stacker: Signed Ivelisse Masterson Start: 10-09-2016 End: 10-09-2016 Discharge Instruction Comments: See Note; NOTES: [facility] Medical Records Department [address] [facility] [place] [address] Discharge Instruction 10/09/16927 MR#: [id number] Acct: [id number] Name: MARCOS ISAACSDorinda Bliss Rep #: [id number] : 1950 66 From: Anamika Jackson MD PCP: Ivelisse Masterson DO Status: REG ER ED Disposition - Plan for ED Patient: Disposition: Home or Assisted Living Chief Complaint: General Illness Instructions: ED Epigastric Pain [facility]O Prescriptions: Ondansetron [Zofran Odt] 4 mg PO Q6H PRN PRN #14 tablet PRN Reason: Nausea Famotidine [Pepcid] 20 mg PO BID #28 tablet Referrals: Ivelisse Masterson DO [Primary Care Provider] - 1 Week What to do if you have Problems For any increased pain, shortness of breath, bleeding, nausea or vomiting, chest pain, or any unexpected problems, contact your Primary Care Provider. Call [facility] ([phone]) or report to the closest Emergency Room. Call 911 if necessary. 10/09/16 0931 <Electronically signed by Anamika Jackson MD> Date Anamika Jackson MD Cosigner Signature (If Indicated): Date CC: Ivelisse Baxter Start: 10-09-2016 End: 10-09-2016 Acute Abdomen Inc Chest Comments: See Note; NOTES: [facility] Imaging Services [address] [place] [address] Verdana 4d Acute Abdomen Inc Chest MR#: [id number] Acct: [id number] Name: MARCOS ISAACST Ruthy Rep #: [id number] : 1950 M 66 From: Ilan Moore MD PCP: Ivelisse Masterson DO Status: REG ER Study: Acute Abdomen Inc Chest Date of Exam: 10/09/16 Exam# [id number] Ordering Dr: Anamika Jackson MD STUDY: X-RAY - ACUTE ABDOMINAL SERIES REASON FOR EXAM: Male, 66 years old. ABD PAIN EPIGASTRIC PAIN X 4 DAYS TECHNIQUE: Single view of the chest. Supine, erect, and decubitus view(s) of the abdomen were obtained. COMPARISON: None. FINDINGS: The lungs are clear and expanded. Normal size heart. Normal mediastinum and alexis. Normal visualized pulmonary arteries. Normal visualized aortic arch and descending thoracic aorta. There is a non-specific bowel gas pattern. The soft tissue structures of the abdomen and pelvis are unremarkable. There are diffuse degenerative changes of the visualized lumbar spine. RAD/Acute Abdomen Inc Chest IMPRESSION: Normal x-ray examination of the chest, abdomen, and pelvis. Electronically Signed: Ilan Moore MD at 8:38 EST Tel , Service support [phone], CC: Anamika Jackson MD; Ivelisse Masterson DO Veneer Stacker: Signed Ivelisse Masterson Start: 09-26-2016 End: 09-26-2016 Follow Up Appt 6 months Graciela Brush Start: 09-26-2016 End: 09-26-2016 [facility] Twan Gaffney MD Start: 06-25-2016 End: 06-25-2016 Sleep Study Report Comments: See Note; NOTES: [facility] SLEEP DISORDER CENTER [address] [place] [address] Polysomnography with NCPAP MR#: [id number] Acct: [id number] Name: YOLY ISAACS Rep #: [id number] : 1950 66 From: Leandro Horta MD PCP: Ivelisse Masterson DO Status: REG CLI Ordering Dr.: Twan Gaffney MD Date: 06/21/16 Sex: M C DATE OF SERVICE: 06/21/2016 SCORING RULES: Respiratory events were acquired and scored in accordance with the Recommended Standards and Specifications as outlined in the AASM Manual for the Scoring of Sleep and Associated Events ( most recent version). Please note that a reference to [facility] AHI in this report is consistent with the current Hypopnea definition according to Medicare Criteria and an AAS AHI reference is consistent with the current Hypopnea definition according to the AASM criteria and is recognized by [facility] as the RDI. PROCEDURE: The study was attended continuously by a police crime scene technician. Monitored parameters included left and right EOG, frontal, central, and occipital EEG, mental and submental EMG, left and right anterior tibialis EMG, signal ECG waveform, snore, continuous airflow with PAP device flow signal, chest and abdominal plethysmography efforts, oxygen saturation with heart rate, and body positioning with video monitoring. SLEEP HISTORY: This is a CPAP titration study performed on this 66-year-old male with a body mass index of 30.7 and an [place] Sleepiness Scale score of 10. There is a history of snoring, syncope and cardiomyopathy, previous diagnostic study performed on June 07, 2016, disclosed an overall AHI of 45.8. MASK USED DURING THE STUDY: ResMed AirFit F10 medium full face mask with heated humidity. SLEEP SUMMARY: Lights out occurred at 9:51 p.m. and lights on at 5:03 a.m. for a total recording time of 431.8 minutes and a sleep period of time of 430.2 minutes. Total sleep time is 406.5 minutes and sleep efficiency is 94%. Sleep latency was 1.6 minutes, there were 4 REM periods with REM latency of 67 minutes. Slow wave sleep was not detected during the study. RESPIRATORY DATA: The total AHI is 14.5 by AASM criteria and 6.3 by CMS criteria. The REM index is 5.2 and 2.6 respectively and the supine RDI is 30.1 and 13.7 respectively. The patient was supine for 91.8 minutes of sleep and non-supine for the remainder. Leg movement index was elevated at 47.5 events per hour. None were associated with arousals. Oxygen saturation ranged from 80% to 97% with a mean of 92.8%. Desaturations below 88% occurred for 5.8 minutes of total sleep time. Heart rate ranged from 20-76 beats per minute with a mean of 56 beats per minute, no arrhythmias were identified. Nasal bilevel therapy was initiated at 9/4 and titrated. At a setting of 18 and 12, the lowest oxygen saturation was 91%, this setting included 52 minutes of REM sleep and 58 minutes of non-REM sleep. IMPRESSION: 1. Obstructive sleep apnea. 2. Periodic leg movements of sleep. RECOMMENDATIONS: Nasal BiPAP setting of 18 and 12 is recommended with heated humidity and the above recommended mask. Periodic leg movements of sleep may improve with adequate CPAP therapy; however, further evaluation and treatment with dopaminergic agents may be of benefit if the patient experiences daytime symptoms of restless legs. Leandro Horta MD T: NTS JOB: [id number] CC: Leandro Horta MD 152 15206/25/16 0847 <Electronically signed by Leandro Horta MD> Date Leandro Horta MD Co-signature (if applicable) Date Signed Ivelisse Masterson Start: 06-21-2016 End: 06-21-2016 Dietary management education, guidance, and counseling Arielle Black Start: 06-21-2016 End: 06-21-2016 LICENSED ELECTRICIAN Sandee Rascon PA-C Work Phone: Start: 06-21-2016 End: 06-21-2016 Follow Up Appt 3 months Sandee Rascon PA-C Work Phone: Start: 06-20-2016 End: 06-20-2016 Sleep Study Report Comments: See Note; NOTES: [facility] SLEEP DISORDER CENTER [address] [place] [address] Polysomnography MR#: [id number] Acct: [id number] Name: LITZY ISAACSGHDorinda Bliss Rep #: [id number] : 1950 66 From: Leandro Horta MD PCP: Ivelisse Masterson DO Status: REG CLI Ordering Dr.: Yeimy, Twan MD Date: 06/07/16 Sex: M C DATE OF SERVICE: 06/07/2016 SCORING RULES: Respiratory events were acquired and scored in accordance with the Recommended Standards and Specifications as outlined in the AASM Manual for the Scoring of Sleep and Associated Events ( most recent version). Please note that a reference to [facility] AHI in this report is consistent with the current Hypopnea definition according to Medicare Criteria and an AAS AHI reference is consistent with the current Hypopnea definition according to the AASM criteria and is recognized by [facility] as the RDI. PROCEDURE: The study was attended continuously by a police crime scene technician. Monitored parameters included left and right EOG, frontal, central, and occipital EEG, mental and submental EMG, left and right anterior tibialis EMG, signal ECG waveform, snore, continuous airflow with thermistor and nasal pressure transducer, chest and abdominal plethysmography efforts, oxygen saturation with heart rate, and body positioning with video monitoring. REFERRING PHYSICIAN: Dr. Twan Gaffney. SLEEP HISTORY: This is a diagnostic polysomnogram performed on this 66-year-old male with a body mass index of 30.7 and an [place] Sleepiness Scale score of 10. There is a history of excessive daytime somnolence, snoring, cardiomyopathy and witnessed apneas. SLEEP SUMMARY: Lights out occurred at 9:18 p.m. and lights on at 5:02 a.m. for a total recording time of 463.6 minutes with sleep period of time of 460.1 minutes. Sleep efficiency is 91%. Slow wave sleep was not recorded. RESPIRATORY DATA: The total AHI was 45.8 by AASM criteria and 22.5 by CMS criteria. The patient was supine for 51.9 minutes of sleep and non-supine for the remainder. The RDI by the AASM was 85.5 supine and by CMS was 48.5. Limb movement index was minimal. Oxygen saturation ranged from 84-96% with 26.3 minutes of desaturations below 88%. Heart rate ranged from 44-89 with a mean of 61.8 and no detected arrhythmias. IMPRESSION: Severe obstructive sleep apnea. RECOMMENDATIONS: CPAP titration study. Leandro Horta MD T: KIM JOB: [id number] CC: Leandro Horta MD 1417 1417 06/20/16 1211 <Electronically signed by Leandro Horta MD> Date Leandro Horta MD Co-signature (if applicable) Date Signed Ivelisse Masterson Start: 06-04-2016 End: 06-04-2016 Emergency Department Summary Comments: See Note; NOTES: [facility] Medical Records Department [address] [place] [address] Emergency Department Summary MR#: [id number] Acct: [id number] Name: YOLY ISAACS Rep #: [id number] : 1950 66 From: Kaiden Mckee MD PCP: Ivelisse Masterson DO Status: [facility] ER DATE OF SERVICE: 06/03/2016 CHIEF COMPLAINT: Right groin pain. HISTORY OF PRESENT ILLNESS: The patient has had about 3 days of groin pain. He thinks he did a golfing, swinging at his club. He states it has been bothering on and off. He was able to golf again today, sometimes worse than others. Fairly severe with certain movements. It is mild now. He has never hurt this area in the past. Sometimes it causes a shooting pain into the right groin. He has never had a kidney stone. Old left bundle-branch block is noted. He is on lisinopril, but not for hypertension. PHYSICAL EXAMINATION: VITAL SIGNS: Stable. HEENT: Normal. Membranes are moist. NECK: Supple. No adenopathy. HEART: Regular, normal S1, S2. LUNGS: Clear, no wheeze or rhonchi. ABDOMEN: Soft. He has some mild right lower quadrant tenderness along the inguinal area. No rebound, distention. Good bowel sounds. No masses. Good femoral distal pulses. No bruits or suggestion of aneurysm. He has no real flank pain at this time. NEUROLOGICAL: Alert and oriented x3. TREATMENT: Flank CT showed significant BPH, which he does seem symptomatic after I talked to him. CBC, chemistries, urinalysis are normal other than BUN up slightly at 25. He declined pain medication throughout he drove in. He really did not want anything. He said at rest he is not feeling bad. I advised him to use anti-inflammatories. I do suspect this is a strain of the ligament. He should rest because he plays golf almost every day and then follow up next week with Dr. Masterson in 3-5 days. Recheck sooner for worse pain, fever, chills, nausea or vomiting. The patient is stable, comfortable, will be careful. DIAGNOSIS: Acute right groin strain 3 days prior to arrival playing golf. MD Lindsay King C: Ivelisse Masterson DO T: [facility] JOB: [id number] 06/04/16 1520 <Electronically signed by Kaiden Mckee MD> Date Kaiden Mckee MD Cosigner Signature (If Indicated): Date CC: Ivelisse Masterson DO Date Dictated: 06/03/162320 Date Transcribed: 06/03/162320 Veneer Stacker: Signed Ivelisse Masterson Start: 06-03-2016 End: 06-03-2016 Discharge Instruction Comments: See Note; NOTES: [facility] Medical Records Department [address] [place] [address] Discharge Instruction 06/03/162121 MR#: [id number] Acct: [id number] Name: YOLY ISAACS Rep #: [id number] : 1950 66 From: Kaiden Mckee MD PCP: Ivelisse Masterson DO Status: REG ER ED Disposition - Plan for ED Patient: Chief Complaint: Other, Pain/Inj Instructions: ED Groin Strain, ED BPH (Enlarged Prostate) Referrals: Ivelisse Masterson DO [Primary Care Provider] - 3-5 Days if not improving What to do if you have Problems For any increased pain, shortness of breath, bleeding, nausea or vomiting, chest pain, or any unexpected problems, contact your doctor. Call [facility] ([phone]) or report to the closest Emergency Room. Call 911 if necessary. 06/03/162122 <Electronically signed by Kaiden Mckee MD> Date Kaiden Mckee MD Cosigner Signature (If Indicated): Date CC: Ivelisse Baxter Start: 06-03-2016 End: 06-03-2016 Abdomen/Pelvis without Cont Comments: See Note; NOTES: [facility] Imaging Services [address] [place] [address] Verdana 4d Abdomen/Pelvis without Cont MR#: [id number] Acct: [id number] Name: YOLY ISAACS Rep #: [id number] : 1950 66 From: Geoffrey Torrez MD PCP: Ivelisse Masterson DO Status: REG ER Study: Abdomen/Pelvis without Cont Date of Exam: 06/03/16 Exam# [id number] Ordering Dr: Kaiden Mckee MD STUDY: CT ABDOMEN AND PELVIS WITHOUT CONTRAST REASON FOR EXAM: Male, 66 years old. Pain. RADIATION DOSAGE (If Supplied By Facility): CTDIvol = ( 17.45 ) mGy, DLP = ( 971.81 ) mGycm TECHNIQUE: Transaxial images were obtained from the dome of the diaphragm to the symphysis pubis without oral contrast, and without intravenous contrast. Sagittal and coronal images were reconstructed. Individualized dose optimization techniques were used for this CT. COMPARISON: None. FINDINGS: The visualized lung bases are unremarkable. The visualized portions of the heart are within normal limits. Normal shape and size of the liver. There is a lobulated low attenuation structure consistent with 3.3 cm cyst in the medial segment of the left lobe of the liver, and smaller probable cysts along the inferior aspect of the right lobe. Normal gallbladder and extrahepatic biliary system. Normal spleen. Normal pancreas. Normal bilateral adrenal glands. Normal right kidney. Normal left kidney. Normal visualized stomach. Normal small intestine. Normal colon. The appendix is visualized and appears normal. Normal abdominal aorta. Normal inferior vena cava. Normal retroperitoneum. Normal urinary bladder. There is marked enlargement of the prostate gland. There is a small umbilical hernia containing fat. No significant inguinal hernias are seen. There are diffuse degenerative changes of the visualized lumbar spine. CT/Abdomen/Pelvis without Cont IMPRESSION: No acute abnormality. Liver cysts. Marked prostate enlargement. Electronically Signed: Geoffrey Torrez MD at 20:32 EDT , Service support [phone], CC: Kaiden Mckee MD; Ivelisse Masterson DO Veneer Stacker: Signed Ivelisse Masterson Start: 06-02-2016 End: 06-20-2016 Complete sleep workup (PSG,CPAP as indicated) & Follow up Sandee Rascon PA-C Work Phone: Start: 06-02-2016 End: 06-02-2016 CHARLY Rascon PA-C Work Phone: Start: 06-02-2016 End: 06-02-2016 Follow Up Appt 3 months Sandee Rascon PA-C Work Phone: Start: 02-02-2016 End: 02-15-2016 48 hour holter monitor Twan Gaffney MD Start: 02-02-2016 End: 02-02-2016 LICENSED ELECTRICIAN Twan Gaffney MD Start: 02-02-2016 End: 02-02-2016 Follow Up Appt 3 months Graciela Brush Start: 01-18-2016 End: 01-19-2016 Nuclear Stress Test - Chemical Comments: See Note; NOTES: [facility] Imaging Services [address] [place] [address] Fernanda 4d Nuclear Stress Test - Chemical MR#: [id number] Acct: [id number] Name: YOLY ISAACS Rep #: [id number] : 1950 65 From: Ciro Griffin MD Primary Care: Ivelisse Masterson DO Status: REG CLI Ordering Dr: Ivelisse Masterson DO Sex: M C DATE OF SERVICE: 01/18/2016 EXERCISE TOLERANCE TEST: The patient underwent pharmacologic (regadenoson) evaluation with a peak heart rate of 88 beats per minute (56% predicted maximum heart rate) and a peak blood pressure of 124/76 mmHg. The baseline ECG demonstrated underlying sinus bradycardia with a left bundle-branch block pattern. The peak pharmacologic ECG demonstrated continued left bundle-branch block pattern. There were no obvious cardiac dysrhythmias pretest, during pharmacologic infusion, recovery. There was no report of chest discomfort during pharmacologic infusion or recovery. The examination was discontinued secondary to completion of protocol. IMPRESSION: 1. Pharmacologic (regadenoson) evaluation. 2. Peak pharmacologic ECG considered indeterminate secondary to underlying left bundle-branch block pattern. 3. Nuclear images pending. MYOCARDIAL PERFUSION IMAGING STUDY: TECHNIQUE: The patient was injected with 14.4 mCi of Tc99m Cardiolite and subsequently rest SPECT Cardiolite nuclear imaging was obtained in the horizontal long, vertical long and short axes views. The patient underwent pharmacologic (regadenoson) evaluation with a peak heart rate of 88 beats per minute (56% predicted maximum heart rate) and a peak blood pressure of 124/76 mmHg. The patient was injected with 43.6 mCi of Tc99m Cardiolite and subsequently stress SPECT Cardiolite nuclear imaging was obtained in the horizontal long, vertical long and short axes views. A gated Cardiolite study at peak stress was obtained. INTERPRETATION: Rest and stress SPECT Cardiolite nuclear imaging, status post realignment and normalization, appear to demonstrate diminished tracer uptake in portions of the basal inferoseptal and basal inferior segments without significant change between rest and stress. There is notation of a small area of diminished tracer uptake through the mid to distal inferior segments as well as the distal anteroseptal segments. There are similar type changes on the resting and stress polar map images. There is end systolic thickening and brightening. The gated Cardiolite study demonstrates myocardial thickening and inward wall motion. The reported LVEF was 51%. The aforementioned changes may be compatible with a combination of soft tissue attenuation/artifact as well as the effects of the underlying left bundle-branch block phenomenon with no myocardial perfusion changes considered diagnostic for associated stress-induced myocardial ischemia or previous myocardial injury/infarction. IMPRESSION: 1. Rest and stress SPECT Cardiolite nuclear imaging demonstrate myocardial perfusion changes appearing compatible with the effects of soft tissue attenuation/artifact as well as potentially the effects of the underlying left bundle-branch block phenomenon with no myocardial perfusion changes considered diagnostic for associated stress-induced myocardial ischemia or previous myocardial injury/infarction. 2. The gated Cardiolite study reports an LVEF of 51%. Ciro Griffin MD T: NTS JOB: [id number] 01/19/16 0832 <Electronically signed by Ciro Griffin MD> Date Ciro Griffin MD CC: Ivelisse Masterson DO Date Dictated: 01/18/16904 Date Transcribed: 01/18/16904 Veneer Stacker: Signed Ivelisse Masterson Work Phone: Start: 01-17-2016 End: 01-17-2016 Echocardiogram Complete Comments: See Note; NOTES: [facility] Cardiovascular Services [address] [place] [address] Echo Complete 01/17/16 0947 MR#: [id number] Acct: [id number] Name: YOLY ISAACS Rep #: [id number] : 1950 65 From: Twan Gaffney MD Attending Dr: Ivelisse Masterson DO Status: REG CLI Ordering Dr: Ivelisse Masterson DO Date: 01/17/16 Location: [facility] Sex: M C Admitted: Reason For Study: Abn. EKG Procedure This was a 2D Doppler, Color Flow transthoracic echocardiogram. Exam performed in department. Left Ventricle Normal LV size. Mild to moderate global left ventricular systolic dysfunction. The estimated ejection fraction is 40 %. Septal motion consistent with IVCD. Transmitral and pulmonary venous doppler flow suggestive of impaired relaxation of left ventricle. There is mild to moderate global hypokinesis of the left ventricle. Mina : Hypokinetic. Right Ventricle Normal RV size. Normal systolic function. Atria Normal left atrium. Normal right atrium. Mitral Valve Normal mitral valve. Tricuspid Valve Normal tricuspid valve. Mild (1+) tricuspid valve insufficiency. Aortic Valve Normal aortic valve. Trisinus/trileaflet aortic valve. Pulmonic Valve Normal pulmonic valve. Great Vessels Normal aortic root. The pulmonary artery is normal size. Normal inferior vena cava. Pericardium/Pleural No pericardial effusion. MMode/2D Measurements AND Calculations LVIDd: 5.2 cm IVSd: 1.4 cm Ao root diam: 3.1 cm LVIDs: 3.5 cm LVPWd: 1.2 cm LA dimension: 3.8 cm RVDd: 3.0 cm FS: 31.9 % LAV(MOD-bp): 50.4 ml LA A4 area: 21.2 cm2 RA A4 area: 16.0 cm2 LAV(MOD-bp) Indexed: 23.3 ml/m2 LAV(MOD-sp2): 35.2 ml LAV(MOD-sp4): 67.3 ml Doppler Measurements AND Calculations MV E max sal: 71.8 cm/sec Lat Peak E' Sal: 8.2 cm/sec Med Peak E' Sal: 6.3 cm/sec MV A max sal: 92.2 cm/sec E/E' lat: 8.7 E/E' med: 11.4 MV E/A: 0.78 Ao V2 max: 149.1 cm/sec LV V1 max: 116.4 cm/sec PA V2 max: 118.2 cm/sec Ao max P.9 mmHg LV V1 max P.4 mmHg Ao max PG (full): 3.5 mmHg TR max sal: 219.5 cm/sec TR max P.3 mmHg Interpretation Summary Normal LV size. Mild to moderate global left ventricular systolic dysfunction. The estimated ejection fraction is 40 %. Septal motion consistent with IVCD. Mild (1+) tricuspid valve insufficiency. Ordering Physician: Ivelisse Masterson Performed By: Susanne Muñoz RDCS 01/17/16 1522 Date Twan Gaffney MD CC: Ivelisse Masterson DO Date Dictated: 01/17/16 0947 Date Transcribed: 01/17/161521 Veneer Stacker: Arianna Masterson Work Phone: Start: 01-12-2016 End: 01-12-2016 Ecg routine ecg w/least 12 lds w/i&r [MEASUREMENTS ANALYSIS] Date of Test: 01/12/2016 09:44:19; Heart Rate: 56; CA Interval: 172; QRS: 154; QT Interval: 468; Corrected QT Interval (QTc): 461; P [place]: 57; QRS [place]: 21; T [place]: -1; Blood Pressure: 115/70 [ECG DIAGNOSTIC STATEMENTS] Date of Test: 01/12/2016 09:44:19; Summary: Sinus Bradycardia -With rate variation cv = 10.-Left bundle branch block. ABNORMAL Ivelisse Jeanne Work Phone: Comment on above: nsr no acute chg but LBBB- i have no old one to compare Start: 11-18-2015 End: 11-18-2015 Chest PA and Lateral Comments: See Note; NOTES: [facility] Imaging Services [address] [place] [id number] [place] 4d Chest PA and Lateral MR#: [id number] Acct: [id number] Name: YOLY ISAACS Rep #: [id number] : 1950 M 65 From: Ilan Moore MD PCP: Ivelisse Masterson DO Status: REG CLI Study: Chest PA and Lateral Date of Exam: 11/18/15 Exam# [id number] Ordering Dr: Ivelisse Masterson DO STUDY: X-RAY CHEST REASON FOR EXAM: Male, 65 years old. COUGH TECHNIQUE: Frontal and lateral views of the chest. COMPARISON: None. FINDINGS: The lungs are clear and expanded. There is no demonstrated pleural abnormality. Normal size heart. Normal mediastinum and alexis. Normal visualized pulmonary arteries. Normal visualized aortic arch and descending thoracic aorta. There are diffuse degenerative changes of the visualized thoracic spine. Normal visualized ribs, clavicles, and shoulders. There is no demonstrated abnormality of the visualized soft tissue structures of the upper abdomen. IMPRESSION: There is no evidence of acute disease. Electronically Signed: Sam Moore MD at 14:12 EST Tel , Service support [phone], RAD/Chest PA and Lateral IMPRESSION: There is no evidence of acute disease. Electronically Signed: Sam Moore MD at 14:12 EST Tel , Service support [phone], CC: Ivelisse Masterson DO Veneer Stacker: Signed Ivelissenellie Crowellon Work Phone: Start: 11-18-2015 End: 11-18-2015 Spmtry w/vc expiratory sheba w/wo mxml vol vntj _ Ivelisse Masterson Work Phone: Comment on above: improved compared to previuos Start: 11-11-2015 End: 11-11-2015 Spmtry w/vc expiratory sheba w/wo mxml vol vntj _ Ivelisse Masterson Work Phone: Comment on above: flat inspir curve - restrictive lung Start: 10-13-2015 End: 10-13-2015 Spmtry w/vc expiratory sheba w/wo mxml vol vntj _ Shakira Rey Work Phone: Comment on above: moderate restriction Start: 02-09-2014 End: 02-09-2014 Chest PA and Lateral Comments: See Note; NOTES: [facility] Imaging Services [address] [place] [address] Radiology Report MR#: [id number] Acct: [id number] Name: YOLY ISAACS Rep #: [id number] : 1950 M 63 From: Avery Morrissey MD PCP: Ivelisse Masterson DO Status: REG CLI Study: Chest PA and Lateral Date of Exam: 02/09/14 Exam# [id number] Ordering Dr: Ivelisse Masterson DO STUDY: X-RAY CHEST REASON FOR EXAM: Male, 63 years old. Cough. Smoker. TECHNIQUE: Frontal and lateral views of the chest. COMPARISON: None. FINDINGS: There is hyperexpansion compatible with mild COPD. There is no demonstrated pleural abnormality. Normal size heart. Normal mediastinum and alexis. Normal visualized pulmonary arteries. There is aortic tortuosity. Normal visualized thoracic spine. Normal visualized ribs, clavicles, and shoulders. There is no demonstrated abnormality of the visualized soft tissue structures of the upper abdomen. IMPRESSION: Mild hyperexpansion compatible with mild COPD. No acute or active cardiopulmonary disease. Electronically Signed: Avery Morrissey MD at 16:34 EDT , Service support [phone], RAD/Chest PA and Lateral IMPRESSION: Mild hyperexpansion compatible with mild COPD. No acute or active cardiopulmonary disease. Electronically Signed: Avery Morrissey MD at 16:34 EDT , Service support [phone], CC: Ivelisse Masterson DO Veneer Stacker: Signed Ivelisse Masterson Work Phone: Start: 02-09-2014 End: 02-09-2014 Spmtry w/vc expiratory sheba w/wo mxml vol vntj _ Ivelisse Masterson Work Phone: Comment on above: normal Arthroscopic knee operation Sarah Ugarte Comment on above: 10/27 Arthroscopic knee operation Kyung Gravius DOPER OPERATOR Comment on above: 10/27 Arthroscopic Knee Surgery - Left Kyung Gravius Comment on above: 10/27 left eye surgery, macular went wet Kyung Gravius left eye surgery, macular went wet Sarah Ugarte left eye surgery, macular went wet Kyung Gravius DOPER OPERATOR Ophthalmic examinati on and evaluation Kyung Gravius Comment on above: 06/26 Ophthalmic examinati on and evaluation Sarah Ugarte Comment on above: 06/26 Ophthalmic examinati on and evaluation Kyung Gravius DOPER OPERATOR Comment on above: 06/26 Screening colonoscopy Kyung Gravius Comment on above: 04/25 Screening colonoscopy Sarah Ugarte Comment on above: 04/25 Screening colonoscopy Kyung Gravius DOPER OPERATOR Comment on above: 04/25 Plan of Treatment Date Care Activity Detail Author Start: 11-24-2023 [facility] Start: 07-20-2021 Procedure Education Eprescribed prescriptions (G8553) [facility]; [facility] Work Phone: Start: 09-29-2020 Procedure Education Eprescribed prescriptions (G8553) [facility]; [facility] Work Phone: Start: 02-12-2019 Lipoprotein blood lizett numbers & subclasses NMR Profile (50195) [facility]; [facility] Work Phone: Start: 02-12-2019 Protein mass conc NMR Profile (06314) [facility] Work Phone: Start: 02-12-2019 Provider Instructions for Treatment [facility] Work Phone: Start: 09-23-2018 Procedure Education Eprescribed prescriptions (G8553) [facility] Work Phone: Start: 09-23-2018 Provider Instructions for Treatment [facility] Work Phone: Start: 06-19-2018 Procedure Education Eprescribed prescriptions (G8553) [facility] Work Phone: Start: 06-14-2018 Provider Instructions for Treatment Reviewed Diagnostic Tests [facility] Work Phone: Start: 05-23-2018 Provider Instructions for Treatment [facility] Work Phone: Start: 03-28-2018 End: 03-28-2018 Appointment Appointment [facility] Work Phone: Start: 02-14-2018 Provider Instructions for Treatment [facility] Work Phone: Start: 02-14-2018 Oncology colorectal screening lizett 10 dna markrs Cologuard - Strool Based DNA Test, CRC SCREEN (25991) [facility] Work Phone: Start: 12-27-2017 Procedure Education Eprescribed prescriptions (G8553) [facility] Work Phone: Start: 12-27-2017 Provider Instructions for Treatment Follow up if no improvement or if symptoms worsen [facility] Work Phone: Start: 10-18-2017 Provider Instructions for Treatment [facility] Work Phone: Start: 10-18-2017 Assay of thyroid stimulating hormone tsh TSH (50425) [facility]; [facility] Work Phone: Start: 10-18-2017 Thyrotropin Qn TSH (13511) [facility] Work Phone: Start: 10-18-2017 Urnls dip stick/tablet reagent auto microscopy URINALYSIS, W/ MICRO (39851) [facility] Work Phone: Start: 10-18-2017 Urine albumin quantitative MICROALBUMIN: CREATININE RATIO (52498) AND (73653) [facility] Work Phone: Start: 10-18-2017 Comprehensive metabolic panel METABOLIC PANEL, COMPREHENSIVE (54732) [facility] Work Phone: Start: 10-18-2017 Lipid panel LIPID PANEL (22880) [facility] Work Phone: Start: 10-18-2017 Blood count complete auto&auto difrntl wbc CBC W/AUTO DIFF WBC (21196) [facility] Work Phone: Start: 08-08-2017 Procedure Education Eprescribed prescriptions (G8553) [facility] Work Phone: Start: 08-08-2017 Provider Instructions for Treatment Follow up in 2 weeks [facility] Work Phone: Start: 05-16-2017 Provider Instructions for Treatment [facility] Work Phone: Start: 05-16-2017 Hemoglobin A1c/Hemoglobin.total mass fraction (Bld) HgA1C , Office (70049) [facility] Work Phone: Start: 05-16-2017 Hemoglobin glycosylated a1c HgA1C , Office (40314) [facility]; [facility] Work Phone: Start: 03-27-2017 End: 03-27-2017 LICENSED ELECTRICIAN [facility] Work Phone: Start: 03-27-2017 End: 03-27-2017 Follow Up Appt 1 year Follow Up Appt 1 year [facility] Work Phone: Start: 01-24-2017 Procedure Education Eprescribed prescriptions (G8553) [facility] Work Phone: Start: 01-24-2017 Provider Instructions for Treatment [facility] Work Phone: Start: 01-10-2017 Provider Instructions for Treatment [facility] Work Phone: Start: 01-05-2017 Patient Education [facility] Work Phone: Start: 11-13-2016 Procedure Education Eprescribed prescriptions (G8553) [facility] Work Phone: Start: 11-13-2016 Provider Instructions for Treatment Continue Current Prescription(s) [facility] Work Phone: Start: 10-12-2016 Procedure Education Eprescribed prescriptions (G8553) [facility] Work Phone: Start: 10-12-2016 Provider Instructions for Treatment [facility] Work Phone: Start: 09-26-2016 End: 09-26-2016 Follow Up Appt 6 months Follow Up Appt 6 months [facility] Work Phone: Start: 09-26-2016 End: 09-26-2016 MMM MMM [facility] Work Phone: Start: 09-11-2016 Procedure Education Eprescribed prescriptions (G8553) [facility] Work Phone: Start: 09-11-2016 Provider Instructions for Treatment [facility] Work Phone: Start: 09-11-2016 Assay of thyroid stimulating hormone tsh TSH (35009) [facility]; [facility] Work Phone: Start: 09-11-2016 Thyrotropin Qn TSH (07415) [facility] Work Phone: Start: 09-11-2016 Urnls dip stick/tablet reagent auto microscopy URINALYSIS, W/ MICRO (11517) [facility] Work Phone: Start: 09-11-2016 Urine albumin quantitative MICROALBUMIN: CREATININE RATIO (06096) AND (95559) [facility] Work Phone: Start: 09-11-2016 Comprehensive metabolic panel METABOLIC PANEL, COMPREHENSIVE (47568) [facility] Work Phone: Start: 09-11-2016 Lipid panel LIPID PANEL (32501) [facility] Work Phone: Start: 09-11-2016 Blood count complete auto&auto difrntl wbc CBC W/AUTO DIFF WBC (58403) [facility] Work Phone: Start: 07-26-2016 Procedure Education Eprescribed prescriptions (G9580) [facility] Work Phone: Start: 07-26-2016 Provider Instructions for Treatment [facility] Work Phone: Start: 06-21-2016 End: 06-21-2016 LICENSED ELECTRICIAN LICENSED ELECTRICIAN [facility] Work Phone: Start: 06-21-2016 End: 06-21-2016 Follow Up Appt 3 months Follow Up Appt 3 months [facility] Work Phone: Start: 06-06-2016 Provider Instructions for Treatment Follow up in 3 months [facility] Work Phone: Start: 06-02-2016 End: 06-20-2016 Complete sleep workup (PSG,CPAP as indicated) & Follow up Complete sleep workup (PSG,CPAP as indicated) & Follow up [facility] Work Phone: Start: 06-02-2016 End: 06-02-2016 LICENSED ELECTRICIAN LICENSED ELECTRICIAN [facility] Work Phone: Start: 06-02-2016 End: 06-02-2016 Follow Up Appt 3 months Follow Up Appt 3 months [facility] Work Phone: Start: 02-02-2016 End: 02-02-2016 48 hour holter monitor 48 hour holter monitor [facility] Work Phone: Start: 02-02-2016 End: 02-02-2016 LICENSED ELECTRICIAN LICENSED ELECTRICIAN [facility] Work Phone: Start: 02-02-2016 End: 02-02-2016 Follow Up Appt 3 months Follow Up Appt 3 months [facility] Work Phone: Start: 01-21-2016 Provider Instructions for Treatment Reviewed Diagnostic Tests [facility] Work Phone: Start: 01-12-2016 Patient Education Blood Glucose Test: blood [facility] Work Phone: Start: 01-12-2016 Procedure Education Eprescribed prescriptions (G8553) [facility] Work Phone: Start: 01-12-2016 Provider Instructions for Treatment [facility] Work Phone: Start: 11-18-2015 Provider Instructions for Treatment Follow up in 2-3 weeks [facility] Work Phone: Start: 11-11-2015 Procedure Education Eprescribed prescriptions (G8553) [facility] Work Phone: Start: 11-11-2015 Provider Instructions for Treatment Follow up in 1 week- repeat spirometyr [facility] Work Phone: Start: 10-13-2015 Provider Instructions for Treatment [facility] Work Phone: Start: 10-13-2015 Iaadiadoo influenza Rapid Flu (70413 x 2) [facility] Work Phone: Start: 11-25-2014 Provider Instructions for Treatment [facility] Work Phone: Start: 02-23-2014 Blood occult fecal hgb deter ia qual feces 1-3 FECAL OCCULT- Tubes sent home (72313) [facility] Work Phone: Start: 02-23-2014 Provider Instructions for Treatment *Colon Cancer Screening [facility] Work Phone: Start: 02-09-2014 Provider Instructions for Treatment [facility] Work Phone: Start: 12-23-2013 Provider Instructions for Treatment Follow up if no improvement or if symptoms worsen [facility] Work Phone: Start: 02-20-2013 Provider Instructions for Treatment [facility] Work Phone: Start: 02-13-2013 Provider Instructions for Treatment [facility] Work Phone: Start: 01-23-2013 Provider Instructions for Treatment Follow up in 3 weeks [facility] Work Phone: Patient Education ED Laceration, Hand: All Closures [facility] Work Phone: Patient referral [facility] Work Phone: [facility] Work Phone: [facility] Work Phone: [facility] Work Phone: [facility] Work Phone: [facility] Work Phone: [facility] Work Phone[facility] Work Phone: [facility] Work Phone: [facility] Work Phone: [facility] Work Phone: [facility] Work Phone: [facility] Work Phone[facility] Work Phone: [facility] Work Phone[facility] Work Phone: [facility] Work Phone: [facility] Work Phone: [facility] Work Phone: Payers Date Payer Category Payer Self-pay [id number] 2018 Medicare [id number] 2017 [facility] and others) [id number] 2015 Medicare [id number] 2015 Medicare [id number] 1950 Unknown [id number] 1950 Unknown [id number] Unknown Unknown [id number] Social History Date Type Detail Facility Alcohol Use: Former smoker [facility] Work Phone: Caffeine Use [facility] Work Phone: Comment on above: qd none Exercise History: Exercises regularly. [facility] Work Phone: Living Situation: Lives with relatives. [facility] Work Phone: Tobacco use: Former smoker. [facility] Work Phone: Alcohol Use: Alcohol Use: [facility] Work Phone: Exercise History: Exercise History: [facility]; [facility] Work Phone: Living Situation: Living Situation: [facility]; [facility] Work Phone: Tobacco use: Tobacco use: [facility] Work Phone: Start: 11-24-2023 Tobacco smoking status NHIS Unknown if ever smoked [facility] Start: 1950 Sex Assigned At Male W [facility] Functional Status Date Assessment Result Facility 01-23-2019 LP-IR Score LP-IR Score 43 [facility] Work Phone: Comment on above: INSULIN RESISTANCE Graciela MELARA <--Insulin Sensitive Insulin Resistant--> Percentile in Reference PopulationInsulin Resistance ScoreLP-IR Score Low 25th 50th 75th High <27 27 45 63 >63LP-IR Score is inaccurate if patient is non-fasting. .The LP-IR score is a laboratory developed index that has beenassociated with insulin resistance and diabetes risk and should beused as one component of a physician's clinical assessment. TheLP-IR score listed above has not been cleared by the [place] Food andDrug Administration. PATIENT WAS FASTINGP ERFORMED BY: GEORGE [facility] [id number] [facility] [id number] BY: JACKIE [facility] [id number] [facility] [id number] Evaluation note Note Date & Type Note Facility Evaluation note No assessment information availa ble [facility] Work Phone: Hospital Discharge instructions Note Date & Type Note Facility Hospital Discharge instructions Additional Instructions Redness,Watch for any signs of infection such as significant swelling, pus, streaks, fever or increasing pain. If seen return as you may need to be put on antibiotic. Keep the area clean with soap and water. You can use antibiotic ointment daily. You can take the Steri-Strips off in 1 week. [facility] Work Phone: Instructions Note Date & Type Note Facility Instructions Name Patient Instructions Indication:BMI 32.0-32.9,adult Start:20-Jul-2021 Instruction Type:Provider Instructions for Treatment How to Access Health Information Online using Patient Portal and 3rd [employer] Apps Indication:BMI 32.0-32.9,adult Start:20-Jul-2021 Instruction Type:Patient Education How to Access Health Information Online using Patient Portal and [employer] Apps Indication:Non-smoker Start: 0 Instruction Type:Patient Education Patient Instructions Indication:Non-smoker Start: 0 Instruction Type:Provider Instructions for Treatment How to access health information online Indication:BMI 32.0-32.9,adult Start:12-Feb-2019 Instruction Type:Patient Education How to access health information online - Detail Indication:BMI 32.0-32.9,adult Start:12-Feb-2019 Instruction Type:Patient Education Patient Instructions Indication:BMI 32.0-32.9,adult Start:12-Feb-2019 Instruction Type:Provider Instructions for Treatment How to access health information online Indication:Abnormal glucose tolerance test Start: 8 Instruction Type:Patient Education How to access health information online - Detail Indication:Abnormal glucose tolerance test Start: 8 Instruction Type:Patient Education Patient Instructions Indication:Abnormal glucose tolerance test Start: 8 Instruction Type:Provider Instructions for Treatment How to access health information online Indication:COPD, mild Start:19-Jun-2018 Instruction Type:Patient Education How to access health information online - Detail Indication:COPD, mild Start:19-Jun-2018 Instruction Type:Patient Education Patient Instructions Indication:COPD, mild Start:19-Jun-2018 Instruction Type:Provider Instructions for Treatment How to access health information online Indication:BMI 30.0-30.9,adult Start: 8 Instruction Type:Patient Education How to access health information online - Detail Indication:BMI 30.0-30.9,adult Start: 8 Instruction Type:Patient Education Patient Instructions Indication:BMI 30.0-30.9,adult Start: 8 Instruction Type:Provider Instructions for Treatment How to access health information online Indication:Tobacco abuse Start:23-May-2018 Instruction Type:Patient Education Patient Instructions Indication:Tobacco abuse Start:23-May-2018 Instruction Type:Provider Instructions for Treatment obesity counseling Indication:Abnormal glucose tolerance test Start:14-Feb-2018 Instruction Type:Provider Instructions for Treatment How to access health information online Indication:Non-smoker Start:14-Feb-2018 Instruction Type:Patient Education How to access health information online - Detail Indication:Non-smoker Start:14-Feb-2018 Instruction Type:Patient Education Patient Instructions Indication:Non-smoker Start:14-Feb-2018 Instruction Type:Provider Instructions for Treatment How to access health information online Indication:BMI 29.0-29.9,adult Start: 8 Instruction Type:Patient Education How to access health information online - Detail Indication:BMI 29.0-29.9,adult Start: 8 Instruction Type:Patient Education Patient Instructions Indication:Wrist pain, acute, right Start: 8 Instruction Type:Provider Instructions for Treatment How to access health information online Indication:Non-smoker Start:18-Oct-2017 Instruction Type:Patient Education How to access health information online - Detail Indication:Non-smoker Start:18-Oct-2017 Instruction Type:Patient Education Patient Instructions Indication:Non-smoker Start:18-Oct-2017 Instruction Type:Provider Instructions for Treatment How to access health information online Indication:Right thigh pain Start: 7 Instruction Type:Patient Education How to access health information online - Detail Indication:Right thigh pain Start: Instruction Type:Patient Education Patient Instructions Indication:Right thigh pain Start: Instruction Type:Provider Instructions for Treatment How to access health information online Indication:Non-smoker Start:16-May-2017 Instruction Type:Patient Education How to access health information online - Detail Indication:Non-smoker Start:16-May-2017 Instruction Type:Patient Education Patient Instructions Indication:Non-smoker Start:16-May-2017 Instruction Type:Provider Instructions for Treatment obesity counseling Indication:KYRA on CPAP Start: Instruction Type:Provider Instructions for Treatment How to access health information online Indication:Annual physical exam Start: Instruction Type:Patient Education How to access health information online - Detail Indication:Annual physical exam Start: Instruction Type:Patient Education Patient Instructions Indication:Annual physical exam Start: Instruction Type:Provider Instructions for Treatment How to access health information online Indication:Tobacco abuse Start: Instruction Type:Patient Education How to access health information online - Detail Indication:Tobacco abuse Start: Instruction Type:Patient Education Patient Instructions Indication:Tobacco abuse Start: Instruction Type:Provider Instructions for Treatment How to access health information online Indication:Tobacco abuse Start: Instruction Type:Patient Education How to access health information online - Detail Indication:Tobacco abuse Start: Instruction Type:Patient Education How to access health information online Indication:Tobacco abuse Start: Instruction Type:Patient Education Patient Instructions Indication:Tobacco abuse Start: Instruction Type:Provider Instructions for Treatment How to access health information online Indication:Tobacco abuse Start: Instruction Type:Patient Education How to access health information online - Detail Indication:Tobacco abuse Start: Instruction Type:Patient Education How to access health information online Indication:Abdominal pain, acute Start: Instruction Type:Patient Education How to access health information online - Detail Indication:Abdominal pain, acute Start: Instruction Type:Patient Education Patient Instructions Indication:Abdominal pain, acute Start: Instruction Type:Provider Instructions for Treatment How to access health information online - Detail Indication:BMI 31.0-31.9,adult Start: 6 Instruction Type:Patient Education How to access health information online Indication:BMI 31.0-31.9,adult Start: 6 Instruction Type:Patient Education Patient Instructions Indication:BMI 31.0-31.9,adult Start: 6 Instruction Type:Provider Instructions for Treatment Patient Instructions Start: 6 Instruction Type:Provider Instructions for Treatment How to access health information online Start: 6 Instruction Type:Patient Education How to access health information online - Detail Start: 6 Instruction Type:Patient Education How to access health information online Indication:Abnormal glucose tolerance test Start: Instruction Type:Patient Education How to access health information online - Detail Indication:Abnormal glucose tolerance test Start: Instruction Type:Patient Education Patient Instructions Indication:Abnormal glucose tolerance test Start: Instruction Type:Provider Instructions for Treatment How to access health information online Indication:Cough Start:18-Nov-2015 Instruction Type:Patient Education How to access health information online - Detail Indication:Cough Start:18-Nov-2015 Instruction Type:Patient Education Patient Instructions Indication:Cough Start:18-Nov-2015 Instruction Type:Provider Instructions for Treatment How to access health information online Indication:Cough Start: 6 Instruction Type:Patient Education How to access health information online - Detail Indication:Cough Start: 6 Instruction Type:Patient Education Patient Instructions Indication:Cough Start: 6 Instruction Type:Provider Instructions for Treatment Patient Instructions Indication:Abnormal glucose tolerance test Start: 5 Instruction Type:Provider Instructions for Treatment Patient Instructions Indication:Abnormal glucose tolerance test Start: 5 Instruction Type:Provider Instructions for Treatment Patient Instructions Indication:Cough Start: 4 Instruction Type:Provider Instructions for Treatment Patient Instructions Indication:Other specified abnormal findings of blood chemistry Start:13-Feb-2013 Instruction Type:Provider Instructions for Treatment DISCONTINUED - Hemoglobin Glyclated (HGB A1C) (19675) Indication:Weight gain Start: 3 Instruction Type:Patient Education DISCONTINUED - LIPID PANEL (04387) Indication:Weight gain Start: 3 Instruction Type:Patient Education Patient Instructions Indication:Weight loss counseling, encounter for Start: 3 Instruction Type:Provider Instructions for Treatment [facility]; [facility] Work Phone: Instructions Note Date & Type Note Facility Instructions Name Patient Instructions Indication:BMI 32.0-32.9,adult Start:20-Jul-2021 Instruction Type:Provider Instructions for Treatment How to Access Health Information Online using Patient Portal and [employer]rd [employer] Apps Indication:BMI 32.0-32.9,adult Start:20-Jul-2021 Instruction Type:Patient Education How to Access Health Information Online using Patient Portal and [employer]rd [employer] Apps Indication:Non-smoker Start: 0 Instruction Type:Patient Education Patient Instructions Indication:Non-smoker Start: 0 Instruction Type:Provider Instructions for Treatment How to access health information online Indication:BMI 32.0-32.9,adult Start:12-Feb-2019 Instruction Type:Patient Education How to access health information online - Detail Indication:BMI 32.0-32.9,adult Start:12-Feb-2019 Instruction Type:Patient Education Patient Instructions Indication:BMI 32.0-32.9,adult Start:12-Feb-2019 Instruction Type:Provider Instructions for Treatment How to access health information online Indication:Abnormal glucose tolerance test Start: 8 Instruction Type:Patient Education How to access health information online - Detail Indication:Abnormal glucose tolerance test Start: 8 Instruction Type:Patient Education Patient Instructions Indication:Abnormal glucose tolerance test Start: 8 Instruction Type:Provider Instructions for Treatment How to access health information online Indication:COPD, mild Start:19-Jun-2018 Instruction Type:Patient Education How to access health information online - Detail Indication:COPD, mild Start:19-Jun-2018 Instruction Type:Patient Education Patient Instructions Indication:COPD, mild Start:19-Jun-2018 Instruction Type:Provider Instructions for Treatment How to access health information online Indication:BMI 30.0-30.9,adult Start: 8 Instruction Type:Patient Education How to access health information online - Detail Indication:BMI 30.0-30.9,adult Start: 8 Instruction Type:Patient Education Patient Instructions Indication:BMI 30.0-30.9,adult Start: 8 Instruction Type:Provider Instructions for Treatment How to access health information online Indication:Tobacco abuse Start:23-May-2018 Instruction Type:Patient Education Patient Instructions Indication:Tobacco abuse Start:23-May-2018 Instruction Type:Provider Instructions for Treatment obesity counseling Indication:Abnormal glucose tolerance test Start:14-Feb-2018 Instruction Type:Provider Instructions for Treatment How to access health information online Indication:Non-smoker Start:14-Feb-2018 Instruction Type:Patient Education How to access health information online - Detail Indication:Non-smoker Start:14-Feb-2018 Instruction Type:Patient Education Patient Instructions Indication:Non-smoker Start:14-Feb-2018 Instruction Type:Provider Instructions for Treatment How to access health information online Indication:BMI 29.0-29.9,adult Start: Instruction Type:Patient Education How to access health information online - Detail Indication:BMI 29.0-29.9,adult Start: 8 Instruction Type:Patient Education Patient Instructions Indication:Wrist pain, acute, right Start: Instruction Type:Provider Instructions for Treatment How to access health information online Indication:Non-smoker Start:18-Oct-2017 Instruction Type:Patient Education How to access health information online - Detail Indication:Non-smoker Start:18-Oct-2017 Instruction Type:Patient Education Patient Instructions Indication:Non-smoker Start:18-Oct-2017 Instruction Type:Provider Instructions for Treatment How to access health information online Indication:Right thigh pain Start: Instruction Type:Patient Education How to access health information online - Detail Indication:Right thigh pain Start: Instruction Type:Patient Education Patient Instructions Indication:Right thigh pain Start: Instruction Type:Provider Instructions for Treatment How to access health information online Indication:Non-smoker Start:16-May-2017 Instruction Type:Patient Education How to access health information online - Detail Indication:Non-smoker Start:16-May-2017 Instruction Type:Patient Education Patient Instructions Indication:Non-smoker Start:16-May-2017 Instruction Type:Provider Instructions for Treatment obesity counseling Indication:KYRA on CPAP Start: Instruction Type:Provider Instructions for Treatment How to access health information online Indication:Annual physical exam Start: Instruction Type:Patient Education How to access health information online - Detail Indication:Annual physical exam Start: Instruction Type:Patient Education Patient Instructions Indication:Annual physical exam Start: Instruction Type:Provider Instructions for Treatment How to access health information online Indication:Tobacco abuse Start: Instruction Type:Patient Education How to access health information online - Detail Indication:Tobacco abuse Start: Instruction Type:Patient Education Patient Instructions Indication:Tobacco abuse Start: Instruction Type:Provider Instructions for Treatment How to access health information online Indication:Tobacco abuse Start: Instruction Type:Patient Education How to access health information online - Detail Indication:Tobacco abuse Start: Instruction Type:Patient Education How to access health information online Indication:Tobacco abuse Start: Instruction Type:Patient Education Patient Instructions Indication:Tobacco abuse Start: Instruction Type:Provider Instructions for Treatment How to access health information online Indication:Tobacco abuse Start: Instruction Type:Patient Education How to access health information online - Detail Indication:Tobacco abuse Start: Instruction Type:Patient Education How to access health information online Indication:Abdominal pain, acute Start: Instruction Type:Patient Education How to access health information online - Detail Indication:Abdominal pain, acute Start: Instruction Type:Patient Education Patient Instructions Indication:Abdominal pain, acute Start: Instruction Type:Provider Instructions for Treatment How to access health information online - Detail Indication:BMI 31.0-31.9,adult Start: 6 Instruction Type:Patient Education How to access health information online Indication:BMI 31.0-31.9,adult Start: 6 Instruction Type:Patient Education Patient Instructions Indication:BMI 31.0-31.9,adult Start: 6 Instruction Type:Provider Instructions for Treatment Patient Instructions Start: Instruction Type:Provider Instructions for Treatment How to access health information online Start: Instruction Type:Patient Education How to access health information online - Detail Start: Instruction Type:Patient Education How to access health information online Indication:Abnormal glucose tolerance test Start: Instruction Type:Patient Education How to access health information online - Detail Indication:Abnormal glucose tolerance test Start:30-Mar-201 6 Instruction Type:Patient Education Patient Instructions Indication:Abnormal glucose tolerance test Start: 6 Instruction Type:Provider Instructions for Treatment How to access health information online Indication:Cough Start:18-Nov-2015 Instruction Type:Patient Education How to access health information online - Detail Indication:Cough Start:18-Nov-2015 Instruction Type:Patient Education Patient Instructions Indication:Cough Start:18-Nov-2015 Instruction Type:Provider Instructions for Treatment How to access health information online Indication:Cough Start: 6 Instruction Type:Patient Education How to access health information online - Detail Indication:Cough Start: 6 Instruction Type:Patient Education Patient Instructions Indication:Cough Start: 6 Instruction Type:Provider Instructions for Treatment Patient Instructions Indication:Abnormal glucose tolerance test Start: 5 Instruction Type:Provider Instructions for Treatment Patient Instructions Indication:Abnormal glucose tolerance test Start: 5 Instruction Type:Provider Instructions for Treatment Patient Instructions Indication:Cough Start: 4 Instruction Type:Provider Instructions for Treatment Patient Instructions Indication:Other specified abnormal findings of blood chemistry Start:13-Feb-2013 Instruction Type:Provider Instructions for Treatment DISCONTINUED - Hemoglobin Glyclated (HGB A1C) (75582) Indication:Weight gain Start: 3 Instruction Type:Patient Education DISCONTINUED - LIPID PANEL (45456) Indication:Weight gain Start: 3 Instruction Type:Patient Education Patient Instructions Indication:Weight loss counseling, encounter for Start: 3 Instruction Type:Provider Instructions for Treatment [facility]; [facility] Work Phone: Summary Purpose Family History No Family History Records FoundUnknown Family Member Name Dates Details Alcohol Abuse Comments:Father. Status:Active Diabetes Mellitus Comments:Father. Status:Active Hypertension Comments:Father. Status:Active Unknown Family Member Name Dates Details Alcohol Abuse Comments:Father. Status:Active Diabetes Mellitus Comments:Father. Status:Active Hypertension Comments:Father. Status:Active Unknown Family Member Name Dates Details Alcohol Abuse Comments:Father. Status:Active Diabetes Mellitus Comments:Father. Status:Active Hypertension Comments:Father. Status:Active Unknown Family Member Name Dates Details Alcohol Abuse Comments:Father. Status:Active Diabetes Mellitus Comments:Father. Status:Active Hypertension Comments:Father. Status:Active Unknown Family Member Name Dates Details Alcohol Abuse Comments:Father. Status:Active Diabetes Mellitus Comments:Father. Status:Active Hypertension Comments:Father. Status:Active Unknown Family Member Name Dates Details Alcohol Abuse Comments:Father. Status:Active Diabetes Mellitus Comments:Father. Status:Active Hypertension Comments:Father. Status:Active Relationship Condition Age at Onset Recorded Date/T jose sister Myocardial infarction Unknown Advance Directives No Advanced Directives Records Found Advance Directive Response Recorded Date/ Time Advance Directives No July 19, 2021 11:50am Living Will No November 24 9:11am Power of Bunk Assembler No November 24, 2023 9:11am Instructions Name Dates Details How to access health informa tion online Indication:BMI 32.0-32.9,adult Start:12-Feb-2019 Instruction Type:Patient Education How to access health informa tion online - Detail Indication:BMI 32.0-32.9,adult Start:12-Feb-2019 Instruction Type:Patient Education Patient Instructions Indication:BMI 32.0-32.9,adult Start:12-Feb-2019 Instruction Type:Provider Instructions for Treatment How to access health informa tion online Indication:Abnormal glucose tolerance test Start:23-Sep-2018 Instruction Type:Patient Education How to access health informa tion online - Detail Indication:Abnormal glucose tolerance test Start:23-Sep-2018 Instruction Type:Patient Education Patient Instructions Indication:Abnormal glucose tolerance test Start:23-Sep-2018 Instruction Type:Provider Instructions for Treatment How to access health informa tion online Indication:COPD, mild Start:19-Jun-2018 Instruction Type:Patient Education How to access health informa tion online - Detail Indication:COPD, mild Start:19-Jun-2018 Instruction Type:Patient Education Patient Instructions Indication:COPD, mild Start:19-Jun-2018 Instruction Type:Provider Instructions for Treatment How to access health informa tion online Indication:BMI 30.0-30.9,adult Start:14-Jun-2018 Instruction Type:Patient Education How to access health informa tion online - Detail Indication:BMI 30.0-30.9,adult Start:14-Jun-2018 Instruction Type:Patient Education Patient Instructions Indication:BMI 30.0-30.9,adult Start:14-Jun-2018 Instruction Type:Provider Instructions for Treatment How to access health informa tion online Indication:Tobacco abuse Start:23-May-2018 Instruction Type:Patient Education Patient Instructions Indication:Tobacco abuse Start:23-May-2018 Instruction Type:Provider Instructions for Treatment obesity counseling Indication:Abnormal glucose tolerance test Start:14-Feb-2018 Instruction Type:Provider Instructions for Treatment How to access health informa tion online Indication:Non-smoker Start:14-Feb-2018 Instruction Type:Patient Education How to access health informa tion online - Detail Indication:Non-smoker Start:14-Feb-2018 Instruction Type:Patient Education Patient Instructions Indication:Non-smoker Start:14-Feb-2018 Instruction Type:Provider Instructions for Treatment How to access health informa tion online Indication:BMI 29.0-29.9,adult Start:27-Dec-2017 Instruction Type:Patient Education How to access health informa tion online - Detail Indication:BMI 29.0-29.9,adult Start:27-Dec-2017 Instruction Type:Patient Education Patient Instructions Indication:Wrist pain, acute, right Start:27-Dec-2017 Instruction Type:Provider Instructions for Treatment How to access health informa tion online Indication:Non-smoker Start:18-Oct-2017 Instruction Type:Patient Education How to access health informa tion online - Detail Indication:Non-smoker Start:18-Oct-2017 Instruction Type:Patient Education Patient Instructions Indication:Non-smoker Start:18-Oct-2017 Instruction Type:Provider Instructions for Treatment How to access health informa tion online Indication:Right thigh pain Start:08-Aug-2017 Instruction Type:Patient Education How to access health informa tion online - Detail Indication:Right thigh pain Start:08-Aug-2017 Instruction Type:Patient Education Patient Instructions Indication:Right thigh pain Start:08-Aug-2017 Instruction Type:Provider Instructions for Treatment How to access health informa tion online Indication:Non-smoker Start:16-May-2017 Instruction Type:Patient Education How to access health informa tion online - Detail Indication:Non-smoker Start:16-May-2017 Instruction Type:Patient Education Patient Instructions Indication:Non-smoker Start:16-May-2017 Instruction Type:Provider Instructions for Treatment obesity counseling Indication:KYRA on CPAP Start:24-Jan-2017 Instruction Type:Provider Instructions for Treatment How to access health informa tion online Indication:Annual physical exam Start:24-Jan-2017 Instruction Type:Patient Education How to access health informa tion online - Detail Indication:Annual physical exam Start:24-Jan-2017 Instruction Type:Patient Education Patient Instructions Indication:Annual physical exam Start:24-Jan-2017 Instruction Type:Provider Instructions for Treatment How to access health informa tion online Indication:Tobacco abuse Start:10-Jan-2017 Instruction Type:Patient Education How to access health informa tion online - Detail Indication:Tobacco abuse Start:10-Jan-2017 Instruction Type:Patient Education Patient Instructions Indication:Tobacco abuse Start:10-Jan-2017 Instruction Type:Provider Instructions for Treatment How to access health informa tion online Indication:Tobacco abuse Start:05-Jan-2017 Instruction Type:Patient Education How to access health informa tion online - Detail Indication:Tobacco abuse Start:05-Jan-2017 Instruction Type:Patient Education Patient Instructions Indication:Tobacco abuse Start:05-Jan-2017 Instruction Type:Provider Instructions for Treatment How to access health informa tion online Indication:Tobacco abuse Start:13-Nov-2016 Instruction Type:Patient Education How to access health informa tion online - Detail Indication:Tobacco abuse Start:13-Nov-2016 Instruction Type:Patient Education How to access health informa tion online Indication:Abdominal pain, acute Start:12-Oct-2016 Instruction Type:Patient Education How to access health informa tion online - Detail Indication:Abdominal pain, acute Start:12-Oct-2016 Instruction Type:Patient Education Patient Instructions Indication:Abdominal pain, acute Start:12-Oct-2016 Instruction Type:Provider Instructions for Treatment How to access health informa tion online - Detail Indication:BMI 31.0-31.9,adult Start:11-Sep-2016 Instruction Type:Patient Education How to access health informa tion online Indication:BMI 31.0-31.9,adult Start:11-Sep-2016 Instruction Type:Patient Education Patient Instructions Indication:BMI 31.0-31.9,adult Start:11-Sep-2016 Instruction Type:Provider Instructions for Treatment Patient Instructions Start:26-Jul-2016 Instruction Type:Provider Instructions for Treatment How to access health informa tion online Start:26-Jul-2016 Instruction Type:Patient Education How to access health informa tion online - Detail Start:26-Jul-2016 Instruction Type:Patient Education How to access health informa tion online Indication:Abnormal glucose tolerance test Start:12-Jan-2016 Instruction Type:Patient Education How to access health informa tion online - Detail Indication:Abnormal glucose tolerance test Start:12-Jan-2016 Instruction Type:Patient Education Patient Instructions Indication:Abnormal glucose tolerance test Start:12-Jan-2016 Instruction Type:Provider Instructions for Treatment How to access health informa tion online Indication:Cough Start:18-Nov-2015 Instruction Type:Patient Education How to access health informa tion online - Detail Indication:Cough Start:18-Nov-2015 Instruction Type:Patient Education Patient Instructions Indication:Cough Start:18-Nov-2015 Instruction Type:Provider Instructions for Treatment How to access health informa tion online Indication:Cough Start:11-Nov-2015 Instruction Type:Patient Education How to access health informa tion online - Detail Indication:Cough Start:11-Nov-2015 Instruction Type:Patient Education Patient Instructions Indication:Cough Start:11-Nov-2015 Instruction Type:Provider Instructions for Treatment Patient Instructions Indication:Abnormal glucose tolerance test Start:03-Dec-2014 Instruction Type:Provider Instructions for Treatment Patient Instructions Indication:Abnormal glucose tolerance test Start:25-Nov-2014 Instruction Type:Provider Instructions for Treatment Patient Instructions Indication:Cough Start:23-Dec-2013 Instruction Type:Provider Instructions for Treatment Patient Instructions Indication:Other specified abnormal findings of blood chemistry Start:13-Feb-2013 Instruction Type:Provider Instructions for Treatment DISCONTINUED - Hemoglobin Glyclated (HGB A1C) (69255) Indication:Weight gain Start:23-Jan-2013 Instruction Type:Patient Education DISCONTINUED - LIPID PANEL ( [id number]) Indication:Weight gain Start:23-Jan-2013 Instruction Type:Patient Education Patient Instructions Indication:Weight loss counseling, encounter for Start:23-Jan-2013 Instruction Type:Provider Instructions for Treatment Name Dates Details How to Access Health Informa tion Online using Patient Portal and [employer] Apps Indication:Non-smoker Start:29-Sep-2020 Instruction Type:Patient Education Patient Instructions Indication:Non-smoker Start:29-Sep-2020 Instruction Type:Provider Instructions for Treatment How to access health informa tion online Indication:BMI 32.0-32.9,adult Start:12-Feb-2019 Instruction Type:Patient Education How to access health informa tion online - Detail Indication:BMI 32.0-32.9,adult Start:12-Feb-2019 Instruction Type:Patient Education Patient Instructions Indication:BMI 32.0-32.9,adult Start:12-Feb-2019 Instruction Type:Provider Instructions for Treatment How to access health informa tion online Indication:Abnormal glucose tolerance test Start:23-Sep-2018 Instruction Type:Patient Education How to access health informa tion online - Detail Indication:Abnormal glucose tolerance test Start:23-Sep-2018 Instruction Type:Patient Education Patient Instructions Indication:Abnormal glucose tolerance test Start:23-Sep-2018 Instruction Type:Provider Instructions for Treatment How to access health informa tion online Indication:COPD, mild Start:19-Jun-2018 Instruction Type:Patient Education How to access health informa tion online - Detail Indication:COPD, mild Start:19-Jun-2018 Instruction Type:Patient Education Patient Instructions Indication:COPD, mild Start:19-Jun-2018 Instruction Type:Provider Instructions for Treatment How to access health informa tion online Indication:BMI 30.0-30.9,adult Start:14-Jun-2018 Instruction Type:Patient Education How to access health informa tion online - Detail Indication:BMI 30.0-30.9,adult Start:14-Jun-2018 Instruction Type:Patient Education Patient Instructions Indication:BMI 30.0-30.9,adult Start:14-Jun-2018 Instruction Type:Provider Instructions for Treatment How to access health informa tion online Indication:Tobacco abuse Start:23-May-2018 Instruction Type:Patient Education Patient Instructions Indication:Tobacco abuse Start:23-May-2018 Instruction Type:Provider Instructions for Treatment obesity counseling Indication:Abnormal glucose tolerance test Start:14-Feb-2018 Instruction Type:Provider Instructions for Treatment How to access health informa tion online Indication:Non-smoker Start:14-Feb-2018 Instruction Type:Patient Education How to access health informa tion online - Detail Indication:Non-smoker Start:14-Feb-2018 Instruction Type:Patient Education Patient Instructions Indication:Non-smoker Start:14-Feb-2018 Instruction Type:Provider Instructions for Treatment How to access health informa tion online Indication:BMI 29.0-29.9,adult Start:27-Dec-2017 Instruction Type:Patient Education How to access health informa tion online - Detail Indication:BMI 29.0-29.9,adult Start:27-Dec-2017 Instruction Type:Patient Education Patient Instructions Indication:Wrist pain, acute, right Start:27-Dec-2017 Instruction Type:Provider Instructions for Treatment How to access health informa tion online Indication:Non-smoker Start:18-Oct-2017 Instruction Type:Patient Education How to access health informa tion online - Detail Indication:Non-smoker Start:18-Oct-2017 Instruction Type:Patient Education Patient Instructions Indication:Non-smoker Start:18-Oct-2017 Instruction Type:Provider Instructions for Treatment How to access health informa tion online Indication:Right thigh pain Start:08-Aug-2017 Instruction Type:Patient Education How to access health informa tion online - Detail Indication:Right thigh pain Start:08-Aug-2017 Instruction Type:Patient Education Patient Instructions Indication:Right thigh pain Start:08-Aug-2017 Instruction Type:Provider Instructions for Treatment How to access health informa tion online Indication:Non-smoker Start:16-May-2017 Instruction Type:Patient Education How to access health informa tion online - Detail Indication:Non-smoker Start:16-May-2017 Instruction Type:Patient Education Patient Instructions Indication:Non-smoker Start:16-May-2017 Instruction Type:Provider Instructions for Treatment obesity counseling Indication:KYRA on CPAP Start:24-Jan-2017 Instruction Type:Provider Instructions for Treatment How to access health informa tion online Indication:Annual physical exam Start:24-Jan-2017 Instruction Type:Patient Education How to access health informa tion online - Detail Indication:Annual physical exam Start:24-Jan-2017 Instruction Type:Patient Education Patient Instructions Indication:Annual physical exam Start:24-Jan-2017 Instruction Type:Provider Instructions for Treatment How to access health informa tion online Indication:Tobacco abuse Start:10-Jan-2017 Instruction Type:Patient Education How to access health informa tion online - Detail Indication:Tobacco abuse Start:10-Jan-2017 Instruction Type:Patient Education Patient Instructions Indication:Tobacco abuse Start:10-Jan-2017 Instruction Type:Provider Instructions for Treatment How to access health informa tion online Indication:Tobacco abuse Start:05-Jan-2017 Instruction Type:Patient Education How to access health informa tion online - Detail Indication:Tobacco abuse Start:05-Jan-2017 Instruction Type:Patient Education Patient Instructions Indication:Tobacco abuse Start:05-Jan-2017 Instruction Type:Provider Instructions for Treatment How to access health informa tion online Indication:Tobacco abuse Start:13-Nov-2016 Instruction Type:Patient Education How to access health informa tion online - Detail Indication:Tobacco abuse Start:13-Nov-2016 Instruction Type:Patient Education How to access health informa tion online Indication:Abdominal pain, acute Start:12-Oct-2016 Instruction Type:Patient Education How to access health informa tion online - Detail Indication:Abdominal pain, acute Start:12-Oct-2016 Instruction Type:Patient Education Patient Instructions Indication:Abdominal pain, acute Start:12-Oct-2016 Instruction Type:Provider Instructions for Treatment How to access health informa tion online - Detail Indication:BMI 31.0-31.9,adult Start:11-Sep-2016 Instruction Type:Patient Education How to access health informa tion online Indication:BMI 31.0-31.9,adult Start:11-Sep-2016 Instruction Type:Patient Education Patient Instructions Indication:BMI 31.0-31.9,adult Start:11-Sep-2016 Instruction Type:Provider Instructions for Treatment Patient Instructions Start:26-Jul-2016 Instruction Type:Provider Instructions for Treatment How to access health informa tion online Start:26-Jul-2016 Instruction Type:Patient Education How to access health informa tion online - Detail Start:26-Jul-2016 Instruction Type:Patient Education How to access health informa tion online Indication:Abnormal glucose tolerance test Start:12-Jan-2016 Instruction Type:Patient Education How to access health informa tion online - Detail Indication:Abnormal glucose tolerance test Start:12-Jan-2016 Instruction Type:Patient Education Patient Instructions Indication:Abnormal glucose tolerance test Start:12-Jan-2016 Instruction Type:Provider Instructions for Treatment How to access health informa tion online Indication:Cough Start:18-Nov-2015 Instruction Type:Patient Education How to access health informa tion online - Detail Indication:Cough Start:18-Nov-2015 Instruction Type:Patient Education Patient Instructions Indication:Cough Start:18-Nov-2015 Instruction Type:Provider Instructions for Treatment How to access health informa tion online Indication:Cough Start:11-Nov-2015 Instruction Type:Patient Education How to access health informa tion online - Detail Indication:Cough Start:11-Nov-2015 Instruction Type:Patient Education Patient Instructions Indication:Cough Start:11-Nov-2015 Instruction Type:Provider Instructions for Treatment Patient Instructions Indication:Abnormal glucose tolerance test Start:03-Dec-2014 Instruction Type:Provider Instructions for Treatment Patient Instructions Indication:Abnormal glucose tolerance test Start:25-Nov-2014 Instruction Type:Provider Instructions for Treatment Patient Instructions Indication:Cough Start:23-Dec-2013 Instruction Type:Provider Instructions for Treatment Patient Instructions Indication:Other specified abnormal findings of blood chemistry Start:13-Feb-2013 Instruction Type:Provider Instructions for Treatment DISCONTINUED - Hemoglobin Glyclated (HGB A1C) (35612) Indication:Weight gain Start:23-Jan-2013 Instruction Type:Patient Education DISCONTINUED - LIPID PANEL ( [id number]) Indication:Weight gain Start:23-Jan-2013 Instruction Type:Patient Education Patient Instructions Indication:Weight loss counseling, encounter for Start:23-Jan-2013 Instruction Type:Provider Instructions for Treatment Name Dates Details How to Access Health Informa tion Online using Patient Portal and [employer] Apps Indication:Non-smoker Start:29-Sep-2020 Instruction Type:Patient Education Patient Instructions Indication:Non-smoker Start:29-Sep-2020 Instruction Type:Provider Instructions for Treatment How to access health informa tion online Indication:BMI 32.0-32.9,adult Start:12-Feb-2019 Instruction Type:Patient Education How to access health informa tion online - Detail Indication:BMI 32.0-32.9,adult Start:12-Feb-2019 Instruction Type:Patient Education Patient Instructions Indication:BMI 32.0-32.9,adult Start:12-Feb-2019 Instruction Type:Provider Instructions for Treatment How to access health informa tion online Indication:Abnormal glucose tolerance test Start:23-Sep-2018 Instruction Type:Patient Education How to access health informa tion online - Detail Indication:Abnormal glucose tolerance test Start:23-Sep-2018 Instruction Type:Patient Education Patient Instructions Indication:Abnormal glucose tolerance test Start:23-Sep-2018 Instruction Type:Provider Instructions for Treatment How to access health informa tion online Indication:COPD, mild Start:19-Jun-2018 Instruction Type:Patient Education How to access health informa tion online - Detail Indication:COPD, mild Start:19-Jun-2018 Instruction Type:Patient Education Patient Instructions Indication:COPD, mild Start:19-Jun-2018 Instruction Type:Provider Instructions for Treatment How to access health informa tion online Indication:BMI 30.0-30.9,adult Start:14-Jun-2018 Instruction Type:Patient Education How to access health informa tion online - Detail Indication:BMI 30.0-30.9,adult Start:14-Jun-2018 Instruction Type:Patient Education Patient Instructions Indication:BMI 30.0-30.9,adult Start:14-Jun-2018 Instruction Type:Provider Instructions for Treatment How to access health informa tion online Indication:Tobacco abuse Start:23-May-2018 Instruction Type:Patient Education Patient Instructions Indication:Tobacco abuse Start:23-May-2018 Instruction Type:Provider Instructions for Treatment obesity counseling Indication:Abnormal glucose tolerance test Start:14-Feb-2018 Instruction Type:Provider Instructions for Treatment How to access health informa tion online Indication:Non-smoker Start:14-Feb-2018 Instruction Type:Patient Education How to access health informa tion online - Detail Indication:Non-smoker Start:14-Feb-2018 Instruction Type:Patient Education Patient Instructions Indication:Non-smoker Start:14-Feb-2018 Instruction Type:Provider Instructions for Treatment How to access health informa tion online Indication:BMI 29.0-29.9,adult Start:27-Dec-2017 Instruction Type:Patient Education How to access health informa tion online - Detail Indication:BMI 29.0-29.9,adult Start:27-Dec-2017 Instruction Type:Patient Education Patient Instructions Indication:Wrist pain, acute, right Start:27-Dec-2017 Instruction Type:Provider Instructions for Treatment How to access health informa tion online Indication:Non-smoker Start:18-Oct-2017 Instruction Type:Patient Education How to access health informa tion online - Detail Indication:Non-smoker Start:18-Oct-2017 Instruction Type:Patient Education Patient Instructions Indication:Non-smoker Start:18-Oct-2017 Instruction Type:Provider Instructions for Treatment How to access health informa tion online Indication:Right thigh pain Start:08-Aug-2017 Instruction Type:Patient Education How to access health informa tion online - Detail Indication:Right thigh pain Start:08-Aug-2017 Instruction Type:Patient Education Patient Instructions Indication:Right thigh pain Start:08-Aug-2017 Instruction Type:Provider Instructions for Treatment How to access health informa tion online Indication:Non-smoker Start:16-May-2017 Instruction Type:Patient Education How to access health informa tion online - Detail Indication:Non-smoker Start:16-May-2017 Instruction Type:Patient Education Patient Instructions Indication:Non-smoker Start:16-May-2017 Instruction Type:Provider Instructions for Treatment obesity counseling Indication:KYRA on CPAP Start:24-Jan-2017 Instruction Type:Provider Instructions for Treatment How to access health informa tion online Indication:Annual physical exam Start:24-Jan-2017 Instruction Type:Patient Education How to access health informa tion online - Detail Indication:Annual physical exam Start:24-Jan-2017 Instruction Type:Patient Education Patient Instructions Indication:Annual physical exam Start:24-Jan-2017 Instruction Type:Provider Instructions for Treatment How to access health informa tion online Indication:Tobacco abuse Start:10-Jan-2017 Instruction Type:Patient Education How to access health informa tion online - Detail Indication:Tobacco abuse Start:10-Jan-2017 Instruction Type:Patient Education Patient Instructions Indication:Tobacco abuse Start:10-Jan-2017 Instruction Type:Provider Instructions for Treatment How to access health informa tion online Indication:Tobacco abuse Start:05-Jan-2017 Instruction Type:Patient Education How to access health informa tion online - Detail Indication:Tobacco abuse Start:05-Jan-2017 Instruction Type:Patient Education Patient Instructions Indication:Tobacco abuse Start:05-Jan-2017 Instruction Type:Provider Instructions for Treatment How to access health informa tion online Indication:Tobacco abuse Start:13-Nov-2016 Instruction Type:Patient Education How to access health informa tion online - Detail Indication:Tobacco abuse Start:13-Nov-2016 Instruction Type:Patient Education How to access health informa tion online Indication:Abdominal pain, acute Start:12-Oct-2016 Instruction Type:Patient Education How to access health informa tion online - Detail Indication:Abdominal pain, acute Start:12-Oct-2016 Instruction Type:Patient Education Patient Instructions Indication:Abdominal pain, acute Start:12-Oct-2016 Instruction Type:Provider Instructions for Treatment How to access health informa tion online - Detail Indication:BMI 31.0-31.9,adult Start:11-Sep-2016 Instruction Type:Patient Education How to access health informa tion online Indication:BMI 31.0-31.9,adult Start:11-Sep-2016 Instruction Type:Patient Education Patient Instructions Indication:BMI 31.0-31.9,adult Start:11-Sep-2016 Instruction Type:Provider Instructions for Treatment Patient Instructions Start:26-Jul-2016 Instruction Type:Provider Instructions for Treatment How to access health informa tion online Start:26-Jul-2016 Instruction Type:Patient Education How to access health informa tion online - Detail Start:26-Jul-2016 Instruction Type:Patient Education How to access health informa tion online Indication:Abnormal glucose tolerance test Start:12-Jan-2016 Instruction Type:Patient Education How to access health informa tion online - Detail Indication:Abnormal glucose tolerance test Start:12-Jan-2016 Instruction Type:Patient Education Patient Instructions Indication:Abnormal glucose tolerance test Start:12-Jan-2016 Instruction Type:Provider Instructions for Treatment How to access health informa tion online Indication:Cough Start:18-Nov-2015 Instruction Type:Patient Education How to access health informa tion online - Detail Indication:Cough Start:18-Nov-2015 Instruction Type:Patient Education Patient Instructions Indication:Cough Start:18-Nov-2015 Instruction Type:Provider Instructions for Treatment How to access health informa tion online Indication:Cough Start:11-Nov-2015 Instruction Type:Patient Education How to access health informa tion online - Detail Indication:Cough Start:11-Nov-2015 Instruction Type:Patient Education Patient Instructions Indication:Cough Start:11-Nov-2015 Instruction Type:Provider Instructions for Treatment Patient Instructions Indication:Abnormal glucose tolerance test Start:03-Dec-2014 Instruction Type:Provider Instructions for Treatment Patient Instructions Indication:Abnormal glucose tolerance test Start:25-Nov-2014 Instruction Type:Provider Instructions for Treatment Patient Instructions Indication:Cough Start:23-Dec-2013 Instruction Type:Provider Instructions for Treatment Patient Instructions Indication:Other specified abnormal findings of blood chemistry Start:13-Feb-2013 Instruction Type:Provider Instructions for Treatment DISCONTINUED - Hemoglobin Glyclated (HGB A1C) ([id number]) Indication:Weight gain Start:23-Jan-2013 Instruction Type:Patient Education DISCONTINUED - LIPID PANEL ( [id number]) Indication:Weight gain Start:23-Jan-2013 Instruction Type:Patient Education Patient Instructions Indication:Weight loss counseling, encounter for Start:23-Jan-2013 Instruction Type:Provider Instructions for Treatment Name Dates Details How to Access Health Informa tion Online using Patient Portal and [employer] Apps Indication:Non-smoker Start:29-Sep-2020 Instruction Type:Patient Education Patient Instructions Indication:Non-smoker Start:29-Sep-2020 Instruction Type:Provider Instructions for Treatment How to access health informa tion online Indication:BMI 32.0-32.9,adult Start:12-Feb-2019 Instruction Type:Patient Education How to access health informa tion online - Detail Indication:BMI 32.0-32.9,adult Start:12-Feb-2019 Instruction Type:Patient Education Patient Instructions Indication:BMI 32.0-32.9,adult Start:12-Feb-2019 Instruction Type:Provider Instructions for Treatment How to access health informa tion online Indication:Abnormal glucose tolerance test Start:23-Sep-2018 Instruction Type:Patient Education How to access health informa tion online - Detail Indication:Abnormal glucose tolerance test Start:23-Sep-2018 Instruction Type:Patient Education Patient Instructions Indication:Abnormal glucose tolerance test Start:23-Sep-2018 Instruction Type:Provider Instructions for Treatment How to access health informa tion online Indication:COPD, mild Start:19-Jun-2018 Instruction Type:Patient Education How to access health informa tion online - Detail Indication:COPD, mild Start:19-Jun-2018 Instruction Type:Patient Education Patient Instructions Indication:COPD, mild Start:19-Jun-2018 Instruction Type:Provider Instructions for Treatment How to access health informa tion online Indication:BMI 30.0-30.9,adult Start:14-Jun-2018 Instruction Type:Patient Education How to access health informa tion online - Detail Indication:BMI 30.0-30.9,adult Start:14-Jun-2018 Instruction Type:Patient Education Patient Instructions Indication:BMI 30.0-30.9,adult Start:14-Jun-2018 Instruction Type:Provider Instructions for Treatment How to access health informa tion online Indication:Tobacco abuse Start:23-May-2018 Instruction Type:Patient Education Patient Instructions Indication:Tobacco abuse Start:23-May-2018 Instruction Type:Provider Instructions for Treatment obesity counseling Indication:Abnormal glucose tolerance test Start:14-Feb-2018 Instruction Type:Provider Instructions for Treatment How to access health informa tion online Indication:Non-smoker Start:14-Feb-2018 Instruction Type:Patient Education How to access health informa tion online - Detail Indication:Non-smoker Start:14-Feb-2018 Instruction Type:Patient Education Patient Instructions Indication:Non-smoker Start:14-Feb-2018 Instruction Type:Provider Instructions for Treatment How to access health informa tion online Indication:BMI 29.0-29.9,adult Start:27-Dec-2017 Instruction Type:Patient Education How to access health informa tion online - Detail Indication:BMI 29.0-29.9,adult Start:27-Dec-2017 Instruction Type:Patient Education Patient Instructions Indication:Wrist pain, acute, right Start:27-Dec-2017 Instruction Type:Provider Instructions for Treatment How to access health informa tion online Indication:Non-smoker Start:18-Oct-2017 Instruction Type:Patient Education How to access health informa tion online - Detail Indication:Non-smoker Start:18-Oct-2017 Instruction Type:Patient Education Patient Instructions Indication:Non-smoker Start:18-Oct-2017 Instruction Type:Provider Instructions for Treatment How to access health informa tion online Indication:Right thigh pain Start:08-Aug-2017 Instruction Type:Patient Education How to access health informa tion online - Detail Indication:Right thigh pain Start:08-Aug-2017 Instruction Type:Patient Education Patient Instructions Indication:Right thigh pain Start:08-Aug-2017 Instruction Type:Provider Instructions for Treatment How to access health informa tion online Indication:Non-smoker Start:16-May-2017 Instruction Type:Patient Education How to access health informa tion online - Detail Indication:Non-smoker Start:16-May-2017 Instruction Type:Patient Education Patient Instructions Indication:Non-smoker Start:16-May-2017 Instruction Type:Provider Instructions for Treatment obesity counseling Indication:KYRA on CPAP Start:24-Jan-2017 Instruction Type:Provider Instructions for Treatment How to access health informa tion online Indication:Annual physical exam Start:24-Jan-2017 Instruction Type:Patient Education How to access health informa tion online - Detail Indication:Annual physical exam Start:24-Jan-2017 Instruction Type:Patient Education Patient Instructions Indication:Annual physical exam Start:24-Jan-2017 Instruction Type:Provider Instructions for Treatment How to access health informa tion online Indication:Tobacco abuse Start:10-Jan-2017 Instruction Type:Patient Education How to access health informa tion online - Detail Indication:Tobacco abuse Start:10-Jan-2017 Instruction Type:Patient Education Patient Instructions Indication:Tobacco abuse Start:10-Jan-2017 Instruction Type:Provider Instructions for Treatment How to access health informa tion online Indication:Tobacco abuse Start:05-Jan-2017 Instruction Type:Patient Education How to access health informa tion online - Detail Indication:Tobacco abuse Start:05-Jan-2017 Instruction Type:Patient Education Patient Instructions Indication:Tobacco abuse Start:05-Jan-2017 Instruction Type:Provider Instructions for Treatment How to access health informa tion online Indication:Tobacco abuse Start:13-Nov-2016 Instruction Type:Patient Education How to access health informa tion online - Detail Indication:Tobacco abuse Start:13-Nov-2016 Instruction Type:Patient Education How to access health informa tion online Indication:Abdominal pain, acute Start:12-Oct-2016 Instruction Type:Patient Education How to access health informa tion online - Detail Indication:Abdominal pain, acute Start:12-Oct-2016 Instruction Type:Patient Education Patient Instructions Indication:Abdominal pain, acute Start:12-Oct-2016 Instruction Type:Provider Instructions for Treatment How to access health informa tion online - Detail Indication:BMI 31.0-31.9,adult Start:11-Sep-2016 Instruction Type:Patient Education How to access health informa tion online Indication:BMI 31.0-31.9,adult Start:11-Sep-2016 Instruction Type:Patient Education Patient Instructions Indication:BMI 31.0-31.9,adult Start:11-Sep-2016 Instruction Type:Provider Instructions for Treatment Patient Instructions Start:26-Jul-2016 Instruction Type:Provider Instructions for Treatment How to access health informa tion online Start:26-Jul-2016 Instruction Type:Patient Education How to access health informa tion online - Detail Start:26-Jul-2016 Instruction Type:Patient Education How to access health informa tion online Indication:Abnormal glucose tolerance test Start:12-Jan-2016 Instruction Type:Patient Education How to access health informa tion online - Detail Indication:Abnormal glucose tolerance test Start:12-Jan-2016 Instruction Type:Patient Education Patient Instructions Indication:Abnormal glucose tolerance test Start:12-Jan-2016 Instruction Type:Provider Instructions for Treatment How to access health informa tion online Indication:Cough Start:18-Nov-2015 Instruction Type:Patient Education How to access health informa tion online - Detail Indication:Cough Start:18-Nov-2015 Instruction Type:Patient Education Patient Instructions Indication:Cough Start:18-Nov-2015 Instruction Type:Provider Instructions for Treatment How to access health informa tion online Indication:Cough Start:11-Nov-2015 Instruction Type:Patient Education How to access health informa tion online - Detail Indication:Cough Start:11-Nov-2015 Instruction Type:Patient Education Patient Instructions Indication:Cough Start:11-Nov-2015 Instruction Type:Provider Instructions for Treatment Patient Instructions Indication:Abnormal glucose tolerance test Start:03-Dec-2014 Instruction Type:Provider Instructions for Treatment Patient Instructions Indication:Abnormal glucose tolerance test Start:25-Nov-2014 Instruction Type:Provider Instructions for Treatment Patient Instructions Indication:Cough Start:23-Dec-2013 Instruction Type:Provider Instructions for Treatment Patient Instructions Indication:Other specified abnormal findings of blood chemistry Start:13-Feb-2013 Instruction Type:Provider Instructions for Treatment DISCONTINUED - Hemoglobin Glyclated (HGB A1C) (34148) Indication:Weight gain Start:23-Jan-2013 Instruction Type:Patient Education DISCONTINUED - LIPID PANEL ( [id number]) Indication:Weight gain Start:23-Jan-2013 Instruction Type:Patient Education Patient Instructions Indication:Weight loss counseling, encounter for Start:23-Jan-2013 Instruction Type:Provider Instructions for Treatment Chief Complaint and Reason for Visit Chief Complaint laceration Additional Source Comments (unrecognized sect ion and content) No Status Records FoundNo Status Records FoundNo Status Records FoundNo Status Records FoundNo Status Records FoundNo Status Records Found INFORMATION SOURCE (unrecogn ized section and content) DATE CREATED AUTHOR 04/04/2018 [facility] DATE CREATED AUTHOR AUTHOR'S ORGANIZ ATION 12/04/[address] [facility] DATE CREATED AUTHOR AUTHOR'S ORGANIZ ATION 12/26/2018 [facility] DATE CREATED AUTHOR AUTHOR'S ORGANIZ ATION 02/03/2019 [facility] DATE CREATED AUTHOR AUTHOR'S ORGANIZ ATION 12/30/2019 [facility] DATE CREATED AUTHOR AUTHOR'S ORGANIZ ATION 11/30/2023 [facility] Care Teams (unrecognized sec tion and content) Team Status: Active Member Role Status Dates Dr. Ivelisse Masterson DO Family Provider Active Dr. Ivelisse Masterson DO Primary Care Provider Active Team Status: Inactive Member Role Status Dates Dr. Ivelisse Masterson DO Primary Care Provider Active Dr. Judd Griffith MD Emergency Provider Active Goals (unrecognized section and content) Goals may be documented in a n alternate section FOR RECORDS PERTAINING TO PATIENTS WHO ARE OR HAVE BEEN ENROLLED IN A CHEMICAL DEPENDENCY/SUBSTANCEABUSE PROGRAM, SOME INFORMATION MAY BE OMITTED. This clinical summary was aggregated from multiple sources. Caution should be exercised in using it in the provision of clinical care. This summary normalizes information from multiple sources, and as a consequence, information in this document may materially change the coding, format and clinical context of patient data. In addition, data may be omitted in some cases. CLINICAL DECISIONS SHOULD BE BASED ON THE PRIMARY CLINICAL RECORDS. [facility]. provides no warranty or guarantee of the accuracy or completeness of information in this document.
--- NOTE | 2025-08-30 12:05 | RAD_ITS ---
PROCEDURE: CHEST PA AND LATERAL 08/30/2025 REASON FOR EXAM: R ARM NUMBNESS AND TINGLING TECHNIQUE: Procedure Code: RADCXR Modality: DX Procedure: CHEST PA AND LATERAL COMPARISON: 07/19/2021 FINDINGS: Hardware: EKG leads overlie the chest Heart: The heart size is normal. Mediastinum: The mediastinal contour is unremarkable. Lungs: Chronic interstitial changes in both lung zhang without a superimposed acute pulmonary process. Bones: Degenerative bony changes RAD/Chest PA and Lateral IMPRESSION: Chronic interstitial changes, no superimposed acute pulmonary process Red Alert: Diffuse cerebral edema likely from anoxia The critical findings in the findings and impression above were relayed directl y by me by telephone to Oscar Echeverria on 08/30/2025 at 12:47 pm with readback verification. Reading Location: [id number]
[2025-08-30 12:34] LABS: Hematocrit 45.1 % (40-54); Hemoglobin 14.7 g/dL (13.0-16.5); Immature Granulocytes Count 0.040 X10^3/uL (0.0-0.0); Mean Corp Hgb Conc 32.6 g/dL (32-36); Mean Corpuscular Volume 89.5 fL (80-94); Mean Platelet Vol. 10.8 fl (6.2-12.0); NRBC Flagged by Analyzer 0 % (0-5); Platelet Count 198 K/mm3 (150-450); RBC Distribution Width CV 13.2 % (11.6-14.6); RBC Distribution Width SD 43.4 fl (35.1-43.9); Red Blood Count 5.04 M/mm3 (4.6-6.2); White Blood Count 9.1 K/mm3 (4.4-11.0)
[2025-08-30 12:43] LABS: Prothrombin Time (Protime)PT. 13.2 SECONDS (11.7-14.9)
[2025-08-30 12:44] LABS: Partial Thromboplast Time 31.6 Seconds (24.1-36.2)
[2025-08-30 13:07] LABS: Anion Gap 10 (5-15); BUN 22 mg/dL (4-19); BUN/Creat Ratio 22.7 RATIO (10-20); Calcium,Total 9.6 mg/dL (7.6-11.0); Carbon Dioxide 25.1 mmol/L (21.0-32.0); Chloride 103 mmol/L (98-108); Estimated Creatinine Clearance 76.42 ml/min (50-250); Glucose 88 mg/dL (70-99); Potassium 4.5 mmol/L (3.3-5.1); Troponin T High Sensitivity 11 ng/L (<=22)
[2025-08-30] MEDS: levETIRAcetam IV 1,000 MG/100 ML BAG 400 MG IV (13:49)
--- NOTE | 2025-08-30 14:41 | ED.RN ---
1436: REPORT CALLED [facility] AT THIS TIME. NO FURTHER QUESTIONS BY THE RECEIVING NURSE.
[2025-08-30 15:09] LABS: Troponin T High Sens 2 HR 10 ng/L (<=22)
== END 2025-08-30 15:20 | disposition other institution (70) ==
PROVIDERS: Emergency Provider Emergency Medicine; PCP Internal Medicine; Visit Provider Emergency Medicine
DX: I62.02 Nontraumatic subacute subdural hemorrhage (principal); I44.7 Left bundle-branch block, unspecified; Z87.891 Personal history of nicotine dependence
CPT/HCPCS: 70450; 71046; 80048; 84484; 85025; 85610; 85730; 93005; 96365; 96375; 96376; 99285; A4216

== ENCOUNTER 2025-09-17 12:57 | Emergency (ER) | payer MEDICARE, OTHER, SELFPAY ==
[2025-09-17] VITALS (7 sets, daily range): BP systolic 138–169; BP diastolic 77–90; PULSE 50–99; RESP 17–22; TEMP 36.8; O2SAT 92–99; BMI 35.4
--- NOTE | 2025-09-17 13:31 | EKG12_ITS ---
Test Reason : Blood Pressure : */* mmHG Vent. Rate : 56 BPM Atrial Rate : 56 BPM P-R Int : 186 ms QRS Dur : 164 ms QT Int : 452 ms P-R-T Axes : 51 4 149 degrees QTcB Int : 436 ms Sinus bradycardia Left bundle branch block Abnormal ECG Confirmed by RITU REYES MD ([id number]), editor producer ANA CRISTINA LICEA ([id number]) on 09/18/2025 9:12:46 AM Referred By: Confirmed By: RITU REYES MD
--- NOTE | 2025-09-17 13:31 | CT_ITS ---
PROCEDURE: BRAIN/HEAD WITHOUT CONTRAST 09/17/2025 REASON FOR EXAM: TIA, SPEECH, RECENT SUBDURAL TECHNIQUE: Procedure Code: CTBR Modality: CT Procedure: BRAIN/HEAD WITHOUT CONTRAST Coronal and Sagittal reconstruction series were provided. One or more dose reduction techniques were used (e.g., Automated exposure control, adjustment of the mA and/or kV according to patient size, use of iterative reconstruction technique. RADIATION DOSE SUMMARY: DLP: 829.25 mGycm COMPARISON: CT head 08/30/2025 FINDINGS: Redemonstrated left convexity subdural hematoma measuring 1.3 cm in depth, hypodense to adjacent brain parenchyma. 3 mm rightward midline shift. No acute transcortical infarct. There is no hydrocephalus. The mastoid air cells are clear. The paranasal sinuses are predominantly clear. Bilateral ocular lens replacements. The calvarium appears intact. CT/Brain/Head without Contrast IMPRESSION: Compared to CT of the head 08/30/2025, subacute left subdural hematoma grossly stable in size. 3 mm rightward midline shift. No CT evidence of acute transcortical infarct. Reading Location: [id number]
[2025-09-17 13:55] LABS: Hematocrit 44.8 % (40-54); Hemoglobin 14.7 g/dL (13.0-16.5); Immature Granulocytes Count 0.050 X10^3/uL (0.0-0.0); Mean Corp Hgb Conc 32.8 g/dL (32-36); Mean Corpuscular Volume 89.8 fL (80-94); Mean Platelet Vol. 10.3 fl (6.2-12.0); NRBC Flagged by Analyzer 0 % (0-5); Platelet Count 219 K/mm3 (150-450); RBC Distribution Width CV 13.2 % (11.6-14.6); RBC Distribution Width SD 43.2 fl (35.1-43.9); Red Blood Count 4.99 M/mm3 (4.6-6.2); White Blood Count 10.0 K/mm3 (4.4-11.0)
[2025-09-17 14:35] LABS: Anion Gap 9 (5-15); BUN 18 mg/dL (4-19); BUN/Creat Ratio 22.3 RATIO (10-20); Calcium,Total 9.4 mg/dL (7.6-11.0); Carbon Dioxide 26.2 mmol/L (21.0-32.0); Chloride 101 mmol/L (98-108); Estimated Creatinine Clearance 94.00 ml/min (50-250); Glucose 113 mg/dL (70-99); Potassium 4.5 mmol/L (3.3-5.1)
--- NOTE | 2025-09-17 14:41 | EDS_ITS ---
HPI History of Present Illness Chief Complaint: Numb/Ting Narrative Narrative: Patient is a 75-year-old male presenting to the emergency department for right arm paresthesias intermittently and an episode of aphasia today. Patient recently had a subdural hematoma on August 30. He was transferred to [facility]. States that he has had the right arm paresthesias intermittently since then however the aphasia is new. He states he was reading a manual and could understand the words but could not get the words out. States that it lasted for a few seconds to minutes. He denies any slurred speech, difficulty with his vision, numbness or weakness in his legs or left arm. Denies any recent head trauma or falls. He is not on any oral anticoagulation. [facility] Medical History Subdural hematoma Paresthesia of arm Emphysema lung Hypercholesteremia KYRA on CPAP Venous (peripheral) insufficiency Dehydration Weight gain Enlarged prostate Hx of basal cell carcinoma COPD (chronic obstructive pulmonary disease) Restless sleeper Emphysematous bleb Elevated PSA Abnormal glucose tolerance test Cardiomyopathy Hemangioma Abnormal radionuclide heart study Obesity Olecranon bursitis of left elbow Obstructive sleep apnea Vasovagal syncope Snoring Dilated cardiomyopathy Hyperlipidemia Sinus bradycardia Left bundle branch block Home Medications ?Medication ?Instructions ?Recorded ?Last Taken ?Type lisinopril 5 mg tablet 5 mg PO QDAY 09/05/25 History levetiracetam 750 mg tablet 750 mg PO DAILY 09/09/25 1 11/18/24 History doxycycline hyclate 100 mg capsule 100 mg PO DAILY kiana n 09/17/25 09/17/25 History Allergy/AdvReac Type Severity Reaction Status Date / Time No Known Allergies Allergy Verified 09/17/25 13:00 Family History Sister Myocardial infarction Surgical History H/O arthroscopic knee surgery History of colonoscopy Social History Smoking Status: Former smoker how long ago did patient quit smoking: quit 5 weeks ago alcohol intake: current Alcohol type: beer substance use type: does not use caffeine: Yes Type: coffee Number of servings: 2 what type of physical activity do you participate in: none seatbelt use: always do you feel safe at home: Yes ROS ROS ED ROS Narrative See HPI EXAM Physical Exam Narrative Exam Narrative: Vital signs: Reviewed General: Alert and oriented x 3. No acute distress. Well-appearing, nontoxic HEENT: Head is normocephalic and atraumatic, sinuses nontender, pupils equal round and reactive. Extraocular movements intact. Nares are patent. Oropharynx and throat exams normal. Neck: Supple without lymphadenopathy nontender Cardiovascular: Regular rate and rhythm, no murmurs. No rubs or gallops. Normal S1 and S2 Respiratory: Clear to auscultation bilaterally. No wheezes, rales, rhonchi Abdominal: Soft and nontender. Normal bowel sounds. No guarding or rebound. Nonsurgical abdomen Extremities: No tenderness. No bruising. Normal range of motion. Normal sensation. Skin: No rash or redness. The rest of the physical exam is unremarkable Const Vital Signs: 09/17/25 12:58 09/17/25 14:40 09/17/25 14:57 Temperature 98.2 F 98.2 F Temperature Source Oral Pulse Rate 73 64 66 Respiratory Rate 18 17 18 Blood Pressure 169/90 H 138/77 H 165/80 H Blood Pressure Mean 116 97 108 Pulse Ox 97 97 98 Oxygen Delivery Method Room Air Room Air NIHSS NIHSS Initial: 1a Level of Consciousness: 0 1b LOC Questions (Score 2 if aphasic/stupor): 0 1c LOC Commands (Only score 1st attempt): 0 2 Best Gaze (If aphasic, use reflexive mvmts.): 0 3 Visual: 0 4 Facial Palsy: 0 5 Motor Arm Right (UN = amputation/fusion): 0 5 Motor Arm Left: 0 6 Motor Leg Right: 0 6 Motor Leg Left: 0 7 Limb ataxia (Only + if out of proportion): 0 8 Sensory (Aphasia/stupor=0 or 1, coma=2): 0 9 Best Language: 0 10 Dysarthria (mute, coma=2, intubated=UN): 0 11 Extinction and Inattention (only scored if +): 0 Total Score: 0 MDM MDM MDM Narrative Medical decision making narrative: Patient is a 75-year-old male presenting to the emergency department with intermittent right arm paresthesias and an episode of aphasia today. Patient was seen and examined. Vitals are stable. Patient resting in bed comfortably no acute distress. Differential includes but is not limited to: TIA, recurrent subdural Concern at this time would be possible TIA. CT of the brain, basic blood work and EKG obtained. CBC with leukocytosis and a normal hemoglobin. BMP with no significant abnormalities. EKG shows sinus bradycardia at a rate of 56 with a left bundle branch block. Negative Sgarbossa's criteria. CT of the brain shows the subacute left subdural hematoma grossly stable in size however now with a 3 mm rightward midline shift. Patient reevaluated and updated on the findings. Patient was previously treated at [facility], will transfer there for further management. Patient agreeable with the plan. Spoke with neurosurgeon, Dr. Jean who recommended NSICU. I spoke to CHRISTO Gamino, in the NSICU for transfer of the patient and he was accepted by Dr. Garcia. Hanny asked that a CTA of the head and neck be obtained to rule out LVO. This will be ordered, however I have very low suspicion for LVO given the patients NIH is 0 here. Clinical impression: Subacute subdural hematoma Intermittent right arm paresthesia Aphasia History & Record Review Discussion w/independent historian: Patient Additional record(s) reviewed:: Prior ED visit and Prior labs Lab Data Attestation: I reviewed the patient's lab results. Labs: Laboratory Results - last 24 hr 09/17/25 13:40 WBC 10.0 RBC 4.99 Hgb 14.7 Hct 44.8 MCV 89.8 MCH 29.5 MCHC 32.8 RDW Std Deviation 43.2 RDW Coeff of Claudia 13.2 Plt Count 219 MPV 10.3 Immature Gran % (Auto) 0.500 Neut % (Auto) 65.2 Lymph % (Auto) 23.4 [place] % (Auto) 7.4 Eos % (Auto) 3.1 Baso % (Auto) 0.4 Absolute Neuts (auto) 6.5 Absolute Lymphs (auto) 2.33 Nucleated RBC % 0 Sodium 137 Potassium 4.5 Chloride 101 Carbon Dioxide 26.2 Anion Gap 9 BUN 18 Creatinine 0.80 Estim Creat Clear Calc 94.00 Est GFR (MDRD) Non-Af 92 BUN/Creatinine Ratio 22.3 H Glucose 113 H Calcium 9.4 Radiography Diagnostic Testing: Clinical Impression(s) from Imaging Studies Brain CT 09/17/25 13:31 IMPRESSION: Compared to CT of the head 08/30/2025, subacute left subdural hematoma grossly stable in size. 3 mm rightward midline shift. No CT evidence of acute transcortical infarct. Reading Location: [facility] Discharge Plan Triage Chief Complaint: Numb/Ting ED Provider: Ashlyn Singletary Dx/Rx/DC Orders Prescriptions: No Action levetiracetam 750 mg tablet 750 mg PO DAILY lisinopril 5 mg tablet 5 mg PO QDAY doxycycline hyclate 100 mg capsule 100 mg PO DAILY Primary Care Provider: Ivelisse Angel Referrals: Ivelisse Angel DO [Primary Care Provider, Internal Medicine] Print Language: Marshallese
--- NOTE | 2025-09-17 15:30 | CT_ITS ---
PROCEDURE: CTA HEAD AND NECK W/ CONTRAST 09/17/2025 REASON FOR EXAM: FOR TRANSFER TECHNIQUE: Procedure Code: CTCTA.HDNCK Modality: CT Procedure: CTA HEAD AND NECK W/ CONTRAST Multiplanar Sagittal and Coronal images were obtained. CONTRAST: Isovue 370 VOLUME: 100 mL One or more dose reduction techniques were used (e.g., Automated exposure control, adjustment of the mA and/or kV according to patient size, use of iterative reconstruction technique). RADIATION DOSE SUMMARY: CTDlvol: 20.43 mGy DLP: 849.73 mGycm COMPARISON: None FINDINGS: Aortic Arch: Normal size and branching pattern. No significant atherosclerotic plaque. Brachiocephalic and Subclavians: Unremarkable RIGHT Carotid: Right CCA: Unremarkable. Right ICA: Unremarkable. Right ECA: Unremarkable. LEFT Carotid: Left CCA: Unremarkable. Left ICA: Unremarkable. Left ECA: Unremarkable. Vertebrals: Codominant. Arise from the subclavians. Both vertebrals form the basilar. RIGHT Vertebral: Unremarkable. LEFT Vertebral: Unremarkable. Anatomy: [place] anatomy is normal. Aneurysm or avm: No intracranial aneurysms or large vascular malformations are identified. Anterior cerebral arteries: Unremarkable: Middle cerebral arteries: Unremarkable. Basilar artery: Unremarkable. Posterior cerebral arteries: Unremarkable. Other major branches of the posterior circulation: Unremarkable. Major venous structures: Unremarkable. Other findings: Neck: No lymphadenopathy. Lungs: Lung apices are clear. Bones: Bones are unremarkable. CT/CTA Head AND Neck W/ Contrast IMPRESSION: No hemodynamically significant stenosis in the head and neck. No aneurysm. Reading Location: [facility]
--- NOTE | 2025-09-17 19:32 | ED.RN ---
Report called to Sarah at [facility]
== END 2025-09-17 22:30 | disposition short-term general hospital (02) ==
PROVIDERS: Emergency Provider Student in an Organized Health Care Education/Training Program; PCP Internal Medicine; Visit Provider Student in an Organized Health Care Education/Training Program
DX: I62.02 Nontraumatic subacute subdural hemorrhage (principal); R20.2 Paresthesia of skin; R47.01 Aphasia; R29.700 NIHSS score 0; I10 Essential (primary) hypertension; Z79.899 Other long term (current) drug therapy; Z87.891 Personal history of nicotine dependence
CPT/HCPCS: 70450; 70496; 70498; 80048; 85025; 93005; 99285; Q9967; A4216